=== PATIENT | female | born 1995 | race Two or more races ===

== ENCOUNTER 2016-08-28 09:55 | Inpatient (IN) | payer OTHER ==
[~2016-08-28] VITALS: Ht 160 cm; Wt 86.2 kg
[2016-08-28] MEDS ORDERED: ACETAMINOPHEN 325 MG TABLET. PO ONE (11:15)
[2016-08-28] MEDS ORDERED: FENTANYL PF 100 MCG/2 ML VIAL. IV ONE (11:15)
--- NOTE | 2016-08-28 11:16 | PHYS DOC ---
Past Medical History Past Medical History: No Pertinent History, Other Additional Past Medical Histor: PNA 6 WKS AGO Past Surgical History: , Tonsillectomy Additional Past Surgical Histo: wisdome teeth, D&C x 2 Alcohol Use: None Drug Use: None Adult General Chief Complaint Chief Complaint: SORE THROAT HPI HPI Patient is a 21 year old female presents the emergency room today with complaint of fevers, nausea and vomiting, bilateral ear pain, sore throat and body aches and been ongoing for approximately 5 days. Patient was initially seen at [facility] in [place] where is reported that she had negative mononucleosis, strep or influenza test done. She was then seen by her primary care doctor diagnosed with UTI. Patient states that she feels that she continues to get worse with generalized weakness and worsening of her overall condition. She was initially prescribed Keflex for UTI and then her primary care doctor prescribed her doxycycline for broader coverage to include respiratory pathogens. Review of Systems Review of Systems Constitutional: Denies fever or chills [] Eyes: Denies change in visual acuity, redness, or eye pain [] HENT: Denies nasal congestion or sore throat [] Respiratory: Denies cough or shortness of breath [] Cardiovascular: No additional information not addressed in HPI [] GI: Denies abdominal pain, nausea, vomiting, bloody stools or diarrhea [] : Denies dysuria or hematuria [] Musculoskeletal: Denies back pain or joint pain [] Integument: Denies rash or skin lesions [] Neurologic: Denies headache, focal weakness or sensory changes [] Endocrine: Denies polyuria or polydipsia [] Current Medications Current Medications Current Medications Medications (Trade) Dose Ordered Sig/Minerva Start Time Stop Time Status Last Admin Dose Admin Acetaminophen (Tylenol) 650 mg 1X ONCE 08/28/16 11:15 08/28/16 11:16 DC 08/28/16 11:35 650 MG Ceftriaxone Sodium (Rocephin 1gm Ivpb For Omni) 50 ml @ 100 mls/hr 1X ONCE 08/28/16 12:30 08/28/16 12:59 DC 08/28/16 12:40 100 MLS/HR Dexamethasone Sodium Phosphate (Decadron) 20 mg 1X ONCE 08/28/16 12:30 08/28/16 12:31 DC 08/28/16 12:39 20 MG Fentanyl Citrate (Fentanyl 2ml Vial) 50 mcg 1X ONCE 08/28/16 11:15 08/28/16 11:16 DC 08/28/16 11:32 50 MCG Morphine Sulfate 5 mg 1X ONCE 08/28/16 12:30 08/28/16 12:31 DC 08/28/16 12:38 5 MG Ondansetron HCl 4 mg 4 mg 1X ONCE 08/28/16 11:30 08/28/16 11:31 DC 08/28/16 11:31 4 MG Sodium Chloride (Iv Sodium Chloride 0.9% 1000ml Bag) 1,000 ml @ 1,000 mls/hr Q1H 08/28/16 11:10 08/28/16 13:09 DC 08/28/16 12:36 1,000 MLS/HR Allergies Allergies Allergies Coded Allergies Type Severity Reaction Last Updated Verified No Known Drug Allergies 11/21/15 No Physical Exam Physical Exam Constitutional: This is an alert but febrile female in moderate amount of distress. HENT: Normocephalic, atraumatic, bilateral external ears normal, oropharynx moist, no oral exudates, nose normal. There is no trismus or hot potato speech. She does posterior oropharynx is grossly erythematous and with some plicae type lesions to her tonsils. She has also vesicular type lesions to the surrounding posterior oropharynx. There is no peritonsillar swelling or uvular deviation. Eyes: PERRLA, EOMI, conjunctiva normal, no discharge. [] Neck: Normal range of motion, no tenderness, supple, no stridor. There is no meningismus. There is bilateral anterior and posterior cervical lymphadenopathy. Cardiovascular:Heart rate 126 with regular rhythm, no murmur. Lungs & Thorax: Bilateral breath sounds clear to auscultation [] Abdomen: Abdomen is soft and nondistended. There are normoactive bowel sounds in all 4 quadrants. There is no palpable defect to the abdominal wall or pulsatile mass. There is no rebound or guarding. Skin: Warm, dry, no erythema, no rash. [] Back: Patient's back is normal in appearance. There is no CVA tenderness. Extremities: No tenderness, no cyanosis, no clubbing, ROM intact, no edema. [] Neurologic: Alert and oriented X 3, normal motor function, normal sensory function, no focal deficits noted. Psychologic: Affect normal, judgement normal, mood normal. [] Current Patient Data Vital Signs Vital Signs Date Time Temp Pulse Resp B/P Pulse Ox O2 Delivery O2 Flow Rate FiO2 08/28/16 12:26 108 128/74 95 Room Air 08/28/16 10:27 101.3 20 101.3 Lab Values Laboratory Tests Test 08/28/16 11:25 08/28/16 11:35 White Blood Count 8.3x10^3/uL (4.0-11.0) Red Blood Count 4.68x10^6/uL (3.50-5.40) Hemoglobin 12.9g/dL (12.0-15.5) Hematocrit 38.3% (36.0-47.0) Mean Corpuscular Volume 82fL (79-100) Mean Corpuscular Hemoglobin 28pg (25-35) Mean Corpuscular Hemoglobin Concent 34g/dL (31-37) Red Cell Distribution Width 13.7% (11.5-14.5) Platelet Count 396x10^3/uL (140-400) Neutrophils (%) (Auto) 75% (31-73) H Lymphocytes (%) (Auto) 15% (24-48) L Monocytes (%) (Auto) 10% (0-9) H Eosinophils (%) (Auto) 0% (0-3) Basophils (%) (Auto) 1% (0-3) Neutrophils # (Auto) 6.2x10^3uL (1.8-7.7) Lymphocytes # (Auto) 1.2x10^3/uL (1.0-4.8) Monocytes # (Auto) 0.8x10^3/uL (0.0-1.1) Eosinophils # (Auto) 0.0x10^3/uL (0.0-0.7) Basophils # (Auto) 0.0x10^3/uL (0.0-0.2) Prothrombin Time 12.4SEC (11.7-14.0) Prothrombin Time INR 1.0 (0.8-1.1) Urine Collection Type Unknown Urine Color Yellow Urine Clarity Clear Urine pH 5.5 Urine Specific [place] 1.015 Urine Protein 30mg/dL (NEG-TRACE) Urine Glucose (UA) Negativemg/dL (NEG) Urine Ketones (Stick) Tracemg/dL (NEG) Urine Blood Small (NEG) Urine Nitrite Negative (NEG) Urine Bilirubin Negative (NEG) Urine Urobilinogen Dipstick 0.2mg/dL (0.2 mg/dL) Urine Leukocyte Esterase Trace (NEG) Urine RBC 6-10/HPF (0-2) Urine WBC 5-10/HPF (0-4) Urine Squamous Epithelial Cells Few/LPF Urine Bacteria Few/HPF (0-FEW) Urine Mucus Slight/LPF Urine Test Negative (NEG) Sodium Level 140mmol/L (136-145) Potassium Level 3.8mmol/L (3.5-5.1) Chloride Level 101mmol/L (98-107) Carbon Dioxide Level 30mmol/L (21-32) Anion Gap 9 (6-14) Blood Urea Nitrogen 12mg/dL (7-20) Creatinine 1.1mg/dL (0.6-1.0) H Estimated GFR (Cockcroft-Gault) 63.3 BUN/Creatinine Ratio 11 (6-20) Glucose Level 101mg/dL (70-99) H Lactic Acid Level 1.0mmol/L (0.4-2.0) Calcium Level 9.4mg/dL (8.5-10.1) Total Bilirubin 0.3mg/dL (0.2-1.0) Aspartate Amino Transferase (AST) 27U/L (15-37) Alanine Aminotransferase (ALT) 44U/L (14-59) Alkaline Phosphatase 78U/L (46-116) Total Protein 8.3g/dL (6.4-8.2) H Albumin 3.8g/dL (3.4-5.0) Albumin/Globulin Ratio 0.8 (1.0-1.7) L Influenza Type A Antigen Negative (NEGATIVE) Influenza Type B Antigen Negative (NEGATIVE) Group A Streptococcus Rapid Negative (NEGATIVE) Laboratory Tests 08/28/16 11:25 Laboratory Tests 08/28/16 11:25 EKG EKG [] Radiology/Procedures Radiology/Procedures PA and lateral chest x-ray was performed. There is no evidence of an infiltrate or consolidation. Course & Med Decision Making Course & Med Decision Making Patient's had an uneventful stay here in the emergency department. Based on her initial presentation and course of 2 different types of antibiotics on an outpatient basis, sepsis workup was initiated. Patient received 2 L of normal saline here in the emergency department. Her lactic acid is 1.0. No additional fluids were ordered for bolus here in the ED. Patient also received a 1 g dose of Rocephin via IV, 20 mg of Decadron IV and 5 mg of morphine IV. Patient states that she felt somewhat better at time of reevaluation. Case was staffed with Dr. Galeano, hospitalist. Based on patient's history of being seen in 3 different facilities and having been on 2 different outpatient antibiotics without improvement of her overall condition, I believe it was best to admit this patient to the hospital for further observation. Blood cultures are pending. Dr. Galeano agreed with my assessment and accepted the patient to his service. Dragon Disclaimer Dragon Disclaimer This electronic medical record was generated, in whole or in part, using a voice recognition dictation system. Departure Departure Impression: Primary Impression: Fever Additional Impressions: Dehydration Pyelonephritis Disposition: 09 ADMITTED INPATIENT Admitting Physician: Jimmie Galeano Condition: STABLE Referrals: TONIA DRAPER MD (PCP) Problem Qualifiers Primary Impression: Fever Fever type: unspecified Qualified Code: R50.9 - Fever, unspecified CELESTE ARCE Aug 28, 2016 11:16
[2016-08-28] MEDS ORDERED: ONDANSETRON PF 4 MG/2 ML VIAL. IV ONE (11:30)
[2016-08-28] MEDS: IV NORMAL SALINE 1000ML BAG 1,000 ML IV SCH ×2 (11:30→12:36)
[2016-08-28 11:35] LABS: BASO % 1 % (0-3); EOS % 0 % (0-3); HEMATOCRIT 38.3 % (36.0-47.0); HEMOGLOBIN 12.9 g/dL (12.0-15.5); LYMPH # 1.2 x10^3/uL (1.0-4.8); LYMPH % 15 % (24-48); MEAN CORPUSCULAR HEMOGLOBIN 28 pg (25-35); MEAN CORPUSCULAR HGB CONC 34 g/dL (31-37); MEAN CORPUSCULAR VOLUME 82 fL (79-100); MONO % 10 % (0-9); NEUT % 75 % (31-73); PLATELET COUNT 396 x10^3/uL (140-400); RED BLOOD COUNT 4.68 x10^6/uL (3.50-5.40); RED CELL DISTRIBUTION WIDTH 13.7 % (11.5-14.5); WHITE BLOOD COUNT 8.3 x10^3/uL (4.0-11.0)
[2016-08-28 11:37] LABS: NEG OBC UR NEG; POS OBC UR POS
[2016-08-28 11:45] LABS: BILIRUBIN,URINE NEGATIVE (NEG); GLUCOSE,URINE NEGATIVE (NEG); NITRITE,URINE NEGATIVE (NEG); PH,URINE 5.5; PROTEIN,URINE 30 mg/dL (NEG-TRACE); UROBILINOGEN,URINE 0.2 mg/dL (0.2 mg/dL)
[2016-08-28 11:47] LABS: CALCIUM 9.4 mg/dL (8.5-10.1); CREATININE 1.1 mg/dL (0.6-1.0); GFR 63.3; POTASSIUM 3.8 mmol/L (3.5-5.1)
[2016-08-28 11:50] LABS: ALBUMIN 3.8 g/dL (3.4-5.0); ALBUMIN/GLOBULIN RATIO 0.8 (1.0-1.7); TOTAL BILIRUBIN 0.3 mg/dL (0.2-1.0); TOTAL PROTEIN 8.3 g/dL (6.4-8.2)
[2016-08-28 11:58] LABS: BACTERIA,URINE FEW /HPF (0-FEW); SQUAMOUS EPITHELIAL CELL,UR FEW /LPF
[2016-08-28 12:04] LABS: NEGATIVE OBC STREP NEG; POSITIVE OBC STREP POS
[2016-08-28 12:06] LABS: PROTHROMBIN TIME PATIENT 12.4 SEC (11.7-14.0)
[2016-08-28 12:07] LABS: OBC FLU VALID
--- NOTE | 2016-08-28 12:07 | RAD ---
Chest, 2 views, 08/28/2016: History: Cough and fever The heart size and pulmonary vascularity are normal. No pulmonary infiltrates are seen. There is no evidence of pleural fluid. IMPRESSION: No acute cardiopulmonary abnormality is detected.
[2016-08-28] MEDS ORDERED: DEXAMETHASONE SOD PHOS 20 MG/5 ML VIAL. IV ONE (12:30)
[2016-08-28] MEDS ORDERED: CEFTRIAXONE 1GM IVPB FOR OMNI 50 ML IV ONE (12:30)
[2016-08-28] MEDS ORDERED: MORPHINE SULFATE 10 MG/ML VIAL. IV ONE (12:30)
[2016-08-28] MEDS ORDERED: MORPHINE SULFATE 4 MG/ML DISP.SYRIN. IV PRN (12:45)
[2016-08-28] MEDS ORDERED: IV NORMAL SALINE 1000ML BAG 1,000 ML IV SCH (12:45)
[2016-08-28] MEDS ORDERED: ONDANSETRON PF 4 MG/2 ML VIAL. IV PRN (12:45)
[2016-08-28 13:45] VITALS: BP 126/80
[2016-08-28] MEDS: BENZOCAINE/MENTHOL LOZENGE. PO PRN ×3 (14:15→18:16)
[2016-08-28] MEDS ORDERED: ACETAMINOPHEN 325 MG TABLET. PO PRN (14:15)
[2016-08-28] MEDS: FENTANYL PF 100 MCG/2 ML VIAL. IV PRN ×4 (14:15→20:42)
[2016-08-28] MEDS ORDERED: PHENOL ORAL SPRAY 177ML BOTTLE. PO PRN (14:15)
[2016-08-28 15:14] VITALS: BP 126/79
--- NOTE | 2016-08-28 16:01 | ACF ---
Admission Forms Criteria FEVER Clinical Indications for Inpatient Care (Place 'X' for any and all applicable criteria): Ongoing inpatient care may be indicated for fever with ANY ONE of the following[ D] (5)(27)(28)(29)(30)(31): [ ]I. Bacteremia [X]II. Evidence of significant systemic illness as indicated by ANY ONE of the following: [ ]a) Persistently high temperatures greater than 103.1 degrees F ( 39.5 degrees C) (oral) [ ]b) New-onset hypoxia [X]c) Hemodynamic instability [ ]d) Mental status changes [ ]e) Decreased urine output due to developing renal insufficiency [ ]f) New focal neurologic deficit (eg, stroke) [ ]g) Seizures [ ]h) Rigors [X]i) Dehydration or hypovolemia [ ]j) Inadequate oral intake [ ]III. Patient in the immediate postoperative period with ANY ONE of the following (E)(23)(24): [ ]a) Evidence of specific localizing infection requiring ongoing inpatient evaluation or treatment (eg,abscess, severe pneumonia, wound infection ) [ ]b) Known or suspected cause of fever requiring ongoing inpatient evaluation or treatment (eg, DVT) [ ]c) Evidence of malignant hyperthermia (eg, unexplained tachycardia and muscle rigidity after depolarizing muscular blocking agent or inhaled anesthetic agent) [ ]IV. Suspected cause requiring acute care (eg, endocarditis, meningitis) [ ]V. High suspicion of bacteremia as indicated by severe constitutional symptoms in patient at high risk as indicated by ANY ONE of the following: [ ]a) Immunocompromised state [D](22) [ ]b) Age <3 years or >65 years [ ]c) Severe comorbidities (eg, poorly controlled diabetes, severe COPD) [ ]. High suspicion for fungal infection as indicated by ANY ONE of the following (22)(25): [ ]a) Febrile neutropenia (WBC <500/mm3 (0.5 X 109/L)) for >4 days despite broad spectrum antibiotics [ ]b) Imaging findings suggestive of fungal infection [ ]c) Immunocompromised state [ ]d) Immunocompromised patient colonized with Aspergillus species [ ]VII. Evidence of infection of medical devices such as implanted catheters or exposed hardware [ ]VIII. Suspected neuroleptic malignant syndrome as evidenced by ALL of the following (15): [ ]a) Recent use of neuroleptic medication (eg, haloperidol, prochlorperazine, metoclopramide) [ ]b) New-onset muscle rigidity Extended stay beyond goal length of stay for primary condition may be needed until ALL of the following are present(16)(17)(18)(19)(20)(21): [ ]a) Temperature status acceptable as indicated by ANY ONE of the following: [ ]i) Temp <38.1C (100.5 F) (oral) [ ]ii) Temp as expected for disease process and care performable at next level of care [ ]b) Hemodynamic stability [ ]c) Cultures negative or infection identified and under adequate treatment [ ]d) Behavior or mental status abnormalities absent or manageable at lower level of care (Also use Mental Status Change Criteria Form) for further information. [ ]e) Medical comorbidities absent or manageable at a lower level of care The original [facility] content created by [facility] has been revised. The portions of the content which have been revised are identified through the use of italic text or in bold, and [facility] has neither reviewed nor approved the modified material. All other unmodified content is copyright [facility]. Please see references footnoted in the original [facility] edition 2016 Admission Criteria Met?: Yes AMY AQUINO Aug 28, 2016 16:01
[2016-08-28 19:00] VITALS: BP 121/78
--- NOTE | 2016-08-28 20:08 | HP ---
ADMIT DATE: 08/28/2016 CHIEF COMPLAINT: Sore throat. HISTORY OF PRESENT ILLNESS: The patient is a pleasant, healthy 21-year-old female who presents with a sore throat. She has some associated fevers and nausea, vomiting and ear pain as well. I have discussed the case with the ER physician. We are going to admit the patient, give her some IV antibiotics and steroids. PAST MEDICAL HISTORY: Pneumonia 6 weeks ago, C-sections, tonsillectomy, wisdom teeth extraction, D and C x 2. ALLERGIES: None. FAMILY HISTORY: Diabetes. SOCIAL HISTORY: She does not drink, smoke or take drugs. MEDICATIONS: Reviewed, please refer to MRAD. REVIEW OF SYSTEMS: GENERAL: No history of weight change, weakness or fevers. SKIN: No bruising, hair changes or rashes. EYES: No blurred, double or loss of vision. NOSE AND THROAT: No history of nosebleeds, hoarseness. The patient complains of sore throat (she was recently treated with Keflex and then doxycycline as an outpatient). HEART: No history of palpitations, chest pain or shortness of breath on exertion. LUNGS: Denies cough, hemoptysis, wheezing or shortness of breath. GASTROINTESTINAL: Denies changes in appetite, nausea, vomiting, diarrhea or constipation. GENITOURINARY: No history of frequency, urgency, hesitancy or nocturia. NEUROLOGIC: Denies history of numbness, tingling, tremor or weakness. PSYCHIATRIC: No history of panic, anxiety or depression. ENDOCRINE: No history of heat or cold intolerance, polyuria or polydipsia. EXTREMITIES: Denies muscle weakness, joint pain, pain on walking or stiffness. PHYSICAL EXAMINATION: VITAL SIGNS: Temperature is 101.3, pulse ranging from 90-110, respirations 18, blood pressure 126/79. GENERAL: She is alert, cooperative. Her mom was present and seems to be very good support for her. HEART: Distant S1, S2 at 92 beats per minute currently. LUNGS: Clear. ABDOMEN: Soft, positive bowel sounds. EXTREMITIES: No edema. SKIN: No rashes. PSYCHIATRIC: She is a little anxious. VASCULAR: Good capillary refill. ENDOCRINE: No thyromegaly. LYMPHATICS: She has got some cervical chain nodes in the right. HEMATOPOIETIC: No bruising. HEENT: The oropharynx does have some pustules. LABORATORY DATA: White count 8, hemoglobin 12.9, platelets 396. Electrolytes: Sodium 140, potassium 3.8, chloride 101, bicarbonate 30, BUN 12, creatinine 1.1, glucose 101. ASSESSMENT AND PLAN: Probable viral syndrome with pharyngitis with possible impending sepsis. The patient is being admitted. We will start IV antibiotics, IV fluids, p.r.n. antiemetics, p.r.n. narcotics for pain, frequent labs. We gave her 1 dose of dexamethasone IV. We are going to go ahead and start her on Medrol Dosepak as well, ceftriaxone 1 gram IV q. 24. Throat culture is pending. SARA COX DO DR: MAHI/zaria JOB#: [id number] / [id number]
[2016-08-28] MEDS ORDERED: HYDROMORPHONE 2 MG/ML VIAL. IV PRN (21:00)
[2016-08-28] MEDS ORDERED: LIDOCAINE 2% VISCOUS 15 ML SOLUTION. SWSW PRN (21:15)
[2016-08-28] MEDS ORDERED: methylPREDNISolone SOD SUCC PF 40 MG/ML VIAL. IV SCH (22:00)
[2016-08-28 22:54] VITALS: BP 130/84
[2016-08-28] MEDS: ZOLPIDEM 5 MG TABLET. PO PRN (23:24)
[2016-08-28] MEDS: HYDROMORPHONE 2 MG/ML VIAL. IV PRN (23:24)
[2016-08-29] MEDS: HYDROMORPHONE 2 MG/ML VIAL. IV PRN ×9 (02:09→22:39)
[2016-08-29 07:13] VITALS: BP 115/75
[2016-08-29] MEDS: methylPREDNISolone 4 MG TABLET. PO SCH ×2 (07:43→12:56)
[2016-08-29] MEDS: CEFTRIAXONE SODIUM 1 GM in IV NORMAL SALINE 50ML 50 ML IV SCH (07:43)
[2016-08-29] MEDS: BENZOCAINE/MENTHOL LOZENGE. PO PRN ×3 (09:22→13:34)
[2016-08-29 10:57] VITALS: BP 116/76
[2016-08-29] MEDS: IV NORMAL SALINE 1000ML BAG 1,000 ML IV SCH (11:34)
--- NOTE | 2016-08-29 12:45 | PDOC ---
PROGRESS NOTES Chief Complaint Chief Complaint error Comment Review of Relevant I have reviewed the following items jimmy (where applicable) has been applied. Labs Laboratory Tests Test 08/28/16 11:25 08/28/16 11:35 White Blood Count 8.3x10^3/uL (4.0-11.0) Red Blood Count 4.68x10^6/uL (3.50-5.40) Hemoglobin 12.9g/dL (12.0-15.5) Hematocrit 38.3% (36.0-47.0) Mean Corpuscular Volume 82fL (79-100) Mean Corpuscular Hemoglobin 28pg (25-35) Mean Corpuscular Hemoglobin Concent 34g/dL (31-37) Red Cell Distribution Width 13.7% (11.5-14.5) Platelet Count 396x10^3/uL (140-400) Neutrophils (%) (Auto) 75% (31-73) Lymphocytes (%) (Auto) 15% (24-48) Monocytes (%) (Auto) 10% (0-9) Eosinophils (%) (Auto) 0% (0-3) Basophils (%) (Auto) 1% (0-3) Neutrophils # (Auto) 6.2x10^3uL (1.8-7.7) Lymphocytes # (Auto) 1.2x10^3/uL (1.0-4.8) Monocytes # (Auto) 0.8x10^3/uL (0.0-1.1) Eosinophils # (Auto) 0.0x10^3/uL (0.0-0.7) Basophils # (Auto) 0.0x10^3/uL (0.0-0.2) Prothrombin Time 12.4SEC (11.7-14.0) Prothromb Time International Ratio 1.0 (0.8-1.1) Urine Collection Type Unknown Urine Color Yellow Urine Clarity Clear Urine pH 5.5 Urine Specific [place] 1.015 Urine Protein 30mg/dL (NEG-TRACE) Urine Glucose (UA) Negativemg/dL (NEG) Urine Ketones (Stick) Tracemg/dL (NEG) Urine Blood Small (NEG) Urine Nitrite Negative (NEG) Urine Bilirubin Negative (NEG) Urine Urobilinogen Dipstick 0.2mg/dL (0.2 mg/dL) Urine Leukocyte Esterase Trace (NEG) Urine RBC 6-10/HPF (0-2) Urine WBC 5-10/HPF (0-4) Urine Squamous Epithelial Cells Few/LPF Urine Bacteria Few/HPF (0-FEW) Urine Mucus Slight/LPF Urine Test Negative (NEG) Sodium Level 140mmol/L (136-145) Potassium Level 3.8mmol/L (3.5-5.1) Chloride Level 101mmol/L (98-107) Carbon Dioxide Level 30mmol/L (21-32) Anion Gap 9 (6-14) Blood Urea Nitrogen 12mg/dL (7-20) Creatinine 1.1mg/dL (0.6-1.0) Estimated GFR (Cockcroft-Gault) 63.3 BUN/Creatinine Ratio 11 (6-20) Glucose Level 101mg/dL (70-99) Lactic Acid Level 1.0mmol/L (0.4-2.0) Calcium Level 9.4mg/dL (8.5-10.1) Total Bilirubin 0.3mg/dL (0.2-1.0) Aspartate Amino Transf (AST/SGOT) 27U/L (15-37) Alanine Aminotransferase (ALT/SGPT) 44U/L (14-59) Alkaline Phosphatase 78U/L (46-116) Total Protein 8.3g/dL (6.4-8.2) Albumin 3.8g/dL (3.4-5.0) Albumin/Globulin Ratio 0.8 (1.0-1.7) Influenza Type A Antigen Negative (NEGATIVE) Influenza Type B Antigen Negative (NEGATIVE) Group A Streptococcus Rapid Negative (NEGATIVE) Microbiology 08/28/16 Blood Culture - Preliminary, Resulted NO GROWTH AFTER 1 DAY Medications Current Medications Sodium Chloride (Iv Sodium Chloride 0.9% 1000ml Bag) 1,000 ml @ 1,000 mls/hr Q1H IV Last administered on 08/28/16 12:36; Start 08/28/16 at 11:10; Stop at 13:09; Status DC Fentanyl Citrate (Fentanyl 2ml Vial) 50 mcg 1X ONCE IV Last administered on 11:32; Start 08/28/16 at 11:15; Stop 08/28/16 at 11:16; Status DC Acetaminophen (Tylenol) 650 mg 1X ONCE PO Last administered on 08/28/16 11:35 ; Start 08/28/16 at 11:15; Stop 08/28/16 at 11:16; Status DC Ondansetron HCl 4 mg 4 mg 1X ONCE IV Last administered on 08/28/16 11:31; Start 08/28/16 at 11:30; Stop 08/28/16 at 11:31; Status DC Ceftriaxone Sodium (Rocephin 1gm Ivpb For Omni) 50 ml @ 100 mls/hr 1X ONCE IV Last administered on 08/28/16 12:40; Start 08/28/16 at 12:30; Stop 08/28/16 at 12:59; Status DC Dexamethasone Sodium Phosphate (Decadron) 20 mg 1X ONCE IV Last administered on 08/28/16 12:39; Start 08/28/16 at 12:30; Stop 08/28/16 at 12:31; Status DC Morphine Sulfate 5 mg 1X ONCE IV Last administered on 08/28/16 12:38; Start 08/28/16 at 12:30; Stop 08/28/16 at 12:31; Status DC Ondansetron HCl (Zofran) 4 mg PRN Q8HRS PRN IV NAUSEA/VOMITING Last administered on 08/29/16 07:45; Start 08/28/16 at 12:45; Stop 08/29/16 at 12:44 Morphine Sulfate 4 mg 4 mg PRN Q4HRS PRN IV PAIN SEVERE; Start 08/28/16 at 12: 45; Stop 08/28/16 at 23:30; Status DC Sodium Chloride (Iv Sodium Chloride 0.9% 1000ml Bag) 1,000 ml @ 150 drops/ hr Q24H IV Last administered on 08/28/16 12:45; Start 08/28/16 at 12:45; Stop at 11:19; Status DC Acetaminophen (Tylenol) 650 mg PRN Q6HRS PRN PO FEVER Last administered on 08/28 16:11; Start 08/28/16 at 14:15 Fentanyl Citrate (Fentanyl 2ml Vial) 75 mcg PRN Q2HR PRN IV pain Last administered on 08/28/16 20:42; Start 08/28/16 at 14:15; Stop 08/29/16 at 03:47 ; Status DC Throat Lozenges (Cepacol Sore Throat Lozenge) 1 marcie PRN Q2HRS PRN PO SORE THROAT, 1st choice Last administered on 08/29/16 11:39; Start 08/28/16 at 14:15 Throat Lozenges 1 spray 1 spray PRN Q2HR PRN PO SORE THROAT, 2nd choice Last administered on 08/28/16 15:51; Start 08/28/16 at 14:15 Ceftriaxone Sodium/Sodium Chloride (Rocephin/Iv Sodium Chloride 0.9% 50ml) 50 ml @ 100 mls/hr Q24H IV Last administered on 08/29/16 07:43; Start 08/29/16 at 09:00 Methylprednisolone Sodium Succinate (Solu-Medrol 40mg Vial) 40 mg Q8HRS IV ; Start 08/28/16 at 22:00; Stop 08/28/16 at 22:00; Status DC Methylprednisolone (Medrol) 4 mg TIDPC PO Last administered on 08/29/16 07:43 ; Start 08/29/16 at 08:30; Stop 08/29/16 at 17:31 Methylprednisolone (Medrol) 8 mg QHS PO ; Start 08/29/16 at 21:00; Stop at 21:01 Methylprednisolone (Medrol) 4 mg QIDAFTMEAL PO ; Start 08/30/16 at 09:00; Stop 08/30/16 at 21:01 Methylprednisolone (Medrol) 4 mg TID PO ; Start 08/31/16 at 09:00; Stop at 21:01 Methylprednisolone (Medrol) 4 mg BID PO ; Start 09/01/16 at 09:00; Stop at 21:01 Methylprednisolone (Medrol) 4 mg DAILY PO ; Start 09/02/16 at 09:00; Stop at 09:01 Hydromorphone HCl (Dilaudid) 1 mg PRN Q4HRS PRN IV PAIN SEVERE Last administered on 08/28/16 21:48; Start 08/28/16 at 21:00; Stop 08/29/16 at 03:47 ; Status DC Lidocaine HCl (Viscous Lidocaine) 15 ml PRN Q6HRS PRN SWSW MOUTH PAIN Last administered on 08/28/16 21:47; Start 08/28/16 at 21:15 Hydromorphone HCl (Dilaudid) 2 mg PRN Q2HR PRN IV SEVERE PAIN Last administered on 08/29/16 11:20; Start 08/28/16 at 23:00 Zolpidem Tartrate 5 mg 5 mg PRN QHS PRN PO INSOMNIA Last administered on 23:24; Start 08/28/16 at 23:00 Sodium Chloride (Iv Sodium Chloride 0.9% 1000ml Bag) 1,000 ml @ 75 mls/hr [id number] IV Last administered on 08/29/16 11:34; Start 08/29/16 at 12:00 Active Scripts Active Reported No Known Medications Prior To Admisstion (Info) Each 1 Each Vitals/I & O Vital Sign - Last 24 Hours 08/28/16 08/28/16 08/28/16 08/28/16 12:43 12:56 13:45 14:15 Temp 100.0 99.6 100.0 99.6 Pulse 110 97 Resp 18 20 B/P 130/77 126/80 Pulse Ox 98 95 98 O2 Delivery Room Air Room Air 08/28/16 08/28/16 08/28/16 08/28/16 14:37 15:14 16:11 18:16 Temp 99.4 99.4 Pulse 98 Resp 18 18 20 B/P 126/79 Pulse Ox 95 95 95 O2 Delivery Room Air Room Air Room Air Room Air 08/28/16 08/28/16 08/28/16 08/28/16 18:44 19:00 19:45 20:42 Temp 98.2 98.2 Pulse 81 Resp 18 22 B/P 121/78 Pulse Ox 95 95 95 O2 Delivery Room Air Room Air Room Air 08/28/16 08/28/16 08/28/16 08/28/16 21:48 22:54 23:01 23:02 Temp 97.9 97.9 Pulse 72 Resp 20 18 18 18 B/P 130/84 Pulse Ox 98 O2 Delivery Room Air Room Air Room Air Room Air 08/28/16 08/29/16 08/29/16 08/29/16 23:24 02:09 06:40 07:13 Temp 96.0 96.0 Pulse 71 Resp 18 20 20 16 B/P 115/75 Pulse Ox 94 O2 Delivery Room Air Room Air Room Air Room Air 08/29/16 08/29/16 08/29/16 08/29/16 07:18 08:00 09:11 10:57 Temp 97.8 97.8 Pulse 75 Resp 18 16 B/P 116/76 Pulse Ox 92 O2 Delivery Room Air Room Air Room Air Room Air 08/29/16 11:20 O2 Delivery Room Air Intake and Output 08/28/16 08/28/16 08/29/16 15:00 23:00 07:00 Intake Total 2050 ml 460 ml 615 ml Output Total 800 ml 1000 ml Balance 2050 ml -340 ml -385 ml EUFEMIA OWENS MD Aug 29, 2016 12:45
[2016-08-29] MEDS ORDERED: ONDANSETRON PF 4 MG/2 ML VIAL. IV PRN (13:30)
[2016-08-29 14:42] VITALS: BP 123/80
[2016-08-29] MEDS ORDERED: LORAZEPAM 2 MG/ML VIAL IV ONE (15:15)
--- NOTE | 2016-08-29 15:17 | PDOC ---
PROGRESS NOTES Chief Complaint Chief Complaint Viral syndrome Sepsis ASSESSMENT AND PLAN: 1. Sepsis: resolved 2. Pharyngitis: neg for strep and influenza A/B. treat symptomatically. CT neck 3. N/V: severe. zofran and reglan alt. q4h PRN, ativan as adjunct. NPO with ice chips 4. blood streaked emesis: suspect Roma-Sanabria tear 5. Pain: dilaudid PRN Prophylaxis: PPI, lovenox . Vitals Vitals Vital Signs Date Time Temp Pulse Resp B/P Pulse Ox O2 Delivery O2 Flow Rate FiO2 08/29/16 14:42 97.8 77 17 123/80 92 Room Air 97.8 Physical Exam General: Alert, Cooperative, mild distress Heart: Regular rate Lungs: Clear Abdomen: Normal bowel sounds, Other (TTP epigastric) Extremities: No edema Skin: No rashes Review of Systems Review of Systems very nauseous, vomiting small amounts, occas pink. tearful, pain in throat, chest and epigastrium Comment Review of Relevant I have reviewed the following items jimmy (where applicable) has been applied. Labs Laboratory Tests Test 08/28/16 11:25 08/28/16 11:35 White Blood Count 8.3x10^3/uL (4.0-11.0) Red Blood Count 4.68x10^6/uL (3.50-5.40) Hemoglobin 12.9g/dL (12.0-15.5) Hematocrit 38.3% (36.0-47.0) Mean Corpuscular Volume 82fL (79-100) Mean Corpuscular Hemoglobin 28pg (25-35) Mean Corpuscular Hemoglobin Concent 34g/dL (31-37) Red Cell Distribution Width 13.7% (11.5-14.5) Platelet Count 396x10^3/uL (140-400) Neutrophils (%) (Auto) 75% (31-73) Lymphocytes (%) (Auto) 15% (24-48) Monocytes (%) (Auto) 10% (0-9) Eosinophils (%) (Auto) 0% (0-3) Basophils (%) (Auto) 1% (0-3) Neutrophils # (Auto) 6.2x10^3uL (1.8-7.7) Lymphocytes # (Auto) 1.2x10^3/uL (1.0-4.8) Monocytes # (Auto) 0.8x10^3/uL (0.0-1.1) Eosinophils # (Auto) 0.0x10^3/uL (0.0-0.7) Basophils # (Auto) 0.0x10^3/uL (0.0-0.2) Prothrombin Time 12.4SEC (11.7-14.0) Prothromb Time International Ratio 1.0 (0.8-1.1) Urine Collection Type Unknown Urine Color Yellow Urine Clarity Clear Urine pH 5.5 Urine Specific [place] 1.015 Urine Protein 30mg/dL (NEG-TRACE) Urine Glucose (UA) Negativemg/dL (NEG) Urine Ketones (Stick) Tracemg/dL (NEG) Urine Blood Small (NEG) Urine Nitrite Negative (NEG) Urine Bilirubin Negative (NEG) Urine Urobilinogen Dipstick 0.2mg/dL (0.2 mg/dL) Urine Leukocyte Esterase Trace (NEG) Urine RBC 6-10/HPF (0-2) Urine WBC 5-10/HPF (0-4) Urine Squamous Epithelial Cells Few/LPF Urine Bacteria Few/HPF (0-FEW) Urine Mucus Slight/LPF Urine Test Negative (NEG) Sodium Level 140mmol/L (136-145) Potassium Level 3.8mmol/L (3.5-5.1) Chloride Level 101mmol/L (98-107) Carbon Dioxide Level 30mmol/L (21-32) Anion Gap 9 (6-14) Blood Urea Nitrogen 12mg/dL (7-20) Creatinine 1.1mg/dL (0.6-1.0) Estimated GFR (Cockcroft-Gault) 63.3 BUN/Creatinine Ratio 11 (6-20) Glucose Level 101mg/dL (70-99) Lactic Acid Level 1.0mmol/L (0.4-2.0) Calcium Level 9.4mg/dL (8.5-10.1) Total Bilirubin 0.3mg/dL (0.2-1.0) Aspartate Amino Transf (AST/SGOT) 27U/L (15-37) Alanine Aminotransferase (ALT/SGPT) 44U/L (14-59) Alkaline Phosphatase 78U/L (46-116) Total Protein 8.3g/dL (6.4-8.2) Albumin 3.8g/dL (3.4-5.0) Albumin/Globulin Ratio 0.8 (1.0-1.7) Influenza Type A Antigen Negative (NEGATIVE) Influenza Type B Antigen Negative (NEGATIVE) Group A Streptococcus Rapid Negative (NEGATIVE) Microbiology 08/28/16 Blood Culture - Preliminary, Resulted NO GROWTH AFTER 1 DAY 08/28/16 Urine Culture - Preliminary, Resulted 08/28/16 Urine Culture Result 1 (BERENICE) - Preliminary, Resulted Medications Current Medications Sodium Chloride (Iv Sodium Chloride 0.9% 1000ml Bag) 1,000 ml @ 1,000 mls/hr Q1H IV Last administered on 08/28/16 12:36; Start 08/28/16 at 11:10; Stop at 13:09; Status DC Fentanyl Citrate (Fentanyl 2ml Vial) 50 mcg 1X ONCE IV Last administered on 11:32; Start 08/28/16 at 11:15; Stop 08/28/16 at 11:16; Status DC Acetaminophen (Tylenol) 650 mg 1X ONCE PO Last administered on 08/28/16 11:35 ; Start 08/28/16 at 11:15; Stop 08/28/16 at 11:16; Status DC Ondansetron HCl 4 mg 4 mg 1X ONCE IV Last administered on 08/28/16 11:31; Start 08/28/16 at 11:30; Stop 08/28/16 at 11:31; Status DC Ceftriaxone Sodium (Rocephin 1gm Ivpb For Omni) 50 ml @ 100 mls/hr 1X ONCE IV Last administered on 08/28/16 12:40; Start 08/28/16 at 12:30; Stop 08/28/16 at 12:59; Status DC Dexamethasone Sodium Phosphate (Decadron) 20 mg 1X ONCE IV Last administered on 08/28/16 12:39; Start 08/28/16 at 12:30; Stop 08/28/16 at 12:31; Status DC Morphine Sulfate 5 mg 1X ONCE IV Last administered on 08/28/16 12:38; Start 08/28/16 at 12:30; Stop 08/28/16 at 12:31; Status DC Ondansetron HCl (Zofran) 4 mg PRN Q8HRS PRN IV NAUSEA/VOMITING Last administered on 08/29/16 07:45; Start 08/28/16 at 12:45; Stop 08/29/16 at 12:44 ; Status DC Morphine Sulfate 4 mg 4 mg PRN Q4HRS PRN IV PAIN SEVERE; Start 08/28/16 at 12: 45; Stop 08/28/16 at 23:30; Status DC Sodium Chloride (Iv Sodium Chloride 0.9% 1000ml Bag) 1,000 ml @ 150 drops/ hr Q24H IV Last administered on 08/28/16 12:45; Start 08/28/16 at 12:45; Stop at 11:19; Status DC Acetaminophen (Tylenol) 650 mg PRN Q6HRS PRN PO FEVER Last administered on 08/28 16:11; Start 08/28/16 at 14:15 Fentanyl Citrate (Fentanyl 2ml Vial) 75 mcg PRN Q2HR PRN IV pain Last administered on 08/28/16 20:42; Start 08/28/16 at 14:15; Stop 08/29/16 at 03:47 ; Status DC Throat Lozenges (Cepacol Sore Throat Lozenge) 1 marcie PRN Q2HRS PRN PO SORE THROAT, 1st choice Last administered on 08/29/16 13:34; Start 08/28/16 at 14:15 Throat Lozenges 1 spray 1 spray PRN Q2HR PRN PO SORE THROAT, 2nd choice Last administered on 08/28/16 15:51; Start 08/28/16 at 14:15 Ceftriaxone Sodium/Sodium Chloride (Rocephin/Iv Sodium Chloride 0.9% 50ml) 50 ml @ 100 mls/hr Q24H IV Last administered on 08/29/16 07:43; Start 08/29/16 at 09:00 Methylprednisolone Sodium Succinate (Solu-Medrol 40mg Vial) 40 mg Q8HRS IV ; Start 08/28/16 at 22:00; Stop 08/28/16 at 22:00; Status DC Methylprednisolone (Medrol) 4 mg TIDPC PO Last administered on 08/29/16 12:56 ; Start 08/29/16 at 08:30; Stop 08/29/16 at 17:31 Methylprednisolone (Medrol) 8 mg QHS PO ; Start 08/29/16 at 21:00; Stop at 21:01 Methylprednisolone (Medrol) 4 mg QIDAFTMEAL PO ; Start 08/30/16 at 09:00; Stop 08/30/16 at 21:01 Methylprednisolone (Medrol) 4 mg TID PO ; Start 08/31/16 at 09:00; Stop at 21:01 Methylprednisolone (Medrol) 4 mg BID PO ; Start 09/01/16 at 09:00; Stop at 21:01 Methylprednisolone (Medrol) 4 mg DAILY PO ; Start 09/02/16 at 09:00; Stop at 09:01 Hydromorphone HCl (Dilaudid) 1 mg PRN Q4HRS PRN IV PAIN SEVERE Last administered on 08/28/16 21:48; Start 08/28/16 at 21:00; Stop 08/29/16 at 03:47 ; Status DC Lidocaine HCl (Viscous Lidocaine) 15 ml PRN Q6HRS PRN SWSW MOUTH PAIN Last administered on 08/28/16 21:47; Start 08/28/16 at 21:15 Hydromorphone HCl (Dilaudid) 2 mg PRN Q2HR PRN IV SEVERE PAIN Last administered on 08/29/16 13:34; Start 08/28/16 at 23:00 Zolpidem Tartrate 5 mg 5 mg PRN QHS PRN PO INSOMNIA Last administered on 23:24; Start 08/28/16 at 23:00 Sodium Chloride (Iv Sodium Chloride 0.9% 1000ml Bag) 1,000 ml @ 75 mls/hr [id number] IV Last administered on 08/29/16 11:34; Start 08/29/16 at 12:00 Ondansetron HCl (Zofran) 4 mg PRN Q4HRS PRN IV NAUSEA/VOMITING Last administered on 08/29/16 13:39; Start 08/29/16 at 13:30 Active Scripts Active Reported No Known Medications Prior To Admisstion (Info) Each 1 Each Vitals/I & O Vital Sign - Last 24 Hours 08/28/16 08/28/16 08/28/16 08/28/16 15:14 16:11 18:16 18:44 Temp 99.4 99.4 Pulse 98 Resp 18 18 20 B/P 126/79 Pulse Ox 95 95 95 95 O2 Delivery Room Air Room Air Room Air 08/28/16 08/28/16 08/28/16 08/28/16 19:00 19:45 20:42 21:48 Temp 98.2 98.2 Pulse 81 Resp 18 22 20 B/P 121/78 Pulse Ox 95 95 O2 Delivery Room Air Room Air Room Air Room Air 08/28/16 08/28/16 08/28/16 08/28/16 22:54 23:01 23:02 23:24 Temp 97.9 97.9 Pulse 72 Resp 18 18 18 18 B/P 130/84 Pulse Ox 98 O2 Delivery Room Air Room Air Room Air Room Air 08/29/16 08/29/16 08/29/16 08/29/16 02:09 06:40 07:13 07:18 Temp 96.0 96.0 Pulse 71 Resp 20 20 16 18 B/P 115/75 Pulse Ox 94 O2 Delivery Room Air Room Air Room Air 08/29/16 08/29/16 08/29/16 08/29/16 08:00 09:11 10:57 11:20 Temp 97.8 97.8 Pulse 75 Resp 16 B/P 116/76 Pulse Ox 92 O2 Delivery Room Air Room Air Room Air Room Air 08/29/16 08/29/16 08/29/16 13:34 14:33 14:42 Temp 97.8 97.8 Pulse 77 Resp 17 B/P 123/80 Pulse Ox 92 O2 Delivery Room Air Room Air Room Air Intake and Output 08/28/16 08/28/16 08/29/16 15:00 23:00 07:00 Intake Total 2050 ml 460 ml 615 ml Output Total 800 ml 1000 ml Balance 2050 ml -340 ml -385 ml EUFEMIA OWENS MD Aug 29, 2016 15:17
[2016-08-29] MEDS ORDERED: IOHEXOL 300 MG/ML 75 ML VIAL IV ONE (15:30)
[2016-08-29] MEDS ORDERED: ENOXAPARIN 40 MG/0.4 ML DISP.SYRIN. SQ SCH (16:00)
[2016-08-29] MEDS: METOCLOPRAMIDE HCL 10 MG/2 ML VIAL. IV PRN (16:03)
--- NOTE | 2016-08-29 16:25 | RAD ---
Indication neck pain. Difficulty swallowing. Axial images through the neck were obtained. 70 cc of Omnipaque 300 was administered. Images were reformatted in the coronal and sagittal planes. There are patchy infiltrates in the visualized right upper lobe suggesting pneumonia. The visualized brain appears unremarkable. The visualized paranasal sinuses appear normal. There are some slight degenerative change in the upper thoracic spine. A discrete mass, abscess or inflammatory process in the neck is not seen. In addition to mild adenopathy in the neck there is a enlarged lymph node in the right neck just above the cricoid cartilage measuring 2 cm in greatest dimension. This is probably reactive. An enlarged similarly sized node is seen in the left neck just medial to the parotid IMPRESSION: No discrete abscess seen in the neck. In addition to moderate adenopathy in the neck there are at least 2 enlarged lymph nodes each measuring approximately 2 cm. These are probably reactive. Patchy infiltrates in the right upper lobe suggest pneumonia PQRS Compliance Statement: One or more of the following individualized dose reduction techniques were utilized for this examination: 1. Automated exposure control 2. Adjustment of the mA and/or kV according to patient size 3. Use of iterative reconstruction technique
[2016-08-29] MEDS: PANTOPRAZOLE IV PUSH 40 MG VIAL. IVP SCH (16:32)
[2016-08-29 19:00] VITALS: BP 129/78
[2016-08-29] MEDS: ENOXAPARIN 40 MG/0.4 ML DISP.SYRIN. SQ SCH (20:20)
[2016-08-29] MEDS ORDERED: methylPREDNISolone 4 MG TABLET. PO SCH (21:00)
[2016-08-29] MEDS: ZOLPIDEM 5 MG TABLET. PO PRN (21:10)
[2016-08-29 23:19] VITALS: BP 135/82
[2016-08-30] MEDS: HYDROMORPHONE 2 MG/ML VIAL. IV PRN ×5 (01:17→17:24)
[2016-08-30] MEDS: IV NORMAL SALINE 1000ML BAG 1,000 ML IV SCH ×3 (01:18→21:16)
[2016-08-30 07:22] VITALS: BP 126/66
[2016-08-30] MEDS: BENZOCAINE/MENTHOL LOZENGE. PO PRN ×2 (07:23→21:19)
[2016-08-30] MEDS: PANTOPRAZOLE IV PUSH 40 MG VIAL. IVP SCH (07:23)
[2016-08-30] MEDS: CEFTRIAXONE SODIUM 1 GM in IV NORMAL SALINE 50ML 50 ML IV SCH (08:59)
[2016-08-30] MEDS ORDERED: methylPREDNISolone 4 MG TABLET. PO SCH (09:00)
[2016-08-30] MEDS: ONDANSETRON PF 4 MG/2 ML VIAL. IV PRN ×2 (09:08→18:29)
[2016-08-30 11:09] VITALS: BP 136/88
[2016-08-30] MEDS ORDERED: LORAZEPAM 0.5 MG TABLET. PO PRN (13:30)
[2016-08-30 13:43] VITALS: BP 136/88
--- NOTE | 2016-08-30 13:49 | PDOC ---
PROGRESS NOTES Chief Complaint Chief Complaint Viral syndrome Sepsis ASSESSMENT AND PLAN: 1. Sepsis: resolved 2. Pharyngitis: neg for strep and influenza A/B. treat symptomatically. CT neck neg for abscess, only LAD 3. N/V: much improved. zofran and reglan alt. q4h PRN, ativan as adjunct. advance diet to full liquids, avoid acidic/spicy foods 4. blood streaked emesis: suspect Roma-Sanabria tear. resolved 5. Pain: wean dilaudid PRN, switch to PO 6. Constipation: miralax daily for now 7. Prophylaxis: PPI, lovenox 8. Dispo: hopefully home in AM Vitals Vitals Vital Signs Date Time Temp Pulse Resp B/P Pulse Ox O2 Delivery O2 Flow Rate FiO2 08/30/16 11:58 93 Room Air 6.0 08/30/16 11:09 99.1 106 17 136/88 99.1 Physical Exam General: Alert, Cooperative, No acute distress Heart: Regular rate Lungs: Clear Abdomen: Normal bowel sounds, No tenderness Extremities: No edema Skin: No rashes Review of Systems Review of Systems sleeping, waking easily. c/o throat pain. per RN wakes up q2h to request dilaudid Comment Review of Relevant I have reviewed the following items jimmy (where applicable) has been applied. Labs Microbiology 08/28/16 Blood Culture - Preliminary, Resulted NO GROWTH AFTER 2 DAYS 08/28/16 Throat Culture - Final, Complete 08/28/16 - Final, Complete 08/28/16 Urine Culture - Final, Complete 08/28/16 Urine Culture Result 1 (BERENICE) - Final, Complete Medications Current Medications Sodium Chloride (Iv Sodium Chloride 0.9% 1000ml Bag) 1,000 ml @ 1,000 mls/hr Q1H IV Last administered on 08/28/16 12:36; Start 08/28/16 at 11:10; Stop at 13:09; Status DC Fentanyl Citrate (Fentanyl 2ml Vial) 50 mcg 1X ONCE IV Last administered on 11:32; Start 08/28/16 at 11:15; Stop 08/28/16 at 11:16; Status DC Acetaminophen (Tylenol) 650 mg 1X ONCE PO Last administered on 08/28/16 11:35 ; Start 08/28/16 at 11:15; Stop 08/28/16 at 11:16; Status DC Ondansetron HCl 4 mg 4 mg 1X ONCE IV Last administered on 08/28/16 11:31; Start 08/28/16 at 11:30; Stop 08/28/16 at 11:31; Status DC Ceftriaxone Sodium (Rocephin 1gm Ivpb For Omni) 50 ml @ 100 mls/hr 1X ONCE IV Last administered on 08/28/16 12:40; Start 08/28/16 at 12:30; Stop 08/28/16 at 12:59; Status DC Dexamethasone Sodium Phosphate (Decadron) 20 mg 1X ONCE IV Last administered on 08/28/16 12:39; Start 08/28/16 at 12:30; Stop 08/28/16 at 12:31; Status DC Morphine Sulfate 5 mg 1X ONCE IV Last administered on 08/28/16 12:38; Start 08/28/16 at 12:30; Stop 08/28/16 at 12:31; Status DC Ondansetron HCl (Zofran) 4 mg PRN Q8HRS PRN IV NAUSEA/VOMITING Last administered on 08/29/16 07:45; Start 08/28/16 at 12:45; Stop 08/29/16 at 12:44 ; Status DC Morphine Sulfate 4 mg 4 mg PRN Q4HRS PRN IV PAIN SEVERE; Start 08/28/16 at 12: 45; Stop 08/28/16 at 23:30; Status DC Sodium Chloride (Iv Sodium Chloride 0.9% 1000ml Bag) 1,000 ml @ 150 drops/ hr Q24H IV Last administered on 08/28/16 12:45; Start 08/28/16 at 12:45; Stop at 11:19; Status DC Acetaminophen (Tylenol) 650 mg PRN Q6HRS PRN PO FEVER Last administered on 08/28 16:11; Start 08/28/16 at 14:15 Fentanyl Citrate (Fentanyl 2ml Vial) 75 mcg PRN Q2HR PRN IV pain Last administered on 08/28/16 20:42; Start 08/28/16 at 14:15; Stop 08/29/16 at 03:47 ; Status DC Throat Lozenges (Cepacol Sore Throat Lozenge) 1 marcie PRN Q2HRS PRN PO SORE THROAT, 1st choice Last administered on 08/30/16 07:23; Start 08/28/16 at 14:15 Throat Lozenges 1 spray 1 spray PRN Q2HR PRN PO SORE THROAT, 2nd choice Last administered on 08/28/16 15:51; Start 08/28/16 at 14:15 Ceftriaxone Sodium/Sodium Chloride (Rocephin/Iv Sodium Chloride 0.9% 50ml) 50 ml @ 100 mls/hr Q24H IV Last administered on 08/30/16 08:59; Start 08/29/16 at 09:00 Methylprednisolone Sodium Succinate (Solu-Medrol 40mg Vial) 40 mg Q8HRS IV ; Start 08/28/16 at 22:00; Stop 08/28/16 at 22:00; Status DC Methylprednisolone (Medrol) 4 mg TIDPC PO Last administered on 08/29/16 12:56 ; Start 08/29/16 at 08:30; Stop 08/29/16 at 15:09; Status DC Methylprednisolone (Medrol) 8 mg QHS PO ; Start 08/29/16 at 21:00; Stop at 21:00; Status DC Methylprednisolone (Medrol) 4 mg QIDAFTMEAL PO ; Start 08/30/16 at 09:00; Stop 08/30/16 at 09:00; Status DC Methylprednisolone (Medrol) 4 mg TID PO ; Start 08/31/16 at 09:00; Stop at 09:00; Status DC Methylprednisolone (Medrol) 4 mg BID PO ; Start 09/01/16 at 09:00; Stop at 09:00; Status DC Methylprednisolone (Medrol) 4 mg DAILY PO ; Start 09/02/16 at 09:00; Stop at 09:00; Status DC Hydromorphone HCl (Dilaudid) 1 mg PRN Q4HRS PRN IV PAIN SEVERE Last administered on 08/28/16 21:48; Start 08/28/16 at 21:00; Stop 08/29/16 at 03:47 ; Status DC Lidocaine HCl (Viscous Lidocaine) 15 ml PRN Q6HRS PRN SWSW MOUTH PAIN Last administered on 08/28/16 21:47; Start 08/28/16 at 21:15 Hydromorphone HCl (Dilaudid) 2 mg PRN Q2HR PRN IV SEVERE PAIN Last administered on 08/29/16 13:34; Start 08/28/16 at 23:00; Stop 08/29/16 at 15:09 ; Status DC Zolpidem Tartrate 5 mg 5 mg PRN QHS PRN PO INSOMNIA Last administered on 21:10; Start 08/28/16 at 23:00 Sodium Chloride (Iv Sodium Chloride 0.9% 1000ml Bag) 1,000 ml @ 75 mls/hr [id number] IV Last administered on 08/30/16 01:18; Start 08/29/16 at 12:00 Ondansetron HCl (Zofran) 4 mg PRN Q4HRS PRN IV NAUSEA/VOMITING Last administered on 08/29/16 13:39; Start 08/29/16 at 13:30; Stop 08/29/16 at 15:12 ; Status DC Hydromorphone HCl (Dilaudid) 1 mg PRN Q2HR PRN IV SEVERE PAIN Last administered on 08/30/16 08:59; Start 08/29/16 at 15:15 Metoclopramide HCl (Reglan) 10 mg PRN Q8HRS PRN IV NAUSEA/VOMITING Last administered on 08/29/16 16:03; Start 08/29/16 at 15:15 Ondansetron HCl (Zofran) 8 mg PRN Q8HRS PRN IV NAUSEA/VOMITING Last administered on 08/30/16 09:08; Start 08/29/16 at 15:15 Lorazepam (Ativan) 1 mg 1X ONCE IV Last administered on 08/29/16 15:16; Start 08/29/16 at 15:15; Stop 08/29/16 at 15:16; Status DC Enoxaparin Sodium (Lovenox 40mg Syringe) 40 mg Q24H SQ ; Start 08/29/16 at 16:00 ; Stop 08/29/16 at 16:00; Status DC Pantoprazole Sodium (Protonix Vial) 40 mg DAILYAC IVP Last administered on 08/30 07:23; Start 08/29/16 at 15:30 Enoxaparin Sodium (Lovenox 40mg Syringe) 40 mg QHS SQ Last administered on 08/29t 20:20; Start 08/29/16 at 21:00 Iohexol (Omnipaque 300 Mg/ml) 70 ml 1X ONCE IV Last administered on 08/29/16 15:44; Start 08/29/16 at 15:30; Stop 08/29/16 at 15:31; Status DC Active Scripts Active Reported No Known Medications Prior To Admisstion (Info) Each 1 Each Vitals/I & O Vital Sign - Last 24 Hours 08/29/16 08/29/16 08/29/16 08/29/16 14:33 14:42 15:36 18:14 Temp 97.8 97.8 Pulse 77 Resp 17 B/P 123/80 Pulse Ox 92 O2 Delivery Room Air Room Air Room Air Nasal Cannula 08/29/16 08/29/16 08/29/16 08/29/16 19:00 20:00 20:20 22:39 Temp 98.5 98.5 Pulse 96 Resp B/P 129/78 Pulse Ox 93 O2 Delivery Room Air Room Air Room Air Room Air 08/29/16 08/30/16 08/30/16 08/30/16 23:19 01:17 01:34 06:32 Temp 99.1 99.1 Pulse 84 Resp 17 B/P 135/82 Pulse Ox 95 O2 Delivery Room Air Room Air Room Air 08/30/16 08/30/16 08/30/16 08/30/16 07:22 08:59 11:09 11:58 Temp 97.4 99.1 97.4 99.1 Pulse 84 106 Resp 17 B/P 126/66 136/88 Pulse Ox 90 90 93 93 O2 Delivery Nasal Cannula Room Air Room Air Room Air O2 Flow Rate 6.0 6.0 Intake and Output 08/29/16 08/29/16 08/30/16 15:00 23:00 07:00 Intake Total 240 ml 425 ml Output Total 300 ml Balance 240 ml -300 ml 425 ml EUFEMIA OWENS MD Aug 30, 2016 13:49
[2016-08-30] MEDS: POLYETHYLENE GLYCOL 3350 17 GM PACKET. PO SCH (14:19)
[2016-08-30] MEDS: OXYCODONE IR 5 MG TABLET. PO PRN ×3 (14:21→21:22)
[2016-08-30 15:00] VITALS: BP 136/88
[2016-08-30 19:00] VITALS: BP 136/86
[2016-08-30] MEDS: ENOXAPARIN 40 MG/0.4 ML DISP.SYRIN. SQ SCH (21:16)
[2016-08-30] MEDS: ZOLPIDEM 5 MG TABLET. PO PRN (21:21)
[2016-08-30 22:59] VITALS: BP 136/91
[2016-08-31 03:29] VITALS: BP 140/89
[2016-08-31 07:00] VITALS: BP 133/86
[2016-08-31] MEDS: POLYETHYLENE GLYCOL 3350 17 GM PACKET. PO SCH (07:37)
[2016-08-31] MEDS: PANTOPRAZOLE 40 MG TABLET. PO SCH (07:37)
[2016-08-31] MEDS: CEFTRIAXONE SODIUM 1 GM in IV NORMAL SALINE 50ML 50 ML IV SCH (07:37)
[2016-08-31] MEDS: OXYCODONE IR 5 MG TABLET. PO PRN ×4 (07:38→22:08)
[2016-08-31] MEDS: HYDROMORPHONE 2 MG/ML VIAL. IV PRN ×3 (07:38→12:41)
[2016-08-31] MEDS ORDERED: methylPREDNISolone 4 MG TABLET. PO SCH (09:00)
[2016-08-31 11:10] VITALS: BP 121/80
[2016-08-31] MEDS: ONDANSETRON PF 4 MG/2 ML VIAL. IV PRN (12:38)
--- NOTE | 2016-08-31 14:25 | PDOC ---
PROGRESS NOTES Chief Complaint Chief Complaint Viral syndrome Sepsis ASSESSMENT AND PLAN: 1. Sepsis 2/2 to 2 2. Pharyngitis: neg for strep and influenza A/B. treat symptomatically. CT neck neg for abscess, only LAD 3. N/V: much improved. zofran and reglan alt. q4h PRN, ativan as adjunct. advance diet to full liquids, avoid acidic/spicy foods 4. blood streaked emesis: suspect [place] tear. resolved 5. Pain: wean dilaudid PRN, switch to PO 6. Constipation: miralax daily for now 7. Prophylaxis: PPI, lovenox cont ceftriaxone , increase pain meds, increase IVF, labs tmr ID consult History of Present Illness History of Present Illness still fever, severe sore throat, cannot eat throat has worsening exudate Vitals Vitals Vital Signs Date Time Temp Pulse Resp B/P Pulse Ox O2 Delivery O2 Flow Rate FiO2 08/31/16 13:30 95 Room Air 08/31/16 12:41 6.0 08/31/16 11:10 98.3 95 18 121/80 98.3 Physical Exam Physical Exam throat has worsening exudate General: Alert, Cooperative, No acute distress Heart: Regular rate Lungs: Clear Abdomen: Normal bowel sounds, No tenderness Extremities: No edema Skin: No rashes Review of Systems Review of Systems no fever ,chills, sob or chest pain Assessment and Plan Assessmemt and Plan Problems Medical Problems: (1) Dehydration Status: Acute (2) Fever Status: Acute (3) Pyelonephritis Status: Acute Problems: Comment Review of Relevant I have reviewed the following items jimmy (where applicable) has been applied. Labs Microbiology 08/28/16 Blood Culture - Preliminary, Resulted NO GROWTH AFTER 3 DAYS 08/28/16 Throat Culture - Final, Complete 08/28/16 - Final, Complete 08/28/16 Urine Culture - Final, Complete 08/28/16 Urine Culture Result 1 (BERENICE) - Final, Complete Medications Current Medications Sodium Chloride (Iv Sodium Chloride 0.9% 1000ml Bag) 1,000 ml @ 1,000 mls/hr Q1H IV Last administered on 08/28/16t 12:36; Start 08/28/16 at 11:10; Stop at 13:09; Status DC Fentanyl Citrate (Fentanyl 2ml Vial) 50 mcg 1X ONCE IV Last administered on 11:32; Start 08/28/16 at 11:15; Stop 08/28/16 at 11:16; Status DC Acetaminophen (Tylenol) 650 mg 1X ONCE PO Last administered on 08/28/16 11:35 ; Start 08/28/16 at 11:15; Stop 08/28/16 at 11:16; Status DC Ondansetron HCl 4 mg 4 mg 1X ONCE IV Last administered on 08/28/16 11:31; Start 08/28/16 at 11:30; Stop 08/28/16 at 11:31; Status DC Ceftriaxone Sodium (Rocephin 1gm Ivpb For Omni) 50 ml @ 100 mls/hr 1X ONCE IV Last administered on 08/28/16 12:40; Start 08/28/16 at 12:30; Stop 08/28/16 at 12:59; Status DC Dexamethasone Sodium Phosphate (Decadron) 20 mg 1X ONCE IV Last administered on 08/28/16 12:39; Start 08/28/16 at 12:30; Stop 08/28/16 at 12:31; Status DC Morphine Sulfate 5 mg 1X ONCE IV Last administered on 08/28/16 12:38; Start 08/28/16 at 12:30; Stop 08/28/16 at 12:31; Status DC Ondansetron HCl (Zofran) 4 mg PRN Q8HRS PRN IV NAUSEA/VOMITING Last administered on 08/29/16 07:45; Start 08/28/16 at 12:45; Stop 08/29/16 at 12:44 ; Status DC Morphine Sulfate 4 mg 4 mg PRN Q4HRS PRN IV PAIN SEVERE; Start 08/28/16 at 12: 45; Stop 08/28/16 at 23:30; Status DC Sodium Chloride (Iv Sodium Chloride 0.9% 1000ml Bag) 1,000 ml @ 150 drops/ hr Q24H IV Last administered on 08/28/16 12:45; Start 08/28/16 at 12:45; Stop at 11:19; Status DC Acetaminophen (Tylenol) 650 mg PRN Q6HRS PRN PO FEVER Last administered on 08/28 16:11; Start 08/28/16 at 14:15 Fentanyl Citrate (Fentanyl 2ml Vial) 75 mcg PRN Q2HR PRN IV pain Last administered on 08/28/16 20:42; Start 08/28/16 at 14:15; Stop 08/29/16 at 03:47 ; Status DC Throat Lozenges (Cepacol Sore Throat Lozenge) 1 marcie PRN Q2HRS PRN PO SORE THROAT, 1st choice Last administered on 08/30/16 21:19; Start 08/28/16 at 14:15 Throat Lozenges 1 spray 1 spray PRN Q2HR PRN PO SORE THROAT, 2nd choice Last administered on 08/28/16 15:51; Start 08/28/16 at 14:15 Ceftriaxone Sodium/Sodium Chloride (Rocephin/Iv Sodium Chloride 0.9% 50ml) 50 ml @ 100 mls/hr Q24H IV Last administered on 08/31/16 07:37; Start 08/29/16 at 09:00 Methylprednisolone Sodium Succinate (Solu-Medrol 40mg Vial) 40 mg Q8HRS IV ; Start 08/28/16 at 22:00; Stop 08/28/16 at 22:00; Status DC Methylprednisolone (Medrol) 4 mg TIDPC PO Last administered on 08/29/16 12:56 ; Start 08/29/16 at 08:30; Stop 08/29/16 at 15:09; Status DC Methylprednisolone (Medrol) 8 mg QHS PO ; Start 08/29/16 at 21:00; Stop at 21:00; Status DC Methylprednisolone (Medrol) 4 mg QIDAFTMEAL PO ; Start 08/30/16 at 09:00; Stop 08/30/16 at 09:00; Status DC Methylprednisolone (Medrol) 4 mg TID PO ; Start 08/31/16 at 09:00; Stop at 09:00; Status DC Methylprednisolone (Medrol) 4 mg BID PO ; Start 09/01/16 at 09:00; Stop at 09:00; Status DC Methylprednisolone (Medrol) 4 mg DAILY PO ; Start 09/02/16 at 09:00; Stop at 09:00; Status DC Hydromorphone HCl (Dilaudid) 1 mg PRN Q4HRS PRN IV PAIN SEVERE Last administered on 08/28/16 21:48; Start 08/28/16 at 21:00; Stop 08/29/16 at 03:47 ; Status DC Lidocaine HCl (Viscous Lidocaine) 15 ml PRN Q6HRS PRN SWSW MOUTH PAIN Last administered on 08/28/16 21:47; Start 08/28/16 at 21:15 Hydromorphone HCl (Dilaudid) 2 mg PRN Q2HR PRN IV SEVERE PAIN Last administered on 08/29/16 13:34; Start 08/28/16 at 23:00; Stop 08/29/16 at 15:09 ; Status DC Zolpidem Tartrate 5 mg 5 mg PRN QHS PRN PO INSOMNIA Last administered on 21:21; Start 08/28/16 at 23:00 Sodium Chloride (Iv Sodium Chloride 0.9% 1000ml Bag) 1,000 ml @ 125 mls/hr Q8H IV Last administered on 08/30/16 21:16; Start 08/29/16 at 12:00 Ondansetron HCl (Zofran) 4 mg PRN Q4HRS PRN IV NAUSEA/VOMITING Last administered on 08/29/16 13:39; Start 08/29/16 at 13:30; Stop 08/29/16 at 15:12 ; Status DC Hydromorphone HCl (Dilaudid) 1 mg PRN Q2HR PRN IV SEVERE PAIN Last administered on 08/30/16 08:59; Start 08/29/16 at 15:15; Stop 08/30/16 at 13:18 ; Status DC Metoclopramide HCl (Reglan) 10 mg PRN Q8HRS PRN IV NAUSEA/VOMITING Last administered on 08/29/16 16:03; Start 08/29/16 at 15:15 Ondansetron HCl (Zofran) 8 mg PRN Q8HRS PRN IV NAUSEA/VOMITING Last administered on 08/31/16 12:38; Start 08/29/16 at 15:15 Lorazepam (Ativan) 1 mg 1X ONCE IV Last administered on 08/29/16 15:16; Start 08/29/16 at 15:15; Stop 08/29/16 at 15:16; Status DC Enoxaparin Sodium (Lovenox 40mg Syringe) 40 mg Q24H SQ ; Start 08/29/16 at 16:00 ; Stop 08/29/16 at 16:00; Status DC Pantoprazole Sodium (Protonix Vial) 40 mg DAILYAC IVP Last administered on 08/30 07:23; Start 08/29/16 at 15:30; Stop 08/30/16 at 14:56; Status DC Enoxaparin Sodium (Lovenox 40mg Syringe) 40 mg QHS SQ Last administered on 08/30 21:16; Start 08/29/16 at 21:00 Iohexol (Omnipaque 300 Mg/ml) 70 ml 1X ONCE IV Last administered on 08/29/16 15:44; Start 08/29/16 at 15:30; Stop 08/29/16 at 15:31; Status DC Hydromorphone HCl (Dilaudid) 0.3 mg PRN Q2HR PRN IV SEVERE PAIN Last administered on 08/31/16 12:41; Start 08/30/16 at 13:30 Oxycodone HCl (Roxicodone) 5 mg PRN Q4HRS PRN PO PAIN Last administered on 08/31 07:38; Start 08/30/16 at 13:30; Stop 08/31/16 at 11:22; Status DC Lorazepam (Ativan) 0.5 mg PRN Q8HRS PRN PO ANXIETY / AGITATION; Start 08/30/16 at 13:30 Polyethylene Glycol (miraLAX PACKET) 17 gm DAILY PO Last administered on 07:37; Start 08/30/16 at 14:00 Pantoprazole Sodium (Protonix) 40 mg DAILYAC PO Last administered on 08/31/16 07:37; Start 08/31/16 at 07:30 Oxycodone HCl (Roxicodone) 10 mg PRN Q4HRS PRN PO PAIN Last administered on 12:30; Start 08/31/16 at 11:30 Active Scripts Active Reported No Known Medications Prior To Admisstion (Info) Each 1 Each Vitals/I & O Vital Sign - Last 24 Hours 08/30/16 08/30/16 08/30/16 08/30/16 15:00 17:24 18:42 19:00 Temp 99.1 99.5 101.3 99.1 99.5 101.3 Pulse 106 102 Resp 17 20 B/P 136/88 136/86 Pulse Ox 93 93 93 O2 Delivery Room Air Room Air Room Air 08/30/16 08/30/16 08/30/16 08/30/16 20:16 21:22 22:25 22:59 Temp 100.8 100.8 Pulse 92 Resp 18 18 18 B/P 136/91 Pulse Ox 94 O2 Delivery Room Air Room Air Room Air 08/31/16 08/31/16 08/31/16 08/31/16 03:29 07:00 07:38 07:38 Temp 100.4 99.3 100.4 99.3 Pulse 80 103 Resp 18 18 B/P 140/89 133/86 Pulse Ox 97 93 97 97 O2 Delivery Room Air Room Air Room Air Room Air 08/31/16 08/31/16 08/31/16 08/31/16 08:10 10:24 10:36 11:06 Pulse Ox 97 97 O2 Delivery Room Air Room Air Room Air O2 Flow Rate 6.0 6.0 6.0 6.0 08/31/16 08/31/16 08/31/16 08/31/16 11:10 12:30 12:41 13:11 Temp 98.3 98.3 Pulse 95 Resp 18 B/P 121/80 Pulse Ox 95 95 95 95 O2 Delivery Room Air Room Air Room Air Room Air O2 Flow Rate 6.0 6.0 08/31/16 13:30 Pulse Ox 95 O2 Delivery Room Air Intake and Output 08/30/16 08/30/16 08/31/16 15:00 23:00 07:00 Intake Total 300 ml 60 ml Output Total 400 ml Balance -400 ml 300 ml 60 ml TONIA SANDERS MD Aug 31, 2016 14:25
[2016-08-31] MEDS ORDERED: HYDROMORPHONE 2 MG/ML VIAL. IV PRN (14:30)
[2016-08-31 14:36] VITALS: BP 141/89
[2016-08-31] MEDS: IV NORMAL SALINE 1000ML BAG 1,000 ML IV SCH ×2 (14:56→22:09)
[2016-08-31] MEDS: METOCLOPRAMIDE HCL 10 MG/2 ML VIAL. IV PRN (15:34)
[2016-08-31 16:34] LABS: BASO % 1 % (0-3); EOS % 1 % (0-3); HEMATOCRIT 37.3 % (36.0-47.0); HEMOGLOBIN 12.1 g/dL (12.0-15.5); LYMPH # 3.1 x10^3/uL (1.0-4.8); LYMPH % 46 % (24-48); MEAN CORPUSCULAR HEMOGLOBIN 27 pg (25-35); MEAN CORPUSCULAR HGB CONC 33 g/dL (31-37); MEAN CORPUSCULAR VOLUME 83 fL (79-100); MONO % 15 % (0-9); NEUT % 37 % (31-73); PLATELET COUNT 380 x10^3/uL (140-400); RED BLOOD COUNT 4.48 x10^6/uL (3.50-5.40); RED CELL DISTRIBUTION WIDTH 13.5 % (11.5-14.5); WHITE BLOOD COUNT 6.7 x10^3/uL (4.0-11.0)
[2016-08-31 16:53] LABS: NEGATIVE OBC MONO NEG; POSITIVE OBC MONO POS
[2016-08-31 19:53] VITALS: BP 115/68
[2016-08-31] MEDS: ENOXAPARIN 40 MG/0.4 ML DISP.SYRIN. SQ SCH (21:02)
[2016-08-31] MEDS: ZOLPIDEM 5 MG TABLET. PO PRN (22:08)
[2016-08-31 22:09] VITALS: BP 122/70
--- NOTE | 2016-08-31 22:39 | PDOC2 ---
LIZ PERES INTERVENTIONAL SALE CONSULTANT 08/31/16 1540: CONSULT Date of Consult Date of Consult DATE: 08/31/16 TIME: 15:02 Reason for Consult Reason for Consult: Pharyngitis Referring Physician Referring Physician: Dr. Velazquez Source Source: Chart review, Patient History of Present Illness Reason for Visit: This is a 21 year old female with no significant past medical history who developed a sore throat about a week ago. Over the following few days, her throat became more painful, aggravated by swallowing. She developed subjective fevers, chills, sweats and aches. In addition, she complains of bilateral ear pain without ringing, fullness or drainage; a frontal headache and neck pain without decrease ROM. She feels hungry but can't eat because of pain. She's been feeling nauseous. Denies rash or previous episodes of symptoms. Denies ill-contacts. Recently on Keflex for UTI and doxy for URI. She is sexually active including oral sex, though not for a while. HIV status unknown. Denies h/o STDs. Past Medical History Past Medical History Morbid obesity Past Surgical History Past Surgical History Tonsillectomy [place] teeth extraction Family History Family History Diabetes Current Problem List Problem List Problems Medical Problems: (1) Dehydration Status: Acute (2) Fever Status: Acute (3) Pyelonephritis Status: Acute Current Medications Current Medications Ceftriaxone Decadron x 1 dose, 08/28 Other meds available and have been reviewed on MAR Allergies Allergies: Coded Allergies: No Known Drug Allergies (Unverified , 11/21/15) ROS Review of System Denies SOA, CP or cough + dysuria Denies joint pains Denies rash Denies diarrhea Physical Exam Physical Exam GENERAL: Obese, young female sitting up in bed, NAD HENT: PERRL. Normal conjunctivae. Oral pharynx erythematous. tonsils absent. + exudates and multiple shallow ulcers. No palate petechiae or uvula deviation. No trismus or drooling. NECK: Supple, full ROM. + adenopathy LUNGS: CTAB HEART: Normal S1 S2 ABDOMEN: Obese, BS present, soft, NT EXT: No edema or cyanosis SKIN: Without rash PSYCHIATRIC MENTAL HEALTH NURSE: Alert and oriented x 3. Vitals VITALS Vital Signs Date Time Temp Pulse Resp B/P Pulse Ox O2 Delivery O2 Flow Rate FiO2 08/31/16 14:36 98.0 105 17 141/89 91 Room Air 98.0 08/31/16 12:41 6.0 Labs Labs On admission, WBC normal. Lactic acid 1.0. Cr 1.1. Influenza screen negative group Strep A negative Throat culture negative BC NGTD UC negative Images Images ndication neck pain. Difficulty swallowing. Axial images through the neck were obtained. 70 cc of Omnipaque 300 was administered. Images were reformatted in the coronal and sagittal planes. There are patchy infiltrates in the visualized right upper lobe suggesting pneumonia. The visualized brain appears unremarkable. The visualized paranasal sinuses appear normal. There are some slight degenerative change in the upper thoracic spine. A discrete mass, abscess or inflammatory process in the neck is not seen. In addition to mild adenopathy in the neck there is a enlarged lymph node in the right neck just above the cricoid cartilage measuring 2 cm in greatest dimension. This is probably reactive. An enlarged similarly sized node is seen in the left neck just medial to the parotid IMPRESSION: No discrete abscess seen in the neck. In addition to moderate adenopathy in the neck there are at least 2 enlarged lymph nodes each measuring approximately 2 cm. These are probably reactive. Patchy infiltrates in the right upper lobe suggest pneumonia Assessment/Plan Assessment/Plan Pharyngitis with ulcerations. Fever Morbid Obesity Continue Ceftriaxone. Screen HSV, enterococcus and mono Repeat CBC Supportive care Thank you VALENTE BARROSO MD 08/31/16 2239: CONSULT Allergies Allergies: Coded Allergies: No Known Drug Allergies (Unverified , 11/21/15) Assessment/Plan Assessment/Plan PLAN Patient seen and examined. Chart reviewed. Case discussed with CLAMP CARRIER OPERATOR. Agree with above plans with the following additions 1. Please add Levofloxacin- 500mg IV qday 2.Nasal swab for MRSA- if (+) cover proactively for MRSA superinfection 3. CRP, HIV 4. If not improving Consider ENT evaluation even if we have to send her to another facility LIZ PERES APRN Aug 31, 2016 15:40 VALENTE BARROSO MD Aug 31, 2016 22:39
[2016-09-01 02:29] VITALS: BP 128/90
[2016-09-01] MEDS ORDERED: ALBUTEROL SULFATE 2.5 MG/3 ML NEBU. NEB PRN (03:00)
[2016-09-01] MEDS: IV NORMAL SALINE 1000ML BAG 1,000 ML IV SCH ×3 (06:56→22:17)
[2016-09-01 08:00] VITALS: BP 140/80
[2016-09-01] MEDS: POLYETHYLENE GLYCOL 3350 17 GM PACKET. PO SCH (09:00)
[2016-09-01] MEDS ORDERED: methylPREDNISolone 4 MG TABLET. PO SCH (09:00)
[2016-09-01 09:23] LABS: CALCIUM 9.3 mg/dL (8.5-10.1); CREATININE 0.8 mg/dL (0.6-1.0); GFR 91.4
[2016-09-01 09:24] LABS: BASO % 1 % (0-3); EOS % 1 % (0-3); HEMATOCRIT 37.8 % (36.0-47.0); HEMOGLOBIN 12.6 g/dL (12.0-15.5); LYMPH % 38 % (24-48); MEAN CORPUSCULAR HEMOGLOBIN 27 pg (25-35); MEAN CORPUSCULAR HGB CONC 34 g/dL (31-37); MEAN CORPUSCULAR VOLUME 81 fL (79-100); MONO % 11 % (0-9); NEUT % 49 % (31-73); PLATELET COUNT 458 x10^3/uL (140-400); RED BLOOD COUNT 4.67 x10^6/uL (3.50-5.40); RED CELL DISTRIBUTION WIDTH 13.1 % (11.5-14.5); WHITE BLOOD COUNT 7.8 x10^3/uL (4.0-11.0)
[2016-09-01] MEDS: PANTOPRAZOLE 40 MG TABLET. PO SCH (10:48)
[2016-09-01] MEDS: OXYCODONE IR 5 MG TABLET. PO PRN ×3 (10:48→20:39)
[2016-09-01 11:15] VITALS: BP 125/85
[2016-09-01] MEDS: CEFTRIAXONE SODIUM 1 GM in IV NORMAL SALINE 50ML 50 ML IV SCH (12:45)
--- NOTE | 2016-09-01 13:28 | PDOC ---
PROGRESS NOTES Chief Complaint Chief Complaint Viral syndrome Sepsis ASSESSMENT AND PLAN: 1. Sepsis 2/2 to 2 2. Pharyngitis: neg for strep and influenza A/B. treat symptomatically. CT neck neg for abscess, only LAD 3. N/V: much improved. zofran and reglan alt. q4h PRN, ativan as adjunct. advance diet to full liquids, avoid acidic/spicy foods 4. blood streaked emesis: suspect Roma-Sanabria tear. resolved 5. Pain: wean dilaudid PRN, switch to PO 6. Constipation: miralax daily for now 7. Prophylaxis: PPI, lovenox cont ceftriaxone , increase pain meds, increase IVF, labs tmr ID consulted ,added levaquin, other labs pending History of Present Illness History of Present Illness fever gone today severe sore throat, cannot eat throat has worsening exudate Vitals Vitals Vital Signs Date Time Temp Pulse Resp B/P Pulse Ox O2 Delivery O2 Flow Rate FiO2 09/01/16 11:48 96 Room Air 09/01/16 11:15 98.9 96 20 125/85 98.9 08/31/16 23:08 6.0 Physical Exam Physical Exam throat has worsening exudate General: Alert, Cooperative, No acute distress Heart: Regular rate Lungs: Clear Abdomen: Normal bowel sounds, No tenderness Extremities: No edema Skin: No rashes Labs LABS Laboratory Tests Test 08/31/16 16:20 09/01/16 08:45 White Blood Count 6.7x10^3/uL (4.0-11.0) 7.8x10^3/uL (4.0-11.0) Red Blood Count 4.48x10^6/uL (3.50-5.40) 4.67x10^6/uL (3.50-5.40) Hemoglobin 12.1g/dL (12.0-15.5) 12.6g/dL (12.0-15.5) Hematocrit 37.3% (36.0-47.0) 37.8% (36.0-47.0) Mean Corpuscular Volume 83fL (79-100) 81fL (79-100) Mean Corpuscular Hemoglobin 27pg (25-35) 27pg (25-35) Mean Corpuscular Hemoglobin Concent 33g/dL (31-37) 34g/dL (31-37) Red Cell Distribution Width 13.5% (11.5-14.5) 13.1% (11.5-14.5) Platelet Count 380x10^3/uL (140-400) 458x10^3/uL (140-400) Neutrophils (%) (Auto) 37% (31-73) 49% (31-73) Lymphocytes (%) (Auto) 46% (24-48) 38% (24-48) Monocytes (%) (Auto) 15% (0-9) 11% (0-9) Eosinophils (%) (Auto) 1% (0-3) 1% (0-3) Basophils (%) (Auto) 1% (0-3) 1% (0-3) Neutrophils # (Auto) 2.5x10^3uL (1.8-7.7) 3.8x10^3uL (1.8-7.7) Lymphocytes # (Auto) 3.1x10^3/uL (1.0-4.8) 3.0x10^3/uL (1.0-4.8) Monocytes # (Auto) 1.0x10^3/uL (0.0-1.1) 0.9x10^3/uL (0.0-1.1) Eosinophils # (Auto) 0.1x10^3/uL (0.0-0.7) 0.1x10^3/uL (0.0-0.7) Basophils # (Auto) 0.0x10^3/uL (0.0-0.2) 0.0x10^3/uL (0.0-0.2) Heterophil Agglutinins Negative (NEGATIVE) Sodium Level 138mmol/L (136-145) Potassium Level 4.0mmol/L (3.5-5.1) Chloride Level 100mmol/L (98-107) Carbon Dioxide Level 27mmol/L (21-32) Anion Gap 11 (6-14) Blood Urea Nitrogen 9mg/dL (7-20) Creatinine 0.8mg/dL (0.6-1.0) Estimated GFR (Cockcroft-Gault) 91.4 Glucose Level 80mg/dL (70-99) Calcium Level 9.3mg/dL (8.5-10.1) C-Reactive Protein, Quantitative 44.4mg/L (0-3.3) Review of Systems Review of Systems no fever, chills, sob or chest pain Assessment and Plan Assessmemt and Plan Problems Medical Problems: (1) Dehydration Status: Acute (2) Fever Status: Acute (3) Pyelonephritis Status: Acute Problems: Comment Review of Relevant I have reviewed the following items jimmy (where applicable) has been applied. Labs Laboratory Tests Test 08/31/16 16:20 09/01/16 08:45 White Blood Count 6.7x10^3/uL (4.0-11.0) 7.8x10^3/uL (4.0-11.0) Red Blood Count 4.48x10^6/uL (3.50-5.40) 4.67x10^6/uL (3.50-5.40) Hemoglobin 12.1g/dL (12.0-15.5) 12.6g/dL (12.0-15.5) Hematocrit 37.3% (36.0-47.0) 37.8% (36.0-47.0) Mean Corpuscular Volume 83fL (79-100) 81fL (79-100) Mean Corpuscular Hemoglobin 27pg (25-35) 27pg (25-35) Mean Corpuscular Hemoglobin Concent 33g/dL (31-37) 34g/dL (31-37) Red Cell Distribution Width 13.5% (11.5-14.5) 13.1% (11.5-14.5) Platelet Count 380x10^3/uL (140-400) 458x10^3/uL (140-400) Neutrophils (%) (Auto) 37% (31-73) 49% (31-73) Lymphocytes (%) (Auto) 46% (24-48) 38% (24-48) Monocytes (%) (Auto) 15% (0-9) 11% (0-9) Eosinophils (%) (Auto) 1% (0-3) 1% (0-3) Basophils (%) (Auto) 1% (0-3) 1% (0-3) Neutrophils # (Auto) 2.5x10^3uL (1.8-7.7) 3.8x10^3uL (1.8-7.7) Lymphocytes # (Auto) 3.1x10^3/uL (1.0-4.8) 3.0x10^3/uL (1.0-4.8) Monocytes # (Auto) 1.0x10^3/uL (0.0-1.1) 0.9x10^3/uL (0.0-1.1) Eosinophils # (Auto) 0.1x10^3/uL (0.0-0.7) 0.1x10^3/uL (0.0-0.7) Basophils # (Auto) 0.0x10^3/uL (0.0-0.2) 0.0x10^3/uL (0.0-0.2) Heterophil Agglutinins Negative (NEGATIVE) Sodium Level 138mmol/L (136-145) Potassium Level 4.0mmol/L (3.5-5.1) Chloride Level 100mmol/L (98-107) Carbon Dioxide Level 27mmol/L (21-32) Anion Gap 11 (6-14) Blood Urea Nitrogen 9mg/dL (7-20) Creatinine 0.8mg/dL (0.6-1.0) Estimated GFR (Cockcroft-Gault) 91.4 Glucose Level 80mg/dL (70-99) Calcium Level 9.3mg/dL (8.5-10.1) C-Reactive Protein, Quantitative 44.4mg/L (0-3.3) Laboratory Tests Test 08/31/16 16:20 09/01/16 08:45 White Blood Count 6.7x10^3/uL (4.0-11.0) 7.8x10^3/uL (4.0-11.0) Red Blood Count 4.48x10^6/uL (3.50-5.40) 4.67x10^6/uL (3.50-5.40) Hemoglobin 12.1g/dL (12.0-15.5) 12.6g/dL (12.0-15.5) Hematocrit 37.3% (36.0-47.0) 37.8% (36.0-47.0) Mean Corpuscular Volume 83fL (79-100) 81fL (79-100) Mean Corpuscular Hemoglobin 27pg (25-35) 27pg (25-35) Mean Corpuscular Hemoglobin Concent 33g/dL (31-37) 34g/dL (31-37) Red Cell Distribution Width 13.5% (11.5-14.5) 13.1% (11.5-14.5) Platelet Count 380x10^3/uL (140-400) 458x10^3/uL (140-400) Neutrophils (%) (Auto) 37% (31-73) 49% (31-73) Lymphocytes (%) (Auto) 46% (24-48) 38% (24-48) Monocytes (%) (Auto) 15% (0-9) 11% (0-9) Eosinophils (%) (Auto) 1% (0-3) 1% (0-3) Basophils (%) (Auto) 1% (0-3) 1% (0-3) Neutrophils # (Auto) 2.5x10^3uL (1.8-7.7) 3.8x10^3uL (1.8-7.7) Lymphocytes # (Auto) 3.1x10^3/uL (1.0-4.8) 3.0x10^3/uL (1.0-4.8) Monocytes # (Auto) 1.0x10^3/uL (0.0-1.1) 0.9x10^3/uL (0.0-1.1) Eosinophils # (Auto) 0.1x10^3/uL (0.0-0.7) 0.1x10^3/uL (0.0-0.7) Basophils # (Auto) 0.0x10^3/uL (0.0-0.2) 0.0x10^3/uL (0.0-0.2) Heterophil Agglutinins Negative (NEGATIVE) Sodium Level 138mmol/L (136-145) Potassium Level 4.0mmol/L (3.5-5.1) Chloride Level 100mmol/L (98-107) Carbon Dioxide Level 27mmol/L (21-32) Anion Gap 11 (6-14) Blood Urea Nitrogen 9mg/dL (7-20) Creatinine 0.8mg/dL (0.6-1.0) Estimated GFR (Cockcroft-Gault) 91.4 Glucose Level 80mg/dL (70-99) Calcium Level 9.3mg/dL (8.5-10.1) C-Reactive Protein, Quantitative 44.4mg/L (0-3.3) Microbiology 08/28/16 Blood Culture - Preliminary, Resulted NO GROWTH AFTER 4 DAYS 08/28/16 Throat Culture - Final, Complete 08/28/16 - Final, Complete 08/28/16 Urine Culture - Final, Complete 08/28/16 Urine Culture Result 1 (BERENICE) - Final, Complete Medications Current Medications Sodium Chloride (Iv Sodium Chloride 0.9% 1000ml Bag) 1,000 ml @ 1,000 mls/hr Q1H IV Last administered on 08/28/16 12:36; Start 08/28/16 at 11:10; Stop at 13:09; Status DC Fentanyl Citrate (Fentanyl 2ml Vial) 50 mcg 1X ONCE IV Last administered on 11:32; Start 08/28/16 at 11:15; Stop 08/28/16 at 11:16; Status DC Acetaminophen (Tylenol) 650 mg 1X ONCE PO Last administered on 08/28/16 11:35 ; Start 08/28/16 at 11:15; Stop 08/28/16 at 11:16; Status DC Ondansetron HCl 4 mg 4 mg 1X ONCE IV Last administered on 08/28/16 11:31; Start 08/28/16 at 11:30; Stop 08/28/16 at 11:31; Status DC Ceftriaxone Sodium (Rocephin 1gm Ivpb For Omni) 50 ml @ 100 mls/hr 1X ONCE IV Last administered on 08/28/16 12:40; Start 08/28/16 at 12:30; Stop 08/28/16 at 12:59; Status DC Dexamethasone Sodium Phosphate (Decadron) 20 mg 1X ONCE IV Last administered on 08/28/16 12:39; Start 08/28/16 at 12:30; Stop 08/28/16 at 12:31; Status DC Morphine Sulfate 5 mg 1X ONCE IV Last administered on 08/28/16 12:38; Start 08/28/16 at 12:30; Stop 08/28/16 at 12:31; Status DC Ondansetron HCl (Zofran) 4 mg PRN Q8HRS PRN IV NAUSEA/VOMITING Last administered on 08/29/16 07:45; Start 08/28/16 at 12:45; Stop 08/29/16 at 12:44 ; Status DC Morphine Sulfate 4 mg 4 mg PRN Q4HRS PRN IV PAIN SEVERE; Start 08/28/16 at 12: 45; Stop 08/28/16 at 23:30; Status DC Sodium Chloride (Iv Sodium Chloride 0.9% 1000ml Bag) 1,000 ml @ 150 drops/ hr Q24H IV Last administered on 08/28/16 12:45; Start 08/28/16 at 12:45; Stop at 11:19; Status DC Acetaminophen (Tylenol) 650 mg PRN Q6HRS PRN PO FEVER Last administered on 08/28 16:11; Start 08/28/16 at 14:15 Fentanyl Citrate (Fentanyl 2ml Vial) 75 mcg PRN Q2HR PRN IV pain Last administered on 08/28/16 20:42; Start 08/28/16 at 14:15; Stop 08/29/16 at 03:47 ; Status DC Throat Lozenges (Cepacol Sore Throat Lozenge) 1 marcie PRN Q2HRS PRN PO SORE THROAT, 1st choice Last administered on 08/30/16 21:19; Start 08/28/16 at 14:15 Throat Lozenges 1 spray 1 spray PRN Q2HR PRN PO SORE THROAT, 2nd choice Last administered on 08/28/16 15:51; Start 08/28/16 at 14:15 Ceftriaxone Sodium/Sodium Chloride (Rocephin/Iv Sodium Chloride 0.9% 50ml) 50 ml @ 100 mls/hr Q24H IV Last administered on 09/01/16 12:45; Start 08/29/16 at 09:00 Methylprednisolone Sodium Succinate (Solu-Medrol 40mg Vial) 40 mg Q8HRS IV ; Start 08/28/16 at 22:00; Stop 08/28/16 at 22:00; Status DC Methylprednisolone (Medrol) 4 mg TIDPC PO Last administered on 08/29/16 12:56 ; Start 08/29/16 at 08:30; Stop 08/29/16 at 15:09; Status DC Methylprednisolone (Medrol) 8 mg QHS PO ; Start 08/29/16 at 21:00; Stop at 21:00; Status DC Methylprednisolone (Medrol) 4 mg QIDAFTMEAL PO ; Start 08/30/16 at 09:00; Stop 08/30/16 at 09:00; Status DC Methylprednisolone (Medrol) 4 mg TID PO ; Start 08/31/16 at 09:00; Stop at 09:00; Status DC Methylprednisolone (Medrol) 4 mg BID PO ; Start 09/01/16 at 09:00; Stop at 09:00; Status DC Methylprednisolone (Medrol) 4 mg DAILY PO ; Start 09/02/16 at 09:00; Stop at 09:00; Status DC Hydromorphone HCl (Dilaudid) 1 mg PRN Q4HRS PRN IV PAIN SEVERE Last administered on 08/28/16 21:48; Start 08/28/16 at 21:00; Stop 08/29/16 at 03:47 ; Status DC Lidocaine HCl (Viscous Lidocaine) 15 ml PRN Q6HRS PRN SWSW MOUTH PAIN Last administered on 08/28/16 21:47; Start 08/28/16 at 21:15 Hydromorphone HCl (Dilaudid) 2 mg PRN Q2HR PRN IV SEVERE PAIN Last administered on 08/29/16 13:34; Start 08/28/16 at 23:00; Stop 08/29/16 at 15:09 ; Status DC Zolpidem Tartrate 5 mg 5 mg PRN QHS PRN PO INSOMNIA Last administered on 22:08; Start 08/28/16 at 23:00 Sodium Chloride (Iv Sodium Chloride 0.9% 1000ml Bag) 1,000 ml @ 125 mls/hr Q8H IV Last administered on 08/31/16 22:09; Start 08/29/16 at 12:00 Ondansetron HCl (Zofran) 4 mg PRN Q4HRS PRN IV NAUSEA/VOMITING Last administered on 08/29/16 13:39; Start 08/29/16 at 13:30; Stop 08/29/16 at 15:12 ; Status DC Hydromorphone HCl (Dilaudid) 1 mg PRN Q2HR PRN IV SEVERE PAIN Last administered on 08/30/16 08:59; Start 08/29/16 at 15:15; Stop 08/30/16 at 13:18 ; Status DC Metoclopramide HCl (Reglan) 10 mg PRN Q8HRS PRN IV NAUSEA/VOMITING Last administered on 08/31/16 15:34; Start 08/29/16 at 15:15 Ondansetron HCl (Zofran) 8 mg PRN Q8HRS PRN IV NAUSEA/VOMITING Last administered on 08/31/16 12:38; Start 08/29/16 at 15:15 Lorazepam (Ativan) 1 mg 1X ONCE IV Last administered on 08/29/16 15:16; Start 08/29/16 at 15:15; Stop 08/29/16 at 15:16; Status DC Enoxaparin Sodium (Lovenox 40mg Syringe) 40 mg Q24H SQ ; Start 08/29/16 at 16:00 ; Stop 08/29/16 at 16:00; Status DC Pantoprazole Sodium (Protonix Vial) 40 mg DAILYAC IVP Last administered on 08/30 07:23; Start 08/29/16 at 15:30; Stop 08/30/16 at 14:56; Status DC Enoxaparin Sodium (Lovenox 40mg Syringe) 40 mg QHS SQ Last administered on 08/31 21:02; Start 08/29/16 at 21:00 Iohexol (Omnipaque 300 Mg/ml) 70 ml 1X ONCE IV Last administered on 08/29/16 15:44; Start 08/29/16 at 15:30; Stop 08/29/16 at 15:31; Status DC Hydromorphone HCl (Dilaudid) 0.3 mg PRN Q2HR PRN IV SEVERE PAIN Last administered on 08/31/16 12:41; Start 08/30/16 at 13:30; Stop 08/31/16 at 14:24 ; Status DC Oxycodone HCl (Roxicodone) 5 mg PRN Q4HRS PRN PO PAIN Last administered on 08/31 07:38; Start 08/30/16 at 13:30; Stop 08/31/16 at 11:22; Status DC Lorazepam (Ativan) 0.5 mg PRN Q8HRS PRN PO ANXIETY / AGITATION; Start 08/30/16 at 13:30 Polyethylene Glycol (miraLAX PACKET) 17 gm DAILY PO Last administered on 07:37; Start 08/30/16 at 14:00 Pantoprazole Sodium (Protonix) 40 mg DAILYAC PO Last administered on 09/01/16 10:48; Start 08/31/16 at 07:30 Oxycodone HCl (Roxicodone) 10 mg PRN Q4HRS PRN PO PAIN Last administered on 10:48; Start 08/31/16 at 11:30 Hydromorphone HCl 1 mg 1 mg PRN Q2HR PRN IV SEVERE PAIN Last administered on 15:35; Start 08/31/16 at 14:30 Levofloxacin/ Dextrose (LEVAQUIN 500mg PREMIX) 100 ml @ 100 mls/hr Q24H IV Last administered on 09/01/16 00:27; Start 08/31/16 at 23:00 Albuterol Sulfate (Ventolin Neb Soln) 2.5 mg PRN Q6HRS PRN NEB SHORTNESS OF BREATH Last administered on 09/01/16 03:25; Start 09/01/16 at 03:00 Active Scripts Active Reported No Known Medications Prior To Admisstion (Info) Each 1 Each Vitals/I & O Vital Sign - Last 24 Hours 08/31/16 08/31/16 08/31/16 08/31/16 14:36 15:35 16:05 17:34 Temp 98.0 98.0 Pulse 105 Resp 17 B/P 141/89 Pulse Ox 91 91 91 O2 Delivery Room Air Room Air Room Air Room Air O2 Flow Rate 6.0 08/31/16 08/31/16 08/31/16 08/31/16 19:53 20:00 22:08 22:09 Temp 98.2 98.0 98.2 98.0 Pulse 66 85 Resp 16 16 B/P 115/68 122/70 Pulse Ox 97 97 96 O2 Delivery Room Air Room Air Room Air Room Air O2 Flow Rate 6.0 08/31/16 09/01/16 09/01/16 09/01/16 23:08 02:29 03:25 08:00 Temp 99.1 99.1 Pulse 78 60 Resp 16 20 B/P 128/90 140/80 Pulse Ox 95 97 96 O2 Delivery Room Air Room Air Room Air O2 Flow Rate 6.0 09/01/16 09/01/16 09/01/16 09/01/16 08:25 10:07 10:48 11:15 Temp 98.9 98.9 Pulse 96 Resp 20 B/P 125/85 Pulse Ox 96 96 97 O2 Delivery Room Air Room Air Room Air Room Air 09/01/16 11:48 Pulse Ox 96 O2 Delivery Room Air Intake and Output 08/31/16 08/31/16 09/01/16 15:00 23:00 07:00 Intake Total 350 ml 1480 ml 560 ml Balance 350 ml 1480 ml 560 ml TONIA SANDERS MD Sep 01, 2016 13:28
[2016-09-01] MEDS ORDERED: HYDROMORPHONE 2 MG/ML VIAL. IV PRN (14:30)
[2016-09-01 15:00] VITALS: BP 130/82
--- NOTE | 2016-09-01 17:05 | PDOC ---
Infectious Disease Note Subjective Subjective Feeling better Less painful swallow, able to eat ROS ROS GEN: Denies fevers, chills, sweats CV: Denies chest pain RESP: Denies shortness of air, cough GI: Denies n/v/d Vital Sign Vital Signs Vital Signs Date Time Temp Pulse Resp B/P Pulse Ox O2 Delivery O2 Flow Rate FiO2 09/01/16 16:39 96 Room Air 09/01/16 11:15 98.9 96 20 125/85 98.9 08/31/16 23:08 6.0 Physical Exam PHYSICAL EXAM GENERAL: Obese, young female sitting up in bed, NAD HENT: PERRL. Normal conjunctivae. Oral pharynx erythematous. tonsils absent. No exudates, multiple shallow ulcers. No palate petechiae or uvula deviation. No trismus or drooling. NECK: Supple, full ROM. + adenopathy LUNGS: CTAB HEART: Normal S1 S2 ABDOMEN: Obese, BS present, soft, NT EXT: No edema or cyanosis SKIN: Without rash STUDENT SUCCESS COACH: Alert and oriented x 3. Labs Lab Laboratory Tests Test 09/01/16 08:45 White Blood Count 7.8x10^3/uL (4.0-11.0) Red Blood Count 4.67x10^6/uL (3.50-5.40) Hemoglobin 12.6g/dL (12.0-15.5) Hematocrit 37.8% (36.0-47.0) Mean Corpuscular Volume 81fL (79-100) Mean Corpuscular Hemoglobin 27pg (25-35) Mean Corpuscular Hemoglobin Concent 34g/dL (31-37) Red Cell Distribution Width 13.1% (11.5-14.5) Platelet Count 458x10^3/uL (140-400) Neutrophils (%) (Auto) 49% (31-73) Lymphocytes (%) (Auto) 38% (24-48) Monocytes (%) (Auto) 11% (0-9) Eosinophils (%) (Auto) 1% (0-3) Basophils (%) (Auto) 1% (0-3) Neutrophils # (Auto) 3.8x10^3uL (1.8-7.7) Lymphocytes # (Auto) 3.0x10^3/uL (1.0-4.8) Monocytes # (Auto) 0.9x10^3/uL (0.0-1.1) Eosinophils # (Auto) 0.1x10^3/uL (0.0-0.7) Basophils # (Auto) 0.0x10^3/uL (0.0-0.2) Sodium Level 138mmol/L (136-145) Potassium Level 4.0mmol/L (3.5-5.1) Chloride Level 100mmol/L (98-107) Carbon Dioxide Level 27mmol/L (21-32) Anion Gap 11 (6-14) Blood Urea Nitrogen 9mg/dL (7-20) Creatinine 0.8mg/dL (0.6-1.0) Estimated GFR (Cockcroft-Gault) 91.4 Glucose Level 80mg/dL (70-99) Calcium Level 9.3mg/dL (8.5-10.1) C-Reactive Protein, Quantitative 44.4mg/L (0-3.3) Objective Assessment Pharyngitis with ulcerations. Fever Morbid Obesity Plan Plan of Care Clinically improving, Continue Ceftriaxone and Levaquin. wean to po soon HSV, enterococcus, HIV and MRSA screen pending mono negative CRP 44.4 Supportive care Patient seen and examined. Anxious to go home tomorrow. Chart reviewed. Case discussed with [employer] OPERATOR. Agree with above plan. LIZ PERES APRN Sep 01, 2016 17:05 VALENTE BARROSO MD Sep 01, 2016 17:09
[2016-09-01 19:00] VITALS: BP 143/89
[2016-09-01] MEDS: ENOXAPARIN 40 MG/0.4 ML DISP.SYRIN. SQ SCH (20:40)
[2016-09-01 23:00] VITALS: BP 136/86
[2016-09-02] MEDS: ONDANSETRON PF 4 MG/2 ML VIAL. IV PRN (02:46)
[2016-09-02] MEDS: OXYCODONE IR 5 MG TABLET. PO PRN ×2 (02:50→08:18)
[2016-09-02 03:00] VITALS: BP_SYST 119; BP_SYST 97; BP_DIAS 61; BP_DIAS 79
[2016-09-02 05:22] LABS: BASO % 1 % (0-3); EOS % 2 % (0-3); HEMATOCRIT 35.4 % (36.0-47.0); HEMOGLOBIN 11.9 g/dL (12.0-15.5); LYMPH # 3.6 x10^3/uL (1.0-4.8); LYMPH % 42 % (24-48); MEAN CORPUSCULAR HEMOGLOBIN 27 pg (25-35); MEAN CORPUSCULAR HGB CONC 34 g/dL (31-37); MEAN CORPUSCULAR VOLUME 81 fL (79-100); MONO % 12 % (0-9); NEUT % 44 % (31-73); PLATELET COUNT 412 x10^3/uL (140-400); RED BLOOD COUNT 4.36 x10^6/uL (3.50-5.40); RED CELL DISTRIBUTION WIDTH 13.5 % (11.5-14.5); WHITE BLOOD COUNT 8.7 x10^3/uL (4.0-11.0)
[2016-09-02] MEDS: IV NORMAL SALINE 1000ML BAG 1,000 ML IV SCH (06:08)
[2016-09-02 07:00] VITALS: BP 130/70
[2016-09-02] MEDS: PANTOPRAZOLE 40 MG TABLET. PO SCH (08:18)
[2016-09-02] MEDS: POLYETHYLENE GLYCOL 3350 17 GM PACKET. PO SCH (08:21)
[2016-09-02] MEDS: CEFTRIAXONE SODIUM 1 GM in IV NORMAL SALINE 50ML 50 ML IV SCH (08:21)
[2016-09-02 08:56] LABS: NEGATIVE OBC STREP NEG; POSITIVE OBC STREP POS
[2016-09-02] MEDS ORDERED: methylPREDNISolone 4 MG TABLET. PO SCH (09:00)
--- NOTE | 2016-09-02 09:52 | PDOC ---
PROGRESS NOTES Chief Complaint Chief Complaint Viral syndrome Sepsis ASSESSMENT AND PLAN: 1. Sepsis 2/2 to 2 2. Pharyngitis: neg for strep and influenza A/B. treat symptomatically. CT neck neg for abscess, only LAD 3. N/V: much improved. 4. blood streaked emesis: suspect Roma-Sanabria tear. resolved 5. Pain: wean Dilaudid PRN, switch to PO 6. Constipation: miralax daily for now 7. Prophylaxis: PPI, lovenox Plan anticipated DC today with oral Levaquin out pt follow up iwth pcp in 4 weeks. History of Present Illness History of Present Illness fever gone today severe sore throat, cannot eat throat has worsening exudate Vitals Vitals Vital Signs Date Time Temp Pulse Resp B/P Pulse Ox O2 Delivery O2 Flow Rate FiO2 09/02/16 09:47 Room Air 09/02/16 07:00 98.0 76 24 130/70 97 98.0 Physical Exam General: Alert, Oriented X3, Cooperative, No acute distress Heart: Regular rate Lungs: Clear Abdomen: Normal bowel sounds, No tenderness Extremities: No edema Skin: No rashes Labs LABS Laboratory Tests Test 09/01/16 16:25 09/02/16 03:50 Group A Streptococcus Rapid Negative (NEGATIVE) White Blood Count 8.7x10^3/uL (4.0-11.0) Red Blood Count 4.36x10^6/uL (3.50-5.40) Hemoglobin 11.9g/dL (12.0-15.5) Hematocrit 35.4% (36.0-47.0) Mean Corpuscular Volume 81fL (79-100) Mean Corpuscular Hemoglobin 27pg (25-35) Mean Corpuscular Hemoglobin Concent 34g/dL (31-37) Red Cell Distribution Width 13.5% (11.5-14.5) Platelet Count 412x10^3/uL (140-400) Neutrophils (%) (Auto) 44% (31-73) Lymphocytes (%) (Auto) 42% (24-48) Monocytes (%) (Auto) 12% (0-9) Eosinophils (%) (Auto) 2% (0-3) Basophils (%) (Auto) 1% (0-3) Neutrophils # (Auto) 3.8x10^3uL (1.8-7.7) Lymphocytes # (Auto) 3.6x10^3/uL (1.0-4.8) Monocytes # (Auto) 1.0x10^3/uL (0.0-1.1) Eosinophils # (Auto) 0.1x10^3/uL (0.0-0.7) Basophils # (Auto) 0.0x10^3/uL (0.0-0.2) Assessment and Plan Assessmemt and Plan Problems Medical Problems: (1) Dehydration Status: Acute (2) Fever Status: Acute (3) Pyelonephritis Status: Acute Problems: Comment Review of Relevant I have reviewed the following items jimmy (where applicable) has been applied. Labs Laboratory Tests Test 08/31/16 16:20 09/01/16 08:45 09/01/16 16:25 09/02/16 03:50 White Blood Count 6.7x10^3/uL (4.0-11.0) 7.8x10^3/uL (4.0-11.0) 8.7x10^3/uL (4.0-11.0) Red Blood Count 4.48x10^6/uL (3.50-5.40) 4.67x10^6/uL (3.50-5.40) 4.36x10^6/uL (3.50-5.40) Hemoglobin 12.1g/dL (12.0-15.5) 12.6g/dL (12.0-15.5) 11.9g/dL (12.0-15.5) Hematocrit 37.3% (36.0-47.0) 37.8% (36.0-47.0) 35.4% (36.0-47.0) Mean Corpuscular Volume 83fL (79-100) 81fL (79-100) 81fL (79-100) Mean Corpuscular Hemoglobin 27pg (25-35) 27pg (25-35) 27pg (25-35) Mean Corpuscular Hemoglobin Concent 33g/dL (31-37) 34g/dL (31-37) 34g/dL (31-37) Red Cell Distribution Width 13.5% (11.5-14.5) 13.1% (11.5-14.5) 13.5% (11.5-14.5) Platelet Count 380x10^3/uL (140-400) 458x10^3/uL (140-400) 412x10^3/uL (140-400) Neutrophils (%) (Auto) 37% (31-73) 49% (31-73) 44% (31-73) Lymphocytes (%) (Auto) 46% (24-48) 38% (24-48) 42% (24-48) Monocytes (%) (Auto) 15% (0-9) 11% (0-9) 12% (0-9) Eosinophils (%) (Auto) 1% (0-3) 1% (0-3) 2% (0-3) Basophils (%) (Auto) 1% (0-3) 1% (0-3) 1% (0-3) Neutrophils # (Auto) 2.5x10^3uL (1.8-7.7) 3.8x10^3uL (1.8-7.7) 3.8x10^3uL (1.8-7.7) Lymphocytes # (Auto) 3.1x10^3/uL (1.0-4.8) 3.0x10^3/uL (1.0-4.8) 3.6x10^3/uL (1.0-4.8) Monocytes # (Auto) 1.0x10^3/uL (0.0-1.1) 0.9x10^3/uL (0.0-1.1) 1.0x10^3/uL (0.0-1.1) Eosinophils # (Auto) 0.1x10^3/uL (0.0-0.7) 0.1x10^3/uL (0.0-0.7) 0.1x10^3/uL (0.0-0.7) Basophils # (Auto) 0.0x10^3/uL (0.0-0.2) 0.0x10^3/uL (0.0-0.2) 0.0x10^3/uL (0.0-0.2) Heterophil Agglutinins Negative (NEGATIVE) Sodium Level 138mmol/L (136-145) Potassium Level 4.0mmol/L (3.5-5.1) Chloride Level 100mmol/L (98-107) Carbon Dioxide Level 27mmol/L (21-32) Anion Gap 11 (6-14) Blood Urea Nitrogen 9mg/dL (7-20) Creatinine 0.8mg/dL (0.6-1.0) Estimated GFR (Cockcroft-Gault) 91.4 Glucose Level 80mg/dL (70-99) Calcium Level 9.3mg/dL (8.5-10.1) C-Reactive Protein, Quantitative 44.4mg/L (0-3.3) Group A Streptococcus Rapid Negative (NEGATIVE) Laboratory Tests Test 09/01/16 16:25 09/02/16 03:50 Group A Streptococcus Rapid Negative (NEGATIVE) White Blood Count 8.7x10^3/uL (4.0-11.0) Red Blood Count 4.36x10^6/uL (3.50-5.40) Hemoglobin 11.9g/dL (12.0-15.5) Hematocrit 35.4% (36.0-47.0) Mean Corpuscular Volume 81fL (79-100) Mean Corpuscular Hemoglobin 27pg (25-35) Mean Corpuscular Hemoglobin Concent 34g/dL (31-37) Red Cell Distribution Width 13.5% (11.5-14.5) Platelet Count 412x10^3/uL (140-400) Neutrophils (%) (Auto) 44% (31-73) Lymphocytes (%) (Auto) 42% (24-48) Monocytes (%) (Auto) 12% (0-9) Eosinophils (%) (Auto) 2% (0-3) Basophils (%) (Auto) 1% (0-3) Neutrophils # (Auto) 3.8x10^3uL (1.8-7.7) Lymphocytes # (Auto) 3.6x10^3/uL (1.0-4.8) Monocytes # (Auto) 1.0x10^3/uL (0.0-1.1) Eosinophils # (Auto) 0.1x10^3/uL (0.0-0.7) Basophils # (Auto) 0.0x10^3/uL (0.0-0.2) Microbiology 08/28/16 Blood Culture - Preliminary, Resulted NO GROWTH AFTER 4 DAYS 08/28/16 Throat Culture - Final, Complete 08/28/16 - Final, Complete 08/28/16 Urine Culture - Final, Complete 08/28/16 Urine Culture Result 1 (BERENICE) - Final, Complete Medications Current Medications Sodium Chloride (Iv Sodium Chloride 0.9% 1000ml Bag) 1,000 ml @ 1,000 mls/hr Q1H IV Last administered on 08/28/16 12:36; Start 08/28/16 at 11:10; Stop at 13:09; Status DC Fentanyl Citrate (Fentanyl 2ml Vial) 50 mcg 1X ONCE IV Last administered on 11:32; Start 08/28/16 at 11:15; Stop 08/28/16 at 11:16; Status DC Acetaminophen (Tylenol) 650 mg 1X ONCE PO Last administered on 08/28/16 11:35 ; Start 08/28/16 at 11:15; Stop 08/28/16 at 11:16; Status DC Ondansetron HCl 4 mg 4 mg 1X ONCE IV Last administered on 08/28/16 11:31; Start 08/28/16 at 11:30; Stop 08/28/16 at 11:31; Status DC Ceftriaxone Sodium (Rocephin 1gm Ivpb For Omni) 50 ml @ 100 mls/hr 1X ONCE IV Last administered on 08/28/16 12:40; Start 08/28/16 at 12:30; Stop 08/28/16 at 12:59; Status DC Dexamethasone Sodium Phosphate (Decadron) 20 mg 1X ONCE IV Last administered on 08/28/16 12:39; Start 08/28/16 at 12:30; Stop 08/28/16 at 12:31; Status DC Morphine Sulfate 5 mg 1X ONCE IV Last administered on 08/28/16 12:38; Start 08/28/16 at 12:30; Stop 08/28/16 at 12:31; Status DC Ondansetron HCl (Zofran) 4 mg PRN Q8HRS PRN IV NAUSEA/VOMITING Last administered on 08/29/16 07:45; Start 08/28/16 at 12:45; Stop 08/29/16 at 12:44 ; Status DC Morphine Sulfate 4 mg 4 mg PRN Q4HRS PRN IV PAIN SEVERE; Start 08/28/16 at 12: 45; Stop 08/28/16 at 23:30; Status DC Sodium Chloride (Iv Sodium Chloride 0.9% 1000ml Bag) 1,000 ml @ 150 drops/ hr Q24H IV Last administered on 08/28/16 12:45; Start 08/28/16 at 12:45; Stop at 11:19; Status DC Acetaminophen (Tylenol) 650 mg PRN Q6HRS PRN PO FEVER Last administered on 08/28 16:11; Start 08/28/16 at 14:15 Fentanyl Citrate (Fentanyl 2ml Vial) 75 mcg PRN Q2HR PRN IV pain Last administered on 08/28/16 20:42; Start 08/28/16 at 14:15; Stop 08/29/16 at 03:47 ; Status DC Throat Lozenges (Cepacol Sore Throat Lozenge) 1 marcie PRN Q2HRS PRN PO SORE THROAT, 1st choice Last administered on 08/30/16 21:19; Start 08/28/16 at 14:15 Throat Lozenges 1 spray 1 spray PRN Q2HR PRN PO SORE THROAT, 2nd choice Last administered on 08/28/16 15:51; Start 08/28/16 at 14:15 Ceftriaxone Sodium/Sodium Chloride (Rocephin/Iv Sodium Chloride 0.9% 50ml) 50 ml @ 100 mls/hr Q24H IV Last administered on 09/02/16 08:21; Start 08/29/16 at 09:00 Methylprednisolone Sodium Succinate (Solu-Medrol 40mg Vial) 40 mg Q8HRS IV ; Start 08/28/16 at 22:00; Stop 08/28/16 at 22:00; Status DC Methylprednisolone (Medrol) 4 mg TIDPC PO Last administered on 08/29/16 12:56 ; Start 08/29/16 at 08:30; Stop 08/29/16 at 15:09; Status DC Methylprednisolone (Medrol) 8 mg QHS PO ; Start 08/29/16 at 21:00; Stop at 21:00; Status DC Methylprednisolone (Medrol) 4 mg QIDAFTMEAL PO ; Start 08/30/16 at 09:00; Stop 08/30/16 at 09:00; Status DC Methylprednisolone (Medrol) 4 mg TID PO ; Start 08/31/16 at 09:00; Stop at 09:00; Status DC Methylprednisolone (Medrol) 4 mg BID PO ; Start 09/01/16 at 09:00; Stop at 09:00; Status DC Methylprednisolone (Medrol) 4 mg DAILY PO ; Start 09/02/16 at 09:00; Stop at 09:00; Status DC Hydromorphone HCl (Dilaudid) 1 mg PRN Q4HRS PRN IV PAIN SEVERE Last administered on 08/28/16 21:48; Start 08/28/16 at 21:00; Stop 08/29/16 at 03:47 ; Status DC Lidocaine HCl (Viscous Lidocaine) 15 ml PRN Q6HRS PRN SWSW MOUTH PAIN Last administered on 08/28/16 21:47; Start 08/28/16 at 21:15 Hydromorphone HCl (Dilaudid) 2 mg PRN Q2HR PRN IV SEVERE PAIN Last administered on 08/29/16 13:34; Start 08/28/16 at 23:00; Stop 08/29/16 at 15:09 ; Status DC Zolpidem Tartrate 5 mg 5 mg PRN QHS PRN PO INSOMNIA Last administered on 22:08; Start 08/28/16 at 23:00 Sodium Chloride (Iv Sodium Chloride 0.9% 1000ml Bag) 1,000 ml @ 125 mls/hr Q8H IV Last administered on 09/02/16 06:08; Start 08/29/16 at 12:00 Ondansetron HCl (Zofran) 4 mg PRN Q4HRS PRN IV NAUSEA/VOMITING Last administered on 08/29/16 13:39; Start 08/29/16 at 13:30; Stop 08/29/16 at 15:12 ; Status DC Hydromorphone HCl (Dilaudid) 1 mg PRN Q2HR PRN IV SEVERE PAIN Last administered on 08/30/16 08:59; Start 08/29/16 at 15:15; Stop 08/30/16 at 13:18 ; Status DC Metoclopramide HCl (Reglan) 10 mg PRN Q8HRS PRN IV NAUSEA/VOMITING Last administered on 08/31/16 15:34; Start 08/29/16 at 15:15 Ondansetron HCl (Zofran) 8 mg PRN Q8HRS PRN IV NAUSEA/VOMITING Last administered on 09/02/16 02:46; Start 08/29/16 at 15:15 Lorazepam (Ativan) 1 mg 1X ONCE IV Last administered on 08/29/16 15:16; Start 08/29/16 at 15:15; Stop 08/29/16 at 15:16; Status DC Enoxaparin Sodium (Lovenox 40mg Syringe) 40 mg Q24H SQ ; Start 08/29/16 at 16:00 ; Stop 08/29/16 at 16:00; Status DC Pantoprazole Sodium (Protonix Vial) 40 mg DAILYAC IVP Last administered on 08/30 07:23; Start 08/29/16 at 15:30; Stop 08/30/16 at 14:56; Status DC Enoxaparin Sodium (Lovenox 40mg Syringe) 40 mg QHS SQ Last administered on 09/01 20:40; Start 08/29/16 at 21:00 Iohexol (Omnipaque 300 Mg/ml) 70 ml 1X ONCE IV Last administered on 08/29/16 15:44; Start 08/29/16 at 15:30; Stop 08/29/16 at 15:31; Status DC Hydromorphone HCl (Dilaudid) 0.3 mg PRN Q2HR PRN IV SEVERE PAIN Last administered on 08/31/16 12:41; Start 08/30/16 at 13:30; Stop 08/31/16 at 14:24 ; Status DC Oxycodone HCl (Roxicodone) 5 mg PRN Q4HRS PRN PO PAIN Last administered on 08/31 07:38; Start 08/30/16 at 13:30; Stop 08/31/16 at 11:22; Status DC Lorazepam (Ativan) 0.5 mg PRN Q8HRS PRN PO ANXIETY / AGITATION; Start 08/30/16 at 13:30 Polyethylene Glycol (miraLAX PACKET) 17 gm DAILY PO Last administered on 07:37; Start 08/30/16 at 14:00 Pantoprazole Sodium (Protonix) 40 mg DAILYAC PO Last administered on 09/02/16 08:18; Start 08/31/16 at 07:30 Oxycodone HCl (Roxicodone) 10 mg PRN Q4HRS PRN PO PAIN Last administered on 08:18; Start 08/31/16 at 11:30 Hydromorphone HCl 1 mg 1 mg PRN Q2HR PRN IV SEVERE PAIN Last administered on 15:35; Start 08/31/16 at 14:30; Stop 09/01/16 at 13:28; Status DC Levofloxacin/ Dextrose (LEVAQUIN 500mg PREMIX) 100 ml @ 100 mls/hr Q24H IV Last administered on 09/01/16 22:37; Start 08/31/16 at 23:00 Albuterol Sulfate (Ventolin Neb Soln) 2.5 mg PRN Q6HRS PRN NEB SHORTNESS OF BREATH Last administered on 09/01/16 03:25; Start 09/01/16 at 03:00 Hydromorphone HCl (Dilaudid) 1 mg PRN Q4HRS PRN IV SEVERE PAIN; Start 09/01/16 at 14:30 Active Scripts Active Reported No Known Medications Prior To Admisstion (Info) Each 1 Each Vitals/I & O Vital Sign - Last 24 Hours 09/01/16 09/01/16 09/01/16 09/01/16 10:07 10:48 11:15 11:48 Temp 98.9 98.9 Pulse 96 Resp 20 B/P 125/85 Pulse Ox 96 96 97 96 O2 Delivery Room Air Room Air Room Air 09/01/16 09/01/16 09/01/16 09/01/16 15:00 16:39 19:00 20:15 Temp 98.8 99.1 98.8 99.1 Pulse 88 62 Resp 20 18 B/P 130/82 143/89 Pulse Ox 96 96 96 O2 Delivery Room Air Room Air Room Air 09/01/16 09/01/16 09/02/16 09/02/16 20:39 23:00 02:50 03:00 Temp 99.2 98.5 99.2 98.5 Pulse 59 59 Resp 18 18 18 18 B/P 136/86 119/79 Pulse Ox 98 96 O2 Delivery Room Air Room Air 09/02/16 09/02/16 09/02/16 09/02/16 03:50 07:00 08:00 08:18 Temp 98.0 98.0 Pulse 76 Resp 20 24 B/P 130/70 Pulse Ox 97 O2 Delivery Room Air Room Air Room Air 09/02/16 09:47 O2 Delivery Room Air Intake and Output 09/01/16 09/01/16 09/02/16 15:00 23:00 07:00 Intake Total 2750 ml 1050 ml Output Total 350 ml Balance 2400 ml 1050 ml REECE TABARES MD Sep 02, 2016 09:52
--- NOTE | 2016-09-02 10:15 | PDOC ---
Infectious Disease Note Subjective Subjective Feeling better Less painful swallow, Eatign well Ready to go home ROS ROS GEN: Denies fevers, chills, sweats HEENT: Denies blurred vision, sore throat CV: Denies chest pain RESP: Denies shortness of air, cough GI: Denies n/v/d NEURO: Denies confusion, dizziness MSK: Denies weakness, joint pain/swelling Vital Sign Vital Signs Vital Signs Date Time Temp Pulse Resp B/P Pulse Ox O2 Delivery O2 Flow Rate FiO2 09/02/16 09:47 Room Air 09/02/16 07:00 98.0 76 24 130/70 97 98.0 Physical Exam PHYSICAL EXAM GENERAL: NAD, Alert HEENT: PERRL, OC/OP- mild ulcerations posterior pharynx NECK: Supple, no JVD, no LN LUNGS: Clear HEART: S1S2, no gallop, no murmur ABD: Soft, NT, no organomegaly, no rebound EXT: No edema, no cyanosis CADD OPERATOR: Alert, oriented x 3, no focal neurologic deficit SKIN: No rash IV: ok Labs Lab Laboratory Tests Test 09/01/16 16:25 09/02/16 03:50 Group A Streptococcus Rapid Negative (NEGATIVE) White Blood Count 8.7x10^3/uL (4.0-11.0) Red Blood Count 4.36x10^6/uL (3.50-5.40) Hemoglobin 11.9g/dL (12.0-15.5) Hematocrit 35.4% (36.0-47.0) Mean Corpuscular Volume 81fL (79-100) Mean Corpuscular Hemoglobin 27pg (25-35) Mean Corpuscular Hemoglobin Concent 34g/dL (31-37) Red Cell Distribution Width 13.5% (11.5-14.5) Platelet Count 412x10^3/uL (140-400) Neutrophils (%) (Auto) 44% (31-73) Lymphocytes (%) (Auto) 42% (24-48) Monocytes (%) (Auto) 12% (0-9) Eosinophils (%) (Auto) 2% (0-3) Basophils (%) (Auto) 1% (0-3) Neutrophils # (Auto) 3.8x10^3uL (1.8-7.7) Lymphocytes # (Auto) 3.6x10^3/uL (1.0-4.8) Monocytes # (Auto) 1.0x10^3/uL (0.0-1.1) Eosinophils # (Auto) 0.1x10^3/uL (0.0-0.7) Basophils # (Auto) 0.0x10^3/uL (0.0-0.2) Objective Assessment Pharyngitis with ulcerations improved with Levoflox. ? coincidental Fever Morbid Obesity Plan Plan of Care Clinically improving, Home with po Levaquin for 4 days to start 09/03. Ordered po dose this am Script in chart HERNANDO NEWSOME MD Sep 02, 2016 10:15
[2016-09-02 11:00] VITALS: BP 127/68
[2016-09-02] MEDS ORDERED: LEVOFLOXACIN 500 MG TABLET PO SCH (11:00)
[2016-09-02] MEDS ORDERED: LEVO500T38 PO (12:34)
[2016-09-03 19:18] LABS: ENTEROVIRUS RNA Negative (Negative); HERPES SIMPLEX TYPE 1 Negative (Negative); HERPES SIMPLEX TYPE 2 Positive (Negative)
--- NOTE | 2016-09-13 06:55 | DS ---
DATE OF DISCHARGE: 09/02/2016 DISCHARGE DIAGNOSES: 1. Sepsis, resolved. 2. Pharyngitis. Negative strep and influenza. 3. 4. Constipation, resolved. BRIEF HOSPITAL COURSE: This is a 21-year-old female admitted to the hospital on 08/28/2016 with sore throat. She was started on broad spectrum antibiotics for suspected sepsis and severe Pharyngitis. Patient's symptoms clinically improved with IV antibiotics and later she was sent home with oral abx. Workup is negative for group B strep, rapid and influenza A and B antigens, negative. Today, she is deemed clinically stable enough to go home and followup with primary care doctor for further evaluation and workup. DISCHARGE PHYSICAL EXAMINATION: GENERAL: Alert, oriented x 3. HEART: S1, S2 present. LUNGS: Clear to auscultation. ABDOMEN: Soft, nontender, no organomegaly. EXTREMITIES: No edema. DISCHARGE DISPOSITION: Home. DISCHARGE CONDITION: Stable. PROGNOSIS: Guarded FOLLOWUP: With PCP. Total time spent for discharge is 31 minutes for patient education, counseling and coordination of care. REECE TABARES MD DR: MAKENNA/zaria JOB#: [id number] / [id number] MALISSA
== END 2016-09-02 13:15 | disposition home or self-care (01) | DRG 872 ==
LOC: ER 09:55 → 5 SOUTH 12:37
PROVIDERS: ADMIT Internal Medicine; ATTEND Internal Medicine
DX: A41.9 Sepsis, unspecified organism (principal); N12 Tubulo-interstitial nephritis, not specified as acute or chronic; E86.0 Dehydration; K59.00 Constipation, unspecified; J02.9 Acute pharyngitis, unspecified; E66.01 Morbid (severe) obesity due to excess calories; Z68.33 Body mass index [BMI] 33.0-33.9, adult; Z83.3 Family history of diabetes mellitus; Z87.01 Personal history of pneumonia (recurrent)
CPT/HCPCS: 36415; 70491; 71020; 80048; 80053; 81001; 81025; 83605; 85027; 85610; 86140; 86308; 86703; 87040; 87070; 87086; 87498; 87529; 87641; 87804; 87880; 94250; 94640; 94760; 96365; 96375; C9113; J0690; J0696; J1100; J1170; J1650; J1956; J2060; J2270; J2405; J2765; J3010; J7030; J7509; Q9967; 99285-25

== ENCOUNTER 2019-07-15 10:54 | Day surgery (SDC) | payer OTHER ==
[~2019-07-15] VITALS: Ht 160 cm; Wt 89.0 kg
[~2019-07-15 10:54] MED LIST: ACETAMINOPHEN 500 MG TABLET PO ONE; ALBU2.5V8 INH; BUPIVACAINE-EPI 0.25%-1:200000 MPF 30 ML VIAL. INJ ONE; CETI10TA16 PO; DEXAMETHASONE SOD PHOS 4 MG/ML VIAL ONE; HYDROmorphone 2 MG/ML VIAL IV PRN; IV RINGERS,LACTATED 1000ML 1,000 ML IV SCH; LEVO500T59 PO; LIDOCAINE 1% PF 2 ML VIAL. ID PRN; NORG1TAB70 PO; ONDANSETRON PF 4 MG/2 ML VIAL. IV PRN; ONDANSETRON PF 4 MG/2 ML VIAL. ONE; PROCHLORPERAZINE 10 MG/2 ML VIAL. IV PRN; PROPOFOL 20 ML IV ONE; ROCURONIUM 50 MG/5 ML VIAL. ONE; fentaNYL PF VIAL 100 MCG/2 ML VIAL IV PRN; fentaNYL PF VIAL 100 MCG/2 ML VIAL ONE
[2019-07-15] MEDS ORDERED: IOHEXOL 300 MG/ML 50 ML VIAL. ONE (11:04)
[2019-07-15] MEDS ORDERED: SURGICEL HEMOSTAT 4X8 EACH. ONE (11:04)
[2019-07-15] MEDS ORDERED: MIDAZOLAM HCL/PF 2 MG/2 ML VIAL. ONE (11:25)
[2019-07-15] MEDS ORDERED: SCOPOLAMINE 1.5MG PATCH. TD ONE ×2 (11:30)
[2019-07-15] MEDS ORDERED: fentaNYL PF VIAL 100 MCG/2 ML VIAL ONE ×3 (11:59→12:30)
[2019-07-15] MEDS ORDERED: LIDOCAINE 1% PF 5 ML VIAL. ONE (12:00)
[2019-07-15] MEDS ORDERED: SUCCINYLCHOLINE 200 MG/10 ML VIAL. ONE (12:00)
[2019-07-15] MEDS ORDERED: METOCLOPRAMIDE HCL 10 MG/2 ML VIAL. ONE (12:00)
[2019-07-15] MEDS ORDERED: FAMOTIDINE 20 MG/2 ML VIAL ONE (12:00)
[2019-07-15] MEDS ORDERED: LIDOCAINE 2% PF 5 ML VIAL. ONE (12:08)
--- NOTE | 2019-07-15 12:26 | PDOC4 ---
Operative Note Operative Note Date: 07/15/2019 Preoperative diagnosis: Biliary dyskinesia Postoperative diagnosis: Same Procedure: Laparoscopic cholecystectomy Surgeon: Hung Specimen: Gallbladder Dictation: Patient is 24-year-old female with right upper quadrant abdominal pain occasional postprandial nausea abnormal HIDA scan. Procedure of lap scopic cholecystectomy was explained to the patient detail risk benefits were also discussed including bleeding infection injury to intra-abdominal contents possibly necessitating further open operations alternatives to this procedure also discussed with patient who seemed to understand and gave both verbal and written consent to have the procedure performed. Patient was taken to the op erating room placed in supine position general anesthesia was initiated once patient was sleep and intubated her abdomen was prepped and draped usual sterile fashion using ChloraPrep. Area just below the umbilicus was injected with quarter percent Marcaine with epinephrine incision was made 11 blade scalpel and a Veress needle was placed within the abdomen creating pneumoperitoneum once this complete 11 mm port was placed and a 5 mill meter camera was placed within the abdomen abdomen was inspected and showed several adhesions to the liver and anterior abdominal wall a 5 mm port was placed in the right lateral abdomen and scissors are used to take down the filmy adhesions. A 5 mill meter port was placed in the epigastrium and one in the right mid abdomen the dome of the gallbladder is grasped retracted cephalad the infundibulum the gallbladder is grasped retracted laterally exposing the triangle. The adherent tissues to the triangle were taken down with blunt dissection exposing the cystic duct and cystic artery both were doubly clipped and transected the gallbladder was taken off the liver with a clot cautery placed in Endo Catch bag and removed from the umbilicus right upper quadrant was irrigated and suctioned dry hemostasis deemed to be appropriate and the pneumoperitoneum was reduced all ports were removed fascial defect at the umbilicus closed [id number] Vicryl suture and the skin was approximated all port sites for septic and a Monocryl Mastisol Steri- Strips and island dressings were applied. Patient was awakened and excavated in the operating room taken to recovery in stable condition all sponge instrument needle counts listed as correct estimated blood loss 5 mL GENA SON MD Jul 15, 2019 12:25
--- NOTE | 2019-07-15 12:28 | DISCH ---
DISCHARGE INSTRUCTIONS Condition on Discharge Condition on Discharge: Stable Activity After Discharge Activity Instructions for Disc: Avoid exertion Other activity instructions: no lifting more than 20 pounds for 2 weeks Diet after Discharge Diet after Discharge: Low Fat Wound Incision Care Other wound/incision instructi: May shower in 24 hours Contacting the after DC Call your doctor for: If your condition worsens Follow-Up Follow up with: Dr. Son in 2 weeks GENA SON MD Jul 15, 2019 12:27
[2019-07-15] MEDS ORDERED: PROCHLORPERAZINE 10 MG/2 ML VIAL. ONE (12:31)
[2019-07-15] MEDS ORDERED: KETOROLAC 30 MG/ML VIAL. ONE (12:36)
[2019-07-15] MEDS ORDERED: SEVOFLURANE 31 TO 60 MINUTES. IH ONE (12:37)
[2019-07-15] MEDS: fentaNYL PF VIAL 100 MCG/2 ML VIAL IV PRN ×2 (13:01→13:17)
[2019-07-15] MEDS ORDERED: MORPHINE SULFATE 2 MG/ML VIAL. ONE (13:03)
[2019-07-15] MEDS: MORPHINE SULFATE 2 MG/ML VIAL. IV PRN ×2 (13:17→13:35)
[2019-07-15] MEDS ORDERED: OXYC1TAB15 PO (13:20)
[2019-07-15] MEDS ORDERED: oxyCODONE/APAP 5/325 1 TAB TABLET ONE (13:24)
[2019-07-15] MEDS ORDERED: oxyCODONE/APAP 5/325 1 TAB TABLET PO ONE (13:30)
[2019-07-15 14:00] VITALS: BP 116/55
--- NOTE | 2019-07-19 14:07 | PATHOLOGY ---
[facility] Accession Number: [id number] . 01 Material submitted: . gallbladder - GALLBLADDER AND CONTENTS . 01 Clinical history: . Biliary dyskinesia . 02 Diagnosis: Gallbladder, cholecystectomy: - Chronic cholecystitis. (JPM:al; 07/19/2019) S 07/19/2019 0947 Local . 02 Comment: There are no calculi identified within the gallbladder lumen or specimen container. There is no evidence of malignancy. (JPM:al; 07/19/2019) . 02 Electronically signed: . Jamaal Salinas MD, Pathologist NPI- [id number] . 01 Gross description: . Received in formalin labeled "Luis, Margret, gallbladder and contents," is an intact, turgid gallbladder measuring 9.8 x 3.0 x 2.8 cm in greatest dimensions. The serosal surface is smooth and blue-gonzalez to light green in appearance, displaying scant attached yellow adipose tissue. Opening the specimen reveals a velvety, dark green mucosa measuring 0.1 cm in thickness, with an average gallbladder wall thickness of 0.1 cm. No polyps or nodules are identified grossly. Calculi are not present within the specimen or specimen container. Adjunct Teacher sections of the infundibulum, body and fundus are submitted in cassette A1. (DAC; 07/16/2019) XDC/XDC 07/16/2019 0857 Local . 02 Pathologist provided ICD-10: K81.1 . 02 CPT . 516082 Specimen Comment: A courtesy copy of this report has been sent to [phone], [phone] Specimen Comment: [id number] Specimen Comment: Report sent to / DR MOTA Performed at: [address] [place] [address] [address], [place], [place] [id number] MD Erlin Ng MD Phone: [phone] Performed at: [address] [id number] MD Jamaal Salinas MD Phone: [phone]
== END 2019-07-15 14:20 | disposition home or self-care (01) ==
LOC: SURG 10:54
PROVIDERS: ATTEND Surgery
DX: K82.8 Other specified diseases of gallbladder (principal); K81.1 Chronic cholecystitis; K21.9 Gastro-esophageal reflux disease without esophagitis; K76.0 Fatty (change of) liver, not elsewhere classified; E66.9 Obesity, unspecified; Z68.34 Body mass index [BMI] 34.0-34.9, adult; J45.909 Unspecified asthma, uncomplicated; Z87.01 Personal history of pneumonia (recurrent); Z87.891 Personal history of nicotine dependence; Z98.890 Other specified postprocedural states
CPT/HCPCS: 47562; 81025; A7015; J0330; J0696; J0780; J1100; J1885; J2001; J2250; J2270; J2405; J2704; J2765; J3010; J3490; J7030; Q9967

== ENCOUNTER 2019-08-17 21:23 | Inpatient (IN) | payer OTHER ==
[~2019-08-17] VITALS: Ht 160 cm; Wt 89.0 kg
[2019-08-17 21:15] VITALS: BP 98/68
[~2019-08-17 21:23] MED LIST changes: -ACETAMINOPHEN 500 MG TABLET PO ONE; -BUPIVACAINE-EPI 0.25%-1:200000 MPF 30 ML VIAL. INJ ONE; -DEXAMETHASONE SOD PHOS 4 MG/ML VIAL ONE; -HYDROmorphone 2 MG/ML VIAL IV PRN; -IV RINGERS,LACTATED 1000ML 1,000 ML IV SCH; -LIDOCAINE 1% PF 2 ML VIAL. ID PRN; -ONDANSETRON PF 4 MG/2 ML VIAL. IV PRN; -ONDANSETRON PF 4 MG/2 ML VIAL. ONE; +OXYC1TAB15 PO; -PROCHLORPERAZINE 10 MG/2 ML VIAL. IV PRN; -PROPOFOL 20 ML IV ONE; -ROCURONIUM 50 MG/5 ML VIAL. ONE; -fentaNYL PF VIAL 100 MCG/2 ML VIAL IV PRN; -fentaNYL PF VIAL 100 MCG/2 ML VIAL ONE
[2019-08-17 21:30] VITALS: BP 98/70
[2019-08-17 21:45] VITALS: BP 103/67
[2019-08-17] MEDS ORDERED: fentaNYL PF VIAL 100 MCG/2 ML VIAL IV PRN ×2 (21:45)
[2019-08-17] MEDS ORDERED: PROPOFOL 100 ML IV PRN (21:45)
[2019-08-17 22:00] VITALS: BP 83/64
[2019-08-17] MEDS ORDERED: 0.9 % SODIUM CHLORIDE 10 ML DISP.SYRIN. IV PRN (22:00)
[2019-08-17] MEDS ORDERED: LORazepam 1 MG TABLET PO PRN (22:00)
[2019-08-17] MEDS ORDERED: BISACODYL 10 MG SUPP.RECT. PR PRN (22:00)
--- NOTE | 2019-08-17 22:00 | NUR ---
Pt admitted to room 104 at 2100, arrived via EMS. Pt transferred to bed and RT placed pt on vent. Pt currently had propofol running at 15mls/hr. BP stable at this time. OG placed and KUB verified. Patient wakes spontaneously. This RN spoke with pt's two brothers regarding plan of care. Admission completed to best of ability using brother's knowledge. Orders received from Dr. Kirby for vent bundle, consults, labs, fluids, and abx. Patient BP then began to drop into 70s and 80s and patient waking up more frequently, fighting the vent. This RN started versed and fentanyl- BP improved with this change.
[2019-08-17] MEDS: IV NORMAL SALINE 1000ML BAG 1,000 ML IV SCH (22:02)
--- NOTE | 2019-08-17 22:27 | RAD ---
Chest one view, abdomen one view. HISTORY: Intubated, NG placement AP view was taken of the chest. There is an endotracheal tube at the bottom of the clavicles at T2-3. There are diffuse infiltrates in the lungs or pulmonary edema. Heart is normal in size. There is no pleural effusion. ABDOMEN: Single view of the abdomen shows an NG tube in good position in the stomach. Patient's had a cholecystectomy. Bowel pattern is normal. IMPRESSION: 1. NG tube in the stomach in good position. 2. Endotracheal tube at the level the bottom of the clavicles. 3. Diffuse infiltrates or edema in the lungs. Electronically signed by: Adrián Owens MD (08/17/2019 10:24 PM) [facility]
[2019-08-17] MEDS: MIDAZOLAM HCL 50 MG in IV NORMAL SALINE 50ML 50 ML IV PRN (22:57)
[2019-08-17 22:59] LABS: BASE EXCESS COOX 4 mmol/L (-3-3); HCO3 COOX 28 mmol/L (21-28); METHEMOGLOBIN 0.1 % (0.0-1.9); OXYHEMOGLOBIN 97.8 %; PCO2 COOX 42 mmHg (35-46); PO2 COOX 139 mmHg (85-108); SAT O2 COOX 99 % (92-99)
[2019-08-17 23:00] VITALS: BP 79/51
[2019-08-17] MEDS: HEPARIN for SUB-Q USE 5,000 UNIT/ML VIAL. SQ SCH (23:00)
--- NOTE | 2019-08-17 23:00 | NUR ---
Elevated troponin relayed to Dr. Flores- no new orders at this time.
[2019-08-18] VITALS (24 sets, daily range): BP systolic 85–115; BP diastolic 40–69
[2019-08-18] MEDS: PIPERACILLIN/TAZOBACTAM 3.375 GM in IV NORMAL SALINE 50ML 50 ML IV SCH ×2 (01:12→06:04)
[2019-08-18] MEDS: IV NORMAL SALINE 1000ML BAG 1,000 ML IV SCH ×3 (01:13→21:41)
[2019-08-18 02:33] LABS: BILIRUBIN,URINE NEGATIVE (NEG); CLARITY,URINE CLEAR; COLOR,URINE YELLOW; NITRITE,URINE NEGATIVE (NEG); PROTEIN,URINE NEGATIVE (NEG-TRACE); UROBILINOGEN,URINE 0.2 mg/dL (0.2 mg/dL)
[2019-08-18 02:47] LABS: SQUAMOUS EPITHELIAL CELL,UR FEW /LPF
[2019-08-18 02:48] LABS: AMORPHOUS SEDIMENT,UR PRESENT /HPF; BACTERIA,URINE FEW /HPF (0-FEW); RBC,URINE 0 /HPF (0-2)
[2019-08-18] MEDS: ACETAMINOPHEN 650 MG/20.3 ML SOLUTION. PEG PRN (04:38)
[2019-08-18 05:56] LABS: BASO % 0 % (0-3); EOS % 0 % (0-3); HEMATOCRIT 35.9 % (36.0-47.0); LYMPH # 2.1 x10^3/uL (1.0-4.8); LYMPH % 24 % (24-48); MEAN CORPUSCULAR HEMOGLOBIN 28 pg (25-35); MEAN CORPUSCULAR HGB CONC 33 g/dL (31-37); MEAN CORPUSCULAR VOLUME 84 fL (79-100); MONO # 0.5 x10^3/uL (0.0-1.1); MONO % 6 % (0-9); NEUT # 6.3 x10^3/uL (1.8-7.7); NEUT % 70 % (31-73); PLATELET COUNT 277 x10^3/uL (140-400); RED BLOOD COUNT 4.26 x10^6/uL (3.50-5.40)
[2019-08-18 06:03] LABS: PROTHROMBIN TIME PATIENT 13.5 SEC (11.7-14.0)
[2019-08-18] MEDS: MIDAZOLAM HCL 50 MG in IV NORMAL SALINE 50ML 50 ML IV PRN ×3 (06:05→17:46)
[2019-08-18] MEDS: HEPARIN for SUB-Q USE 5,000 UNIT/ML VIAL. SQ SCH ×3 (06:05→21:47)
[2019-08-18 06:15] LABS: ALBUMIN 2.7 g/dL (3.4-5.0); ALBUMIN/GLOBULIN RATIO 0.9 (1.0-1.7); CALCIUM 7.2 mg/dL (8.5-10.1); CREATININE 1.4 mg/dL (0.6-1.0); GFR 46.6; POTASSIUM 3.6 mmol/L (3.5-5.1); TOTAL BILIRUBIN 0.7 mg/dL (0.2-1.0); TOTAL PROTEIN 5.7 g/dL (6.4-8.2)
--- NOTE | 2019-08-18 07:21 | PDOC ---
Infectious Disease Note Vital Sign Vital Signs Vital Signs Date Time Temp Pulse Resp B/P (MAP) Pulse Ox O2 Delivery O2 Flow Rate FiO2 08/18/19 06:00 135 18 105/69 (81) 96 BiPAP/CPAP 08/18/19 05:00 100.2 100.2 Labs Lab Laboratory Tests Test 08/17/19 21:47 08/17/19 22:05 08/17/19 22:30 08/18/19 01:19 Glucose (Fingerstick) 72 mg/dL (70-99) 101 mg/dL (70-99) O2 Saturation 99 % (92-99) Arterial Blood pH 7.45 (7.35-7.45) Arterial Blood pCO2 at Patient Temp 42 mmHg (35-46) Arterial Blood pO2 at Patient Temp 139 mmHg (85-108) Arterial Blood HCO3 28 mmol/L (21-28) Arterial Blood Base Excess 4 mmol/L (-3-3) Oxyhemoglobin 97.8 % Methemoglobin 0.1 % (0.0-1.9) Carbon Monoxide, Quantitative 0.7 % (0.0-1.9) FiO2 100 Troponin I Quantitative 0.670 ng/mL (0.000-0.055) Thyroid Stimulating Hormone (TSH) 0.804 uIU/mL (0.358-3.74) Test 08/18/19 02:10 08/18/19 05:30 08/18/19 06:16 Urine Collection Type Unknown Urine Color Yellow Urine Clarity Clear Urine pH 5.0 Urine Specific [place] 1.015 Urine Protein Negative mg/dL (NEG-TRACE) Urine Glucose (UA) Negative mg/dL (NEG) Urine Ketones (Stick) Negative mg/dL (NEG) Urine Blood Negative (NEG) Urine Nitrite Negative (NEG) Urine Bilirubin Negative (NEG) Urine Urobilinogen Dipstick 0.2 mg/dL (0.2 mg/dL) Urine Leukocyte Esterase Trace (NEG) Urine RBC 0 /HPF (0-2) Urine WBC 1-4 /HPF (0-4) Urine Squamous Epithelial Cells Few /LPF Urine Amorphous Sediment Present /HPF Urine Bacteria Few /HPF (0-FEW) Urine Mucus Mod /LPF White Blood Count 9.0 x10^3/uL (4.0-11.0) Red Blood Count 4.26 x10^6/uL (3.50-5.40) Hemoglobin 12.0 g/dL (12.0-15.5) Hematocrit 35.9 % (36.0-47.0) Mean Corpuscular Volume 84 fL (79-100) Mean Corpuscular Hemoglobin 28 pg (25-35) Mean Corpuscular Hemoglobin Concent 33 g/dL (31-37) Red Cell Distribution Width 14.0 % (11.5-14.5) Platelet Count 277 x10^3/uL (140-400) Neutrophils (%) (Auto) 70 % (31-73) Lymphocytes (%) (Auto) 24 % (24-48) Monocytes (%) (Auto) 6 % (0-9) Eosinophils (%) (Auto) 0 % (0-3) Basophils (%) (Auto) 0 % (0-3) Neutrophils # (Auto) 6.3 x10^3/uL (1.8-7.7) Lymphocytes # (Auto) 2.1 x10^3/uL (1.0-4.8) Monocytes # (Auto) 0.5 x10^3/uL (0.0-1.1) Eosinophils # (Auto) 0.0 x10^3/uL (0.0-0.7) Basophils # (Auto) 0.0 x10^3/uL (0.0-0.2) Prothrombin Time 13.5 SEC (11.7-14.0) Prothromb Time International Ratio 1.1 (0.8-1.1) Activated Partial Thromboplast Time 33 SEC (24-38) Sodium Level 147 mmol/L (136-145) Potassium Level 3.6 mmol/L (3.5-5.1) Chloride Level 109 mmol/L (98-107) Carbon Dioxide Level 31 mmol/L (21-32) Anion Gap 7 (6-14) Blood Urea Nitrogen 17 mg/dL (7-20) Creatinine 1.4 mg/dL (0.6-1.0) Estimated GFR (Cockcroft-Gault) 46.6 BUN/Creatinine Ratio 12 (6-20) Glucose Level 113 mg/dL (70-99) Lactic Acid Level 2.2 mmol/L (0.4-2.0) Calcium Level 7.2 mg/dL (8.5-10.1) Total Bilirubin 0.7 mg/dL (0.2-1.0) Aspartate Amino Transf (AST/SGOT) 70 U/L (15-37) Alanine Aminotransferase (ALT/SGPT) 73 U/L (14-59) Alkaline Phosphatase 69 U/L (46-116) Total Protein 5.7 g/dL (6.4-8.2) Albumin 2.7 g/dL (3.4-5.0) Albumin/Globulin Ratio 0.9 (1.0-1.7) Procalcitonin 82.41 ng/mL (0.00-0.10) Glucose (Fingerstick) 105 mg/dL (70-99) Objective Assessment pt seen, consult dictated Plan Plan of Care / MICHAELA CHENG MD Aug 18, 2019 07:21
[2019-08-18 08:08] LABS: INFLUENZA A PATIENT NEGATIVE (NEGATIVE); INFLUENZA B PATIENT NEGATIVE (NEGATIVE)
--- NOTE | 2019-08-18 08:08 | EKG ---
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
[2019-08-18] MEDS: FAMOTIDINE 20 MG/2 ML VIAL IVP SCH ×2 (08:12→21:41)
[2019-08-18] MEDS: OSELTAMIVIR 75 MG CAPSULE PO SCH ×2 (08:13→21:00)
[2019-08-18] MEDS: AZITHROMYCIN 500 MG in IV NORMAL SALINE 250ML 250 ML IV SCH (08:13)
[2019-08-18] MEDS: cefTRIAXone IV Push 2 GM VIAL. IVP SCH (08:13)
--- NOTE | 2019-08-18 08:14 | RAD ---
PORTABLE CHEST 1V 08/18/2019 9:00 AM INDICATION: Intubated COMPARISON: 08/17/2019 TECHNIQUE: Portable frontal view of the chest is provided. FINDINGS: The cardiomediastinal silhouette is similar in appearance. Bilateral perihilar alveolar airspace disease with subpleural sparing. There is improved aeration compared with prior examination. Suspect trace left pleural effusion. No pneumothorax. Endotracheal tube and nasogastric tube are in similar position. IMPRESSION: Bilateral perihilar alveolar airspace disease appears partly improved since the prior examination from 08/17/2019. Electronically signed by: Sunitha Calhoun MD (08/18/2019 8:11 AM) [id number]
[2019-08-18 08:20] LABS: BASE EXCESS ABG 3 mmol/L (-3-3); HCO3 ABG 28 mmol/L (21-28); PCO2 ABG 46 mmHg (35-46); PO2 ABG 86 mmHg (85-108); SAT O2 ABG 96 % (92-99)
--- NOTE | 2019-08-18 08:41 | CONS ---
DATE OF CONSULTATION: 08/18/2019 REQUESTING PHYSICIAN: Jimmie Galeano DO REASON FOR CONSULTATION: Respiratory failure and sepsis. HISTORY OF PRESENT ILLNESS: This is a 24-year-old female with no apparent past medical history other than patient has had pneumonia in the past and gallbladder surgery in the past who was transferred from [facility]. The patient presented there through the ambulance, unresponsive. The patient apparently may have taken a bunch of pain pills according to the family there. The patient was found to be unresponsive there, although pulse was present, significantly decreased respiration. The patient required intubation there and was transferred here for further management. Initial lactic acid was 7.1. The patient had bilateral pulmonary infiltrate, fever, and leukocytosis. The patient initially did not respond to Narcan. The patient is orally intubated, though awake and appears to respond to some extent. The blood pressure did not require any support. PAST MEDICAL HISTORY: As I mentioned, recent gallbladder surgery. The patient has had pneumonia in the past, apparently D and C in the past and she has had trichomonas infection in the past, in the past, gastroesophageal reflux disease, asthma, and tonsillectomy. SOCIAL HISTORY: Unable to obtain, although does smoke from the history. There is no idea about any vaping that she is doing or not. CURRENT MEDICATIONS: The patient is on Zosyn. REVIEW OF SYSTEMS: Unable to obtain other than through the RN. No nausea, vomiting, diarrhea noted. The patient did have 102 fever. PHYSICAL EXAMINATION: GENERAL: Arousable female, orally intubated on a ventilator, not in distress. VITAL SIGNS: T-max is 102.1, pulse 135, respirations 18, blood pressure 105/69. HEENT: Both pupils are round and reacting. No conjunctival lesion, no lesion in the mouth. NECK: Supple, no JVP, no lymphadenopathy. LUNGS: Clear bilaterally. HEART: S1, S2 regular. No gallop or murmur. ABDOMEN: Soft, nontender, no organomegaly. EXTREMITIES: No edema, cyanosis. SKIN: Unremarkable. NEUROLOGIC: The patient is awake, apparently had been moving all the extremities before intubation and sedation. LABORATORY DATA: White count is 11,000 at [place], now here is 9000. BUN and creatinine is 17 and 1.4. Lactic acid from 7.1 is down to 2.2. Procalcitonin 82. Urinalysis unremarkable. Cultures have been taken. Chest x-ray showed bilateral pulmonary infiltrate. [facility] record reviewed. IMPRESSION: 1. Bilateral pulmonary infiltrate, primary influenza pneumonia is a possibility. Aspiration pneumonia also is a possibility. 2. Suspected drug overdose. 3. Respiratory failure. 4. Lactic acidosis. 5. Leukocytosis. 6. Fever. RECOMMENDATIONS: We will change Zosyn to Rocephin, azithromycin, add Tamiflu. Get influenza screen. Supportive care, carranza cultures and we will continue to follow. Thank you very much, Dr. Galeano, for giving me the opportunity to participate in this patient's care. MICHAELA CHENG MD DR: RIKY/zaria JOB#: [id number] / [id number]
[2019-08-18 08:44] LABS: FIO2 ABG 60
[2019-08-18] MEDS ORDERED: ELECTROLYTE (ICU) PROTOCOL. MC SCH (09:00)
[2019-08-18 09:38] LABS: MAGNESIUM 1.4 mg/dL (1.8-2.4); PHOSPHORUS 3.6 mg/dL (2.6-4.7)
--- NOTE | 2019-08-18 09:46 | PDOC1 ---
History and Physical Date of Admission Date of Admission DATE: 08/18/19 TIME: 09:46 Identification/Chief Complaint Chief Complaint TRANSFER FROM [facility] AFTER OD OF PAIN MEDS, May have snorted illegal obtained percoset tablets powdered yesterday, then passed out, was with boyfriend who left, then sister found her at his apartment, HAS a long hx bipolar disorder, " schizophrenia" per sister hx. no known hx iv drug abuse, but has been seen by mental health services , since she was a teen never finished high school, works with her older sister who is in her room today, Anna. sent fror records from [facility] this AM, pending ran a fever, may have aspirated Presented to ER IN RESP FAILURE, INTUBATED BY ER History of Present Illness History of Present Illness ABOVE , PULM, NEPHROLOGY, Neurology, PAT CONSULTS, ECHO, DONE, UDS, Cardiology consulted Past Medical History Psych: Addictions, Bipolar, Depression Renal/: No pertinent hx Endocrine: No pertinent hx Dermatology: No pertinent hx Past Surgical History Past Surgical History: Cholecystectomy Family History Family History: Depression, Hypertension Social History Smoke: <1 pack per day ALCOHOL: occassional Drugs: None Current Medications Current Medications Current Medications Fentanyl Citrate 30 ml @ 0 mls/hr CONT PRN IV SEE PROTOCOL Last administered on 08/18/19at 04:09; Start 08/17/19 at 21:45 Propofol 100 ml @ 0 mls/hr CONT PRN IV SEE PROTOCOL; Start 08/17/19 at 21:45 Fentanyl Citrate (Fentanyl 2ml Vial) 25 mcg PRN Q1HR PRN IV SEE COMMENTS; Start 08/17/19 at 21:45 Fentanyl Citrate (Fentanyl 2ml Vial) 50 mcg PRN Q1HR PRN IV SEE COMMENTS; Start 08/17/19 at 21:45 Midazolam HCl 50 mg/Sodium Chloride 50 ml @ 0 mls/hr CONT PRN IV SEE PROTOCOL Last administered on 08/18/19at 06:05; Start 08/17/19 at 21:45 Sodium Chloride 1,000 ml @ 150 mls/hr Q6H40M IV Last administered on 08/18/19at 01:13; Start 08/17/19 at 22:00 Piperacillin Sod/ Tazobactam Sod 3.375 gm/Sodium Chloride 50 ml @ 100 mls/hr Q6HRS IV Last administered on 08/18/19at 06:04; Start 08/18/19 at 00:00; Stop 08/18/19 at 07:32; Status DC Lorazepam (Ativan) 1 mg PRN Q6HRS PRN PO ANXIETY / AGITATION; Start 08/17/19 at 22:00 Ondansetron HCl (Zofran) 4 mg PRN Q6HRS PRN IV NAUSEA/VOMITING 1ST CHOICE; Start 08/17/19 at 22:00 Prochlorperazine Edisylate (Compazine) 5 mg PRN Q6HRS PRN IV NAUSEA/VOMITING 2ND CHOICE; Start 08/17/19 at 22:00 Famotidine (Pepcid Vial) 20 mg BID IVP Last administered on 08/18/19at 08:12; Start 08/18/19 at 09:00 Info (Icu Electrolyte Protocol) 1 ea DAILY MC Last administered on 08/18/19at 08:51; Start 08/18/19 at 09:00 Heparin Sodium (Porcine) (Heparin Sodium) 5,000 unit Q8HRS SQ Last administered on 08/18/19at 06:05; Start 08/17/19 at 22:00 Sodium Chloride (Normal Saline Flush) 3 ml QSHIFT PRN IV AFTER MEDS AND BLOOD DRAWS; Start 08/17/19 at 22:00 Bisacodyl (Dulcolax Supp) 10 mg PRN DAILY PRN IA CONSTIPATION; Start 08/17/19 at 22:00 Acetaminophen (Tylenol) 650 mg PRN Q6HRS PRN PEG MILD PAIN / TEMP Last administered on 08/18/19at 04:38; Start 08/18/19 at 04:30 Ceftriaxone Sodium (Rocephin) 2 gm Q24H IVP Last administered on 08/18/19at 08:13; Start 08/18/19 at 09:00 Azithromycin 500 mg/Sodium Chloride 250 ml @ 250 mls/hr Q24H IV Last administered on 08/18/19at 08:13; Start 08/18/19 at 08:00 Oseltamivir Phosphate (Tamiflu) 75 mg BID PO Last administered on 08/18/19at 08:13; Start 08/18/19 at 09:00; Stop 08/23/19 at 08:59 Active Scripts Active Reported Percocet 5-325 Mg Tablet (Oxycodone/Acetaminophen) 1 Each Tablet 1-2 Tab PO PRN Q4HRS PRN Ortho Tri-Cyclen (Norgestimate-Ethinyl Estradiol) 1 Each Tablet 1 Each PO DAILY Cetirizine Hcl 10 Mg Tablet 10 Mg PO DAILY Proair Hfa Inhaler (Albuterol Sulfate) 8.5 Gm Hfa.aer.ad 1 Puff INH PRN Q6HRS PRN Allergies Allergies: Coded Allergies: No Known Drug Allergies (Unverified , 07/15/19) ROS Review of System sedated on vent PSYCHOLOGICAL ROS: YES: Mood Swings Respiratory: YES: Shortness of breath Neurological: Yes Gait Disturbance Physical Exam Physical Exam looking around, on vent, getting echo at bedside General: Cooperative, mild distress HEENT: Mucous membr. moist/pink Lungs: Normal air movement Heart: RRR, no thrills, other (tachy) Breasts: Not examined Abdomen: Normal bowel sounds, Soft Rectal Exam: not examined PELVIC: Examination not indicated Extremities: No cyanosis Skin: No rashes Vitals Vitals Vital Signs Date Time Temp Pulse Resp B/P (MAP) Pulse Ox O2 Delivery O2 Flow Rate FiO2 08/18/19 09:00 99.0 126 18 95/59 (71) 98 Ventilator 99.0 Labs Labs Laboratory Tests Test 08/17/19 21:47 08/17/19 22:05 08/17/19 22:30 08/18/19 01:19 Glucose (Fingerstick) 72 mg/dL (70-99) 101 mg/dL (70-99) O2 Saturation 99 % (92-99) Arterial Blood pH 7.45 (7.35-7.45) Arterial Blood pCO2 at Patient Temp 42 mmHg (35-46) Arterial Blood pO2 at Patient Temp 139 mmHg (85-108) Arterial Blood HCO3 28 mmol/L (21-28) Arterial Blood Base Excess 4 mmol/L (-3-3) Oxyhemoglobin 97.8 % Methemoglobin 0.1 % (0.0-1.9) Carbon Monoxide, Quantitative 0.7 % (0.0-1.9) FiO2 100 Troponin I Quantitative 0.670 ng/mL (0.000-0.055) Thyroid Stimulating Hormone (TSH) 0.804 uIU/mL (0.358-3.74) Test 08/18/19 02:10 08/18/19 05:30 08/18/19 06:16 08/18/19 07:30 Urine Collection Type Unknown Urine Color Yellow Urine Clarity Clear Urine pH 5.0 Urine Specific [place] 1.015 Urine Protein Negative mg/dL (NEG-TRACE) Urine Glucose (UA) Negative mg/dL (NEG) Urine Ketones (Stick) Negative mg/dL (NEG) Urine Blood Negative (NEG) Urine Nitrite Negative (NEG) Urine Bilirubin Negative (NEG) Urine Urobilinogen Dipstick 0.2 mg/dL (0.2 mg/dL) Urine Leukocyte Esterase Trace (NEG) Urine RBC 0 /HPF (0-2) Urine WBC 1-4 /HPF (0-4) Urine Squamous Epithelial Cells Few /LPF Urine Amorphous Sediment Present /HPF Urine Bacteria Few /HPF (0-FEW) Urine Mucus Mod /LPF White Blood Count 9.0 x10^3/uL (4.0-11.0) Red Blood Count 4.26 x10^6/uL (3.50-5.40) Hemoglobin 12.0 g/dL (12.0-15.5) Hematocrit 35.9 % (36.0-47.0) Mean Corpuscular Volume 84 fL (79-100) Mean Corpuscular Hemoglobin 28 pg (25-35) Mean Corpuscular Hemoglobin Concent 33 g/dL (31-37) Red Cell Distribution Width 14.0 % (11.5-14.5) Platelet Count 277 x10^3/uL (140-400) Neutrophils (%) (Auto) 70 % (31-73) Lymphocytes (%) (Auto) 24 % (24-48) Monocytes (%) (Auto) 6 % (0-9) Eosinophils (%) (Auto) 0 % (0-3) Basophils (%) (Auto) 0 % (0-3) Neutrophils # (Auto) 6.3 x10^3/uL (1.8-7.7) Lymphocytes # (Auto) 2.1 x10^3/uL (1.0-4.8) Monocytes # (Auto) 0.5 x10^3/uL (0.0-1.1) Eosinophils # (Auto) 0.0 x10^3/uL (0.0-0.7) Basophils # (Auto) 0.0 x10^3/uL (0.0-0.2) Prothrombin Time 13.5 SEC (11.7-14.0) Prothromb Time International Ratio 1.1 (0.8-1.1) Activated Partial Thromboplast Time 33 SEC (24-38) Sodium Level 147 mmol/L (136-145) Potassium Level 3.6 mmol/L (3.5-5.1) Chloride Level 109 mmol/L (98-107) Carbon Dioxide Level 31 mmol/L (21-32) Anion Gap 7 (6-14) Blood Urea Nitrogen 17 mg/dL (7-20) Creatinine 1.4 mg/dL (0.6-1.0) Estimated GFR (Cockcroft-Gault) 46.6 BUN/Creatinine Ratio 12 (6-20) Glucose Level 113 mg/dL (70-99) Lactic Acid Level 2.2 mmol/L (0.4-2.0) Calcium Level 7.2 mg/dL (8.5-10.1) Phosphorus Level 3.6 mg/dL (2.6-4.7) Magnesium Level 1.4 mg/dL (1.8-2.4) Total Bilirubin 0.7 mg/dL (0.2-1.0) Aspartate Amino Transf (AST/SGOT) 70 U/L (15-37) Alanine Aminotransferase (ALT/SGPT) 73 U/L (14-59) Alkaline Phosphatase 69 U/L (46-116) Total Protein 5.7 g/dL (6.4-8.2) Albumin 2.7 g/dL (3.4-5.0) Albumin/Globulin Ratio 0.9 (1.0-1.7) Procalcitonin 82.41 ng/mL (0.00-0.10) Glucose (Fingerstick) 105 mg/dL (70-99) Influenza Type A Antigen Negative (NEGATIVE) Influenza Type B Antigen Negative (NEGATIVE) Test 08/18/19 08:15 O2 Saturation 96 % (92-99) Arterial Blood pH 7.41 (7.35-7.45) Arterial Blood pCO2 at Patient Temp 46 mmHg (35-46) Arterial Blood pO2 at Patient Temp 86 mmHg (85-108) Arterial Blood HCO3 28 mmol/L (21-28) Arterial Blood Base Excess 3 mmol/L (-3-3) FiO2 60 Laboratory Tests Test 08/17/19 21:47 08/17/19 22:05 08/17/19 22:30 08/18/19 01:19 Glucose (Fingerstick) 72 mg/dL (70-99) 101 mg/dL (70-99) O2 Saturation 99 % (92-99) Arterial Blood pH 7.45 (7.35-7.45) Arterial Blood pCO2 at Patient Temp 42 mmHg (35-46) Arterial Blood pO2 at Patient Temp 139 mmHg (85-108) Arterial Blood HCO3 28 mmol/L (21-28) Arterial Blood Base Excess 4 mmol/L (-3-3) Oxyhemoglobin 97.8 % Methemoglobin 0.1 % (0.0-1.9) Carbon Monoxide, Quantitative 0.7 % (0.0-1.9) FiO2 100 Troponin I Quantitative 0.670 ng/mL (0.000-0.055) Thyroid Stimulating Hormone (TSH) 0.804 uIU/mL (0.358-3.74) Test 08/18/19 02:10 08/18/19 05:30 08/18/19 06:16 08/18/19 07:30 Urine Collection Type Unknown Urine Color Yellow Urine Clarity Clear Urine pH 5.0 Urine Specific [place] 1.015 Urine Protein Negative mg/dL (NEG-TRACE) Urine Glucose (UA) Negative mg/dL (NEG) Urine Ketones (Stick) Negative mg/dL (NEG) Urine Blood Negative (NEG) Urine Nitrite Negative (NEG) Urine Bilirubin Negative (NEG) Urine Urobilinogen Dipstick 0.2 mg/dL (0.2 mg/dL) Urine Leukocyte Esterase Trace (NEG) Urine RBC 0 /HPF (0-2) Urine WBC 1-4 /HPF (0-4) Urine Squamous Epithelial Cells Few /LPF Urine Amorphous Sediment Present /HPF Urine Bacteria Few /HPF (0-FEW) Urine Mucus Mod /LPF White Blood Count 9.0 x10^3/uL (4.0-11.0) Red Blood Count 4.26 x10^6/uL (3.50-5.40) Hemoglobin 12.0 g/dL (12.0-15.5) Hematocrit 35.9 % (36.0-47.0) Mean Corpuscular Volume 84 fL (79-100) Mean Corpuscular Hemoglobin 28 pg (25-35) Mean Corpuscular Hemoglobin Concent 33 g/dL (31-37) Red Cell Distribution Width 14.0 % (11.5-14.5) Platelet Count 277 x10^3/uL (140-400) Neutrophils (%) (Auto) 70 % (31-73) Lymphocytes (%) (Auto) 24 % (24-48) Monocytes (%) (Auto) 6 % (0-9) Eosinophils (%) (Auto) 0 % (0-3) Basophils (%) (Auto) 0 % (0-3) Neutrophils # (Auto) 6.3 x10^3/uL (1.8-7.7) Lymphocytes # (Auto) 2.1 x10^3/uL (1.0-4.8) Monocytes # (Auto) 0.5 x10^3/uL (0.0-1.1) Eosinophils # (Auto) 0.0 x10^3/uL (0.0-0.7) Basophils # (Auto) 0.0 x10^3/uL (0.0-0.2) Prothrombin Time 13.5 SEC (11.7-14.0) Prothromb Time International Ratio 1.1 (0.8-1.1) Activated Partial Thromboplast Time 33 SEC (24-38) Sodium Level 147 mmol/L (136-145) Potassium Level 3.6 mmol/L (3.5-5.1) Chloride Level 109 mmol/L (98-107) Carbon Dioxide Level 31 mmol/L (21-32) Anion Gap 7 (6-14) Blood Urea Nitrogen 17 mg/dL (7-20) Creatinine 1.4 mg/dL (0.6-1.0) Estimated GFR (Cockcroft-Gault) 46.6 BUN/Creatinine Ratio 12 (6-20) Glucose Level 113 mg/dL (70-99) Lactic Acid Level 2.2 mmol/L (0.4-2.0) Calcium Level 7.2 mg/dL (8.5-10.1) Phosphorus Level 3.6 mg/dL (2.6-4.7) Magnesium Level 1.4 mg/dL (1.8-2.4) Total Bilirubin 0.7 mg/dL (0.2-1.0) Aspartate Amino Transf (AST/SGOT) 70 U/L (15-37) Alanine Aminotransferase (ALT/SGPT) 73 U/L (14-59) Alkaline Phosphatase 69 U/L (46-116) Total Protein 5.7 g/dL (6.4-8.2) Albumin 2.7 g/dL (3.4-5.0) Albumin/Globulin Ratio 0.9 (1.0-1.7) Procalcitonin 82.41 ng/mL (0.00-0.10) Glucose (Fingerstick) 105 mg/dL (70-99) Influenza Type A Antigen Negative (NEGATIVE) Influenza Type B Antigen Negative (NEGATIVE) Test 08/18/19 08:15 O2 Saturation 96 % (92-99) Arterial Blood pH 7.41 (7.35-7.45) Arterial Blood pCO2 at Patient Temp 46 mmHg (35-46) Arterial Blood pO2 at Patient Temp 86 mmHg (85-108) Arterial Blood HCO3 28 mmol/L (21-28) Arterial Blood Base Excess 3 mmol/L (-3-3) FiO2 60 Images Images PORTABLE CHEST 1V 08/18/2019 9:00 AM INDICATION: Intubated COMPARISON: 08/17/2019 TECHNIQUE: Portable frontal view of the chest is provided. FINDINGS: The cardiomediastinal silhouette is similar in appearance. Bilateral perihilar alveolar airspace disease with subpleural sparing. There is improved aeration compared with prior examination. Suspect trace left pleural effusion. No pneumothorax. Endotracheal tube and nasogastric tube are in similar position. IMPRESSION: Bilateral perihilar alveolar airspace disease appears partly improved since the prior examination from 08/17/2019. Electronically signed by: Batool Calhoun MD (08/18/2019 8:11 AM) [id number] DICTATED and SIGNED BY: BATOOL CALHOUN MD DATE: 08/18/19 0811 VTE Prophylaxis Ordered VTE Prophylaxis Devices: Yes VTE Pharmacological Prophylaxi: Yes Assessment/Plan Assessment/Plan impression 1, OVERDOSE suspected ? Accidental? vs intentional, no prev hx OD known 2. hx major depression, hx bipolar disorder since a teen 3. hx substance abuse, has "obtained street drugs in the past "according to sister in room 4, ASPIRATION PNEUMONIA 5. FEVER 6. SEPSIS 7. Morbid obesity 8. CECILIA 9. altered mental status 10. Tachycardia likely sec to sepsis, fever plan admit icu bed CONSULT ID consult pulmonary dvt prophylaxis UDS REPEAT ASA LEVEL ACETAMINOPHEN LEVEL VENT SUPPORT GI PROPHYLAXIS PAT CONSULT neurology consult sepsis protocol procalcitonin troponin i d/w family in room 36 min cc time GENA ARTHUR MD Aug 18, 2019 09:46
[2019-08-18] MEDS ORDERED: MAGNESIUM SULFATE 2GM 50 ML IV ONE (10:15)
--- NOTE | 2019-08-18 11:11 | CONS ---
DATE OF CONSULTATION: PULMONARY CONSULTATION ATTENDING PHYSICIAN: Dr. Galeano. REASON FOR CONSULTATION: Respiratory failure. HISTORY OF PRESENT ILLNESS: The patient is a 24-year-old obese patient with a BMI of 33. She has a history of tobacco use. She also has a history of vaping. The patient has history of pneumonia and a history of gallbladder surgery for which she was prescribed narcotic oxycodone. The patient was found to be unresponsive. Her was at the bedside and gave much of the history, he says that she has history of depression, but the medication pill that was empty was the oxycodone. One of her family members also mentioned that she crushed Percocet tablets and snorted it. She was hypoxic on arrival and was unresponsive. As a result, she required intubation. Her lactic acid initially was 7.1. She had bilateral ground glass infiltrates with no pleural effusion. She did not respond to Narcan. Her arterial blood gases had shown a pH of 7.41, pCO2 of 46 and a pO2 of 86 on 60% FiO2. I have been asked to see her for further evaluation. PAST MEDICAL HISTORY: Significant for recent gallbladder surgery, history of pneumonia in the past, history of D and C, reflux, asthma and tonsillectomy. PAST SURGICAL HISTORY: As above. SOCIAL HISTORY: Unable to obtain from the patient. She does smoke cigarettes. She also vapes and also smoked cigars. MEDICATIONS: Reviewed as listed in the MRAD. REVIEW OF SYSTEMS: Unable to obtain from the patient. PHYSICAL EXAMINATION: VITAL SIGNS: Reviewed. T-max of 100.1, pulse ox is 98%, blood pressure 102/60. HEENT: Sclerae nonicteric. NECK: Supple. LUNGS: With diminished breath sounds with few rhonchi. CARDIOVASCULAR: Regular rate and rhythm. ABDOMEN: Soft, obese. EXTREMITIES: With trace pitting edema. LABORATORY DATA: Reviewed. Influenza screen is negative. BUN 17, creatinine 1.4. Procalcitonin 82. White cell count 9.0, hemoglobin 12.0 and platelets are 277. IMPRESSION: 1. Acute hypoxic respiratory failure secondary to multifactorial etiologies and likely secondary to combination of metabolic and toxic encephalopathy from unknown drug overdose and also suspected acute lung injury with diffuse ground glass infiltrates. 2. Abnormal chest x-ray with diffuse ground glass infiltrates without any pleural effusion. The findings highly favoring acute lung injury. She has history of vaping and that could be one etiology. She also recently crushed Percocet tablet and then snorted it and that could be another source of her acute lung injury. 3. Underlying tobacco use. 4. Fever, present on admission. Influenza screen negative. Procalcitonin markedly elevated. She is currently being covered for pneumonia as well. 5. Underlying obesity. 6. Toxicology screen negative. RECOMMENDATIONS: 1. Continue with present assist-control mode with gradual weaning of FiO2 2. Follow chest x-ray. 3. Broad-spectrum antibiotic per ID. 4. Obtain echocardiogram clinically, unlikely CHF. 5. DVT prophylaxis. 6. Start enteral nutrition. 7. Bronchodilators. 8. Tamiflu has also been initiated. 9. Continue mild sedation, 10. We will likely start weaning in the next 24 hours. 11. Discussed with family and discussed with RN and RT. Critical care time 37 minutes. SARAH KEANE MD DR: CARLOS/zaria JOB#: [id number] / [id number]
[2019-08-18] MEDS ORDERED: BISACODYL 10 MG SUPP.RECT. PR PRN (11:30)
[2019-08-18] MEDS ORDERED: 0.9 % SODIUM CHLORIDE 10 ML DISP.SYRIN. IV PRN (11:30)
[2019-08-18] MEDS ORDERED: ONDANSETRON PF 4 MG/2 ML VIAL. IV PRN (11:30)
[2019-08-18 11:58] LABS: ACETAMIN 8.8 mcg/ml (10-30); SALIC < 2.8 mg/dL (2.8-20.0)
[2019-08-18] MEDS ORDERED: HEPARIN for SUB-Q USE 5,000 UNIT/ML VIAL. SQ SCH (12:00)
[2019-08-18] MEDS ORDERED: FAMOTIDINE 20 MG/2 ML VIAL IVP SCH (12:00)
--- NOTE | 2019-08-18 12:03 | NUR ---
SS following for discharge planning. Pt is from home and is currently on the vent. SS received referral regarding drug overdose. Per pt's RN, pt transferred from [facility] and pt's toxicology was negative. SS will contact PAT team for assessment and recommendations once pt is medically stable.
[2019-08-18 12:06] LABS: BARBITURATES NEG (NEG); BENZODIAZEPINES POS (NEG); CANNABINOIDS NEG (NEG); COCAINE NEG (NEG); METHADONE NEG (NEG); OPIATES NEG (NEG); PHENCYCLIDINE NEG (NEG)
[2019-08-18 12:07] LABS: AMPHETAMINE/METHAMPHETAMINE NEG (NEG)
[2019-08-18] MEDS ORDERED: IV NORMAL SALINE 1000ML BAG 1,000 ML IV SCH (12:11)
[2019-08-18] MEDS ORDERED: NOREPINEPHRINE VIAL 8 MG in IV DEXTROSE 5% 250 ML IV PRN (12:15)
[2019-08-18] MEDS ORDERED: IV NORMAL SALINE 500ML BAG 500 ML IV PRN (12:15)
[2019-08-18 12:28] LABS: ALBUMIN 2.7 g/dL (3.4-5.0); ALBUMIN/GLOBULIN RATIO 0.9 (1.0-1.7); CALCIUM 7.3 mg/dL (8.5-10.1); CREATININE 1.3 mg/dL (0.6-1.0); GFR 50.8; POTASSIUM 3.6 mmol/L (3.5-5.1); TOTAL BILIRUBIN 0.7 mg/dL (0.2-1.0); TOTAL PROTEIN 5.6 g/dL (6.4-8.2)
--- NOTE | 2019-08-18 12:33 | CARD ---
MR#: [id number] Date of Study: 08/18/2019 Ordering Physician: SARAH KAENE, Referring Physician: SARAH KEANE, Tech: Danuta Byrne APPROVED REPORT EXAM: Two-dimensional and M-mode echocardiogram with Doppler and color Doppler. Other Information Quality : AverageHR: 114bpm INDICATION Congestive Heart Failure 2D DIMENSIONS RVDd2.7 (2.9-3.5cm)Left Atrium(2D)3.0 (1.6-4.0cm) IVSd1.0 (0.7-1.1cm)Aortic Root(2D)2.6 (2.0-3.7cm) LVDd3.6 (3.9-5.9cm)LVOT Diameter1.8 (1.8-2.4cm) PWd0.9 (0.7-1.1cm)LVDs2.6 (2.5-4.0cm) FS (%) 27.6 %SV29.6 ml LVEF(%)54.6 (>50%) Aortic Valve AoV Peak Philip.109.1cm/sAoV VTI18.9cm AO Peak GR.4.8mmHgLVOT VTI 10.43cm AO Mean GR.4mmHg Mitral Valve MV E Ialnivpr89.1cm/sMV DECEL ISOE023oq MV A Qrbyusad93.8cm/sE/A Ratio1.0 TDI Medial E' P. V10.03cm/sE/Medial E'5.5 Tricuspid Valve TR P. Yjtkbycz517ys/sRAP [id number] TR Peak Gr.[id number] Pulmonary Vein S1 Octfrpdf04.7cm/sS2 Vrsllucy28.92cm/s D2 Qzohwuge39.9cm/sPVa [id number] LEFT VENTRICLE The left ventricle is normal size. There is borderline to mild concentric left ventricular hypertroph y. The left ventricular systolic function is normal. The Ejection Fraction is 55-60%. There is normal LV segmental wall motion. RIGHT VENTRICLE The right ventricle is normal size. There is normal right ventricular wall thickness. The right ventr icular systolic function is normal. ATRIA The left atrium size is normal. The right atrium size is normal. The interatrial septum is intact wit h no evidence for an atrial septal defect or patent foramen ovale as noted on 2-D or Doppler imaging. AORTIC VALVE The aortic valve is normal in structure and function. Doppler and Color Flow revealed no significant aortic regurgitation. There is no significant aortic valvular stenosis. MITRAL VALVE The mitral valve is normal in structure and function. There is no evidence of mitral valve prolapse. There is no mitral valve stenosis. Doppler and Color Flow revealed no mitral valve regurgitation note d. TRICUSPID VALVE The tricuspid valve is normal in structure and function. Doppler and Color Flow revealed trace tricus pid regurgitation with an estimated PAP of 25 mmHg. There is no tricuspid valve stenosis. PULMONIC VALVE The pulmonary valve is normal in structure and function. Doppler and Color Flow revealed trace pulmon ic valvular regurgitation. GREAT VESSELS The aortic root is normal in size. The IVC is normal in size and collapses >50% with inspiration. PERICARDIAL EFFUSION There is small left pleural effusion. There is no evidence of significant pericardial effusion. Critical Notification Critical Value: No <Conclusion> The left ventricular systolic function is normal. The Ejection Fraction is 55-60%. There is normal LV segmental wall motion. Trace tricuspid regurgitation with an estimated PAP of 25 mmHg. There is no evidence of significant pericardial effusion. Signed by : Roberto Barba, Electronically Approved : 08/18/2019 12:33:35
--- NOTE | 2019-08-18 13:28 | PDOC2 ---
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 Apparently pt was noted to have possibly passed out and was on the floor with alleged boyfriend and he did not call for help right away until her brother came to the house and noted her foaming in her mouth and EMS was called. She was unresponsive but no cardiac arrest. She was given narcan. She is currently intubated with vent. She was noted doing ok yesterday and was not complaining of anything per her aunt. There was no noted convulsions. No complains of any previous chest pain or SOA. There was potential use of percocet and possibly snorting it per her aunt but her UDS was negative at [facility]. She had Lap gwen on 07/15/2019 and she has been having bouts of loose stools and occa sional nausea since then. According to her aunt there was some speculation of pneumonia few weeks after her surgery and actually saw a doctor but unclear what came out it and based on her no antibiotics was given in reference to the latter. She also was treated for either BV or trichomonas and with other antibiotics which she ended up with yeast infection and was treated as well. Her last antibiotic treatment was about a week ago. According to her aunt whom she lives with that she was given lortab before but unclear exactly what has been filled recently as one of the family member also pointed out that she may have gotten started on diet pill, phentermine. Currently she is on sinus tach with stable BP with no pressors and no prior hx of cardiac disease. To add in the last 2 days she has been complaining of not feeling well, having some abd pain, and nausea with some vomiting but yesterday she was doing ok. PAST MEDICAL HISTORY Heme/Onc: Other (NAFLD) PAST SURGICAL HISTORY Past Surgical History: Cholecystectomy, , Tonsillectomy FAMILY HISTORY Family History: Heart Disease SOCIAL HISTORY Smoke: <1 pack per day (smokes cigars and vapes) ALCOHOL: none Drugs: None Lives: with Family CURRENT MEDICATIONS CURRENT MEDICATIONS Current Medications Medications (Trade) Dose Ordered Sig/Minerva Route PRN Reason Start Time Stop Time Status Last Admin Dose Admin Fentanyl Citrate 30 ml @ 0 mls/hr CONT PRN IV SEE PROTOCOL 08/17/19 21:45 08/18/19 04:09 Midazolam HCl 50 mg/Sodium Chloride 50 ml @ 0 mls/hr CONT PRN IV SEE PROTOCOL 08/17/19 21:45 08/18/19 06:05 Sodium Chloride 1,000 ml @ 150 mls/hr Q6H40M IV 08/17/19 22:00 08/18/19 10:32 DC 08/18/19 01:13 Piperacillin Sod/ Tazobactam Sod 3.375 gm/Sodium Chloride 50 ml @ 100 mls/hr Q6HRS IV 08/18/19 00:00 08/18/19 07:32 DC 08/18/19 06:04 Famotidine (Pepcid Vial) 20 mg BID IVP 08/18/19 09:00 08/18/19 08:12 Info (Icu Electrolyte Protocol) 1 ea DAILY 08/18/19 09:00 08/18/19 11:57 DC 08/18/19 08:51 Heparin Sodium (Porcine) (Heparin Sodium) 5,000 unit Q8HRS SQ 08/17/19 22:00 08/18/19 06:05 Acetaminophen (Tylenol) 650 mg PRN Q6HRS PRN PEG MILD PAIN / TEMP 08/18/19 04:30 08/18/19 04:38 Ceftriaxone Sodium (Rocephin) 2 gm Q24H IVP 08/18/19 09:00 08/18/19 08:13 Azithromycin 500 mg/Sodium Chloride 250 ml @ 250 mls/hr Q24H IV 08/18/19 08:00 08/18/19 08:13 Oseltamivir Phosphate (Tamiflu) 75 mg BID PO 08/18/19 09:00 08/23/19 08:59 08/18/19 08:13 Magnesium Sulfate 50 ml @ 25 mls/hr 1X ONCE IV 08/18/19 10:15 08/18/19 12:14 DC 08/18/19 10:16 Sodium Chloride 1,000 ml @ 100 mls/hr Q10H IV 08/18/19 11:17 08/18/19 12:35 ALLERGIES ALLERGIES: Coded Allergies: No Known Drug Allergies (Unverified , 07/15/19) ROS Review of System unreliable, sedated and intubated PHYSICAL EXAM General: Other (sedated) HEENT: Atraumatic, Mucous membr. moist/pink Lungs: Other (diminsihed bases; intubated with vent) Heart: Regular rate (sinus tach), Normal S1, Normal S2, No murmurs Abdomen: Soft Extremities: No cyanosis, No edema Skin: No breakdown, No significant lesion Neuro: Other (sedated) Psych/Mental Status: Other (sedated) MUSCULOSKELETAL: Other (no traumatic injuries) VITALS/I&O VITALS/I&O: Vital Signs Date Time Temp Pulse Resp B/P (MAP) Pulse Ox O2 Delivery O2 Flow Rate FiO2 08/18/19 13:00 119 18 93/50 (64) 95 Ventilator 08/18/19 12:00 98.9 98.9 I & O 08/17/19 08/17/19 08/18/19 15:00 23:00 07:00 Intake Total 759 ml Output Total 130 ml 550 ml Balance -130 ml 209 ml LABS Lab: Laboratory Tests Test 08/17/19 21:47 08/17/19 22:05 08/17/19 22:30 08/18/19 01:19 Glucose (Fingerstick) 72 mg/dL (70-99) 101 mg/dL (70-99) H O2 Saturation 99 % (92-99) Arterial Blood pH 7.45 (7.35-7.45) Arterial Blood pCO2 at Patient Temp 42 mmHg (35-46) Arterial Blood pO2 at Patient Temp 139 mmHg (85-108) H Arterial Blood HCO3 28 mmol/L (21-28) Arterial Blood Base Excess 4 mmol/L (-3-3) H Oxyhemoglobin 97.8 % Methemoglobin 0.1 % (0.0-1.9) Carbon Monoxide, Quantitative 0.7 % (0.0-1.9) FiO2 100 Troponin I Quantitative 0.670 ng/mL (0.000-0.055) Thyroid Stimulating Hormone (TSH) 0.804 uIU/mL (0.358-3.74) Test 08/18/19 02:10 08/18/19 05:30 08/18/19 06:16 1/8/20 07:30 Urine Collection Type Unknown Urine Color Yellow Urine Clarity Clear Urine pH 5.0 Urine Specific Willis 1.015 Urine Protein Negative mg/dL (NEG-TRACE) Urine Glucose (UA) Negative mg/dL (NEG) Urine Ketones (Stick) Negative mg/dL (NEG) Urine Blood Negative (NEG) Urine Nitrite Negative (NEG) Urine Bilirubin Negative (NEG) Urine Urobilinogen Dipstick 0.2 mg/dL (0.2 mg/dL) Urine Leukocyte Esterase Trace (NEG) Urine RBC 0 /HPF (0-2) Urine WBC 1-4 /HPF (0-4) Urine Squamous Epithelial Cells Few /LPF Urine Amorphous Sediment Present /HPF Urine Bacteria Few /HPF (0-FEW) Urine Mucus Mod /LPF White Blood Count 9.0 x10^3/uL (4.0-11.0) Red Blood Count 4.26 x10^6/uL (3.50-5.40) Hemoglobin 12.0 g/dL (12.0-15.5) Hematocrit 35.9 % (36.0-47.0) L Mean Corpuscular Volume 84 fL (79-100) Mean Corpuscular Hemoglobin 28 pg (25-35) Mean Corpuscular Hemoglobin Concent 33 g/dL (31-37) Red Cell Distribution Width 14.0 % (11.5-14.5) Platelet Count 277 x10^3/uL (140-400) Neutrophils (%) (Auto) 70 % (31-73) Lymphocytes (%) (Auto) 24 % (24-48) Monocytes (%) (Auto) 6 % (0-9) Eosinophils (%) (Auto) 0 % (0-3) Basophils (%) (Auto) 0 % (0-3) Neutrophils # (Auto) 6.3 x10^3/uL (1.8-7.7) Lymphocytes # (Auto) 2.1 x10^3/uL (1.0-4.8) Monocytes # (Auto) 0.5 x10^3/uL (0.0-1.1) Eosinophils # (Auto) 0.0 x10^3/uL (0.0-0.7) Basophils # (Auto) 0.0 x10^3/uL (0.0-0.2) Prothrombin Time 13.5 SEC (11.7-14.0) Prothrombin Time INR 1.1 (0.8-1.1) Activated Partial Thromboplast Time 33 SEC (24-38) Sodium Level 147 mmol/L (136-145) H Potassium Level 3.6 mmol/L (3.5-5.1) Chloride Level 109 mmol/L (98-107) H Carbon Dioxide Level 31 mmol/L (21-32) Anion Gap 7 (6-14) Blood Urea Nitrogen 17 mg/dL (7-20) Creatinine 1.4 mg/dL (0.6-1.0) H Estimated GFR (Cockcroft-Gault) 46.6 BUN/Creatinine Ratio 12 (6-20) Glucose Level 113 mg/dL (70-99) H Lactic Acid Level 2.2 mmol/L (0.4-2.0) H Calcium Level 7.2 mg/dL (8.5-10.1) L Phosphorus Level 3.6 mg/dL (2.6-4.7) Magnesium Level 1.4 mg/dL (1.8-2.4) L Total Bilirubin 0.7 mg/dL (0.2-1.0) Aspartate Amino Transferase (AST) 70 U/L (15-37) H Alanine Aminotransferase (ALT) 73 U/L (14-59) H Alkaline Phosphatase 69 U/L (46-116) Total Protein 5.7 g/dL (6.4-8.2) L Albumin 2.7 g/dL (3.4-5.0) L Albumin/Globulin Ratio 0.9 (1.0-1.7) L Procalcitonin 82.41 ng/mL (0.00-0.10) H Free Thyroxine 0.87 ng/dL (0.76-1.46) Salicylates Level < 2.8 mg/dL (2.8-20.0) L Salicylate Last Dose Date 08/17/19 Salicylate Last Dose Time 1600 Acetaminophen Level 8.8 mcg/ml (10-30) L Acetaminophen Last Dose Date 08/17/19 Acetaminophen Last Dose Time 1600 Glucose (Fingerstick) 105 mg/dL (70-99) H Influenza Type A Antigen Negative (NEGATIVE) Influenza Type B Antigen Negative (NEGATIVE) Test 08/18/19 08:15 08/18/19 11:45 08/18/19 12:00 08/18/19 12:06 O2 Saturation 96 % (92-99) Arterial Blood pH 7.41 (7.35-7.45) Arterial Blood pCO2 at Patient Temp 46 mmHg (35-46) Arterial Blood pO2 at Patient Temp 86 mmHg (85-108) Arterial Blood HCO3 28 mmol/L (21-28) Arterial Blood Base Excess 3 mmol/L (-3-3) FiO2 60 Urine Opiates Screen Neg (NEG) Urine Methadone Screen Neg (NEG) Urine Barbiturates Neg (NEG) Urine Phencyclidine Screen Neg (NEG) Urine Amphetamine/Methamphetamine Neg (NEG) Urine Benzodiazepines Screen Pos (NEG) Urine Cocaine Screen Neg (NEG) Urine Cannabinoids Screen Neg (NEG) Urine Ethyl Alcohol Neg (NEG) Sodium Level 147 mmol/L (136-145) H Potassium Level 3.6 mmol/L (3.5-5.1) Chloride Level 109 mmol/L (98-107) H Carbon Dioxide Level 30 mmol/L (21-32) Anion Gap 8 (6-14) Blood Urea Nitrogen 17 mg/dL (7-20) Creatinine 1.3 mg/dL (0.6-1.0) H Estimated GFR (Cockcroft-Gault) 50.8 BUN/Creatinine Ratio 13 (6-20) Glucose Level 110 mg/dL (70-99) H Lactic Acid Level 1.5 mmol/L (0.4-2.0) Calcium Level 7.3 mg/dL (8.5-10.1) L Total Bilirubin 0.7 mg/dL (0.2-1.0) Aspartate Amino Transferase (AST) 71 U/L (15-37) H Alanine Aminotransferase (ALT) 72 U/L (14-59) H Alkaline Phosphatase 67 U/L (46-116) Total Protein 5.6 g/dL (6.4-8.2) L Albumin 2.7 g/dL (3.4-5.0) L Albumin/Globulin Ratio 0.9 (1.0-1.7) L Procalcitonin 74.69 ng/mL (0.00-0.10) H Glucose (Fingerstick) 90 mg/dL (70-99) Laboratory Tests 08/18/19 05:30 Laboratory Tests 08/18/19 05:30 08/18/19 12:00 ASSESSMENT/PLAN ASSESSMENT/PLAN 1. Acute respiratory failure: intubated and vented. Possible snorting of percocet and vaping. Tox screen at [facility] neg. 2. Possible syncope: no significant arrhythmias. PE, Seizures among the differentials. 3. Fever with possible aspiration and sepsis 4. Cigar use and Vaping 5. Reactive sinus tachycardia: TTE unremarkable with normal EF and WM. EKG sinus tach no acute changes. 6. Obesity: possible phentermine use 7. CECILIA 8. Sepsis? 9. Abdominal pain: S/P lap gwen 07/15/2019. defer to PCP 10. Unclear with recent usage of antibiotics. 11. Elevated troponin: 0.6, demand mediated, type 2 as with culprits enumerated above. Recommendations 1. Replace Mg. Check DDIMER 2. Pulmonary following 3. Not needing pressor currently. Continue antbiotics and IVF 4. Supportive care. 5. Discussed with RN. Will try to obtain recently filled Rx from her pharmacy. TAN ASTUDILLO MD 08/20/19 0517: CARDIAC CONSULT ASSESSMENT/PLAN ASSESSMENT/PLAN Late entry for 08/18/2019 Pt. see and examined. 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 No acute cardiac issues. Supportive care. Thanks SHORTY RODRIGES APRN Aug 18, 2019 13:28 TAN ASTUDILLO MD Aug 20, 2019 05:17
[2019-08-18 14:15] LABS: D-DIMER 7.95 ug/mlFEU (0.00-0.50)
--- NOTE | 2019-08-18 14:46 | PDOC2 ---
NEUROLOGY CONSULT Date of Admission Date of Admission DATE: 08/18/19 TIME: 14:41 Reason for Consult Reason for Consult: altered mental status Referring Physician Referring Physician: Dr. Kirby Source Source: Caregiver, Chart review, Patient History of Present Illness History of Present Illness The patient is a 24-year-old right-handed female whose family found her on the floor unresponsive with agonal respirations. She was taken to [facility] and intubated. This was yesterday morning. She has not had imaging of the brain. There is a question of overdose, but urine drug screen at [facility] was negative. Lactic acid level was elevated. There is no prior history of stroke, seizure, or head injury. Patient had a laparoscopic cholecystectomy a month ago and did have some pain pills from that. There is also listed diagnosis of schizophrenia. Past Medical History Pulmonary: Asthma, Pneumonia GI: GERD Hepatobiliary: Other (fatty liver) Infectious disease: Other (trichomonas) Renal/: UTI Past Surgical History Past Surgical History: Cholecystectomy, , Tonsillectomy, Other (wisdom teeth) Family History Family History: No pertinent hx Social History Social History Single, no alcohol, tobacco, street drugs Current Medications Current Medications Current Medications Fentanyl Citrate 30 ml @ 0 mls/hr CONT PRN IV SEE PROTOCOL Last administered on 08/18/19at 04:09; Start 08/17/19 at 21:45 Propofol 100 ml @ 0 mls/hr CONT PRN IV SEE PROTOCOL; Start 08/17/19 at 21:45 Fentanyl Citrate (Fentanyl 2ml Vial) 25 mcg PRN Q1HR PRN IV SEE COMMENTS; Start 08/17/19 at 21:45 Fentanyl Citrate (Fentanyl 2ml Vial) 50 mcg PRN Q1HR PRN IV SEE COMMENTS; Start 08/17/19 at 21:45 Midazolam HCl 50 mg/Sodium Chloride 50 ml @ 0 mls/hr CONT PRN IV SEE PROTOCOL Last administered on 08/18/19at 13:35; Start 08/17/19 at 21:45 Sodium Chloride 1,000 ml @ 150 mls/hr Q6H40M IV Last administered on 08/18/19at 01:13; Start 08/17/19 at 22:00; Stop 08/18/19 at 10:32; Status DC Piperacillin Sod/ Tazobactam Sod 3.375 gm/Sodium Chloride 50 ml @ 100 mls/hr Q6HRS IV Last administered on 08/18/19at 06:04; Start 08/18/19 at 00:00; Stop 08/18/19 at 07:32; Status DC Lorazepam (Ativan) 1 mg PRN Q6HRS PRN PO ANXIETY / AGITATION; Start 08/17/19 at 22:00 Ondansetron HCl (Zofran) 4 mg PRN Q6HRS PRN IV NAUSEA/VOMITING 1ST CHOICE; Start 08/17/19 at 22:00 Prochlorperazine Edisylate (Compazine) 5 mg PRN Q6HRS PRN IV NAUSEA/VOMITING 2ND CHOICE; Start 08/17/19 at 22:00 Famotidine (Pepcid Vial) 20 mg BID IVP Last administered on 08/18/19at 08:12; Start 08/18/19 at 09:00 Info (Icu Electrolyte Protocol) 1 ea DAILY MC Last administered on 08/18/19at 08:51; Start 08/18/19 at 09:00; Stop 08/18/19 at 11:57; Status DC Heparin Sodium (Porcine) (Heparin Sodium) 5,000 unit Q8HRS SQ Last administered on 08/18/19at 13:40; Start 08/17/19 at 22:00 Sodium Chloride (Normal Saline Flush) 3 ml QSHIFT PRN IV AFTER MEDS AND BLOOD DRAWS; Start 08/17/19 at 22:00; Stop 08/18/19 at 11:56; Status DC Bisacodyl (Dulcolax Supp) 10 mg PRN DAILY PRN GA CONSTIPATION; Start 08/17/19 at 22:00 Acetaminophen (Tylenol) 650 mg PRN Q6HRS PRN PEG MILD PAIN / TEMP Last administered on 08/18/19at 04:38; Start 08/18/19 at 04:30 Ceftriaxone Sodium (Rocephin) 2 gm Q24H IVP Last administered on 08/18/19at 08:13; Start 08/18/19 at 09:00 Azithromycin 500 mg/Sodium Chloride 250 ml @ 250 mls/hr Q24H IV Last administered on 08/18/19at 08:13; Start 08/18/19 at 08:00 Oseltamivir Phosphate (Tamiflu) 75 mg BID PO Last administered on 08/18/19at 08:13; Start 08/18/19 at 09:00; Stop 08/23/19 at 08:59 Magnesium Sulfate 50 ml @ 25 mls/hr 1X ONCE IV Last administered on 08/18/19at 10:16; Start 08/18/19 at 10:15; Stop 08/18/19 at 12:14; Status DC Ondansetron HCl (Zofran) 4 mg PRN Q6HRS PRN IV NAUSEA/VOMITING; Start 08/18/19 at 11:30; Stop 08/18/19 at 11:55; Status DC Famotidine (Pepcid Vial) 20 mg BID IVP ; Start 08/18/19 at 12:00; Stop 08/18/19 at 11:55; Status DC Info (Icu Electrolyte Protocol) 1 ea DAILY MC ; Start 08/19/19 at 09:00 Heparin Sodium (Porcine) (Heparin Sodium) 5,000 unit Q12HR SQ ; Start 08/18/19 at 12:00; Stop 08/18/19 at 11:55; Status DC Sodium Chloride (Normal Saline Flush) 3 ml QSHIFT PRN IV AFTER MEDS AND BLOOD DRAWS; Start 08/18/19 at 11:30 Sodium Chloride 1,000 ml @ 100 mls/hr Q10H IV Last administered on 08/18/19at 12:35; Start 08/18/19 at 11:17 Bisacodyl (Dulcolax Supp) 10 mg PRN DAILY PRN GA CONSTIPATION; Start 08/18/19 at 11:30; Stop 08/18/19 at 11:55; Status DC Sodium Chloride 1,000 ml @ 1,560 mls/hr Q39M IV ; Start 08/18/19 at 12:11; Stop 08/18/19 at 13:01; Status DC Sodium Chloride 500 ml @ 1,000 mls/hr PRN Q30MIN PRN IV SEE COMMENTS; Start 08/18/19 at 12:15 Norepinephrine Bitartrate 8 mg/ Dextrose 258 ml @ 0 mls/hr CONT PRN IV SEE I/O RECORD; Start 08/18/19 at 12:15 Dobutamine HCl/ Dextrose 250 ml @ 0 mls/hr CONT PRN IV SEE I/O RECORD; Start 08/18/19 at 12:15 Active Scripts Active Reported Percocet 5-325 Mg Tablet (Oxycodone/Acetaminophen) 1 Each Tablet 1-2 Tab PO PRN Q4HRS PRN Ortho Tri-Cyclen (Norgestimate-Ethinyl Estradiol) 1 Each Tablet 1 Each PO DAILY Cetirizine Hcl 10 Mg Tablet 10 Mg PO DAILY Proair Hfa Inhaler (Albuterol Sulfate) 8.5 Gm Hfa.aer.ad 1 Puff INH PRN Q6HRS PRN Allergies Allergies: Coded Allergies: No Known Drug Allergies (Unverified , 07/15/19) ROS Review of System Negative for fever, chills, weight loss, shortness of breath, chest pain, indigestion, hematochezia, melena, and dysuria. Full 14-point review of systems is negative. Physical Exam Physical Examination General: Well-developed, well-nourished, black female, in no acute distress HEENT: Normocephalic andatraumatic. Tympanic membranes clear.Temporal arteriespulsatile and nontender.Fundoscopic exam unremarkable Neck: Supple without bruit, no meningismus Musculoskeletal: Stability:see neurologic. Gait exam:see neurologic. Tone:see neurologic.Strength:see neurologic. Neurological: Mental Status:orientation, memory, attention span/concentration, language, fund of knowledge: Intubated, follows commands, moves extremities spontaneously. Cranial Nerves:Pupils equal and reactive to light, extraocular movements areintact, visual choe are full to confrontation. Facial sensation is normal. There is no facial asymmetry. Vestibulo-ocular reflex is intact. Palate elevates and tongue protrudes in midline. All other cranial related problems are negative except as mentioned before.Reflexes:2+ and symmetric with flexor plantar responses. Motor:moves all extremities. Coordination and gait:Not cooperative. Sensory:responds to pinprick in all extremities Vitals VITALS Vital Signs Date Time Temp Pulse Resp B/P (MAP) Pulse Ox O2 Delivery O2 Flow Rate FiO2 08/18/19 14:00 116 18 95/40 (58) 99 Ventilator 08/18/19 12:00 98.9 98.9 Labs Labs Laboratory Tests Test 08/17/19 21:47 08/17/19 22:05 08/17/19 22:30 08/18/19 01:19 Glucose (Fingerstick) 72 mg/dL (70-99) 101 mg/dL (70-99) O2 Saturation 99 % (92-99) Arterial Blood pH 7.45 (7.35-7.45) Arterial Blood pCO2 at Patient Temp 42 mmHg (35-46) Arterial Blood pO2 at Patient Temp 139 mmHg (85-108) Arterial Blood HCO3 28 mmol/L (21-28) Arterial Blood Base Excess 4 mmol/L (-3-3) Oxyhemoglobin 97.8 % Methemoglobin 0.1 % (0.0-1.9) Carbon Monoxide, Quantitative 0.7 % (0.0-1.9) FiO2 100 Troponin I Quantitative 0.670 ng/mL (0.000-0.055) Thyroid Stimulating Hormone (TSH) 0.804 uIU/mL (0.358-3.74) Test 08/18/19 02:10 08/18/19 05:30 08/18/19 06:16 08/18/19 07:30 Urine Collection Type Unknown Urine Color Yellow Urine Clarity Clear Urine pH 5.0 Urine Specific Kendrick 1.015 Urine Protein Negative mg/dL (NEG-TRACE) Urine Glucose (UA) Negative mg/dL (NEG) Urine Ketones (Stick) Negative mg/dL (NEG) Urine Blood Negative (NEG) Urine Nitrite Negative (NEG) Urine Bilirubin Negative (NEG) Urine Urobilinogen Dipstick 0.2 mg/dL (0.2 mg/dL) Urine Leukocyte Esterase Trace (NEG) Urine RBC 0 /HPF (0-2) Urine WBC 1-4 /HPF (0-4) Urine Squamous Epithelial Cells Few /LPF Urine Amorphous Sediment Present /HPF Urine Bacteria Few /HPF (0-FEW) Urine Mucus Mod /LPF White Blood Count 9.0 x10^3/uL (4.0-11.0) Red Blood Count 4.26 x10^6/uL (3.50-5.40) Hemoglobin 12.0 g/dL (12.0-15.5) Hematocrit 35.9 % (36.0-47.0) Mean Corpuscular Volume 84 fL (79-100) Mean Corpuscular Hemoglobin 28 pg (25-35) Mean Corpuscular Hemoglobin Concent 33 g/dL (31-37) Red Cell Distribution Width 14.0 % (11.5-14.5) Platelet Count 277 x10^3/uL (140-400) Neutrophils (%) (Auto) 70 % (31-73) Lymphocytes (%) (Auto) 24 % (24-48) Monocytes (%) (Auto) 6 % (0-9) Eosinophils (%) (Auto) 0 % (0-3) Basophils (%) (Auto) 0 % (0-3) Neutrophils # (Auto) 6.3 x10^3/uL (1.8-7.7) Lymphocytes # (Auto) 2.1 x10^3/uL (1.0-4.8) Monocytes # (Auto) 0.5 x10^3/uL (0.0-1.1) Eosinophils # (Auto) 0.0 x10^3/uL (0.0-0.7) Basophils # (Auto) 0.0 x10^3/uL (0.0-0.2) Prothrombin Time 13.5 SEC (11.7-14.0) Prothromb Time International Ratio 1.1 (0.8-1.1) Activated Partial Thromboplast Time 33 SEC (24-38) Sodium Level 147 mmol/L (136-145) Potassium Level 3.6 mmol/L (3.5-5.1) Chloride Level 109 mmol/L (98-107) Carbon Dioxide Level 31 mmol/L (21-32) Anion Gap 7 (6-14) Blood Urea Nitrogen 17 mg/dL (7-20) Creatinine 1.4 mg/dL (0.6-1.0) Estimated GFR (Cockcroft-Gault) 46.6 BUN/Creatinine Ratio 12 (6-20) Glucose Level 113 mg/dL (70-99) Lactic Acid Level 2.2 mmol/L (0.4-2.0) Calcium Level 7.2 mg/dL (8.5-10.1) Phosphorus Level 3.6 mg/dL (2.6-4.7) Magnesium Level 1.4 mg/dL (1.8-2.4) Total Bilirubin 0.7 mg/dL (0.2-1.0) Aspartate Amino Transf (AST/SGOT) 70 U/L (15-37) Alanine Aminotransferase (ALT/SGPT) 73 U/L (14-59) Alkaline Phosphatase 69 U/L (46-116) Total Protein 5.7 g/dL (6.4-8.2) Albumin 2.7 g/dL (3.4-5.0) Albumin/Globulin Ratio 0.9 (1.0-1.7) Procalcitonin 82.41 ng/mL (0.00-0.10) Free Thyroxine 0.87 ng/dL (0.76-1.46) Salicylates Level < 2.8 mg/dL (2.8-20.0) Salicylate Last Dose Date 08/17/19 Salicylate Last Dose Time 1600 Acetaminophen Level 8.8 mcg/ml (10-30) Acetaminophen Last Dose Date 08/17/19 Acetaminophen Last Dose Time 1600 Glucose (Fingerstick) 105 mg/dL (70-99) Influenza Type A Antigen Negative (NEGATIVE) Influenza Type B Antigen Negative (NEGATIVE) Test 08/18/19 08:15 08/18/19 11:45 08/18/19 12:00 08/18/19 12:06 O2 Saturation 96 % (92-99) Arterial Blood pH 7.41 (7.35-7.45) Arterial Blood pCO2 at Patient Temp 46 mmHg (35-46) Arterial Blood pO2 at Patient Temp 86 mmHg (85-108) Arterial Blood HCO3 28 mmol/L (21-28) Arterial Blood Base Excess 3 mmol/L (-3-3) FiO2 60 Urine Opiates Screen Neg (NEG) Urine Methadone Screen Neg (NEG) Urine Barbiturates Neg (NEG) Urine Phencyclidine Screen Neg (NEG) Urine Amphetamine/Methamphetamine Neg (NEG) Urine Benzodiazepines Screen Pos (NEG) Urine Cocaine Screen Neg (NEG) Urine Cannabinoids Screen Neg (NEG) Urine Ethyl Alcohol Neg (NEG) Sodium Level 147 mmol/L (136-145) Potassium Level 3.6 mmol/L (3.5-5.1) Chloride Level 109 mmol/L (98-107) Carbon Dioxide Level 30 mmol/L (21-32) Anion Gap 8 (6-14) Blood Urea Nitrogen 17 mg/dL (7-20) Creatinine 1.3 mg/dL (0.6-1.0) Estimated GFR (Cockcroft-Gault) 50.8 BUN/Creatinine Ratio 13 (6-20) Glucose Level 110 mg/dL (70-99) Lactic Acid Level 1.5 mmol/L (0.4-2.0) Calcium Level 7.3 mg/dL (8.5-10.1) Total Bilirubin 0.7 mg/dL (0.2-1.0) Aspartate Amino Transf (AST/SGOT) 71 U/L (15-37) Alanine Aminotransferase (ALT/SGPT) 72 U/L (14-59) Alkaline Phosphatase 67 U/L (46-116) Total Protein 5.6 g/dL (6.4-8.2) Albumin 2.7 g/dL (3.4-5.0) Albumin/Globulin Ratio 0.9 (1.0-1.7) Procalcitonin 74.69 ng/mL (0.00-0.10) Glucose (Fingerstick) 90 mg/dL (70-99) Test 08/18/19 13:35 Fibrinogen 514 mg/dL (200-440) D-Dimer (Dayana) 7.95 ug/mlFEU (0.00-0.50) Laboratory Tests Test 08/17/19 21:47 08/17/19 22:05 08/17/19 22:30 08/18/19 01:19 Glucose (Fingerstick) 72 mg/dL (70-99) 101 mg/dL (70-99) O2 Saturation 99 % (92-99) Arterial Blood pH 7.45 (7.35-7.45) Arterial Blood pCO2 at Patient Temp 42 mmHg (35-46) Arterial Blood pO2 at Patient Temp 139 mmHg (85-108) Arterial Blood HCO3 28 mmol/L (21-28) Arterial Blood Base Excess 4 mmol/L (-3-3) Oxyhemoglobin 97.8 % Methemoglobin 0.1 % (0.0-1.9) Carbon Monoxide, Quantitative 0.7 % (0.0-1.9) FiO2 100 Troponin I Quantitative 0.670 ng/mL (0.000-0.055) Thyroid Stimulating Hormone (TSH) 0.804 uIU/mL (0.358-3.74) Test 08/18/19 02:10 08/18/19 05:30 08/18/19 06:16 08/18/19 07:30 Urine Collection Type Unknown Urine Color Yellow Urine Clarity Clear Urine pH 5.0 Urine Specific Kendrick 1.015 Urine Protein Negative mg/dL (NEG-TRACE) Urine Glucose (UA) Negative mg/dL (NEG) Urine Ketones (Stick) Negative mg/dL (NEG) Urine Blood Negative (NEG) Urine Nitrite Negative (NEG) Urine Bilirubin Negative (NEG) Urine Urobilinogen Dipstick 0.2 mg/dL (0.2 mg/dL) Urine Leukocyte Esterase Trace (NEG) Urine RBC 0 /HPF (0-2) Urine WBC 1-4 /HPF (0-4) Urine Squamous Epithelial Cells Few /LPF Urine Amorphous Sediment Present /HPF Urine Bacteria Few /HPF (0-FEW) Urine Mucus Mod /LPF White Blood Count 9.0 x10^3/uL (4.0-11.0) Red Blood Count 4.26 x10^6/uL (3.50-5.40) Hemoglobin 12.0 g/dL (12.0-15.5) Hematocrit 35.9 % (36.0-47.0) Mean Corpuscular Volume 84 fL (79-100) Mean Corpuscular Hemoglobin 28 pg (25-35) Mean Corpuscular Hemoglobin Concent 33 g/dL (31-37) Red Cell Distribution Width 14.0 % (11.5-14.5) Platelet Count 277 x10^3/uL (140-400) Neutrophils (%) (Auto) 70 % (31-73) Lymphocytes (%) (Auto) 24 % (24-48) Monocytes (%) (Auto) 6 % (0-9) Eosinophils (%) (Auto) 0 % (0-3) Basophils (%) (Auto) 0 % (0-3) Neutrophils # (Auto) 6.3 x10^3/uL (1.8-7.7) Lymphocytes # (Auto) 2.1 x10^3/uL (1.0-4.8) Monocytes # (Auto) 0.5 x10^3/uL (0.0-1.1) Eosinophils # (Auto) 0.0 x10^3/uL (0.0-0.7) Basophils # (Auto) 0.0 x10^3/uL (0.0-0.2) Prothrombin Time 13.5 SEC (11.7-14.0) Prothromb Time International Ratio 1.1 (0.8-1.1) Activated Partial Thromboplast Time 33 SEC (24-38) Sodium Level 147 mmol/L (136-145) Potassium Level 3.6 mmol/L (3.5-5.1) Chloride Level 109 mmol/L (98-107) Carbon Dioxide Level 31 mmol/L (21-32) Anion Gap 7 (6-14) Blood Urea Nitrogen 17 mg/dL (7-20) Creatinine 1.4 mg/dL (0.6-1.0) Estimated GFR (Cockcroft-Gault) 46.6 BUN/Creatinine Ratio 12 (6-20) Glucose Level 113 mg/dL (70-99) Lactic Acid Level 2.2 mmol/L (0.4-2.0) Calcium Level 7.2 mg/dL (8.5-10.1) Phosphorus Level 3.6 mg/dL (2.6-4.7) Magnesium Level 1.4 mg/dL (1.8-2.4) Total Bilirubin 0.7 mg/dL (0.2-1.0) Aspartate Amino Transf (AST/SGOT) 70 U/L (15-37) Alanine Aminotransferase (ALT/SGPT) 73 U/L (14-59) Alkaline Phosphatase 69 U/L (46-116) Total Protein 5.7 g/dL (6.4-8.2) Albumin 2.7 g/dL (3.4-5.0) Albumin/Globulin Ratio 0.9 (1.0-1.7) Procalcitonin 82.41 ng/mL (0.00-0.10) Free Thyroxine 0.87 ng/dL (0.76-1.46) Salicylates Level < 2.8 mg/dL (2.8-20.0) Salicylate Last Dose Date 08/17/19 Salicylate Last Dose Time 1600 Acetaminophen Level 8.8 mcg/ml (10-30) Acetaminophen Last Dose Date 08/17/19 Acetaminophen Last Dose Time 1600 Glucose (Fingerstick) 105 mg/dL (70-99) Influenza Type A Antigen Negative (NEGATIVE) Influenza Type B Antigen Negative (NEGATIVE) Test 08/18/19 08:15 08/18/19 11:45 08/18/19 12:00 08/18/19 12:06 O2 Saturation 96 % (92-99) Arterial Blood pH 7.41 (7.35-7.45) Arterial Blood pCO2 at Patient Temp 46 mmHg (35-46) Arterial Blood pO2 at Patient Temp 86 mmHg (85-108) Arterial Blood HCO3 28 mmol/L (21-28) Arterial Blood Base Excess 3 mmol/L (-3-3) FiO2 60 Urine Opiates Screen Neg (NEG) Urine Methadone Screen Neg (NEG) Urine Barbiturates Neg (NEG) Urine Phencyclidine Screen Neg (NEG) Urine Amphetamine/Methamphetamine Neg (NEG) Urine Benzodiazepines Screen Pos (NEG) Urine Cocaine Screen Neg (NEG) Urine Cannabinoids Screen Neg (NEG) Urine Ethyl Alcohol Neg (NEG) Sodium Level 147 mmol/L (136-145) Potassium Level 3.6 mmol/L (3.5-5.1) Chloride Level 109 mmol/L (98-107) Carbon Dioxide Level 30 mmol/L (21-32) Anion Gap 8 (6-14) Blood Urea Nitrogen 17 mg/dL (7-20) Creatinine 1.3 mg/dL (0.6-1.0) Estimated GFR (Cockcroft-Gault) 50.8 BUN/Creatinine Ratio 13 (6-20) Glucose Level 110 mg/dL (70-99) Lactic Acid Level 1.5 mmol/L (0.4-2.0) Calcium Level 7.3 mg/dL (8.5-10.1) Total Bilirubin 0.7 mg/dL (0.2-1.0) Aspartate Amino Transf (AST/SGOT) 71 U/L (15-37) Alanine Aminotransferase (ALT/SGPT) 72 U/L (14-59) Alkaline Phosphatase 67 U/L (46-116) Total Protein 5.6 g/dL (6.4-8.2) Albumin 2.7 g/dL (3.4-5.0) Albumin/Globulin Ratio 0.9 (1.0-1.7) Procalcitonin 74.69 ng/mL (0.00-0.10) Glucose (Fingerstick) 90 mg/dL (70-99) Test 08/18/19 13:35 Fibrinogen 514 mg/dL (200-440) D-Dimer (Dayana) 7.95 ug/mlFEU (0.00-0.50) Assessment/Plan Assessment/Plan Impression: Altered mental status, may have taken an overdose, family strongly disagrees, urine drug screen negative. She could've had a seizure. There may be intracranial abnormality as she has not had any imaging of the brain during this more than 24 hours of hospitalization Recommendations: CT head EEG Discussed with patient's family. Thank you for letting me help with the patient's care. CHANTELL WAGNER MD Aug 18, 2019 14:46
[2019-08-18] MEDS ORDERED: IOHEXOL 350 MG/ML 100 ML VIAL. IV ONE (15:30)
[2019-08-18] MEDS ORDERED: CONTRAST GIVEN. MC PRN (15:45)
--- NOTE | 2019-08-18 16:09 | RAD ---
CT HEAD INDICATION: Altered mental status COMPARISON: None Available. Exposure: One or more of the following individualized dose reduction techniques were utilized for this examination: 1. Automated exposure control 2. Adjustment of the mA and/or kV according to patient size 3. Use of iterative reconstruction technique TECHNIQUE: 5 mm contiguous axial images were obtained from the skull base to the vertex in both bone and soft tissue algorithm. FINDINGS: No abnormal attenuation within the brain parenchyma. No evidence of acute intracranial hemorrhage. No extra-axial fluid collections. No mass effect or midline shift. Ventricular size is appropriate. Basal cisterns are patent. No fractures identified.Almeida-white differentiation is preserved.Globes and orbits are within normal limits. Moderate mucosal thickening identified in the bilateral ethmoidal sinuses, bilateral maxillary sinuses and the sphenoid sinuses likely sinus disease. IMPRESSION: 1. No acute intracranial findings. 2. Sinus disease. Electronically signed by: Eusebio Kelly MD (08/18/2019 4:06 PM) [id number]
--- NOTE | 2019-08-18 16:15 | RAD ---
Chest CTA History: Elevated d-dimer, intubation Technique: After bolus of intravenous contrast, CT imaging was performed of the chest. Multiplanar reconstruction images to include MIP reconstruction images are submitted. Exposure: One or more of the following individualized dose reduction techniques were utilized for this examination: 1. Automated exposure control 2. Adjustment of the mA and/or kV according to patient size 3. Use of iterative reconstruction technique. Comparison: November 28, 2015 Findings: There is motion degradation and contrast bolus in the pulmonary arteries is very limited, almost completely nondiagnostic for evaluation for pulmonary embolic disease, no obvious embolism identified in main pulmonary arteries. There are fairly prominent infiltrates of the lower lobes bilaterally and to lesser degree of the upper lobes posteriorly. There are probable very small dependent pleural effusions bilaterally. There are also prominent areas of groundglass density concentrated in the perihilar regions bilaterally and also involvement of the upper lobes. There is endotracheal tube tip about 2 cm from kylah. There is enteric catheter coursing into the stomach with the tip in the proximal duodenum. There is no pericardial fluid or pneumothorax. Impression: 1. Due to motion and limited contrast bolus, exam is almost completely nondiagnostic for evaluation for pulmonary embolic disease, no obvious embolism identified in the main pulmonary arteries. 2. There are fairly prominent infiltrates more dependently of the lower lobes and also of the upper lobes, also prominent areas of groundglass density of the upper lobes and perihilar regions favored to be due to edema rather than etiology such as alveolar hemorrhage given distribution. Electronically signed by: Rashawn Davis MD (08/18/2019 4:12 PM) [id number]
[2019-08-18] MEDS ORDERED: PHEN37.53 PO (18:37)
[2019-08-18] MEDS ORDERED: METR70GE2 VG (18:37)
[2019-08-18] MEDS ORDERED: FLUT1BLS9 IH (18:47)
[2019-08-18] MEDS ORDERED: DEXTROSE 50% 25 GM / 50ML DISP.SYRIN. IV PRN (19:00)
[2019-08-18] MEDS ORDERED: IV DEXTROSE 5% 250 ML BAG. IV PRN (19:00)
[2019-08-19] VITALS (24 sets, daily range): BP systolic 102–160; BP diastolic 51–96
[2019-08-19] MEDS: MIDAZOLAM HCL 50 MG in IV NORMAL SALINE 50ML 50 ML IV PRN (01:14)
[2019-08-19 04:53] LABS: BASO % 0 % (0-3); EOS # 0.1 x10^3/uL (0.0-0.7); EOS % 1 % (0-3); HEMOGLOBIN 10.8 g/dL (12.0-15.5); LYMPH # 2.8 x10^3/uL (1.0-4.8); LYMPH % 23 % (24-48); MEAN CORPUSCULAR HEMOGLOBIN 28 pg (25-35); MEAN CORPUSCULAR HGB CONC 33 g/dL (31-37); MEAN CORPUSCULAR VOLUME 85 fL (79-100); MONO # 0.7 x10^3/uL (0.0-1.1); MONO % 6 % (0-9); NEUT # 8.4 x10^3/uL (1.8-7.7); NEUT % 70 % (31-73); PLATELET COUNT 239 x10^3/uL (140-400); RED BLOOD COUNT 3.88 x10^6/uL (3.50-5.40); RED CELL DISTRIBUTION WIDTH 13.9 % (11.5-14.5)
[2019-08-19 05:08] LABS: ALBUMIN 2.8 g/dL (3.4-5.0); ALBUMIN/GLOBULIN RATIO 0.8 (1.0-1.7); CALCIUM 8.6 mg/dL (8.5-10.1); CREATININE 1.1 mg/dL (0.6-1.0); GFR 61.6; MAGNESIUM 1.9 mg/dL (1.8-2.4); POTASSIUM 3.6 mmol/L (3.5-5.1); TOTAL BILIRUBIN 0.5 mg/dL (0.2-1.0); TOTAL PROTEIN 6.5 g/dL (6.4-8.2)
[2019-08-19] MEDS: HEPARIN for SUB-Q USE 5,000 UNIT/ML VIAL. SQ SCH ×3 (06:05→21:30)
--- NOTE | 2019-08-19 07:14 | PDOC ---
Infectious Disease Note Subjective Subjective Pt is awake, still intubated, wants tube out ROS ROS no n/v/d/fever Vital Sign Vital Signs Vital Signs Date Time Temp Pulse Resp B/P (MAP) Pulse Ox O2 Delivery O2 Flow Rate FiO2 08/19/19 06:01 100 Ventilator 08/19/19 06:00 106 18 116/56 (76) 08/19/19 04:00 99.6 99.6 Physical Exam PHYSICAL EXAM GENERAL: Arousable female, orally intubated on a ventilator, not in distress. VITAL SIGNS: stable HEENT: Both pupils are round and reacting. No conjunctival lesion, no lesion in the mouth. NECK: Supple, no JVP, no lymphadenopathy. LUNGS: Clear bilaterally. HEART: S1, S2 regular. No gallop or murmur. ABDOMEN: Soft, nontender, no organomegaly. EXTREMITIES: No edema, cyanosis. SKIN: Unremarkable. NEUROLOGIC: The patient is awake, moves all ext Labs Lab Laboratory Tests Test 08/18/19 07:30 08/18/19 08:15 08/18/19 11:45 08/18/19 12:00 Influenza Type A Antigen Negative (NEGATIVE) Influenza Type B Antigen Negative (NEGATIVE) O2 Saturation 96 % (92-99) Arterial Blood pH 7.41 (7.35-7.45) Arterial Blood pCO2 at Patient Temp 46 mmHg (35-46) Arterial Blood pO2 at Patient Temp 86 mmHg (85-108) Arterial Blood HCO3 28 mmol/L (21-28) Arterial Blood Base Excess 3 mmol/L (-3-3) FiO2 60 Urine Opiates Screen Neg (NEG) Urine Methadone Screen Neg (NEG) Urine Barbiturates Neg (NEG) Urine Phencyclidine Screen Neg (NEG) Urine Amphetamine/Methamphetamine Neg (NEG) Urine Benzodiazepines Screen Pos (NEG) Urine Cocaine Screen Neg (NEG) Urine Cannabinoids Screen Neg (NEG) Urine Ethyl Alcohol Neg (NEG) Sodium Level 147 mmol/L (136-145) Potassium Level 3.6 mmol/L (3.5-5.1) Chloride Level 109 mmol/L (98-107) Carbon Dioxide Level 30 mmol/L (21-32) Anion Gap 8 (6-14) Blood Urea Nitrogen 17 mg/dL (7-20) Creatinine 1.3 mg/dL (0.6-1.0) Estimated GFR (Cockcroft-Gault) 50.8 BUN/Creatinine Ratio 13 (6-20) Glucose Level 110 mg/dL (70-99) Lactic Acid Level 1.5 mmol/L (0.4-2.0) Calcium Level 7.3 mg/dL (8.5-10.1) Total Bilirubin 0.7 mg/dL (0.2-1.0) Aspartate Amino Transf (AST/SGOT) 71 U/L (15-37) Alanine Aminotransferase (ALT/SGPT) 72 U/L (14-59) Alkaline Phosphatase 67 U/L (46-116) Total Protein 5.6 g/dL (6.4-8.2) Albumin 2.7 g/dL (3.4-5.0) Albumin/Globulin Ratio 0.9 (1.0-1.7) Procalcitonin 74.69 ng/mL (0.00-0.10) Test 08/18/19 12:06 08/18/19 13:35 08/19/19 01:12 08/19/19 04:30 Glucose (Fingerstick) 90 mg/dL (70-99) 77 mg/dL (70-99) Fibrinogen 514 mg/dL (200-440) D-Dimer (Dayana) 7.95 ug/mlFEU (0.00-0.50) White Blood Count 12.0 x10^3/uL (4.0-11.0) Red Blood Count 3.88 x10^6/uL (3.50-5.40) Hemoglobin 10.8 g/dL (12.0-15.5) Hematocrit 33.0 % (36.0-47.0) Mean Corpuscular Volume 85 fL (79-100) Mean Corpuscular Hemoglobin 28 pg (25-35) Mean Corpuscular Hemoglobin Concent 33 g/dL (31-37) Red Cell Distribution Width 13.9 % (11.5-14.5) Platelet Count 239 x10^3/uL (140-400) Neutrophils (%) (Auto) 70 % (31-73) Lymphocytes (%) (Auto) 23 % (24-48) Monocytes (%) (Auto) 6 % (0-9) Eosinophils (%) (Auto) 1 % (0-3) Basophils (%) (Auto) 0 % (0-3) Neutrophils # (Auto) 8.4 x10^3/uL (1.8-7.7) Lymphocytes # (Auto) 2.8 x10^3/uL (1.0-4.8) Monocytes # (Auto) 0.7 x10^3/uL (0.0-1.1) Eosinophils # (Auto) 0.1 x10^3/uL (0.0-0.7) Basophils # (Auto) 0.0 x10^3/uL (0.0-0.2) Sodium Level 147 mmol/L (136-145) Potassium Level 3.6 mmol/L (3.5-5.1) Chloride Level 110 mmol/L (98-107) Carbon Dioxide Level 28 mmol/L (21-32) Anion Gap 9 (6-14) Blood Urea Nitrogen 13 mg/dL (7-20) Creatinine 1.1 mg/dL (0.6-1.0) Estimated GFR (Cockcroft-Gault) 61.6 BUN/Creatinine Ratio 12 (6-20) Glucose Level 87 mg/dL (70-99) Calcium Level 8.6 mg/dL (8.5-10.1) Magnesium Level 1.9 mg/dL (1.8-2.4) Total Bilirubin 0.5 mg/dL (0.2-1.0) Aspartate Amino Transf (AST/SGOT) 50 U/L (15-37) Alanine Aminotransferase (ALT/SGPT) 56 U/L (14-59) Alkaline Phosphatase 77 U/L (46-116) Total Protein 6.5 g/dL (6.4-8.2) Albumin 2.8 g/dL (3.4-5.0) Albumin/Globulin Ratio 0.8 (1.0-1.7) Micro Microbiology 08/17/19 Blood Culture - Preliminary, Resulted NO GROWTH AFTER 1 DAY Objective Assessment IMPRESSION: 1. Bilateral pulmonary infiltrate, primary influenza pneumonia is a possibility. Aspiration pneumonia also is a possibility. Pt also apparently doing vaping 2. Suspected drug overdose. 3. Respiratory failure. 4. Lactic acidosis. 5. Leukocytosis. 6. Fever. Plan Plan of Care cont antibiotics cont antiviral, Influenza screen is unreliable test supportive care check cultures MICHAELA CHENG MD Aug 19, 2019 07:14
[2019-08-19 07:39] LABS: BASE EXCESS ABG 0 mmol/L (-3-3); HCO3 ABG 26 mmol/L (21-28); PCO2 ABG 44 mmHg (35-46); PO2 ABG 86 mmHg (85-108); SAT O2 ABG 96 % (92-99)
[2019-08-19 07:42] LABS: FIO2 ABG 40%
[2019-08-19] MEDS: AZITHROMYCIN 500 MG in IV NORMAL SALINE 250ML 250 ML IV SCH (07:59)
[2019-08-19] MEDS: OSELTAMIVIR 75 MG CAPSULE PO SCH ×2 (08:00→21:00)
[2019-08-19] MEDS ORDERED: INSULIN LISPRO 300 UNITS/3 ML VIAL. SQ SCH ×2 (08:00→12:00)
[2019-08-19] MEDS: ACETAMINOPHEN 650 MG/20.3 ML SOLUTION. PEG PRN (08:00)
[2019-08-19] MEDS: FAMOTIDINE 20 MG/2 ML VIAL IVP SCH ×2 (08:02→21:27)
[2019-08-19] MEDS: cefTRIAXone IV Push 2 GM VIAL. IVP SCH (08:02)
--- NOTE | 2019-08-19 08:22 | PDOC2 ---
DONTA CASTAÑEDA [employer] 08/19/19 0822: CONSULT Date of Consult Date of Consult DATE: 08/19/19 TIME: 08:13 Reason for Consult Reason for Consult: s/p gwen Referring Physician Referring Physician: Dr Kirby Identification/Chief Complaint Chief Complaint unresponsive Source Source: Caregiver, Chart review History of Present Illness Reason for Visit: As per records and nurse, found unresponsive by family. Seen in ER [facility], transfer to [facility] for further care. There was some question of patient possibly taking several pain pills, narcan was given in ER, ? seizure Did have a lap gwen for Biliary dyskinesia on 07/15/19. ER notes show she was seen in ER on 07/19 for pain, CTA no acute findings at that time. Per nursing family mentioned has not eating well, pain and nausea since procedure--right upper quadrant abdominal pain occasional postprandial nausea were her preop symptoms. Past Medical History Pulmonary: Asthma, Pneumonia GI: GERD Heme/Onc: Other (NAFLD) Hepatobiliary: Other (fatty liver) Psych: Addictions, Bipolar, Depression Infectious disease: Other (trichomonas) Renal/: UTI Endocrine: No pertinent hx Dermatology: No pertinent hx Past Surgical History Past Surgical History: Cholecystectomy, , Tonsillectomy Family History Family History: Heart Disease Social History <1 pack per day (smokes cigars and vapes) ALCOHOL: none Drugs: None Lives: with Family Current Medications Current Medications Current Medications Fentanyl Citrate 30 ml @ 0 mls/hr CONT PRN IV SEE PROTOCOL Last administered on 08/18/19at 22:06; Start 08/17/19 at 21:45 Propofol 100 ml @ 0 mls/hr CONT PRN IV SEE PROTOCOL; Start 08/17/19 at 21:45 Fentanyl Citrate (Fentanyl 2ml Vial) 25 mcg PRN Q1HR PRN IV SEE COMMENTS; Start 08/17/19 at 21:45 Fentanyl Citrate (Fentanyl 2ml Vial) 50 mcg PRN Q1HR PRN IV SEE COMMENTS; Start 08/17/19 at 21:45 Midazolam HCl 50 mg/Sodium Chloride 50 ml @ 0 mls/hr CONT PRN IV SEE PROTOCOL Last administered on 08/19/19at 01:14; Start 08/17/19 at 21:45 Sodium Chloride 1,000 ml @ 150 mls/hr Q6H40M IV Last administered on 08/18/19at 01:13; Start 08/17/19 at 22:00; Stop 08/18/19 at 10:32; Status DC Piperacillin Sod/ Tazobactam Sod 3.375 gm/Sodium Chloride 50 ml @ 100 mls/hr Q6HRS IV Last administered on 08/18/19at 06:04; Start 08/18/19 at 00:00; Stop 08/18/19 at 07:32; Status DC Lorazepam (Ativan) 1 mg PRN Q6HRS PRN PO ANXIETY / AGITATION; Start 08/17/19 at 22:00 Ondansetron HCl (Zofran) 4 mg PRN Q6HRS PRN IV NAUSEA/VOMITING 1ST CHOICE; Start 08/17/19 at 22:00 Prochlorperazine Edisylate (Compazine) 5 mg PRN Q6HRS PRN IV NAUSEA/VOMITING 2ND CHOICE; Start 08/17/19 at 22:00 Famotidine (Pepcid Vial) 20 mg BID IVP Last administered on 08/19/19at 08:02; Start 08/18/19 at 09:00 Info (Icu Electrolyte Protocol) 1 ea DAILY MC Last administered on 08/18/19at 08:51; Start 08/18/19 at 09:00; Stop 08/18/19 at 11:57; Status DC Heparin Sodium (Porcine) (Heparin Sodium) 5,000 unit Q8HRS SQ Last administered on 08/19/19at 06:05; Start 08/17/19 at 22:00 Sodium Chloride (Normal Saline Flush) 3 ml QSHIFT PRN IV AFTER MEDS AND BLOOD DRAWS; Start 08/17/19 at 22:00; Stop 08/18/19 at 11:56; Status DC Bisacodyl (Dulcolax Supp) 10 mg PRN DAILY PRN MS CONSTIPATION; Start 08/17/19 at 22:00 Acetaminophen (Tylenol) 650 mg PRN Q6HRS PRN PEG MILD PAIN / TEMP Last administered on 08/19/19at 08:00; Start 08/18/19 at 04:30 Ceftriaxone Sodium (Rocephin) 2 gm Q24H IVP Last administered on 08/19/19at 08:02; Start 08/18/19 at 09:00 Azithromycin 500 mg/Sodium Chloride 250 ml @ 250 mls/hr Q24H IV Last administered on 08/19/19at 07:59; Start 08/18/19 at 08:00 Oseltamivir Phosphate (Tamiflu) 75 mg BID PO Last administered on 08/19/19at 08:00; Start 08/18/19 at 09:00; Stop 08/23/19 at 08:59 Magnesium Sulfate 50 ml @ 25 mls/hr 1X ONCE IV Last administered on 08/18/19at 10:16; Start 08/18/19 at 10:15; Stop 08/18/19 at 12:14; Status DC Ondansetron HCl (Zofran) 4 mg PRN Q6HRS PRN IV NAUSEA/VOMITING; Start 08/18/19 at 11:30; Stop 08/18/19 at 11:55; Status DC Famotidine (Pepcid Vial) 20 mg BID IVP ; Start 08/18/19 at 12:00; Stop 08/18/19 at 11:55; Status DC Info (Icu Electrolyte Protocol) 1 ea DAILY MC ; Start 08/19/19 at 09:00 Heparin Sodium (Porcine) (Heparin Sodium) 5,000 unit Q12HR SQ ; Start 08/18/19 at 12:00; Stop 08/18/19 at 11:55; Status DC Sodium Chloride (Normal Saline Flush) 3 ml QSHIFT PRN IV AFTER MEDS AND BLOOD DRAWS; Start 08/18/19 at 11:30 Sodium Chloride 1,000 ml @ 100 mls/hr Q10H IV Last administered on 08/18/19at 21:41; Start 08/18/19 at 11:17 Bisacodyl (Dulcolax Supp) 10 mg PRN DAILY PRN MS CONSTIPATION; Start 08/18/19 at 11:30; Stop 08/18/19 at 11:55; Status DC Sodium Chloride 1,000 ml @ 1,560 mls/hr Q39M IV ; Start 08/18/19 at 12:11; Stop 08/18/19 at 13:01; Status DC Sodium Chloride 500 ml @ 1,000 mls/hr PRN Q30MIN PRN IV SEE COMMENTS; Start 08/18/19 at 12:15 Norepinephrine Bitartrate 8 mg/ Dextrose 258 ml @ 0 mls/hr CONT PRN IV SEE I/O RECORD; Start 08/18/19 at 12:15 Dobutamine HCl/ Dextrose 250 ml @ 0 mls/hr CONT PRN IV SEE I/O RECORD; Start 08/18/19 at 12:15 Iohexol (Omnipaque 350 Mg/ml) 90 ml 1X ONCE IV Last administered on 08/18/19at 15:54; Start 08/18/19 at 15:30; Stop 08/18/19 at 15:34; Status DC Info (CONTRAST GIVEN -- Rx MONITORING) 1 each PRN DAILY PRN MC SEE COMMENTS; Start 08/18/19 at 15:45; Stop 08/20/19 at 15:44 Insulin Human Lispro (HumaLOG) 0-5 UNITS TIDWMEALS SQ ; Start 08/19/19 at 08:00 Dextrose (Dextrose 50%-Water Syringe) 12.5 gm PRN Q15MIN PRN IV SEE COMMENTS; Start 08/18/19 at 19:00 Dextrose (Iv Dextrose 5%) 250 ml PRN Q15MIN PRN IV SEE COMMENTS; Start 08/18/19 at 19:00 Active Scripts Active Reported Wixela 250-50 Inhub (Fluticasone Propion/Salmeterol) 1 Each Blst.w.dev 1 Each IH BID Metronidazole 70 Gm Gel.w.appl 1 Appful VG QHS Phentermine Hcl 37.5 Mg Capsule 1 Cap PO DAILYWBKFT Ortho Tri-Cyclen (Norgestimate-Ethinyl Estradiol) 1 Each Tablet 1 Each PO DAILY Allergies Allergies: Coded Allergies: No Known Drug Allergies (Unverified , 07/15/19) ROS Review of System unable to obtain due to MS Physical Exam General: No acute distress HEENT: Atraumatic, Other (intubated ) Lungs: Clear to auscultation, Normal air movement Heart: Other (tachy) Abdomen: Soft, No tenderness Extremities: No clubbing, No cyanosis Skin: No rashes, No breakdown Neuro: Normal gait, Normal speech Psych/Mental Status: Mental status NL, Mood NL MUSCULOSKELETAL: No deformity, No swelling Vitals VITALS Vital Signs Date Time Temp Pulse Resp B/P (MAP) Pulse Ox O2 Delivery O2 Flow Rate FiO2 08/19/19 08:02 100 Ventilator 08/19/19 07:00 108 18 119/60 (79) 08/19/19 04:00 99.6 99.6 Labs Labs Laboratory Tests Test 08/17/19 21:47 08/17/19 22:05 08/17/19 22:30 08/18/19 01:19 Glucose (Fingerstick) 72 mg/dL (70-99) 101 mg/dL (70-99) O2 Saturation 99 % (92-99) Arterial Blood pH 7.45 (7.35-7.45) Arterial Blood pCO2 at Patient Temp 42 mmHg (35-46) Arterial Blood pO2 at Patient Temp 139 mmHg (85-108) Arterial Blood HCO3 28 mmol/L (21-28) Arterial Blood Base Excess 4 mmol/L (-3-3) Oxyhemoglobin 97.8 % Methemoglobin 0.1 % (0.0-1.9) Carbon Monoxide, Quantitative 0.7 % (0.0-1.9) FiO2 100 Troponin I Quantitative 0.670 ng/mL (0.000-0.055) Thyroid Stimulating Hormone (TSH) 0.804 uIU/mL (0.358-3.74) Test 08/18/19 02:10 08/18/19 05:30 08/18/19 06:16 08/18/19 07:30 Urine Collection Type Unknown Urine Color Yellow Urine Clarity Clear Urine pH 5.0 Urine Specific [place] 1.015 Urine Protein Negative mg/dL (NEG-TRACE) Urine Glucose (UA) Negative mg/dL (NEG) Urine Ketones (Stick) Negative mg/dL (NEG) Urine Blood Negative (NEG) Urine Nitrite Negative (NEG) Urine Bilirubin Negative (NEG) Urine Urobilinogen Dipstick 0.2 mg/dL (0.2 mg/dL) Urine Leukocyte Esterase Trace (NEG) Urine RBC 0 /HPF (0-2) Urine WBC 1-4 /HPF (0-4) Urine Squamous Epithelial Cells Few /LPF Urine Amorphous Sediment Present /HPF Urine Bacteria Few /HPF (0-FEW) Urine Mucus Mod /LPF White Blood Count 9.0 x10^3/uL (4.0-11.0) Red Blood Count 4.26 x10^6/uL (3.50-5.40) Hemoglobin 12.0 g/dL (12.0-15.5) Hematocrit 35.9 % (36.0-47.0) Mean Corpuscular Volume 84 fL (79-100) Mean Corpuscular Hemoglobin 28 pg (25-35) Mean Corpuscular Hemoglobin Concent 33 g/dL (31-37) Red Cell Distribution Width 14.0 % (11.5-14.5) Platelet Count 277 x10^3/uL (140-400) Neutrophils (%) (Auto) 70 % (31-73) Lymphocytes (%) (Auto) 24 % (24-48) Monocytes (%) (Auto) 6 % (0-9) Eosinophils (%) (Auto) 0 % (0-3) Basophils (%) (Auto) 0 % (0-3) Neutrophils # (Auto) 6.3 x10^3/uL (1.8-7.7) Lymphocytes # (Auto) 2.1 x10^3/uL (1.0-4.8) Monocytes # (Auto) 0.5 x10^3/uL (0.0-1.1) Eosinophils # (Auto) 0.0 x10^3/uL (0.0-0.7) Basophils # (Auto) 0.0 x10^3/uL (0.0-0.2) Prothrombin Time 13.5 SEC (11.7-14.0) Prothromb Time International Ratio 1.1 (0.8-1.1) Activated Partial Thromboplast Time 33 SEC (24-38) Sodium Level 147 mmol/L (136-145) Potassium Level 3.6 mmol/L (3.5-5.1) Chloride Level 109 mmol/L (98-107) Carbon Dioxide Level 31 mmol/L (21-32) Anion Gap 7 (6-14) Blood Urea Nitrogen 17 mg/dL (7-20) Creatinine 1.4 mg/dL (0.6-1.0) Estimated GFR (Cockcroft-Gault) 46.6 BUN/Creatinine Ratio 12 (6-20) Glucose Level 113 mg/dL (70-99) Lactic Acid Level 2.2 mmol/L (0.4-2.0) Calcium Level 7.2 mg/dL (8.5-10.1) Phosphorus Level 3.6 mg/dL (2.6-4.7) Magnesium Level 1.4 mg/dL (1.8-2.4) Total Bilirubin 0.7 mg/dL (0.2-1.0) Aspartate Amino Transf (AST/SGOT) 70 U/L (15-37) Alanine Aminotransferase (ALT/SGPT) 73 U/L (14-59) Alkaline Phosphatase 69 U/L (46-116) Total Protein 5.7 g/dL (6.4-8.2) Albumin 2.7 g/dL (3.4-5.0) Albumin/Globulin Ratio 0.9 (1.0-1.7) Procalcitonin 82.41 ng/mL (0.00-0.10) Free Thyroxine 0.87 ng/dL (0.76-1.46) Salicylates Level < 2.8 mg/dL (2.8-20.0) Salicylate Last Dose Date 08/17/19 Salicylate Last Dose Time 1600 Acetaminophen Level 8.8 mcg/ml (10-30) Acetaminophen Last Dose Date 08/17/19 Acetaminophen Last Dose Time 1600 Glucose (Fingerstick) 105 mg/dL (70-99) Influenza Type A Antigen Negative (NEGATIVE) Influenza Type B Antigen Negative (NEGATIVE) Test 08/18/19 08:15 08/18/19 11:45 08/18/19 12:00 08/18/19 12:06 O2 Saturation 96 % (92-99) Arterial Blood pH 7.41 (7.35-7.45) Arterial Blood pCO2 at Patient Temp 46 mmHg (35-46) Arterial Blood pO2 at Patient Temp 86 mmHg (85-108) Arterial Blood HCO3 28 mmol/L (21-28) Arterial Blood Base Excess 3 mmol/L (-3-3) FiO2 60 Urine Opiates Screen Neg (NEG) Urine Methadone Screen Neg (NEG) Urine Barbiturates Neg (NEG) Urine Phencyclidine Screen Neg (NEG) Urine Amphetamine/Methamphetamine Neg (NEG) Urine Benzodiazepines Screen Pos (NEG) Urine Cocaine Screen Neg (NEG) Urine Cannabinoids Screen Neg (NEG) Urine Ethyl Alcohol Neg (NEG) Sodium Level 147 mmol/L (136-145) Potassium Level 3.6 mmol/L (3.5-5.1) Chloride Level 109 mmol/L (98-107) Carbon Dioxide Level 30 mmol/L (21-32) Anion Gap 8 (6-14) Blood Urea Nitrogen 17 mg/dL (7-20) Creatinine 1.3 mg/dL (0.6-1.0) Estimated GFR (Cockcroft-Gault) 50.8 BUN/Creatinine Ratio 13 (6-20) Glucose Level 110 mg/dL (70-99) Lactic Acid Level 1.5 mmol/L (0.4-2.0) Calcium Level 7.3 mg/dL (8.5-10.1) Total Bilirubin 0.7 mg/dL (0.2-1.0) Aspartate Amino Transf (AST/SGOT) 71 U/L (15-37) Alanine Aminotransferase (ALT/SGPT) 72 U/L (14-59) Alkaline Phosphatase 67 U/L (46-116) Total Protein 5.6 g/dL (6.4-8.2) Albumin 2.7 g/dL (3.4-5.0) Albumin/Globulin Ratio 0.9 (1.0-1.7) Procalcitonin 74.69 ng/mL (0.00-0.10) Glucose (Fingerstick) 90 mg/dL (70-99) Test 08/18/19 13:35 08/19/19 01:12 08/19/19 04:30 08/19/19 07:30 Fibrinogen 514 mg/dL (200-440) D-Dimer (Dayana) 7.95 ug/mlFEU (0.00-0.50) Glucose (Fingerstick) 77 mg/dL (70-99) White Blood Count 12.0 x10^3/uL (4.0-11.0) Red Blood Count 3.88 x10^6/uL (3.50-5.40) Hemoglobin 10.8 g/dL (12.0-15.5) Hematocrit 33.0 % (36.0-47.0) Mean Corpuscular Volume 85 fL (79-100) Mean Corpuscular Hemoglobin 28 pg (25-35) Mean Corpuscular Hemoglobin Concent 33 g/dL (31-37) Red Cell Distribution Width 13.9 % (11.5-14.5) Platelet Count 239 x10^3/uL (140-400) Neutrophils (%) (Auto) 70 % (31-73) Lymphocytes (%) (Auto) 23 % (24-48) Monocytes (%) (Auto) 6 % (0-9) Eosinophils (%) (Auto) 1 % (0-3) Basophils (%) (Auto) 0 % (0-3) Neutrophils # (Auto) 8.4 x10^3/uL (1.8-7.7) Lymphocytes # (Auto) 2.8 x10^3/uL (1.0-4.8) Monocytes # (Auto) 0.7 x10^3/uL (0.0-1.1) Eosinophils # (Auto) 0.1 x10^3/uL (0.0-0.7) Basophils # (Auto) 0.0 x10^3/uL (0.0-0.2) Sodium Level 147 mmol/L (136-145) Potassium Level 3.6 mmol/L (3.5-5.1) Chloride Level 110 mmol/L (98-107) Carbon Dioxide Level 28 mmol/L (21-32) Anion Gap 9 (6-14) Blood Urea Nitrogen 13 mg/dL (7-20) Creatinine 1.1 mg/dL (0.6-1.0) Estimated GFR (Cockcroft-Gault) 61.6 BUN/Creatinine Ratio 12 (6-20) Glucose Level 87 mg/dL (70-99) Calcium Level 8.6 mg/dL (8.5-10.1) Magnesium Level 1.9 mg/dL (1.8-2.4) Total Bilirubin 0.5 mg/dL (0.2-1.0) Aspartate Amino Transf (AST/SGOT) 50 U/L (15-37) Alanine Aminotransferase (ALT/SGPT) 56 U/L (14-59) Alkaline Phosphatase 77 U/L (46-116) Total Protein 6.5 g/dL (6.4-8.2) Albumin 2.8 g/dL (3.4-5.0) Albumin/Globulin Ratio 0.8 (1.0-1.7) O2 Saturation 96 % (92-99) Arterial Blood pH 7.39 (7.35-7.45) Arterial Blood pCO2 at Patient Temp 44 mmHg (35-46) Arterial Blood pO2 at Patient Temp 86 mmHg (85-108) Arterial Blood HCO3 26 mmol/L (21-28) Arterial Blood Base Excess 0 mmol/L (-3-3) FiO2 40% Laboratory Tests Test 08/18/19 08:15 08/18/19 11:45 08/18/19 12:00 08/18/19 12:06 O2 Saturation 96 % (92-99) Arterial Blood pH 7.41 (7.35-7.45) Arterial Blood pCO2 at Patient Temp 46 mmHg (35-46) Arterial Blood pO2 at Patient Temp 86 mmHg (85-108) Arterial Blood HCO3 28 mmol/L (21-28) Arterial Blood Base Excess 3 mmol/L (-3-3) FiO2 60 Urine Opiates Screen Neg (NEG) Urine Methadone Screen Neg (NEG) Urine Barbiturates Neg (NEG) Urine Phencyclidine Screen Neg (NEG) Urine Amphetamine/Methamphetamine Neg (NEG) Urine Benzodiazepines Screen Pos (NEG) Urine Cocaine Screen Neg (NEG) Urine Cannabinoids Screen Neg (NEG) Urine Ethyl Alcohol Neg (NEG) Sodium Level 147 mmol/L (136-145) Potassium Level 3.6 mmol/L (3.5-5.1) Chloride Level 109 mmol/L (98-107) Carbon Dioxide Level 30 mmol/L (21-32) Anion Gap 8 (6-14) Blood Urea Nitrogen 17 mg/dL (7-20) Creatinine 1.3 mg/dL (0.6-1.0) Estimated GFR (Cockcroft-Gault) 50.8 BUN/Creatinine Ratio 13 (6-20) Glucose Level 110 mg/dL (70-99) Lactic Acid Level 1.5 mmol/L (0.4-2.0) Calcium Level 7.3 mg/dL (8.5-10.1) Total Bilirubin 0.7 mg/dL (0.2-1.0) Aspartate Amino Transf (AST/SGOT) 71 U/L (15-37) Alanine Aminotransferase (ALT/SGPT) 72 U/L (14-59) Alkaline Phosphatase 67 U/L (46-116) Total Protein 5.6 g/dL (6.4-8.2) Albumin 2.7 g/dL (3.4-5.0) Albumin/Globulin Ratio 0.9 (1.0-1.7) Procalcitonin 74.69 ng/mL (0.00-0.10) Glucose (Fingerstick) 90 mg/dL (70-99) Test 08/18/19 13:35 08/19/19 01:12 08/19/19 04:30 08/19/19 07:30 Fibrinogen 514 mg/dL (200-440) D-Dimer (Dayana) 7.95 ug/mlFEU (0.00-0.50) Glucose (Fingerstick) 77 mg/dL (70-99) White Blood Count 12.0 x10^3/uL (4.0-11.0) Red Blood Count 3.88 x10^6/uL (3.50-5.40) Hemoglobin 10.8 g/dL (12.0-15.5) Hematocrit 33.0 % (36.0-47.0) Mean Corpuscular Volume 85 fL (79-100) Mean Corpuscular Hemoglobin 28 pg (25-35) Mean Corpuscular Hemoglobin Concent 33 g/dL (31-37) Red Cell Distribution Width 13.9 % (11.5-14.5) Platelet Count 239 x10^3/uL (140-400) Neutrophils (%) (Auto) 70 % (31-73) Lymphocytes (%) (Auto) 23 % (24-48) Monocytes (%) (Auto) 6 % (0-9) Eosinophils (%) (Auto) 1 % (0-3) Basophils (%) (Auto) 0 % (0-3) Neutrophils # (Auto) 8.4 x10^3/uL (1.8-7.7) Lymphocytes # (Auto) 2.8 x10^3/uL (1.0-4.8) Monocytes # (Auto) 0.7 x10^3/uL (0.0-1.1) Eosinophils # (Auto) 0.1 x10^3/uL (0.0-0.7) Basophils # (Auto) 0.0 x10^3/uL (0.0-0.2) Sodium Level 147 mmol/L (136-145) Potassium Level 3.6 mmol/L (3.5-5.1) Chloride Level 110 mmol/L (98-107) Carbon Dioxide Level 28 mmol/L (21-32) Anion Gap 9 (6-14) Blood Urea Nitrogen 13 mg/dL (7-20) Creatinine 1.1 mg/dL (0.6-1.0) Estimated GFR (Cockcroft-Gault) 61.6 BUN/Creatinine Ratio 12 (6-20) Glucose Level 87 mg/dL (70-99) Calcium Level 8.6 mg/dL (8.5-10.1) Magnesium Level 1.9 mg/dL (1.8-2.4) Total Bilirubin 0.5 mg/dL (0.2-1.0) Aspartate Amino Transf (AST/SGOT) 50 U/L (15-37) Alanine Aminotransferase (ALT/SGPT) 56 U/L (14-59) Alkaline Phosphatase 77 U/L (46-116) Total Protein 6.5 g/dL (6.4-8.2) Albumin 2.8 g/dL (3.4-5.0) Albumin/Globulin Ratio 0.8 (1.0-1.7) O2 Saturation 96 % (92-99) Arterial Blood pH 7.39 (7.35-7.45) Arterial Blood pCO2 at Patient Temp 44 mmHg (35-46) Arterial Blood pO2 at Patient Temp 86 mmHg (85-108) Arterial Blood HCO3 26 mmol/L (21-28) Arterial Blood Base Excess 0 mmol/L (-3-3) FiO2 40% Assessment/Plan Assessment/Plan AMS, ? overdose-drug screen negative Neurology following noted mild elevation of ast/alt on admission, trending down no acute surgical findings GENA SON MD 08/19/19 0849: CONSULT Assessment/Plan Assessment/Plan Patient seen and examined by me resting comfortably bed still intubated RT in the room looking at a trial to extubate. She was able to answer questions denied any abdominal pain complaining of chest pain. Bilirubin normal no abdominal pain no evidence of surgical complication. No surgical recommendations. Agree with Irwin assessment and plan DONTA CASTAÑEDA APRN Aug 19, 2019 08:22 GENA SON MD Aug 19, 2019 08:49
--- NOTE | 2019-08-19 08:44 | RAD ---
CHEST AP ONLY Clinical Indication: Pneumonia Comparison: 08/18/2019 chest x-ray and CTA of the chest. Findings: Portable upright frontal view of the chest was obtained. Right internal jugular catheter terminates overlying the superior vena cava. Enteric tube is present. Endotracheal tube noted. Subtle right perihilar opacity is noted. Minimal left perihilar opacity. Subtle of left lateral hilar infiltrate. No significant pleural effusion. Heart size and pulmonary vasculature are normal. Bony structures are unremarkable. IMPRESSION: Marked improvement in pulmonary aeration with notable decrease in atelectasis. Residual atelectasis or infiltrate noted. Electronically signed by: David Dumont MD (08/19/2019 8:41 AM) [facility]
--- NOTE | 2019-08-19 08:47 | PDOC ---
PROGRESS NOTES History of Present Illness History of Present Illness VTE Prophylaxis Ordered VTE Prophylaxis Devices: Yes VTE Pharmacological Prophylaxi: Yes Assessment/Plan Assessment/Plan impression 1, OVERDOSE suspected ? Accidental? vs intentional, no prev hx OD known 2. hx major depression, hx bipolar disorder since a teen 3. hx substance abuse, has "obtained street drugs in the past "according to sister in room 4, ASPIRATION PNEUMONIA 5. FEVER 6. SEPSIS 7. Morbid obesity 8. CECILIA 9. altered mental status 10. Tachycardia likely sec to sepsis, fever ECHO OK plan CONT icu bed CONSULT ID consult pulmonary dvt prophylaxis UDS REPEAT ASA LEVEL ACETAMINOPHEN LEVEL VENT SUPPORT GI PROPHYLAXIS PAT CONSULT neurology consult sepsis protocol procalcitonin troponin i d/w family in room 32 min cc time Vitals Vitals Vital Signs Date Time Temp Pulse Resp B/P (MAP) Pulse Ox O2 Delivery O2 Flow Rate FiO2 08/19/19 08:02 100 Ventilator 08/19/19 07:00 108 18 119/60 (79) 08/19/19 04:00 99.6 99.6 Physical Exam Physical Exam GENERAL: Arousable female, orally intubated on a ventilator, not in distress. VITAL SIGNS: stable HEENT: Both pupils are round and reacting. No conjunctival lesion, no lesion in the mouth. NECK: Supple, no JVP, no lymphadenopathy. LUNGS: Clear bilaterally. HEART: S1, S2 regular. No gallop or murmur. ABDOMEN: Soft, nontender, no organomegaly. EXTREMITIES: No edema, cyanosis. SKIN: Unremarkable. NEUROLOGIC: The patient is awake, moves all ext General: No acute distress Heart: Regular rate, Other (tachy) Lungs: Clear Abdomen: Soft, No tenderness Extremities: No clubbing, No cyanosis Skin: No rashes, No breakdown Labs LABS APPROVED REPORT EXAM: Two-dimensional and M-mode echocardiogram with Doppler and color Doppler. Other Information Quality : Average HR: 114bpm INDICATION Congestive Heart Failure 2D DIMENSIONS RVDd 2.7 (2.9-3.5cm) Left Atrium(2D) 3.0 (1.6-4.0cm) IVSd 1.0 (0.7-1.1cm) Aortic Root(2D) 2.6 (2.0-3.7cm) LVDd 3.6 (3.9-5.9cm) LVOT Diameter 1.8 (1.8-2.4cm) PWd 0.9 (0.7-1.1cm) LVDs 2.6 (2.5-4.0cm) FS (%) 27.6 % SV 29.6 ml LVEF(%) 54.6 (>50%) Aortic Valve AoV Peak Philip. 109.1cm/s AoV VTI 18.9cm AO Peak GR. 4.8mmHg LVOT VTI 10.43cm AO Mean GR. 4mmHg Mitral Valve MV E Velocity 55.1cm/s MV DECEL TIME 101ms MV A Velocity 57.8cm/s E/A Ratio 1.0 TDI Medial E' P. V 10.03cm/s E/Medial E' 5.5 Tricuspid Valve TR P. Velocity 233cm/s RAP ESTIMATE 3mmHg TR Peak Gr. 22mmHg RVSP 25mmHg Pulmonary Vein S1 Velocity 54.7cm/s S2 Velocity 61.92cm/s D2 Velocity 61.9cm/s PVa duration 97msec LEFT VENTRICLE The left ventricle is normal size. There is borderline to mild concentric left ventricular hypertrophy. The left ventricular systolic function is normal. The Ejection Fraction is 55-60%. There is normal LV segmental wall motion. RIGHT VENTRICLE The right ventricle is normal size. There is normal right ventricular wall thickness. The right ventricular systolic function is normal. ATRIA The left atrium size is normal. The right atrium size is normal. The interatrial septum is intact with no evidence for an atrial septal defect or patent foramen ovale as noted on 2-D or Doppler imaging. AORTIC VALVE The aortic valve is normal in structure and function. Doppler and Color Flow revealed no significant aortic regurgitation. There is no significant aortic valvular stenosis. MITRAL VALVE The mitral valve is normal in structure and function. There is no evidence of mitral valve prolapse. There is no mitral valve stenosis. Doppler and Color Flow revealed no mitral valve regurgitation noted. TRICUSPID VALVE The tricuspid valve is normal in structure and function. Doppler and Color Flow revealed trace tricuspid regurgitation with an estimated PAP of 25 mmHg. There is no tricuspid valve stenosis. PULMONIC VALVE The pulmonary valve is normal in structure and function. Doppler and Color Flow revealed trace pulmonic valvular regurgitation. GREAT VESSELS The aortic root is normal in size. The IVC is normal in size and collapses >50% with inspiration. PERICARDIAL EFFUSION There is small left pleural effusion. There is no evidence of significant pericardial effusion. Critical Notification Critical Value: No <Conclusion> The left ventricular systolic function is normal. The Ejection Fraction is 55-60%. There is normal LV segmental wall motion. Trace tricuspid regurgitation with an estimated PAP of 25 mmHg. There is no evidence of significant pericardial effusion. Signed by : Delroy Barba, Electronically Approved : 08/18/2019 12:33:35 DICTATED and SIGNED BY: DELROY BARBA MD DATE: 08/18/19 1218 Chest CTA History: Elevated d-dimer, intubation Technique: After bolus of intravenous contrast, CT imaging was performed of the chest. Multiplanar reconstruction images to include MIP reconstruction images are submitted. Exposure: One or more of the following individualized dose reduction techniques were utilized for this examination: 1. Automated exposure control 2. Adjustment of the mA and/or kV according to patient size 3. Use of iterative reconstruction technique. Comparison: November 28, 2015 Findings: There is motion degradation and contrast bolus in the pulmonary arteries is very limited, almost completely nondiagnostic for evaluation for pulmonary embolic disease, no obvious embolism identified in main pulmonary arteries. There are fairly prominent infiltrates of the lower lobes bilaterally and to lesser degree of the upper lobes posteriorly. There are probable very small dependent pleural effusions bilaterally. There are also prominent areas of groundglass density concentrated in the perihilar regions bilaterally and also involvement of the upper lobes. There is endotracheal tube tip about 2 cm from kylah. There is enteric catheter coursing into the stomach with the tip in the proximal duodenum. There is no pericardial fluid or pneumothorax. Impression: 1. Due to motion and limited contrast bolus, exam is almost completely nondiagnostic for evaluation for pulmonary embolic disease, no obvious embolism identified in the main pulmonary arteries. 2. There are fairly prominent infiltrates more dependently of the lower lobes and also of the upper lobes, also prominent areas of groundglass density of the upper lobes and perihilar regions favored to be due to edema rather than etiology such as alveolar hemorrhage given distribution. Electronically signed by: Rashawn Davis MD (08/18/2019 4:12 PM) [id number] Laboratory Tests Test 08/18/19 11:45 08/18/19 12:00 08/18/19 12:06 08/18/19 13:35 Urine Opiates Screen Neg (NEG) Urine Methadone Screen Neg (NEG) Urine Barbiturates Neg (NEG) Urine Phencyclidine Screen Neg (NEG) Urine Amphetamine/Methamphetamine Neg (NEG) Urine Benzodiazepines Screen Pos (NEG) Urine Cocaine Screen Neg (NEG) Urine Cannabinoids Screen Neg (NEG) Urine Ethyl Alcohol Neg (NEG) Sodium Level 147 mmol/L (136-145) Potassium Level 3.6 mmol/L (3.5-5.1) Chloride Level 109 mmol/L (98-107) Carbon Dioxide Level 30 mmol/L (21-32) Anion Gap 8 (6-14) Blood Urea Nitrogen 17 mg/dL (7-20) Creatinine 1.3 mg/dL (0.6-1.0) Estimated GFR (Cockcroft-Gault) 50.8 BUN/Creatinine Ratio 13 (6-20) Glucose Level 110 mg/dL (70-99) Lactic Acid Level 1.5 mmol/L (0.4-2.0) Calcium Level 7.3 mg/dL (8.5-10.1) Total Bilirubin 0.7 mg/dL (0.2-1.0) Aspartate Amino Transf (AST/SGOT) 71 U/L (15-37) Alanine Aminotransferase (ALT/SGPT) 72 U/L (14-59) Alkaline Phosphatase 67 U/L (46-116) Total Protein 5.6 g/dL (6.4-8.2) Albumin 2.7 g/dL (3.4-5.0) Albumin/Globulin Ratio 0.9 (1.0-1.7) Procalcitonin 74.69 ng/mL (0.00-0.10) Glucose (Fingerstick) 90 mg/dL (70-99) Fibrinogen 514 mg/dL (200-440) D-Dimer (Dayana) 7.95 ug/mlFEU (0.00-0.50) Test 08/19/19 01:12 08/19/19 04:30 08/19/19 07:30 Glucose (Fingerstick) 77 mg/dL (70-99) White Blood Count 12.0 x10^3/uL (4.0-11.0) Red Blood Count 3.88 x10^6/uL (3.50-5.40) Hemoglobin 10.8 g/dL (12.0-15.5) Hematocrit 33.0 % (36.0-47.0) Mean Corpuscular Volume 85 fL (79-100) Mean Corpuscular Hemoglobin 28 pg (25-35) Mean Corpuscular Hemoglobin Concent 33 g/dL (31-37) Red Cell Distribution Width 13.9 % (11.5-14.5) Platelet Count 239 x10^3/uL (140-400) Neutrophils (%) (Auto) 70 % (31-73) Lymphocytes (%) (Auto) 23 % (24-48) Monocytes (%) (Auto) 6 % (0-9) Eosinophils (%) (Auto) 1 % (0-3) Basophils (%) (Auto) 0 % (0-3) Neutrophils # (Auto) 8.4 x10^3/uL (1.8-7.7) Lymphocytes # (Auto) 2.8 x10^3/uL (1.0-4.8) Monocytes # (Auto) 0.7 x10^3/uL (0.0-1.1) Eosinophils # (Auto) 0.1 x10^3/uL (0.0-0.7) Basophils # (Auto) 0.0 x10^3/uL (0.0-0.2) Sodium Level 147 mmol/L (136-145) Potassium Level 3.6 mmol/L (3.5-5.1) Chloride Level 110 mmol/L (98-107) Carbon Dioxide Level 28 mmol/L (21-32) Anion Gap 9 (6-14) Blood Urea Nitrogen 13 mg/dL (7-20) Creatinine 1.1 mg/dL (0.6-1.0) Estimated GFR (Cockcroft-Gault) 61.6 BUN/Creatinine Ratio 12 (6-20) Glucose Level 87 mg/dL (70-99) Calcium Level 8.6 mg/dL (8.5-10.1) Magnesium Level 1.9 mg/dL (1.8-2.4) Total Bilirubin 0.5 mg/dL (0.2-1.0) Aspartate Amino Transf (AST/SGOT) 50 U/L (15-37) Alanine Aminotransferase (ALT/SGPT) 56 U/L (14-59) Alkaline Phosphatase 77 U/L (46-116) Total Protein 6.5 g/dL (6.4-8.2) Albumin 2.8 g/dL (3.4-5.0) Albumin/Globulin Ratio 0.8 (1.0-1.7) O2 Saturation 96 % (92-99) Arterial Blood pH 7.39 (7.35-7.45) Arterial Blood pCO2 at Patient Temp 44 mmHg (35-46) Arterial Blood pO2 at Patient Temp 86 mmHg (85-108) Arterial Blood HCO3 26 mmol/L (21-28) Arterial Blood Base Excess 0 mmol/L (-3-3) FiO2 40% Comment Review of Relevant I have reviewed the following items jimmy (where applicable) has been applied. Labs Laboratory Tests Test 08/17/19 21:47 08/17/19 22:05 08/17/19 22:30 08/18/19 01:19 Glucose (Fingerstick) 72 mg/dL (70-99) 101 mg/dL (70-99) O2 Saturation 99 % (92-99) Arterial Blood pH 7.45 (7.35-7.45) Arterial Blood pCO2 at Patient Temp 42 mmHg (35-46) Arterial Blood pO2 at Patient Temp 139 mmHg (85-108) Arterial Blood HCO3 28 mmol/L (21-28) Arterial Blood Base Excess 4 mmol/L (-3-3) Oxyhemoglobin 97.8 % Methemoglobin 0.1 % (0.0-1.9) Carbon Monoxide, Quantitative 0.7 % (0.0-1.9) FiO2 100 Troponin I Quantitative 0.670 ng/mL (0.000-0.055) Thyroid Stimulating Hormone (TSH) 0.804 uIU/mL (0.358-3.74) Test 08/18/19 02:10 08/18/19 05:30 08/18/19 06:16 08/18/19 07:30 Urine Collection Type Unknown Urine Color Yellow Urine Clarity Clear Urine pH 5.0 Urine Specific Hinkley 1.015 Urine Protein Negative mg/dL (NEG-TRACE) Urine Glucose (UA) Negative mg/dL (NEG) Urine Ketones (Stick) Negative mg/dL (NEG) Urine Blood Negative (NEG) Urine Nitrite Negative (NEG) Urine Bilirubin Negative (NEG) Urine Urobilinogen Dipstick 0.2 mg/dL (0.2 mg/dL) Urine Leukocyte Esterase Trace (NEG) Urine RBC 0 /HPF (0-2) Urine WBC 1-4 /HPF (0-4) Urine Squamous Epithelial Cells Few /LPF Urine Amorphous Sediment Present /HPF Urine Bacteria Few /HPF (0-FEW) Urine Mucus Mod /LPF White Blood Count 9.0 x10^3/uL (4.0-11.0) Red Blood Count 4.26 x10^6/uL (3.50-5.40) Hemoglobin 12.0 g/dL (12.0-15.5) Hematocrit 35.9 % (36.0-47.0) Mean Corpuscular Volume 84 fL (79-100) Mean Corpuscular Hemoglobin 28 pg (25-35) Mean Corpuscular Hemoglobin Concent 33 g/dL (31-37) Red Cell Distribution Width 14.0 % (11.5-14.5) Platelet Count 277 x10^3/uL (140-400) Neutrophils (%) (Auto) 70 % (31-73) Lymphocytes (%) (Auto) 24 % (24-48) Monocytes (%) (Auto) 6 % (0-9) Eosinophils (%) (Auto) 0 % (0-3) Basophils (%) (Auto) 0 % (0-3) Neutrophils # (Auto) 6.3 x10^3/uL (1.8-7.7) Lymphocytes # (Auto) 2.1 x10^3/uL (1.0-4.8) Monocytes # (Auto) 0.5 x10^3/uL (0.0-1.1) Eosinophils # (Auto) 0.0 x10^3/uL (0.0-0.7) Basophils # (Auto) 0.0 x10^3/uL (0.0-0.2) Prothrombin Time 13.5 SEC (11.7-14.0) Prothromb Time International Ratio 1.1 (0.8-1.1) Activated Partial Thromboplast Time 33 SEC (24-38) Sodium Level 147 mmol/L (136-145) Potassium Level 3.6 mmol/L (3.5-5.1) Chloride Level 109 mmol/L (98-107) Carbon Dioxide Level 31 mmol/L (21-32) Anion Gap 7 (6-14) Blood Urea Nitrogen 17 mg/dL (7-20) Creatinine 1.4 mg/dL (0.6-1.0) Estimated GFR (Cockcroft-Gault) 46.6 BUN/Creatinine Ratio 12 (6-20) Glucose Level 113 mg/dL (70-99) Lactic Acid Level 2.2 mmol/L (0.4-2.0) Calcium Level 7.2 mg/dL (8.5-10.1) Phosphorus Level 3.6 mg/dL (2.6-4.7) Magnesium Level 1.4 mg/dL (1.8-2.4) Total Bilirubin 0.7 mg/dL (0.2-1.0) Aspartate Amino Transf (AST/SGOT) 70 U/L (15-37) Alanine Aminotransferase (ALT/SGPT) 73 U/L (14-59) Alkaline Phosphatase 69 U/L (46-116) Total Protein 5.7 g/dL (6.4-8.2) Albumin 2.7 g/dL (3.4-5.0) Albumin/Globulin Ratio 0.9 (1.0-1.7) Procalcitonin 82.41 ng/mL (0.00-0.10) Free Thyroxine 0.87 ng/dL (0.76-1.46) Salicylates Level < 2.8 mg/dL (2.8-20.0) Salicylate Last Dose Date 08/17/19 Salicylate Last Dose Time 1600 Acetaminophen Level 8.8 mcg/ml (10-30) Acetaminophen Last Dose Date 08/17/19 Acetaminophen Last Dose Time 1600 Glucose (Fingerstick) 105 mg/dL (70-99) Influenza Type A Antigen Negative (NEGATIVE) Influenza Type B Antigen Negative (NEGATIVE) Test 08/18/19 08:15 08/18/19 11:45 08/18/19 12:00 08/18/19 12:06 O2 Saturation 96 % (92-99) Arterial Blood pH 7.41 (7.35-7.45) Arterial Blood pCO2 at Patient Temp 46 mmHg (35-46) Arterial Blood pO2 at Patient Temp 86 mmHg (85-108) Arterial Blood HCO3 28 mmol/L (21-28) Arterial Blood Base Excess 3 mmol/L (-3-3) FiO2 60 Urine Opiates Screen Neg (NEG) Urine Methadone Screen Neg (NEG) Urine Barbiturates Neg (NEG) Urine Phencyclidine Screen Neg (NEG) Urine Amphetamine/Methamphetamine Neg (NEG) Urine Benzodiazepines Screen Pos (NEG) Urine Cocaine Screen Neg (NEG) Urine Cannabinoids Screen Neg (NEG) Urine Ethyl Alcohol Neg (NEG) Sodium Level 147 mmol/L (136-145) Potassium Level 3.6 mmol/L (3.5-5.1) Chloride Level 109 mmol/L (98-107) Carbon Dioxide Level 30 mmol/L (21-32) Anion Gap 8 (6-14) Blood Urea Nitrogen 17 mg/dL (7-20) Creatinine 1.3 mg/dL (0.6-1.0) Estimated GFR (Cockcroft-Gault) 50.8 BUN/Creatinine Ratio 13 (6-20) Glucose Level 110 mg/dL (70-99) Lactic Acid Level 1.5 mmol/L (0.4-2.0) Calcium Level 7.3 mg/dL (8.5-10.1) Total Bilirubin 0.7 mg/dL (0.2-1.0) Aspartate Amino Transf (AST/SGOT) 71 U/L (15-37) Alanine Aminotransferase (ALT/SGPT) 72 U/L (14-59) Alkaline Phosphatase 67 U/L (46-116) Total Protein 5.6 g/dL (6.4-8.2) Albumin 2.7 g/dL (3.4-5.0) Albumin/Globulin Ratio 0.9 (1.0-1.7) Procalcitonin 74.69 ng/mL (0.00-0.10) Glucose (Fingerstick) 90 mg/dL (70-99) Test 08/18/19 13:35 08/19/19 01:12 08/19/19 04:30 08/19/19 07:30 Fibrinogen 514 mg/dL (200-440) D-Dimer (Dayana) 7.95 ug/mlFEU (0.00-0.50) Glucose (Fingerstick) 77 mg/dL (70-99) White Blood Count 12.0 x10^3/uL (4.0-11.0) Red Blood Count 3.88 x10^6/uL (3.50-5.40) Hemoglobin 10.8 g/dL (12.0-15.5) Hematocrit 33.0 % (36.0-47.0) Mean Corpuscular Volume 85 fL (79-100) Mean Corpuscular Hemoglobin 28 pg (25-35) Mean Corpuscular Hemoglobin Concent 33 g/dL (31-37) Red Cell Distribution Width 13.9 % (11.5-14.5) Platelet Count 239 x10^3/uL (140-400) Neutrophils (%) (Auto) 70 % (31-73) Lymphocytes (%) (Auto) 23 % (24-48) Monocytes (%) (Auto) 6 % (0-9) Eosinophils (%) (Auto) 1 % (0-3) Basophils (%) (Auto) 0 % (0-3) Neutrophils # (Auto) 8.4 x10^3/uL (1.8-7.7) Lymphocytes # (Auto) 2.8 x10^3/uL (1.0-4.8) Monocytes # (Auto) 0.7 x10^3/uL (0.0-1.1) Eosinophils # (Auto) 0.1 x10^3/uL (0.0-0.7) Basophils # (Auto) 0.0 x10^3/uL (0.0-0.2) Sodium Level 147 mmol/L (136-145) Potassium Level 3.6 mmol/L (3.5-5.1) Chloride Level 110 mmol/L (98-107) Carbon Dioxide Level 28 mmol/L (21-32) Anion Gap 9 (6-14) Blood Urea Nitrogen 13 mg/dL (7-20) Creatinine 1.1 mg/dL (0.6-1.0) Estimated GFR (Cockcroft-Gault) 61.6 BUN/Creatinine Ratio 12 (6-20) Glucose Level 87 mg/dL (70-99) Calcium Level 8.6 mg/dL (8.5-10.1) Magnesium Level 1.9 mg/dL (1.8-2.4) Total Bilirubin 0.5 mg/dL (0.2-1.0) Aspartate Amino Transf (AST/SGOT) 50 U/L (15-37) Alanine Aminotransferase (ALT/SGPT) 56 U/L (14-59) Alkaline Phosphatase 77 U/L (46-116) Total Protein 6.5 g/dL (6.4-8.2) Albumin 2.8 g/dL (3.4-5.0) Albumin/Globulin Ratio 0.8 (1.0-1.7) O2 Saturation 96 % (92-99) Arterial Blood pH 7.39 (7.35-7.45) Arterial Blood pCO2 at Patient Temp 44 mmHg (35-46) Arterial Blood pO2 at Patient Temp 86 mmHg (85-108) Arterial Blood HCO3 26 mmol/L (21-28) Arterial Blood Base Excess 0 mmol/L (-3-3) FiO2 40% Laboratory Tests Test 08/18/19 11:45 08/18/19 12:00 08/18/19 12:06 08/18/19 13:35 Urine Opiates Screen Neg (NEG) Urine Methadone Screen Neg (NEG) Urine Barbiturates Neg (NEG) Urine Phencyclidine Screen Neg (NEG) Urine Amphetamine/Methamphetamine Neg (NEG) Urine Benzodiazepines Screen Pos (NEG) Urine Cocaine Screen Neg (NEG) Urine Cannabinoids Screen Neg (NEG) Urine Ethyl Alcohol Neg (NEG) Sodium Level 147 mmol/L (136-145) Potassium Level 3.6 mmol/L (3.5-5.1) Chloride Level 109 mmol/L (98-107) Carbon Dioxide Level 30 mmol/L (21-32) Anion Gap 8 (6-14) Blood Urea Nitrogen 17 mg/dL (7-20) Creatinine 1.3 mg/dL (0.6-1.0) Estimated GFR (Cockcroft-Gault) 50.8 BUN/Creatinine Ratio 13 (6-20) Glucose Level 110 mg/dL (70-99) Lactic Acid Level 1.5 mmol/L (0.4-2.0) Calcium Level 7.3 mg/dL (8.5-10.1) Total Bilirubin 0.7 mg/dL (0.2-1.0) Aspartate Amino Transf (AST/SGOT) 71 U/L (15-37) Alanine Aminotransferase (ALT/SGPT) 72 U/L (14-59) Alkaline Phosphatase 67 U/L (46-116) Total Protein 5.6 g/dL (6.4-8.2) Albumin 2.7 g/dL (3.4-5.0) Albumin/Globulin Ratio 0.9 (1.0-1.7) Procalcitonin 74.69 ng/mL (0.00-0.10) Glucose (Fingerstick) 90 mg/dL (70-99) Fibrinogen 514 mg/dL (200-440) D-Dimer (Dayana) 7.95 ug/mlFEU (0.00-0.50) Test 08/19/19 01:12 08/19/19 04:30 08/19/19 07:30 Glucose (Fingerstick) 77 mg/dL (70-99) White Blood Count 12.0 x10^3/uL (4.0-11.0) Red Blood Count 3.88 x10^6/uL (3.50-5.40) Hemoglobin 10.8 g/dL (12.0-15.5) Hematocrit 33.0 % (36.0-47.0) Mean Corpuscular Volume 85 fL (79-100) Mean Corpuscular Hemoglobin 28 pg (25-35) Mean Corpuscular Hemoglobin Concent 33 g/dL (31-37) Red Cell Distribution Width 13.9 % (11.5-14.5) Platelet Count 239 x10^3/uL (140-400) Neutrophils (%) (Auto) 70 % (31-73) Lymphocytes (%) (Auto) 23 % (24-48) Monocytes (%) (Auto) 6 % (0-9) Eosinophils (%) (Auto) 1 % (0-3) Basophils (%) (Auto) 0 % (0-3) Neutrophils # (Auto) 8.4 x10^3/uL (1.8-7.7) Lymphocytes # (Auto) 2.8 x10^3/uL (1.0-4.8) Monocytes # (Auto) 0.7 x10^3/uL (0.0-1.1) Eosinophils # (Auto) 0.1 x10^3/uL (0.0-0.7) Basophils # (Auto) 0.0 x10^3/uL (0.0-0.2) Sodium Level 147 mmol/L (136-145) Potassium Level 3.6 mmol/L (3.5-5.1) Chloride Level 110 mmol/L (98-107) Carbon Dioxide Level 28 mmol/L (21-32) Anion Gap 9 (6-14) Blood Urea Nitrogen 13 mg/dL (7-20) Creatinine 1.1 mg/dL (0.6-1.0) Estimated GFR (Cockcroft-Gault) 61.6 BUN/Creatinine Ratio 12 (6-20) Glucose Level 87 mg/dL (70-99) Calcium Level 8.6 mg/dL (8.5-10.1) Magnesium Level 1.9 mg/dL (1.8-2.4) Total Bilirubin 0.5 mg/dL (0.2-1.0) Aspartate Amino Transf (AST/SGOT) 50 U/L (15-37) Alanine Aminotransferase (ALT/SGPT) 56 U/L (14-59) Alkaline Phosphatase 77 U/L (46-116) Total Protein 6.5 g/dL (6.4-8.2) Albumin 2.8 g/dL (3.4-5.0) Albumin/Globulin Ratio 0.8 (1.0-1.7) O2 Saturation 96 % (92-99) Arterial Blood pH 7.39 (7.35-7.45) Arterial Blood pCO2 at Patient Temp 44 mmHg (35-46) Arterial Blood pO2 at Patient Temp 86 mmHg (85-108) Arterial Blood HCO3 26 mmol/L (21-28) Arterial Blood Base Excess 0 mmol/L (-3-3) FiO2 40% Microbiology 08/17/19 Blood Culture - Preliminary, Resulted NO GROWTH AFTER 1 DAY Medications Current Medications Fentanyl Citrate 30 ml @ 0 mls/hr CONT PRN IV SEE PROTOCOL Last administered on 08/18/19at 22:06; Start 08/17/19 at 21:45 Propofol 100 ml @ 0 mls/hr CONT PRN IV SEE PROTOCOL; Start 08/17/19 at 21:45 Fentanyl Citrate (Fentanyl 2ml Vial) 25 mcg PRN Q1HR PRN IV SEE COMMENTS; Start 08/17/19 at 21:45 Fentanyl Citrate (Fentanyl 2ml Vial) 50 mcg PRN Q1HR PRN IV SEE COMMENTS; Start 08/17/19 at 21:45 Midazolam HCl 50 mg/Sodium Chloride 50 ml @ 0 mls/hr CONT PRN IV SEE PROTOCOL Last administered on 08/19/19at 01:14; Start 08/17/19 at 21:45 Sodium Chloride 1,000 ml @ 150 mls/hr Q6H40M IV Last administered on 08/18/19at 01:13; Start 08/17/19 at 22:00; Stop 08/18/19 at 10:32; Status DC Piperacillin Sod/ Tazobactam Sod 3.375 gm/Sodium Chloride 50 ml @ 100 mls/hr Q6HRS IV Last administered on 08/18/19at 06:04; Start 08/18/19 at 00:00; Stop 08/18/19 at 07:32; Status DC Lorazepam (Ativan) 1 mg PRN Q6HRS PRN PO ANXIETY / AGITATION; Start 08/17/19 at 22:00 Ondansetron HCl (Zofran) 4 mg PRN Q6HRS PRN IV NAUSEA/VOMITING 1ST CHOICE; Start 08/17/19 at 22:00 Prochlorperazine Edisylate (Compazine) 5 mg PRN Q6HRS PRN IV NAUSEA/VOMITING 2ND CHOICE; Start 08/17/19 at 22:00 Famotidine (Pepcid Vial) 20 mg BID IVP Last administered on 08/19/19at 08:02; Start 08/18/19 at 09:00 Info (Icu Electrolyte Protocol) 1 ea DAILY MC Last administered on 08/18/19at 08 :51; Start 08/18/19 at 09:00; Stop 08/18/19 at 11:57; Status DC Heparin Sodium (Porcine) (Heparin Sodium) 5,000 unit Q8HRS SQ Last administered on 08/19/19at 06:05; Start 08/17/19 at 22:00 Sodium Chloride (Normal Saline Flush) 3 ml QSHIFT PRN IV AFTER MEDS AND BLOOD DRAWS; Start 08/17/19 at 22:00; Stop 08/18/19 at 11:56; Status DC Bisacodyl (Dulcolax Supp) 10 mg PRN DAILY PRN NM CONSTIPATION; Start 08/17/19 at 22:00 Acetaminophen (Tylenol) 650 mg PRN Q6HRS PRN PEG MILD PAIN / TEMP Last administered on 08/19/19at 08:00; Start 08/18/19 at 04:30 Ceftriaxone Sodium (Rocephin) 2 gm Q24H IVP Last administered on 08/19/19at 08:02; Start 08/18/19 at 09:00 Azithromycin 500 mg/Sodium Chloride 250 ml @ 250 mls/hr Q24H IV Last administered on 08/19/19at 07:59; Start 08/18/19 at 08:00 Oseltamivir Phosphate (Tamiflu) 75 mg BID PO Last administered on 08/19/19at 08:00; Start 08/18/19 at 09:00; Stop 08/23/19 at 08:59 Magnesium Sulfate 50 ml @ 25 mls/hr 1X ONCE IV Last administered on 08/18/19at 10:16; Start 08/18/19 at 10:15; Stop 08/18/19 at 12:14; Status DC Ondansetron HCl (Zofran) 4 mg PRN Q6HRS PRN IV NAUSEA/VOMITING; Start 08/18/19 at 11:30; Stop 08/18/19 at 11:55; Status DC Famotidine (Pepcid Vial) 20 mg BID IVP ; Start 08/18/19 at 12:00; Stop 08/18/19 at 11:55; Status DC Info (Icu Electrolyte Protocol) 1 ea DAILY MC ; Start 08/19/19 at 09:00 Heparin Sodium (Porcine) (Heparin Sodium) 5,000 unit Q12HR SQ ; Start 08/18/19 at 12:00; Stop 08/18/19 at 11:55; Status DC Sodium Chloride (Normal Saline Flush) 3 ml QSHIFT PRN IV AFTER MEDS AND BLOOD DRAWS; Start 08/18/19 at 11:30 Sodium Chloride 1,000 ml @ 100 mls/hr Q10H IV Last administered on 08/18/19at 21:41; Start 08/18/19 at 11:17 Bisacodyl (Dulcolax Supp) 10 mg PRN DAILY PRN NM CONSTIPATION; Start 08/18/19 at 11:30; Stop 08/18/19 at 11:55; Status DC Sodium Chloride 1,000 ml @ 1,560 mls/hr Q39M IV ; Start 08/18/19 at 12:11; Stop 08/18/19 at 13:01; Status DC Sodium Chloride 500 ml @ 1,000 mls/hr PRN Q30MIN PRN IV SEE COMMENTS; Start 08/18/19 at 12:15 Norepinephrine Bitartrate 8 mg/ Dextrose 258 ml @ 0 mls/hr CONT PRN IV SEE I/O RECORD; Start 08/18/19 at 12:15 Dobutamine HCl/ Dextrose 250 ml @ 0 mls/hr CONT PRN IV SEE I/O RECORD; Start 08/18/19 at 12:15 Iohexol (Omnipaque 350 Mg/ml) 90 ml 1X ONCE IV Last administered on 08/18/19at 15:54; Start 08/18/19 at 15:30; Stop 08/18/19 at 15:34; Status DC Info (CONTRAST GIVEN -- Rx MONITORING) 1 each PRN DAILY PRN MC SEE COMMENTS; Start 08/18/19 at 15:45; Stop 08/20/19 at 15:44 Insulin Human Lispro (HumaLOG) 0-5 UNITS TIDWMEALS SQ ; Start 08/19/19 at 08:00; Stop 08/19/19 at 08:15; Status DC Dextrose (Dextrose 50%-Water Syringe) 12.5 gm PRN Q15MIN PRN IV SEE COMMENTS; Start 08/18/19 at 19:00 Dextrose (Iv Dextrose 5%) 250 ml PRN Q15MIN PRN IV SEE COMMENTS; Start 08/18/19 at 19:00 Insulin Human Lispro (HumaLOG) 0-5 UNITS Q6HRS SQ ; Start 08/19/19 at 12:00 Active Scripts Active Reported Wixela 250-50 Inhub (Fluticasone Propion/Salmeterol) 1 Each Blst.w.dev 1 Each IH BID Metronidazole 70 Gm Gel.w.appl 1 Appful VG QHS Phentermine Hcl 37.5 Mg Capsule 1 Cap PO [id number] Ortho Tri-Cyclen (Norgestimate-Ethinyl Estradiol) 1 Each Tablet 1 Each PO DAILY Vitals/I & O Vital Sign - Last 24 Hours 08/18/19 08/18/19 08/18/19 08/18/19 09:00 09:52 10:00 11:00 Temp 99.0 99.0 Pulse 126 121 116 Resp 18 18 18 B/P (MAP) 95/59 (71) 102/60 (74) 104/59 (74) Pulse Ox 98 95 98 97 O2 Delivery Ventilator Ventilator Ventilator Ventilator 08/18/19 08/18/19 08/18/19 08/18/19 11:29 12:00 12:00 12:48 Temp 98.9 98.9 Pulse 114 Resp 18 B/P (MAP) 105/56 (72) Pulse Ox 97 96 93 O2 Delivery Ventilator Ventilator Mechanical Ventilator Ventilator 08/18/19 08/18/19 08/18/19 08/18/19 13:00 14:00 15:00 15:08 Pulse 119 116 116 Resp 18 18 18 B/P (MAP) 93/50 (64) 95/40 (58) 102/53 (69) Pulse Ox 95 99 98 99 O2 Delivery Ventilator Ventilator Ventilator 08/18/19 08/18/19 08/18/19 08/18/19 15:19 16:00 16:00 16:54 Temp 99.4 99.4 Pulse 108 Resp 18 18 B/P (MAP) 98/51 (67) Pulse Ox 98 95 O2 Delivery Ventilator Ventilator Mechanical Ventilator Ventilator 08/18/19 08/18/19 08/18/19 08/18/19 17:00 18:00 18:03 19:00 Pulse 111 111 108 Resp 18 18 18 B/P (MAP) 111/58 (75) 104/50 (68) 107/49 (68) Pulse Ox 96 95 95 98 O2 Delivery Ventilator Ventilator Ventilator Ventilator 08/18/19 08/18/19 08/18/19 08/18/19 20:00 20:00 20:21 21:00 Temp 100.3 100.3 Pulse 108 110 Resp 18 18 B/P (MAP) 115/56 (75) 109/61 (77) Pulse Ox 96 95 98 O2 Delivery Ventilator Mechanical Ventilator Ventilator Ventilator 08/18/19 08/18/19 08/18/19 08/18/19 22:00 22:06 22:36 23:00 Pulse 107 106 Resp 18 18 18 B/P (MAP) 111/51 (71) 112/52 (72) Pulse Ox 100 100 O2 Delivery Ventilator Ventilator Ventilator Ventilator 08/18/19 08/19/19 08/19/19 08/19/19 23:59 00:01 00:06 01:00 Temp 99.5 99.5 Pulse 107 110 Resp 18 18 B/P (MAP) 109/55 (73) 107/55 (72) Pulse Ox 100 100 100 O2 Delivery Mechanical Ventilator Ventilator Ventilator Ventilator 08/19/19 08/19/19 08/19/19 08/19/19 02:00 02:24 03:00 04:00 Pulse 113 110 Resp 18 18 B/P (MAP) 112/55 (74) 116/55 (75) Pulse Ox 100 100 100 O2 Delivery Ventilator Ventilator Ventilator Mechanical Ventilator 08/19/19 08/19/19 08/19/19 08/19/19 04:00 04:30 05:00 06:00 Temp 99.6 99.6 Pulse 105 105 106 Resp 18 18 18 B/P (MAP) 113/57 (75) 113/55 (74) 116/56 (76) Pulse Ox 100 100 100 100 O2 Delivery Ventilator Ventilator Ventilator Ventilator 08/19/19 08/19/19 08/19/19 08/19/19 06:01 07:00 07:27 08:02 Pulse 108 Resp 18 B/P (MAP) 119/60 (79) Pulse Ox 100 100 100 100 O2 Delivery Ventilator Ventilator Ventilator Ventilator Intake and Output 08/18/19 08/18/19 08/19/19 15:00 23:00 07:00 Intake Total 300 ml 1277.26 ml 3175.18 ml Output Total 585 ml 935 ml 510 ml Balance -285 ml 342.26 ml 2665.18 ml GENA ARTHUR MD Aug 19, 2019 08:47
[2019-08-19] MEDS: IPRATRPIUM/ALBUTEROL 0.5/2.5MG 3 ML NEBU. NEB SCH ×4 (09:00→20:02)
[2019-08-19] MEDS: ELECTROLYTE (ICU) PROTOCOL. MC SCH (09:00)
--- NOTE | 2019-08-19 09:00 | EEG ---
DATE OF SERVICE: 08/19/2019 ELECTROENCEPHALOGRAM REPORT EEG NUMBER: . OBJECTIVE: The patient is a 24-year-old female with unresponsive episode. DESCRIPTION: This is a digital study. Electrodes are placed according to international 10-20 system. Bipolar and referential montages are available. Activation procedures typically include hyperventilation and intermittent photic stimulation. INTERPRETATION: The waking background consists of 9-10 Hz, 20-50 microvolt activity, symmetrically distributed over parietooccipital regions and reactive to eye opening. Hyperventilation is not performed as the patient is on the ventilator. Intermittent photic stimulation is noncontributory. Stage 1 sleep is achieved with normal electroencephalogram patterns. IMPRESSION: This electroencephalogram with the patient awake and asleep is within normal limits. There is no focal, paroxysmal, or epileptiform activity. Thank you for letting us help with the patient's care. CHANTELL WAGNER MD DR: JOLANTA/zaria JOB#: [id number] / [id number]
[2019-08-19] MEDS: IV NORMAL SALINE 1000ML BAG 1,000 ML IV SCH ×3 (09:47→22:22)
--- NOTE | 2019-08-19 10:46 | PDOC ---
PULMONARY PROGRESS NOTES Subjective awake, follows commands Vitals Vital Signs Date Time Temp Pulse Resp B/P (MAP) Pulse Ox O2 Delivery O2 Flow Rate FiO2 08/19/19 10:00 102 18 102/51 (68) 100 Ventilator 08/19/19 08:00 99.8 99.8 General: Alert, No acute distress Lungs: Clear Cardiovascular: S1 Abdomen: Soft Neuro Exam: Alert Extremities: No Edema Skin: Warm Labs Laboratory Tests Test 08/17/19 21:47 08/17/19 22:05 08/17/19 22:30 08/18/19 01:19 Glucose (Fingerstick) 72 mg/dL (70-99) 101 mg/dL (70-99) O2 Saturation 99 % (92-99) Arterial Blood pH 7.45 (7.35-7.45) Arterial Blood pCO2 at Patient Temp 42 mmHg (35-46) Arterial Blood pO2 at Patient Temp 139 mmHg (85-108) Arterial Blood HCO3 28 mmol/L (21-28) Arterial Blood Base Excess 4 mmol/L (-3-3) Oxyhemoglobin 97.8 % Methemoglobin 0.1 % (0.0-1.9) Carbon Monoxide, Quantitative 0.7 % (0.0-1.9) FiO2 100 Troponin I Quantitative 0.670 ng/mL (0.000-0.055) Thyroid Stimulating Hormone (TSH) 0.804 uIU/mL (0.358-3.74) Test 08/18/19 02:10 08/18/19 05:30 08/18/19 06:16 08/18/19 07:30 Urine Collection Type Unknown Urine Color Yellow Urine Clarity Clear Urine pH 5.0 Urine Specific [place] 1.015 Urine Protein Negative mg/dL (NEG-TRACE) Urine Glucose (UA) Negative mg/dL (NEG) Urine Ketones (Stick) Negative mg/dL (NEG) Urine Blood Negative (NEG) Urine Nitrite Negative (NEG) Urine Bilirubin Negative (NEG) Urine Urobilinogen Dipstick 0.2 mg/dL (0.2 mg/dL) Urine Leukocyte Esterase Trace (NEG) Urine RBC 0 /HPF (0-2) Urine WBC 1-4 /HPF (0-4) Urine Squamous Epithelial Cells Few /LPF Urine Amorphous Sediment Present /HPF Urine Bacteria Few /HPF (0-FEW) Urine Mucus Mod /LPF White Blood Count 9.0 x10^3/uL (4.0-11.0) Red Blood Count 4.26 x10^6/uL (3.50-5.40) Hemoglobin 12.0 g/dL (12.0-15.5) Hematocrit 35.9 % (36.0-47.0) Mean Corpuscular Volume 84 fL (79-100) Mean Corpuscular Hemoglobin 28 pg (25-35) Mean Corpuscular Hemoglobin Concent 33 g/dL (31-37) Red Cell Distribution Width 14.0 % (11.5-14.5) Platelet Count 277 x10^3/uL (140-400) Neutrophils (%) (Auto) 70 % (31-73) Lymphocytes (%) (Auto) 24 % (24-48) Monocytes (%) (Auto) 6 % (0-9) Eosinophils (%) (Auto) 0 % (0-3) Basophils (%) (Auto) 0 % (0-3) Neutrophils # (Auto) 6.3 x10^3/uL (1.8-7.7) Lymphocytes # (Auto) 2.1 x10^3/uL (1.0-4.8) Monocytes # (Auto) 0.5 x10^3/uL (0.0-1.1) Eosinophils # (Auto) 0.0 x10^3/uL (0.0-0.7) Basophils # (Auto) 0.0 x10^3/uL (0.0-0.2) Prothrombin Time 13.5 SEC (11.7-14.0) Prothromb Time International Ratio 1.1 (0.8-1.1) Activated Partial Thromboplast Time 33 SEC (24-38) Sodium Level 147 mmol/L (136-145) Potassium Level 3.6 mmol/L (3.5-5.1) Chloride Level 109 mmol/L (98-107) Carbon Dioxide Level 31 mmol/L (21-32) Anion Gap 7 (6-14) Blood Urea Nitrogen 17 mg/dL (7-20) Creatinine 1.4 mg/dL (0.6-1.0) Estimated GFR (Cockcroft-Gault) 46.6 BUN/Creatinine Ratio 12 (6-20) Glucose Level 113 mg/dL (70-99) Lactic Acid Level 2.2 mmol/L (0.4-2.0) Calcium Level 7.2 mg/dL (8.5-10.1) Phosphorus Level 3.6 mg/dL (2.6-4.7) Magnesium Level 1.4 mg/dL (1.8-2.4) Total Bilirubin 0.7 mg/dL (0.2-1.0) Aspartate Amino Transf (AST/SGOT) 70 U/L (15-37) Alanine Aminotransferase (ALT/SGPT) 73 U/L (14-59) Alkaline Phosphatase 69 U/L (46-116) Total Protein 5.7 g/dL (6.4-8.2) Albumin 2.7 g/dL (3.4-5.0) Albumin/Globulin Ratio 0.9 (1.0-1.7) Procalcitonin 82.41 ng/mL (0.00-0.10) Free Thyroxine 0.87 ng/dL (0.76-1.46) Salicylates Level < 2.8 mg/dL (2.8-20.0) Salicylate Last Dose Date 08/17/19 Salicylate Last Dose Time 1600 Acetaminophen Level 8.8 mcg/ml (10-30) Acetaminophen Last Dose Date 08/17/19 Acetaminophen Last Dose Time 1600 Glucose (Fingerstick) 105 mg/dL (70-99) Influenza Type A Antigen Negative (NEGATIVE) Influenza Type B Antigen Negative (NEGATIVE) Test 08/18/19 08:15 08/18/19 11:45 08/18/19 12:00 08/18/19 12:06 O2 Saturation 96 % (92-99) Arterial Blood pH 7.41 (7.35-7.45) Arterial Blood pCO2 at Patient Temp 46 mmHg (35-46) Arterial Blood pO2 at Patient Temp 86 mmHg (85-108) Arterial Blood HCO3 28 mmol/L (21-28) Arterial Blood Base Excess 3 mmol/L (-3-3) FiO2 60 Urine Opiates Screen Neg (NEG) Urine Methadone Screen Neg (NEG) Urine Barbiturates Neg (NEG) Urine Phencyclidine Screen Neg (NEG) Urine Amphetamine/Methamphetamine Neg (NEG) Urine Benzodiazepines Screen Pos (NEG) Urine Cocaine Screen Neg (NEG) Urine Cannabinoids Screen Neg (NEG) Urine Ethyl Alcohol Neg (NEG) Sodium Level 147 mmol/L (136-145) Potassium Level 3.6 mmol/L (3.5-5.1) Chloride Level 109 mmol/L (98-107) Carbon Dioxide Level 30 mmol/L (21-32) Anion Gap 8 (6-14) Blood Urea Nitrogen 17 mg/dL (7-20) Creatinine 1.3 mg/dL (0.6-1.0) Estimated GFR (Cockcroft-Gault) 50.8 BUN/Creatinine Ratio 13 (6-20) Glucose Level 110 mg/dL (70-99) Lactic Acid Level 1.5 mmol/L (0.4-2.0) Calcium Level 7.3 mg/dL (8.5-10.1) Total Bilirubin 0.7 mg/dL (0.2-1.0) Aspartate Amino Transf (AST/SGOT) 71 U/L (15-37) Alanine Aminotransferase (ALT/SGPT) 72 U/L (14-59) Alkaline Phosphatase 67 U/L (46-116) Total Protein 5.6 g/dL (6.4-8.2) Albumin 2.7 g/dL (3.4-5.0) Albumin/Globulin Ratio 0.9 (1.0-1.7) Procalcitonin 74.69 ng/mL (0.00-0.10) Glucose (Fingerstick) 90 mg/dL (70-99) Test 08/18/19 13:35 08/19/19 01:12 08/19/19 04:30 08/19/19 07:30 Fibrinogen 514 mg/dL (200-440) D-Dimer (Dayana) 7.95 ug/mlFEU (0.00-0.50) Glucose (Fingerstick) 77 mg/dL (70-99) White Blood Count 12.0 x10^3/uL (4.0-11.0) Red Blood Count 3.88 x10^6/uL (3.50-5.40) Hemoglobin 10.8 g/dL (12.0-15.5) Hematocrit 33.0 % (36.0-47.0) Mean Corpuscular Volume 85 fL (79-100) Mean Corpuscular Hemoglobin 28 pg (25-35) Mean Corpuscular Hemoglobin Concent 33 g/dL (31-37) Red Cell Distribution Width 13.9 % (11.5-14.5) Platelet Count 239 x10^3/uL (140-400) Neutrophils (%) (Auto) 70 % (31-73) Lymphocytes (%) (Auto) 23 % (24-48) Monocytes (%) (Auto) 6 % (0-9) Eosinophils (%) (Auto) 1 % (0-3) Basophils (%) (Auto) 0 % (0-3) Neutrophils # (Auto) 8.4 x10^3/uL (1.8-7.7) Lymphocytes # (Auto) 2.8 x10^3/uL (1.0-4.8) Monocytes # (Auto) 0.7 x10^3/uL (0.0-1.1) Eosinophils # (Auto) 0.1 x10^3/uL (0.0-0.7) Basophils # (Auto) 0.0 x10^3/uL (0.0-0.2) Sodium Level 147 mmol/L (136-145) Potassium Level 3.6 mmol/L (3.5-5.1) Chloride Level 110 mmol/L (98-107) Carbon Dioxide Level 28 mmol/L (21-32) Anion Gap 9 (6-14) Blood Urea Nitrogen 13 mg/dL (7-20) Creatinine 1.1 mg/dL (0.6-1.0) Estimated GFR (Cockcroft-Gault) 61.6 BUN/Creatinine Ratio 12 (6-20) Glucose Level 87 mg/dL (70-99) Calcium Level 8.6 mg/dL (8.5-10.1) Magnesium Level 1.9 mg/dL (1.8-2.4) Total Bilirubin 0.5 mg/dL (0.2-1.0) Aspartate Amino Transf (AST/SGOT) 50 U/L (15-37) Alanine Aminotransferase (ALT/SGPT) 56 U/L (14-59) Alkaline Phosphatase 77 U/L (46-116) Total Protein 6.5 g/dL (6.4-8.2) Albumin 2.8 g/dL (3.4-5.0) Albumin/Globulin Ratio 0.8 (1.0-1.7) O2 Saturation 96 % (92-99) Arterial Blood pH 7.39 (7.35-7.45) Arterial Blood pCO2 at Patient Temp 44 mmHg (35-46) Arterial Blood pO2 at Patient Temp 86 mmHg (85-108) Arterial Blood HCO3 26 mmol/L (21-28) Arterial Blood Base Excess 0 mmol/L (-3-3) FiO2 40% Laboratory Tests Test 08/18/19 11:45 08/18/19 12:00 08/18/19 12:06 08/18/19 13:35 Urine Opiates Screen Neg (NEG) Urine Methadone Screen Neg (NEG) Urine Barbiturates Neg (NEG) Urine Phencyclidine Screen Neg (NEG) Urine Amphetamine/Methamphetamine Neg (NEG) Urine Benzodiazepines Screen Pos (NEG) Urine Cocaine Screen Neg (NEG) Urine Cannabinoids Screen Neg (NEG) Urine Ethyl Alcohol Neg (NEG) Sodium Level 147 mmol/L (136-145) Potassium Level 3.6 mmol/L (3.5-5.1) Chloride Level 109 mmol/L (98-107) Carbon Dioxide Level 30 mmol/L (21-32) Anion Gap 8 (6-14) Blood Urea Nitrogen 17 mg/dL (7-20) Creatinine 1.3 mg/dL (0.6-1.0) Estimated GFR (Cockcroft-Gault) 50.8 BUN/Creatinine Ratio 13 (6-20) Glucose Level 110 mg/dL (70-99) Lactic Acid Level 1.5 mmol/L (0.4-2.0) Calcium Level 7.3 mg/dL (8.5-10.1) Total Bilirubin 0.7 mg/dL (0.2-1.0) Aspartate Amino Transf (AST/SGOT) 71 U/L (15-37) Alanine Aminotransferase (ALT/SGPT) 72 U/L (14-59) Alkaline Phosphatase 67 U/L (46-116) Total Protein 5.6 g/dL (6.4-8.2) Albumin 2.7 g/dL (3.4-5.0) Albumin/Globulin Ratio 0.9 (1.0-1.7) Procalcitonin 74.69 ng/mL (0.00-0.10) Glucose (Fingerstick) 90 mg/dL (70-99) Fibrinogen 514 mg/dL (200-440) D-Dimer (Dayana) 7.95 ug/mlFEU (0.00-0.50) Test 08/19/19 01:12 1/9/20 04:30 08/19/19 07:30 Glucose (Fingerstick) 77 mg/dL (70-99) White Blood Count 12.0 x10^3/uL (4.0-11.0) Red Blood Count 3.88 x10^6/uL (3.50-5.40) Hemoglobin 10.8 g/dL (12.0-15.5) Hematocrit 33.0 % (36.0-47.0) Mean Corpuscular Volume 85 fL (79-100) Mean Corpuscular Hemoglobin 28 pg (25-35) Mean Corpuscular Hemoglobin Concent 33 g/dL (31-37) Red Cell Distribution Width 13.9 % (11.5-14.5) Platelet Count 239 x10^3/uL (140-400) Neutrophils (%) (Auto) 70 % (31-73) Lymphocytes (%) (Auto) 23 % (24-48) Monocytes (%) (Auto) 6 % (0-9) Eosinophils (%) (Auto) 1 % (0-3) Basophils (%) (Auto) 0 % (0-3) Neutrophils # (Auto) 8.4 x10^3/uL (1.8-7.7) Lymphocytes # (Auto) 2.8 x10^3/uL (1.0-4.8) Monocytes # (Auto) 0.7 x10^3/uL (0.0-1.1) Eosinophils # (Auto) 0.1 x10^3/uL (0.0-0.7) Basophils # (Auto) 0.0 x10^3/uL (0.0-0.2) Sodium Level 147 mmol/L (136-145) Potassium Level 3.6 mmol/L (3.5-5.1) Chloride Level 110 mmol/L (98-107) Carbon Dioxide Level 28 mmol/L (21-32) Anion Gap 9 (6-14) Blood Urea Nitrogen 13 mg/dL (7-20) Creatinine 1.1 mg/dL (0.6-1.0) Estimated GFR (Cockcroft-Gault) 61.6 BUN/Creatinine Ratio 12 (6-20) Glucose Level 87 mg/dL (70-99) Calcium Level 8.6 mg/dL (8.5-10.1) Magnesium Level 1.9 mg/dL (1.8-2.4) Total Bilirubin 0.5 mg/dL (0.2-1.0) Aspartate Amino Transf (AST/SGOT) 50 U/L (15-37) Alanine Aminotransferase (ALT/SGPT) 56 U/L (14-59) Alkaline Phosphatase 77 U/L (46-116) Total Protein 6.5 g/dL (6.4-8.2) Albumin 2.8 g/dL (3.4-5.0) Albumin/Globulin Ratio 0.8 (1.0-1.7) O2 Saturation 96 % (92-99) Arterial Blood pH 7.39 (7.35-7.45) Arterial Blood pCO2 at Patient Temp 44 mmHg (35-46) Arterial Blood pO2 at Patient Temp 86 mmHg (85-108) Arterial Blood HCO3 26 mmol/L (21-28) Arterial Blood Base Excess 0 mmol/L (-3-3) FiO2 40% Medications Active Scripts Medications Dose Route/Sig Max Daily Dose Days Date Category Wixela 250-50 Inhub (Fluticasone Propion/Salmeterol) 1 Each Blst.w.dev 1 Each IH BID 08/18/19 Reported Metronidazole 70 Gm Gel.w.appl 1 Appful VG QHS 08/18/19 Reported Phentermine Hcl 37.5 Mg Capsule 1 Cap PO [id number] 08/18/19 Reported Ortho Tri-Cyclen (Norgestimate-Ethinyl Estradiol) 1 Each Tablet 1 Each PO DAILY 07/14/19 Reported Comments cxr resolved infilt Impression . 1. Acute hypoxic respiratory failure secondary to multifactorial etiologies and likely secondary to combination of metabolic and toxic encephalopathy from unknown drug overdose and also suspected acute lung injury with diffuse ground glass infiltrates. 2. Abnormal chest x-ray with diffuse ground glass infiltrates without any pleural effusion. The findings highly favoring acute lung injury. She has history of vaping and that could be one etiology. She also recently crushed Percocet tablet and then snorted it and that could be another source of her acute lung injury. 3. Underlying tobacco use. 4. Fever, present on admission. Influenza screen negative. Procalcitonin markedly elevated. She is currently being covered for pneumonia as well. 5. Underlying obesity. 6. Toxicology screen negative. Plan . 1. AC mode, dc sedation, CPAP trial 2. Follow chest x-ray. better 3. Broad-spectrum antibiotic per ID. 4. echocardiogram reviewed.clinically, unlikely CHF. 5. DVT prophylaxis. 6. enteral nutrition. 7. Bronchodilators. 8. Tamiflu 9. Continue mild sedation, 10. Discussed with family and discussed with RN and RT. Critical care time 30 minutes. SARAH KEANE MD Aug 19, 2019 10:46
[2019-08-19 11:21] LABS: BASE EXCESS ABG 1 mmol/L (-3-3); HCO3 ABG 26 mmol/L (21-28); PCO2 ABG 43 mmHg (35-46); PO2 ABG 103 mmHg (85-108); SAT O2 ABG 97 % (92-99)
[2019-08-19 11:24] LABS: FIO2 ABG 40%
--- NOTE | 2019-08-19 11:58 | PDOC ---
PROGRESS NOTES Assessment Altered mental status, may have taken an overdose, family strongly disagrees, urine drug screen negative. She could've had a seizure. There may be intracranial abnormality as she has not had any imaging of the brain during this more than [address] of the head and EEG are normal. She is bright and alert now. Possible pneumonia or lung injury due to drug ingestion Plan Okay for extubation from neurological point of view No further studies possible or required Hold off on starting empiric anticonvulsants. Objective Vital Signs Date Time Temp Pulse Resp B/P (MAP) Pulse Ox O2 Delivery O2 Flow Rate FiO2 08/19/19 11:00 107 18 108/56 (73) 100 Ventilator 08/19/19 08:00 99.8 99.8 Intake and Output 08/19/19 07:00 Intake Total 4752.44 ml Output Total 2030 ml Balance 2722.44 ml Intake IV Total 3661.44 ml Tube Feeding 791 ml Other 300 ml Output Urine Total 2030 ml PHYSICAL EXAM Alert. Intubated, follows commands, tries to speak PERRL. EOMI. CN: no focal findings. Muscle tone: normal. Muscle strength: 4/5 DTR: 2+ Plantar reflex: flexor Gait: not examined in bed. Sensory exam: no abnormal findings. No cerebellar signs elicited. Review of Relevant I have reviewed the following items jimmy (where applicable) has been applied. Labs Laboratory Tests Test 08/17/19 21:47 08/17/19 22:05 08/17/19 22:30 08/18/19 01:19 Glucose (Fingerstick) 72 mg/dL (70-99) 101 mg/dL (70-99) O2 Saturation 99 % (92-99) Arterial Blood pH 7.45 (7.35-7.45) Arterial Blood pCO2 at Patient Temp 42 mmHg (35-46) Arterial Blood pO2 at Patient Temp 139 mmHg (85-108) Arterial Blood HCO3 28 mmol/L (21-28) Arterial Blood Base Excess 4 mmol/L (-3-3) Oxyhemoglobin 97.8 % Methemoglobin 0.1 % (0.0-1.9) Carbon Monoxide, Quantitative 0.7 % (0.0-1.9) FiO2 100 Troponin I Quantitative 0.670 ng/mL (0.000-0.055) Thyroid Stimulating Hormone (TSH) 0.804 uIU/mL (0.358-3.74) Test 08/18/19 02:10 08/18/19 05:30 08/18/19 06:16 08/18/19 07:30 Urine Collection Type Unknown Urine Color Yellow Urine Clarity Clear Urine pH 5.0 Urine Specific [place] 1.015 Urine Protein Negative mg/dL (NEG-TRACE) Urine Glucose (UA) Negative mg/dL (NEG) Urine Ketones (Stick) Negative mg/dL (NEG) Urine Blood Negative (NEG) Urine Nitrite Negative (NEG) Urine Bilirubin Negative (NEG) Urine Urobilinogen Dipstick 0.2 mg/dL (0.2 mg/dL) Urine Leukocyte Esterase Trace (NEG) Urine RBC 0 /HPF (0-2) Urine WBC 1-4 /HPF (0-4) Urine Squamous Epithelial Cells Few /LPF Urine Amorphous Sediment Present /HPF Urine Bacteria Few /HPF (0-FEW) Urine Mucus Mod /LPF White Blood Count 9.0 x10^3/uL (4.0-11.0) Red Blood Count 4.26 x10^6/uL (3.50-5.40) Hemoglobin 12.0 g/dL (12.0-15.5) Hematocrit 35.9 % (36.0-47.0) Mean Corpuscular Volume 84 fL (79-100) Mean Corpuscular Hemoglobin 28 pg (25-35) Mean Corpuscular Hemoglobin Concent 33 g/dL (31-37) Red Cell Distribution Width 14.0 % (11.5-14.5) Platelet Count 277 x10^3/uL (140-400) Neutrophils (%) (Auto) 70 % (31-73) Lymphocytes (%) (Auto) 24 % (24-48) Monocytes (%) (Auto) 6 % (0-9) Eosinophils (%) (Auto) 0 % (0-3) Basophils (%) (Auto) 0 % (0-3) Neutrophils # (Auto) 6.3 x10^3/uL (1.8-7.7) Lymphocytes # (Auto) 2.1 x10^3/uL (1.0-4.8) Monocytes # (Auto) 0.5 x10^3/uL (0.0-1.1) Eosinophils # (Auto) 0.0 x10^3/uL (0.0-0.7) Basophils # (Auto) 0.0 x10^3/uL (0.0-0.2) Prothrombin Time 13.5 SEC (11.7-14.0) Prothromb Time International Ratio 1.1 (0.8-1.1) Activated Partial Thromboplast Time 33 SEC (24-38) Sodium Level 147 mmol/L (136-145) Potassium Level 3.6 mmol/L (3.5-5.1) Chloride Level 109 mmol/L (98-107) Carbon Dioxide Level 31 mmol/L (21-32) Anion Gap 7 (6-14) Blood Urea Nitrogen 17 mg/dL (7-20) Creatinine 1.4 mg/dL (0.6-1.0) Estimated GFR (Cockcroft-Gault) 46.6 BUN/Creatinine Ratio 12 (6-20) Glucose Level 113 mg/dL (70-99) Lactic Acid Level 2.2 mmol/L (0.4-2.0) Calcium Level 7.2 mg/dL (8.5-10.1) Phosphorus Level 3.6 mg/dL (2.6-4.7) Magnesium Level 1.4 mg/dL (1.8-2.4) Total Bilirubin 0.7 mg/dL (0.2-1.0) Aspartate Amino Transf (AST/SGOT) 70 U/L (15-37) Alanine Aminotransferase (ALT/SGPT) 73 U/L (14-59) Alkaline Phosphatase 69 U/L (46-116) Total Protein 5.7 g/dL (6.4-8.2) Albumin 2.7 g/dL (3.4-5.0) Albumin/Globulin Ratio 0.9 (1.0-1.7) Procalcitonin 82.41 ng/mL (0.00-0.10) Free Thyroxine 0.87 ng/dL (0.76-1.46) Salicylates Level < 2.8 mg/dL (2.8-20.0) Salicylate Last Dose Date 08/17/19 Salicylate Last Dose Time 1600 Acetaminophen Level 8.8 mcg/ml (10-30) Acetaminophen Last Dose Date 08/17/19 Acetaminophen Last Dose Time 1600 Glucose (Fingerstick) 105 mg/dL (70-99) Influenza Type A Antigen Negative (NEGATIVE) Influenza Type B Antigen Negative (NEGATIVE) Test 08/18/19 08:15 08/18/19 11:45 08/18/19 12:00 08/18/19 12:06 O2 Saturation 96 % (92-99) Arterial Blood pH 7.41 (7.35-7.45) Arterial Blood pCO2 at Patient Temp 46 mmHg (35-46) Arterial Blood pO2 at Patient Temp 86 mmHg (85-108) Arterial Blood HCO3 28 mmol/L (21-28) Arterial Blood Base Excess 3 mmol/L (-3-3) FiO2 60 Urine Opiates Screen Neg (NEG) Urine Methadone Screen Neg (NEG) Urine Barbiturates Neg (NEG) Urine Phencyclidine Screen Neg (NEG) Urine Amphetamine/Methamphetamine Neg (NEG) Urine Benzodiazepines Screen Pos (NEG) Urine Cocaine Screen Neg (NEG) Urine Cannabinoids Screen Neg (NEG) Urine Ethyl Alcohol Neg (NEG) Sodium Level 147 mmol/L (136-145) Potassium Level 3.6 mmol/L (3.5-5.1) Chloride Level 109 mmol/L (98-107) Carbon Dioxide Level 30 mmol/L (21-32) Anion Gap 8 (6-14) Blood Urea Nitrogen 17 mg/dL (7-20) Creatinine 1.3 mg/dL (0.6-1.0) Estimated GFR (Cockcroft-Gault) 50.8 BUN/Creatinine Ratio 13 (6-20) Glucose Level 110 mg/dL (70-99) Lactic Acid Level 1.5 mmol/L (0.4-2.0) Calcium Level 7.3 mg/dL (8.5-10.1) Total Bilirubin 0.7 mg/dL (0.2-1.0) Aspartate Amino Transf (AST/SGOT) 71 U/L (15-37) Alanine Aminotransferase (ALT/SGPT) 72 U/L (14-59) Alkaline Phosphatase 67 U/L (46-116) Total Protein 5.6 g/dL (6.4-8.2) Albumin 2.7 g/dL (3.4-5.0) Albumin/Globulin Ratio 0.9 (1.0-1.7) Procalcitonin 74.69 ng/mL (0.00-0.10) Glucose (Fingerstick) 90 mg/dL (70-99) Test 08/18/19 13:35 08/19/19 01:12 08/19/19 04:30 08/19/19 07:30 Fibrinogen 514 mg/dL (200-440) D-Dimer (Dayana) 7.95 ug/mlFEU (0.00-0.50) Glucose (Fingerstick) 77 mg/dL (70-99) White Blood Count 12.0 x10^3/uL (4.0-11.0) Red Blood Count 3.88 x10^6/uL (3.50-5.40) Hemoglobin 10.8 g/dL (12.0-15.5) Hematocrit 33.0 % (36.0-47.0) Mean Corpuscular Volume 85 fL (79-100) Mean Corpuscular Hemoglobin 28 pg (25-35) Mean Corpuscular Hemoglobin Concent 33 g/dL (31-37) Red Cell Distribution Width 13.9 % (11.5-14.5) Platelet Count 239 x10^3/uL (140-400) Neutrophils (%) (Auto) 70 % (31-73) Lymphocytes (%) (Auto) 23 % (24-48) Monocytes (%) (Auto) 6 % (0-9) Eosinophils (%) (Auto) 1 % (0-3) Basophils (%) (Auto) 0 % (0-3) Neutrophils # (Auto) 8.4 x10^3/uL (1.8-7.7) Lymphocytes # (Auto) 2.8 x10^3/uL (1.0-4.8) Monocytes # (Auto) 0.7 x10^3/uL (0.0-1.1) Eosinophils # (Auto) 0.1 x10^3/uL (0.0-0.7) Basophils # (Auto) 0.0 x10^3/uL (0.0-0.2) Sodium Level 147 mmol/L (136-145) Potassium Level 3.6 mmol/L (3.5-5.1) Chloride Level 110 mmol/L (98-107) Carbon Dioxide Level 28 mmol/L (21-32) Anion Gap 9 (6-14) Blood Urea Nitrogen 13 mg/dL (7-20) Creatinine 1.1 mg/dL (0.6-1.0) Estimated GFR (Cockcroft-Gault) 61.6 BUN/Creatinine Ratio 12 (6-20) Glucose Level 87 mg/dL (70-99) Calcium Level 8.6 mg/dL (8.5-10.1) Magnesium Level 1.9 mg/dL (1.8-2.4) Total Bilirubin 0.5 mg/dL (0.2-1.0) Aspartate Amino Transf (AST/SGOT) 50 U/L (15-37) Alanine Aminotransferase (ALT/SGPT) 56 U/L (14-59) Alkaline Phosphatase 77 U/L (46-116) Total Protein 6.5 g/dL (6.4-8.2) Albumin 2.8 g/dL (3.4-5.0) Albumin/Globulin Ratio 0.8 (1.0-1.7) O2 Saturation 96 % (92-99) Arterial Blood pH 7.39 (7.35-7.45) Arterial Blood pCO2 at Patient Temp 44 mmHg (35-46) Arterial Blood pO2 at Patient Temp 86 mmHg (85-108) Arterial Blood HCO3 26 mmol/L (21-28) Arterial Blood Base Excess 0 mmol/L (-3-3) FiO2 40% Test 08/19/19 11:10 O2 Saturation 97 % (92-99) Arterial Blood pH 7.40 (7.35-7.45) Arterial Blood pCO2 at Patient Temp 43 mmHg (35-46) Arterial Blood pO2 at Patient Temp 103 mmHg (85-108) Arterial Blood HCO3 26 mmol/L (21-28) Arterial Blood Base Excess 1 mmol/L (-3-3) FiO2 40% Laboratory Tests Test 08/18/19 12:00 08/18/19 12:06 08/18/19 13:35 08/19/19 01:12 Sodium Level 147 mmol/L (136-145) Potassium Level 3.6 mmol/L (3.5-5.1) Chloride Level 109 mmol/L (98-107) Carbon Dioxide Level 30 mmol/L (21-32) Anion Gap 8 (6-14) Blood Urea Nitrogen 17 mg/dL (7-20) Creatinine 1.3 mg/dL (0.6-1.0) Estimated GFR (Cockcroft-Gault) 50.8 BUN/Creatinine Ratio 13 (6-20) Glucose Level 110 mg/dL (70-99) Lactic Acid Level 1.5 mmol/L (0.4-2.0) Calcium Level 7.3 mg/dL (8.5-10.1) Total Bilirubin 0.7 mg/dL (0.2-1.0) Aspartate Amino Transf (AST/SGOT) 71 U/L (15-37) Alanine Aminotransferase (ALT/SGPT) 72 U/L (14-59) Alkaline Phosphatase 67 U/L (46-116) Total Protein 5.6 g/dL (6.4-8.2) Albumin 2.7 g/dL (3.4-5.0) Albumin/Globulin Ratio 0.9 (1.0-1.7) Procalcitonin 74.69 ng/mL (0.00-0.10) Glucose (Fingerstick) 90 mg/dL (70-99) 77 mg/dL (70-99) Fibrinogen 514 mg/dL (200-440) D-Dimer (Dayana) 7.95 ug/mlFEU (0.00-0.50) Test 08/19/19 04:30 08/19/19 07:30 08/19/19 11:10 White Blood Count 12.0 x10^3/uL (4.0-11.0) Red Blood Count 3.88 x10^6/uL (3.50-5.40) Hemoglobin 10.8 g/dL (12.0-15.5) Hematocrit 33.0 % (36.0-47.0) Mean Corpuscular Volume 85 fL (79-100) Mean Corpuscular Hemoglobin 28 pg (25-35) Mean Corpuscular Hemoglobin Concent 33 g/dL (31-37) Red Cell Distribution Width 13.9 % (11.5-14.5) Platelet Count 239 x10^3/uL (140-400) Neutrophils (%) (Auto) 70 % (31-73) Lymphocytes (%) (Auto) 23 % (24-48) Monocytes (%) (Auto) 6 % (0-9) Eosinophils (%) (Auto) 1 % (0-3) Basophils (%) (Auto) 0 % (0-3) Neutrophils # (Auto) 8.4 x10^3/uL (1.8-7.7) Lymphocytes # (Auto) 2.8 x10^3/uL (1.0-4.8) Monocytes # (Auto) 0.7 x10^3/uL (0.0-1.1) Eosinophils # (Auto) 0.1 x10^3/uL (0.0-0.7) Basophils # (Auto) 0.0 x10^3/uL (0.0-0.2) Sodium Level 147 mmol/L (136-145) Potassium Level 3.6 mmol/L (3.5-5.1) Chloride Level 110 mmol/L (98-107) Carbon Dioxide Level 28 mmol/L (21-32) Anion Gap 9 (6-14) Blood Urea Nitrogen 13 mg/dL (7-20) Creatinine 1.1 mg/dL (0.6-1.0) Estimated GFR (Cockcroft-Gault) 61.6 BUN/Creatinine Ratio 12 (6-20) Glucose Level 87 mg/dL (70-99) Calcium Level 8.6 mg/dL (8.5-10.1) Magnesium Level 1.9 mg/dL (1.8-2.4) Total Bilirubin 0.5 mg/dL (0.2-1.0) Aspartate Amino Transf (AST/SGOT) 50 U/L (15-37) Alanine Aminotransferase (ALT/SGPT) 56 U/L (14-59) Alkaline Phosphatase 77 U/L (46-116) Total Protein 6.5 g/dL (6.4-8.2) Albumin 2.8 g/dL (3.4-5.0) Albumin/Globulin Ratio 0.8 (1.0-1.7) O2 Saturation 96 % (92-99) 97 % (92-99) Arterial Blood pH 7.39 (7.35-7.45) 7.40 (7.35-7.45) Arterial Blood pCO2 at Patient Temp 44 mmHg (35-46) 43 mmHg (35-46) Arterial Blood pO2 at Patient Temp 86 mmHg (85-108) 103 mmHg (85-108) Arterial Blood HCO3 26 mmol/L (21-28) 26 mmol/L (21-28) Arterial Blood Base Excess 0 mmol/L (-3-3) 1 mmol/L (-3-3) FiO2 40% 40% Microbiology 08/17/19 Blood Culture - Preliminary, Resulted NO GROWTH AFTER 1 DAY Medications Current Medications Fentanyl Citrate 30 ml @ 0 mls/hr CONT PRN IV SEE PROTOCOL Last administered on 08/19/19at 09:37; Start 08/17/19 at 21:45 Propofol 100 ml @ 0 mls/hr CONT PRN IV SEE PROTOCOL; Start 08/17/19 at 21:45 Fentanyl Citrate (Fentanyl 2ml Vial) 25 mcg PRN Q1HR PRN IV SEE COMMENTS; Start 08/17/19 at 21:45 Fentanyl Citrate (Fentanyl 2ml Vial) 50 mcg PRN Q1HR PRN IV SEE COMMENTS; Start 08/17/19 at 21:45 Midazolam HCl 50 mg/Sodium Chloride 50 ml @ 0 mls/hr CONT PRN IV SEE PROTOCOL Last administered on 08/19/19at 01:14; Start 08/17/19 at 21:45 Sodium Chloride 1,000 ml @ 150 mls/hr Q6H40M IV Last administered on 08/18/19at 01:13; Start 08/17/19 at 22:00; Stop 08/18/19 at 10:32; Status DC Piperacillin Sod/ Tazobactam Sod 3.375 gm/Sodium Chloride 50 ml @ 100 mls/hr Q6HRS IV Last administered on 08/18/19at 06:04; Start 08/18/19 at 00:00; Stop 08/18/19 at 07:32; Status DC Lorazepam (Ativan) 1 mg PRN Q6HRS PRN PO ANXIETY / AGITATION; Start 08/17/19 at 22:00 Ondansetron HCl (Zofran) 4 mg PRN Q6HRS PRN IV NAUSEA/VOMITING 1ST CHOICE; Start 08/17/19 at 22:00 Prochlorperazine Edisylate (Compazine) 5 mg PRN Q6HRS PRN IV NAUSEA/VOMITING 2ND CHOICE; Start 08/17/19 at 22:00 Famotidine (Pepcid Vial) 20 mg BID IVP Last administered on 08/19/19at 08:02; Start 08/18/19 at 09:00 Info (Icu Electrolyte Protocol) 1 ea DAILY MC Last administered on 08/18/19at 08:51; Start 08/18/19 at 09:00; Stop 08/18/19 at 11:57; Status DC Heparin Sodium (Porcine) (Heparin Sodium) 5,000 unit Q8HRS SQ Last administered on 08/19/19at 06:05; Start 08/17/19 at 22:00 Sodium Chloride (Normal Saline Flush) 3 ml QSHIFT PRN IV AFTER MEDS AND BLOOD DRAWS; Start 08/17/19 at 22:00; Stop 08/18/19 at 11:56; Status DC Bisacodyl (Dulcolax Supp) 10 mg PRN DAILY PRN [place] CONSTIPATION; Start 08/17/19 at 22:00 Acetaminophen (Tylenol) 650 mg PRN Q6HRS PRN PEG MILD PAIN / TEMP Last administered on 08/19/19at 08:00; Start 08/18/19 at 04:30 Ceftriaxone Sodium (Rocephin) 2 gm Q24H IVP Last administered on 08/19/19at 08:02; Start 08/18/19 at 09:00 Azithromycin 500 mg/Sodium Chloride 250 ml @ 250 mls/hr Q24H IV Last administered on 08/19/19at 07:59; Start 08/18/19 at 08:00 Oseltamivir Phosphate (Tamiflu) 75 mg BID PO Last administered on 08/19/19at 08:00; Start 08/18/19 at 09:00; Stop 08/23/19 at 08:59 Magnesium Sulfate 50 ml @ 25 mls/hr 1X ONCE IV Last administered on 08/18/19at 10:16; Start 08/18/19 at 10:15; Stop 08/18/19 at 12:14; Status DC Ondansetron HCl (Zofran) 4 mg PRN Q6HRS PRN IV NAUSEA/VOMITING; Start 08/18/19 at 11:30; Stop 08/18/19 at 11:55; Status DC Famotidine (Pepcid Vial) 20 mg BID IVP ; Start 08/18/19 at 12:00; Stop 08/18/19 at 11:55; Status DC Info (Icu Electrolyte Protocol) 1 ea DAILY MC Last administered on 08/19/19at 09:00; Start 08/19/19 at 09:00 Heparin Sodium (Porcine) (Heparin Sodium) 5,000 unit Q12HR SQ ; Start 08/18/19 at 12:00; Stop 08/18/19 at 11:55; Status DC Sodium Chloride (Normal Saline Flush) 3 ml QSHIFT PRN IV AFTER MEDS AND BLOOD DRAWS; Start 08/18/19 at 11:30 Sodium Chloride 1,000 ml @ 100 mls/hr Q10H IV Last administered on 08/19/19at 09:47; Start 08/18/19 at 11:17 Bisacodyl (Dulcolax Supp) 10 mg PRN DAILY PRN [place] CONSTIPATION; Start 08/18/19 at 11:30; Stop 08/18/19 at 11:55; Status DC Sodium Chloride 1,000 ml @ 1,560 mls/hr Q39M IV ; Start 08/18/19 at 12:11; Stop 08/18/19 at 13:01; Status DC Sodium Chloride 500 ml @ 1,000 mls/hr PRN Q30MIN PRN IV SEE COMMENTS; Start 08/18/19 at 12:15 Norepinephrine Bitartrate 8 mg/ Dextrose 258 ml @ 0 mls/hr CONT PRN IV SEE I/O RECORD; Start 08/18/19 at 12:15 Dobutamine HCl/ Dextrose 250 ml @ 0 mls/hr CONT PRN IV SEE I/O RECORD; Start 08/18/19 at 12:15 Iohexol (Omnipaque 350 Mg/ml) 90 ml 1X ONCE IV Last administered on 08/18/19at 15:54; Start 08/18/19 at 15:30; Stop 08/18/19 at 15:34; Status DC Info (CONTRAST GIVEN -- Rx MONITORING) 1 each PRN DAILY PRN MC SEE COMMENTS; Start 08/18/19 at 15:45; Stop 08/20/19 at 15:44 Insulin Human Lispro (HumaLOG) 0-5 UNITS TIDWMEALS SQ ; Start 08/19/19 at 08:00; Stop 08/19/19 at 08:15; Status DC Dextrose (Dextrose 50%-Water Syringe) 12.5 gm PRN Q15MIN PRN IV SEE COMMENTS; Start 08/18/19 at 19:00 Dextrose (Iv Dextrose 5%) 250 ml PRN Q15MIN PRN IV SEE COMMENTS; Start 08/18/19 at 19:00 Insulin Human Lispro (HumaLOG) 0-5 UNITS Q6HRS SQ ; Start 08/19/19 at 12:00 Albuterol/ Ipratropium (Duoneb) 3 ml RTQID NEB Last administered on 08/19/19at 11:41; Start 08/19/19 at 09:00 Active Scripts Active Reported Wixela 250-50 Inhub (Fluticasone Propion/Salmeterol) 1 Each Blst.w.dev 1 Each IH BID Metronidazole 70 Gm Gel.w.appl 1 Appful VG QHS Phentermine Hcl 37.5 Mg Capsule 1 Cap PO DAILYWBKFT Ortho Tri-Cyclen (Norgestimate-Ethinyl Estradiol) 1 Each Tablet 1 Each PO DAILY Vitals/I & O Vital Sign - Last 24 Hours 08/18/19 08/18/19 08/18/19 08/18/19 12:00 12:00 12:48 13:00 Temp 98.9 98.9 Pulse 114 119 Resp 18 18 B/P (MAP) 105/56 (72) 93/50 (64) Pulse Ox 96 93 95 O2 Delivery Ventilator Mechanical Ventilator Ventilator Ventilator 08/18/19 08/18/19 08/18/19 08/18/19 14:00 15:00 15:08 15:19 Pulse 116 116 Resp 18 18 B/P (MAP) 95/40 (58) 102/53 (69) Pulse Ox 99 98 99 98 O2 Delivery Ventilator Ventilator Ventilator 08/18/19 08/18/19 08/18/19 08/18/19 16:00 16:00 16:54 17:00 Temp 99.4 99.4 Pulse 108 111 Resp 18 18 18 B/P (MAP) 98/51 (67) 111/58 (75) Pulse Ox 95 96 O2 Delivery Ventilator Mechanical Ventilator Ventilator Ventilator 08/18/19 08/18/19 08/18/19 08/18/19 18:00 18:03 19:00 20:00 Temp 100.3 100.3 Pulse 111 108 108 Resp 18 18 18 B/P (MAP) 104/50 (68) 107/49 (68) 115/56 (75) Pulse Ox 95 95 98 96 O2 Delivery Ventilator Ventilator Ventilator Ventilator 08/18/19 08/18/19 08/18/19 08/18/19 20:00 20:21 21:00 22:00 Pulse 110 107 Resp 18 18 B/P (MAP) 109/61 (77) 111/51 (71) Pulse Ox 95 98 100 O2 Delivery Mechanical Ventilator Ventilator Ventilator Ventilator 08/18/19 08/18/19 08/18/19 08/18/19 22:06 22:36 23:00 23:59 Pulse 106 Resp 18 18 B/P (MAP) 112/52 (72) Pulse Ox 100 O2 Delivery Ventilator Ventilator Ventilator Mechanical Ventilator 08/19/19 08/19/19 08/19/19 08/19/19 00:01 00:06 01:00 02:00 Temp 99.5 99.5 Pulse 107 110 113 Resp 18 18 18 B/P (MAP) 109/55 (73) 107/55 (72) 112/55 (74) Pulse Ox 100 100 100 100 O2 Delivery Ventilator Ventilator Ventilator Ventilator 08/19/19 08/19/19 08/19/19 08/19/19 02:24 03:00 04:00 04:00 Temp 99.6 99.6 Pulse 110 105 Resp 18 18 B/P (MAP) 116/55 (75) 113/57 (75) Pulse Ox 100 100 100 O2 Delivery Ventilator Ventilator Mechanical Ventilator Ventilator 08/19/19 08/19/19 08/19/19 08/19/19 04:30 05:00 06:00 06:01 Pulse 105 106 Resp 18 18 B/P (MAP) 113/55 (74) 116/56 (76) Pulse Ox 100 100 100 100 O2 Delivery Ventilator Ventilator Ventilator Ventilator 08/19/19 08/19/19 08/19/19 08/19/19 07:00 07:27 08:00 08:00 Temp 99.8 99.8 Pulse 108 109 Resp 18 18 B/P (MAP) 119/60 (79) 118/60 (79) Pulse Ox 100 100 100 O2 Delivery Ventilator Ventilator Mechanical Ventilator Ventilator 08/19/19 08/19/19 08/19/19 08/19/19 08:02 08:30 09:00 09:23 Pulse 116 Resp 18 B/P (MAP) 110/60 (77) Pulse Ox 100 100 100 100 O2 Delivery Ventilator Ventilator Ventilator Ventilator 08/19/19 08/19/19 08/19/19 09:37 10:00 11:00 Pulse 102 107 Resp 18 18 18 B/P (MAP) 102/51 (68) 108/56 (73) Pulse Ox 100 100 100 O2 Delivery Ventilator Ventilator Ventilator Intake and Output 08/18/19 08/18/19 08/19/19 15:00 23:00 07:00 Intake Total 300 ml 1277.26 ml 3175.18 ml Output Total 585 ml 935 ml 510 ml Balance -285 ml 342.26 ml 2665.[address] HEAD INDICATION: Altered mental status COMPARISON: None Available. Exposure: One or more of the following individualized dose reduction techniques were utilized for this examination: 1. Automated exposure control 2. Adjustment of the mA and/or kV according to patient size 3. Use of iterative reconstruction technique TECHNIQUE: 5 mm contiguous axial images were obtained from the skull base to the vertex in both bone and soft tissue algorithm. FINDINGS: No abnormal attenuation within the brain parenchyma. No evidence of acute intracranial hemorrhage. No extra-axial fluid collections. No mass effect or midline shift. Ventricular size is appropriate. Basal cisterns are patent. No fractures identified.Almeida-white differentiation is preserved.Globes and orbits are within normal limits. Moderate mucosal thickening identified in the bilateral ethmoidal sinuses, bilateral maxillary sinuses and the sphenoid sinuses likely sinus disease. IMPRESSION: 1. No acute intracranial findings. 2. Sinus disease. CHANTELL WAGNER MD Aug 19, 2019 11:58
--- NOTE | 2019-08-19 12:54 | NUR ---
SBT trial completed at 1105. ABG results messaged to Dr Costa. Orders to extubate by Dr Costa. Patient extubated at 1135. Currently on 5 lnc O2 sats are 95%.
[2019-08-19 13:02] LABS: BASE EXCESS ABG 1 mmol/L (-3-3); FIO2 ABG 40; HCO3 ABG 26 mmol/L (21-28); PCO2 ABG 44 mmHg (35-46); PO2 ABG 88 mmHg (85-108); SAT O2 ABG 96 % (92-99)
[2019-08-19] MEDS: ONDANSETRON PF 4 MG/2 ML VIAL. IV PRN (17:40)
[2019-08-19] MEDS ORDERED: ALBUTEROL SULFATE 2.5 MG/3 ML NEBU. NEB PRN (18:30)
--- NOTE | 2019-08-19 18:42 | NUR ---
1715 Patient was complaining of being short of breath and having trouble breathing. RR in the 30's on 5 lnc. Patient was asking a lot of questions, seemed agitated. Dr Costa made aware of patient status. Orders to give ativan 0.5 mg x1, and PRN Bipap.
[2019-08-20] VITALS (25 sets, daily range): BP systolic 117–163; BP diastolic 69–97
[2019-08-20] MEDS: HEPARIN for SUB-Q USE 5,000 UNIT/ML VIAL. SQ SCH ×3 (06:20→21:25)
[2019-08-20] MEDS: IPRATRPIUM/ALBUTEROL 0.5/2.5MG 3 ML NEBU. NEB SCH ×4 (07:26→19:54)
--- NOTE | 2019-08-20 07:33 | PDOC ---
Infectious Disease Note Subjective Subjective Pt is awake, extubated, on bipap now says sob ROS ROS no n/v/d/ Vital Sign Vital Signs Vital Signs Date Time Temp Pulse Resp B/P (MAP) Pulse Ox O2 Delivery O2 Flow Rate FiO2 08/20/19 07:00 78 15 126/71 (89) 100 BiPAP/CPAP 08/20/19 04:00 98.2 98.2 08/19/19 20:03 8.0 Physical Exam PHYSICAL EXAM GENERAL: Arousable female, on bipap, VITAL SIGNS: stable HEENT: Both pupils are round and reacting. No conjunctival lesion, no lesion in the mouth. NECK: Supple, no JVP, no lymphadenopathy. LUNGS: Clear bilaterally. HEART: S1, S2 regular. No gallop or murmur. ABDOMEN: Soft, nontender, no organomegaly. EXTREMITIES: No edema, cyanosis. SKIN: Unremarkable. NEUROLOGIC: The patient is awake, moves all ext Labs Lab Laboratory Tests Test 08/19/19 07:30 08/19/19 09:00 08/19/19 11:10 08/19/19 18:47 O2 Saturation 96 % (92-99) 96 % (92-99) 97 % (92-99) Arterial Blood pH 7.39 (7.35-7.45) 7.39 (7.35-7.45) 7.40 (7.35-7.45) Arterial Blood pCO2 at Patient Temp 44 mmHg (35-46) 44 mmHg (35-46) 43 mmHg (35-46) Arterial Blood pO2 at Patient Temp 86 mmHg (85-108) 88 mmHg (85-108) 103 mmHg (85-108) Arterial Blood HCO3 26 mmol/L (21-28) 26 mmol/L (21-28) 26 mmol/L (21-28) Arterial Blood Base Excess 0 mmol/L (-3-3) 1 mmol/L (-3-3) 1 mmol/L (-3-3) FiO2 40% 40 40% Glucose (Fingerstick) 86 mg/dL (70-99) Test 08/19/19 21:42 Glucose (Fingerstick) 84 mg/dL (70-99) Micro Microbiology 08/17/19 Blood Culture - Preliminary, Resulted NO GROWTH AFTER 1 DAY Objective Assessment IMPRESSION: 1. Bilateral pulmonary infiltrate, primary influenza pneumonia is a possibility. Aspiration pneumonia also is a possibility. Pt also apparently doing vaping 2. Suspected drug overdose. 3. Respiratory failure. 4. Lactic acidosis. 5. Leukocytosis. 6. Fever. Plan Plan of Care cont antibiotics cont antiviral, Influenza screen is unreliable test supportive care check cultures MICHAELA CHENG MD Aug 20, 2019 07:33
[2019-08-20 07:43] LABS: BASE EXCESS ABG -2 mmol/L (-3-3); HCO3 ABG 23 mmol/L (21-28); PCO2 ABG 42 mmHg (35-46); PO2 ABG 100 mmHg (85-108); SAT O2 ABG 97 % (92-99)
--- NOTE | 2019-08-20 07:44 | RAD ---
CHEST AP ONLY Clinical Indication: Shortness of breath Comparison: 08/19/2019. Findings: Portable semierect upright frontal view of the chest was obtained. Heart size is within normal limits. Consolidated appearance of the lung choe similar to the prior exam. No new infiltrates. No pneumothorax. No significant pleural effusion. IMPRESSION: No change in bilateral consolidations. Electronically signed by: David Dumont MD (08/20/2019 7:42 AM) [facility]
[2019-08-20] MEDS: AZITHROMYCIN 500 MG in IV NORMAL SALINE 250ML 250 ML IV SCH (07:46)
[2019-08-20] MEDS: ELECTROLYTE (ICU) PROTOCOL. MC SCH (09:00)
[2019-08-20] MEDS: OSELTAMIVIR 75 MG CAPSULE PO SCH ×2 (09:00→21:24)
--- NOTE | 2019-08-20 09:16 | PDOC ---
PROGRESS NOTES History of Present Illness History of Present Illness VTE Prophylaxis Ordered VTE Prophylaxis Devices: Yes VTE Pharmacological Prophylaxi: Yes Assessment/Plan Assessment/Plan impression 1, OVERDOSE suspected ? Accidental? vs intentional, no prev hx OD known 2. hx major depression, hx bipolar disorder since a teen 3. hx substance abuse, has "obtained street drugs in the past "according to sister in room 4, ASPIRATION PNEUMONIA GRAM STAIN RESULT 1 Final Comment Few gram positive cocci 5. FEVER 6. SEPSIS 7. Morbid obesity 8. CECILIA 9. altered mental status 10. Tachycardia likely sec to sepsis, fever ECHO OK 11. hx vaping 12. hypoxic resp failure 13. HYPOMAGNESEMIA plan CONT icu bed CONSULT ID consult pulmonary dvt prophylaxis UDS REPEAT ASA LEVEL ACETAMINOPHEN LEVEL VENT SUPPORT GI PROPHYLAXIS PAT CONSULT neurology consult sepsis protocol procalcitonin troponin i REPLETE MG IV d/w family in room 35 min cc time Vitals Vitals Vital Signs Date Time Temp Pulse Resp B/P (MAP) Pulse Ox O2 Delivery O2 Flow Rate FiO2 08/20/19 09:09 99 BiPAP/CPAP 08/20/19 08:00 99.2 84 34 144/75 (98) 99.2 08/19/19 20:03 8.0 Physical Exam Physical Exam GENERAL: Arousable female, on bipap, VITAL SIGNS: stable HEENT: Both pupils are round and reacting. No conjunctival lesion, no lesion in the mouth. NECK: Supple, no JVP, no lymphadenopathy. LUNGS: Clear bilaterally. HEART: S1, S2 regular. No gallop or murmur. ABDOMEN: Soft, nontender, no organomegaly. EXTREMITIES: No edema, cyanosis. SKIN: Unremarkable. NEUROLOGIC: The patient is awake, moves all ext General: No acute distress Heart: Regular rate, Other (tachy) Lungs: Clear Abdomen: Soft, No tenderness Extremities: No clubbing, No cyanosis Skin: No rashes, No breakdown Labs LABS SARAH KEANE MD, JAROD J PA NAIR, VENU S MD ORDERED: SPUTUM CULTURE COMMENTS: Has specimen been collected/obtained? Y Procedure Result ------ ------ GRAM STAIN WHITE BLOOD CELLS Final Few GRAM STAIN EPITHELIAL CELLS Final None seen GRAM STAIN RESULT 1 Final Comment Few gram positive cocci GRAM STAIN RESULT 2 Preliminary Test not performed GRAM STAIN RESULT 3 Preliminary Test not performed GRAM STAIN RESULT 4 Preliminary Test not performed GRAM STAIN EVALUATION Final Comment This specimen is of good quality and is acceptable for routine bacterial culture. Performed at: [facility] [address], [place], [place] [id number] [employer] Raiser Helper: BRIAN Morales MD, Phone: [phone] SPUTUM CULTURE-LC PENDING CHEST AP ONLY Clinical Indication: Shortness of breath Comparison: 08/19/2019. Findings: Portable semierect upright frontal view of the chest was obtained. Heart size is within normal limits. Consolidated appearance of the lung choe similar to the prior exam. No new infiltrates. No pneumothorax. No significant pleural effusion. IMPRESSION: No change in bilateral consolidations. Electronically signed by: David Hart MD (08/20/2019 7:42 AM) [facility] DICTATED and SIGNED BY: DAVID HART MD DATE: 08/20/19 0742 Laboratory Tests Test 08/19/19 11:10 08/19/19 18:47 08/19/19 21:42 08/20/19 07:41 O2 Saturation 97 % (92-99) Arterial Blood pH 7.40 (7.35-7.45) Arterial Blood pCO2 at Patient Temp 43 mmHg (35-46) Arterial Blood pO2 at Patient Temp 103 mmHg (85-108) Arterial Blood HCO3 26 mmol/L (21-28) Arterial Blood Base Excess 1 mmol/L (-3-3) FiO2 40% Glucose (Fingerstick) 86 mg/dL (70-99) 84 mg/dL (70-99) 74 mg/dL (70-99) Comment Review of Relevant I have reviewed the following items jimmy (where applicable) has been applied. Labs Laboratory Tests Test 08/18/19 11:45 08/18/19 12:00 08/18/19 12:06 08/18/19 13:35 Urine Opiates Screen Neg (NEG) Urine Methadone Screen Neg (NEG) Urine Barbiturates Neg (NEG) Urine Phencyclidine Screen Neg (NEG) Urine Amphetamine/Methamphetamine Neg (NEG) Urine Benzodiazepines Screen Pos (NEG) Urine Cocaine Screen Neg (NEG) Urine Cannabinoids Screen Neg (NEG) Urine Ethyl Alcohol Neg (NEG) Sodium Level 147 mmol/L (136-145) Potassium Level 3.6 mmol/L (3.5-5.1) Chloride Level 109 mmol/L (98-107) Carbon Dioxide Level 30 mmol/L (21-32) Anion Gap 8 (6-14) Blood Urea Nitrogen 17 mg/dL (7-20) Creatinine 1.3 mg/dL (0.6-1.0) Estimated GFR (Cockcroft-Gault) 50.8 BUN/Creatinine Ratio 13 (6-20) Glucose Level 110 mg/dL (70-99) Lactic Acid Level 1.5 mmol/L (0.4-2.0) Calcium Level 7.3 mg/dL (8.5-10.1) Total Bilirubin 0.7 mg/dL (0.2-1.0) Aspartate Amino Transf (AST/SGOT) 71 U/L (15-37) Alanine Aminotransferase (ALT/SGPT) 72 U/L (14-59) Alkaline Phosphatase 67 U/L (46-116) Total Protein 5.6 g/dL (6.4-8.2) Albumin 2.7 g/dL (3.4-5.0) Albumin/Globulin Ratio 0.9 (1.0-1.7) Procalcitonin 74.69 ng/mL (0.00-0.10) Glucose (Fingerstick) 90 mg/dL (70-99) Fibrinogen 514 mg/dL (200-440) D-Dimer (Dayana) 7.95 ug/mlFEU (0.00-0.50) Test 08/19/19 01:12 08/19/19 04:30 08/19/19 07:30 08/19/19 09:00 Glucose (Fingerstick) 77 mg/dL (70-99) White Blood Count 12.0 x10^3/uL (4.0-11.0) Red Blood Count 3.88 x10^6/uL (3.50-5.40) Hemoglobin 10.8 g/dL (12.0-15.5) Hematocrit 33.0 % (36.0-47.0) Mean Corpuscular Volume 85 fL (79-100) Mean Corpuscular Hemoglobin 28 pg (25-35) Mean Corpuscular Hemoglobin Concent 33 g/dL (31-37) Red Cell Distribution Width 13.9 % (11.5-14.5) Platelet Count 239 x10^3/uL (140-400) Neutrophils (%) (Auto) 70 % (31-73) Lymphocytes (%) (Auto) 23 % (24-48) Monocytes (%) (Auto) 6 % (0-9) Eosinophils (%) (Auto) 1 % (0-3) Basophils (%) (Auto) 0 % (0-3) Neutrophils # (Auto) 8.4 x10^3/uL (1.8-7.7) Lymphocytes # (Auto) 2.8 x10^3/uL (1.0-4.8) Monocytes # (Auto) 0.7 x10^3/uL (0.0-1.1) Eosinophils # (Auto) 0.1 x10^3/uL (0.0-0.7) Basophils # (Auto) 0.0 x10^3/uL (0.0-0.2) Sodium Level 147 mmol/L (136-145) Potassium Level 3.6 mmol/L (3.5-5.1) Chloride Level 110 mmol/L (98-107) Carbon Dioxide Level 28 mmol/L (21-32) Anion Gap 9 (6-14) Blood Urea Nitrogen 13 mg/dL (7-20) Creatinine 1.1 mg/dL (0.6-1.0) Estimated GFR (Cockcroft-Gault) 61.6 BUN/Creatinine Ratio 12 (6-20) Glucose Level 87 mg/dL (70-99) Calcium Level 8.6 mg/dL (8.5-10.1) Magnesium Level 1.9 mg/dL (1.8-2.4) Total Bilirubin 0.5 mg/dL (0.2-1.0) Aspartate Amino Transf (AST/SGOT) 50 U/L (15-37) Alanine Aminotransferase (ALT/SGPT) 56 U/L (14-59) Alkaline Phosphatase 77 U/L (46-116) Total Protein 6.5 g/dL (6.4-8.2) Albumin 2.8 g/dL (3.4-5.0) Albumin/Globulin Ratio 0.8 (1.0-1.7) O2 Saturation 96 % (92-99) 96 % (92-99) Arterial Blood pH 7.39 (7.35-7.45) 7.39 (7.35-7.45) Arterial Blood pCO2 at Patient Temp 44 mmHg (35-46) 44 mmHg (35-46) Arterial Blood pO2 at Patient Temp 86 mmHg (85-108) 88 mmHg (85-108) Arterial Blood HCO3 26 mmol/L (21-28) 26 mmol/L (21-28) Arterial Blood Base Excess 0 mmol/L (-3-3) 1 mmol/L (-3-3) FiO2 40% 40 Test 08/19/19 11:10 08/19/19 18:47 08/19/19 21:42 08/20/19 07:41 O2 Saturation 97 % (92-99) Arterial Blood pH 7.40 (7.35-7.45) Arterial Blood pCO2 at Patient Temp 43 mmHg (35-46) Arterial Blood pO2 at Patient Temp 103 mmHg (85-108) Arterial Blood HCO3 26 mmol/L (21-28) Arterial Blood Base Excess 1 mmol/L (-3-3) FiO2 40% Glucose (Fingerstick) 86 mg/dL (70-99) 84 mg/dL (70-99) 74 mg/dL (70-99) Laboratory Tests Test 08/19/19 11:10 08/19/19 18:47 08/19/19 21:42 08/20/19 07:41 O2 Saturation 97 % (92-99) Arterial Blood pH 7.40 (7.35-7.45) Arterial Blood pCO2 at Patient Temp 43 mmHg (35-46) Arterial Blood pO2 at Patient Temp 103 mmHg (85-108) Arterial Blood HCO3 26 mmol/L (21-28) Arterial Blood Base Excess 1 mmol/L (-3-3) FiO2 40% Glucose (Fingerstick) 86 mg/dL (70-99) 84 mg/dL (70-99) 74 mg/dL (70-99) Microbiology 08/18/19 - Final, Resulted 08/18/19 - Final, Resulted 08/18/19 - Final, Resulted 08/18/19 - Preliminary, Resulted 08/18/19 - Preliminary, Resulted 08/18/19 - Preliminary, Resulted 08/18/19 Gram Stain Evaluation - Final, Resulted 08/18/19 Sputum Culture, Resulted Pending 08/18/19 Urine Culture - Final, Complete 08/18/19 Urine Culture Result 1 (BERENICE) - Final, Complete 08/17/19 Blood Culture - Preliminary, Resulted NO GROWTH AFTER 2 DAYS Medications Current Medications Fentanyl Citrate 30 ml @ 0 mls/hr CONT PRN IV SEE PROTOCOL Last administered on 08/19/19at 09:37; Start 08/17/19 at 21:45; Stop 08/19/19 at 12:34; Status DC Propofol 100 ml @ 0 mls/hr CONT PRN IV SEE PROTOCOL; Start 08/17/19 at 21:45; Stop 08/19/19 at 12:34; Status DC Fentanyl Citrate (Fentanyl 2ml Vial) 25 mcg PRN Q1HR PRN IV SEE COMMENTS; Start 08/17/19 at 21:45 Fentanyl Citrate (Fentanyl 2ml Vial) 50 mcg PRN Q1HR PRN IV SEE COMMENTS; Start 08/17/19 at 21:45 Midazolam HCl 50 mg/Sodium Chloride 50 ml @ 0 mls/hr CONT PRN IV SEE PROTOCOL Last administered on 08/19/19at 01:14; Start 08/17/19 at 21:45; Stop 08/19/19 at 12:34; Status DC Sodium Chloride 1,000 ml @ 150 mls/hr Q6H40M IV Last administered on 08/18/19at 01:13; Start 08/17/19 at 22:00; Stop 08/18/19 at 10:32; Status DC Piperacillin Sod/ Tazobactam Sod 3.375 gm/Sodium Chloride 50 ml @ 100 mls/hr Q6HRS IV Last administered on 08/18/19at 06:04; Start 08/18/19 at 00:00; Stop 08/18/19 at 07:32; Status DC Lorazepam (Ativan) 1 mg PRN Q6HRS PRN PO ANXIETY / AGITATION; Start 08/17/19 at 22:00 Ondansetron HCl (Zofran) 4 mg PRN Q6HRS PRN IV NAUSEA/VOMITING 1ST CHOICE Last administered on 08/19/19at 17:40; Start 08/17/19 at 22:00 Prochlorperazine Edisylate (Compazine) 5 mg PRN Q6HRS PRN IV NAUSEA/VOMITING 2ND CHOICE; Start 08/17/19 at 22:00 Famotidine (Pepcid Vial) 20 mg BID IVP Last administered on 08/19/19at 21:27; Start 08/18/19 at 09:00 Info (Icu Electrolyte Protocol) 1 ea DAILY MC Last administered on 08/18/19at 08:51; Start 08/18/19 at 09:00; Stop 08/18/19 at 11:57; Status DC Heparin Sodium (Porcine) (Heparin Sodium) 5,000 unit Q8HRS SQ Last administered on 08/20/19at 06:20; Start 08/17/19 at 22:00 Sodium Chloride (Normal Saline Flush) 3 ml QSHIFT PRN IV AFTER MEDS AND BLOOD DRAWS; Start 08/17/19 at 22:00; Stop 08/18/19 at 11:56; Status DC Bisacodyl (Dulcolax Supp) 10 mg PRN DAILY PRN [place] CONSTIPATION; Start 08/17/19 at 22:00 Acetaminophen (Tylenol) 650 mg PRN Q6HRS PRN PEG MILD PAIN / TEMP Last administered on 08/19/19at 08:00; Start 08/18/19 at 04:30 Ceftriaxone Sodium (Rocephin) 2 gm Q24H IVP Last administered on 08/19/19at 08:02; Start 08/18/19 at 09:00 Azithromycin 500 mg/Sodium Chloride 250 ml @ 250 mls/hr Q24H IV Last administered on 08/20/19at 07:46; Start 08/18/19 at 08:00 Oseltamivir Phosphate (Tamiflu) 75 mg BID PO Last administered on 08/19/19at 08:00; Start 08/18/19 at 09:00; Stop 08/23/19 at 08:59 Magnesium Sulfate 50 ml @ 25 mls/hr 1X ONCE IV Last administered on 08/18/19at 10:16; Start 08/18/19 at 10:15; Stop 08/18/19 at 12:14; Status DC Ondansetron HCl (Zofran) 4 mg PRN Q6HRS PRN IV NAUSEA/VOMITING; Start 08/18/19 at 11:30; Stop 08/18/19 at 11:55; Status DC Famotidine (Pepcid Vial) 20 mg BID IVP ; Start 08/18/19 at 12:00; Stop 08/18/19 at 11:55; Status DC Info (Icu Electrolyte Protocol) 1 ea DAILY MC Last administered on 08/19/19at 09:00; Start 08/19/19 at 09:00 Heparin Sodium (Porcine) (Heparin Sodium) 5,000 unit Q12HR SQ ; Start 08/18/19 at 12:00; Stop 08/18/19 at 11:55; Status DC Sodium Chloride (Normal Saline Flush) 3 ml QSHIFT PRN IV AFTER MEDS AND BLOOD DRAWS; Start 08/18/19 at 11:30 Sodium Chloride 1,000 ml @ 100 mls/hr Q10H IV Last administered on 08/19/19at 22:22; Start 08/18/19 at 11:17 Bisacodyl (Dulcolax Supp) 10 mg PRN DAILY PRN [place] CONSTIPATION; Start 08/18/19 at 11:30; Stop 08/18/19 at 11:55; Status DC Sodium Chloride 1,000 ml @ 1,560 mls/hr Q39M IV ; Start 08/18/19 at 12:11; Stop 08/18/19 at 13:01; Status DC Sodium Chloride 500 ml @ 1,000 mls/hr PRN Q30MIN PRN IV SEE COMMENTS; Start 08/18/19 at 12:15 Norepinephrine Bitartrate 8 mg/ Dextrose 258 ml @ 0 mls/hr CONT PRN IV SEE I/O RECORD; Start 08/18/19 at 12:15 Dobutamine HCl/ Dextrose 250 ml @ 0 mls/hr CONT PRN IV SEE I/O RECORD; Start 08/18/19 at 12:15 Iohexol (Omnipaque 350 Mg/ml) 90 ml 1X ONCE IV Last administered on 08/18/19at 15:54; Start 08/18/19 at 15:30; Stop 08/18/19 at 15:34; Status DC Info (CONTRAST GIVEN -- Rx MONITORING) 1 each PRN DAILY PRN MC SEE COMMENTS; Start 08/18/19 at 15:45; Stop 08/20/19 at 15:44 Insulin Human Lispro (HumaLOG) 0-5 UNITS TIDWMEALS SQ ; Start 08/19/19 at 08:00; Stop 08/19/19 at 08:15; Status DC Dextrose (Dextrose 50%-Water Syringe) 12.5 gm PRN Q15MIN PRN IV SEE COMMENTS; Start 08/18/19 at 19:00 Dextrose (Iv Dextrose 5%) 250 ml PRN Q15MIN PRN IV SEE COMMENTS; Start 08/18/19 at 19:00 Insulin Human Lispro (HumaLOG) 0-5 UNITS Q6HRS SQ ; Start 08/19/19 at 12:00; Stop 08/19/19 at 12:34; Status DC Albuterol/ Ipratropium (Duoneb) 3 ml RTQID NEB Last administered on 08/20/19at 07:26; Start 08/19/19 at 09:00 Lorazepam (Ativan Inj) 0.5 mg 1X PRN IVP ANXIETY / AGITATION Last administered on 08/19/19at 17:17; Start 08/19/19 at 17:15 Albuterol Sulfate (Ventolin Neb Soln) 2.5 mg PRN Q4HRS PRN NEB SHORTNESS OF BREATH; Start 08/19/19 at 18:30 Active Scripts Active Reported Wixela 250-50 Inhub (Fluticasone Propion/Salmeterol) 1 Each Blst.w.dev 1 Each IH BID Metronidazole 70 Gm Gel.w.appl 1 Appful VG QHS Phentermine Hcl 37.5 Mg Capsule 1 Cap PO DAILYWBKFT Ortho Tri-Cyclen (Norgestimate-Ethinyl Estradiol) 1 Each Tablet 1 Each PO DAILY Vitals/I & O Vital Sign - Last 24 Hours 08/19/19 08/19/19 08/19/19 08/19/19 09:23 09:37 10:00 10:15 Pulse 102 Resp 18 18 18 B/P (MAP) 102/51 (68) Pulse Ox 100 100 100 100 O2 Delivery Ventilator Ventilator Ventilator Ventilator 08/19/19 08/19/19 08/19/19 08/19/19 11:00 11:40 12:00 12:00 Temp 99.4 99.4 Pulse 107 120 Resp 18 20 B/P (MAP) 108/56 (73) 102/61 (75) Pulse Ox 100 100 98 O2 Delivery Ventilator Nasal Cannula Nasal Cannula O2 Flow Rate 5.0 5.0 08/19/19 08/19/19 08/19/19 08/19/19 13:00 14:00 15:00 15:06 Pulse 118 121 110 Resp 22 24 28 B/P (MAP) 148/95 (112) 140/85 (103) 160/96 (117) Pulse Ox 96 96 97 94 O2 Delivery Nasal Cannula Nasal Cannula Nasal Cannula Nasal Cannula O2 Flow Rate 5.0 5.0 5.0 5.0 08/19/19 08/19/19 08/19/19 08/19/19 15:44 16:00 17:00 18:00 Temp 98.9 98.9 Pulse 119 120 116 Resp 30 30 32 B/P (MAP) 155/88 (110) 144/91 (108) 136/80 (98) Pulse Ox 97 94 91 O2 Delivery Nasal Cannula Nasal Cannula Nasal Cannula Nasal Cannula O2 Flow Rate 5.0 5.0 5.0 5.0 08/19/19 08/19/19 08/19/19 08/19/19 19:00 20:00 20:00 20:03 Temp 100.0 100.0 Pulse 115 121 Resp 35 36 B/P (MAP) 138/77 (97) 134/77 (96) Pulse Ox 95 97 92 O2 Delivery Nasal Cannula BiPAP/CPAP Bi-pap Nasal Cannula O2 Flow Rate 5.0 8.0 08/19/19 08/19/19 08/19/19 08/19/19 20:49 21:00 22:00 23:00 Temp 99.9 99.9 Pulse 104 101 99 Resp 38 40 36 B/P (MAP) 152/90 (110) 158/88 (111) 140/81 (100) Pulse Ox 97 96 97 98 O2 Delivery BiPAP/CPAP BiPAP/CPAP BiPAP/CPAP BiPAP/CPAP 08/19/19 08/19/19 08/20/19 08/20/19 23:27 23:59 00:01 01:00 Temp 100.9 100.9 Pulse 86 94 Resp 40 38 B/P (MAP) 154/88 (110) 117/74 (88) Pulse Ox 98 98 99 O2 Delivery BiPAP/CPAP Bi-pap BiPAP/CPAP BiPAP/CPAP 08/20/19 08/20/19 08/20/19 08/20/19 01:50 02:00 03:00 03:17 Pulse 92 82 Resp 34 33 B/P (MAP) 124/80 (95) 151/91 (111) Pulse Ox 98 99 99 99 O2 Delivery BiPAP/CPAP BiPAP/CPAP BiPAP/CPAP BiPAP/CPAP 08/20/19 08/20/19 08/20/19 08/20/19 04:00 04:00 05:00 05:55 Temp 98.2 98.2 Pulse 84 84 Resp 34 36 B/P (MAP) 153/87 (109) 151/94 (113) Pulse Ox 99 99 99 O2 Delivery Bi-pap BiPAP/CPAP BiPAP/CPAP BiPAP/CPAP 08/20/19 08/20/19 08/20/19 08/20/19 06:00 07:00 07:26 08:00 Pulse 83 78 Resp 33 15 B/P (MAP) 145/90 (108) 126/71 (89) Pulse Ox 99 100 99 O2 Delivery BiPAP/CPAP BiPAP/CPAP BiPAP/CPAP Bi-pap 08/20/19 08/20/19 08:00 09:09 Temp 99.2 99.2 Pulse 84 Resp 34 B/P (MAP) 144/75 (98) Pulse Ox 99 99 O2 Delivery BiPAP/CPAP BiPAP/CPAP Intake and Output 08/19/19 08/19/19 08/20/19 15:00 23:00 07:00 Intake Total 421.68 ml 1360 ml 1092.34 ml Output Total 415 ml 380 ml 320 ml Balance 6.68 ml 980 ml 772.34 ml GENA ARTHUR MD Aug 20, 2019 09:16
[2019-08-20 09:32] LABS: HEMATOCRIT 27.8 % (36.0-47.0); HEMOGLOBIN 9.2 g/dL (12.0-15.5); RED BLOOD COUNT 3.28 x10^6/uL (3.50-5.40); RED CELL DISTRIBUTION WIDTH 13.8 % (11.5-14.5); WHITE BLOOD COUNT 11.1 x10^3/uL (4.0-11.0)
[2019-08-20 09:44] LABS: CALCIUM 8.4 mg/dL (8.5-10.1); CREATININE 0.8 mg/dL (0.6-1.0); GFR 88.9; MAGNESIUM 1.6 mg/dL (1.8-2.4); POTASSIUM 3.7 mmol/L (3.5-5.1)
[2019-08-20 09:48] LABS: FIO2 ABG 50
--- NOTE | 2019-08-20 09:57 | PDOC ---
PROGRESS NOTES Assessment Altered mental status, may have taken an overdose, family strongly disagrees, urine drug screen negative. She could've had a seizure. There may be intracranial abnormality as she has not had any imaging of the brain during this more than [address] of the head and EEG are normal. She is bright and alert now. Possible pneumonia or lung injury due to drug ingestion Plan Okay for extubation from neurological point of view No further neurologic studies possible or required Hold off on starting empiric anticonvulsants. Subjective Denies pain Objective Vital Signs Date Time Temp Pulse Resp B/P (MAP) Pulse Ox O2 Delivery O2 Flow Rate FiO2 08/20/19 09:09 99 BiPAP/CPAP 08/20/19 09:00 98 36 148/92 (110) 08/20/19 08:00 99.2 99.2 08/19/19 20:03 8.0 Intake and Output 08/20/19 07:00 Intake Total 2874.02 ml Output Total 1115 ml Balance 1759.02 ml Intake IV Total 2484.02 ml Tube Feeding 240 ml Other 150 ml Output Urine Total 1115 ml PHYSICAL EXAM Alert. On BiPAP, follows commands, Knows location PERRL. EOMI. CN: no focal findings. Muscle tone: normal. Muscle strength: 4/5 DTR: 2+ Plantar reflex: flexor Gait: not examined in bed. Sensory exam: no abnormal findings. No cerebellar signs elicited. Review of Relevant I have reviewed the following items jimmy (where applicable) has been applied. Labs Laboratory Tests Test 08/18/19 11:45 08/18/19 12:00 08/18/19 12:06 08/18/19 13:35 Urine Opiates Screen Neg (NEG) Urine Methadone Screen Neg (NEG) Urine Barbiturates Neg (NEG) Urine Phencyclidine Screen Neg (NEG) Urine Amphetamine/Methamphetamine Neg (NEG) Urine Benzodiazepines Screen Pos (NEG) Urine Cocaine Screen Neg (NEG) Urine Cannabinoids Screen Neg (NEG) Urine Ethyl Alcohol Neg (NEG) Sodium Level 147 mmol/L (136-145) Potassium Level 3.6 mmol/L (3.5-5.1) Chloride Level 109 mmol/L (98-107) Carbon Dioxide Level 30 mmol/L (21-32) Anion Gap 8 (6-14) Blood Urea Nitrogen 17 mg/dL (7-20) Creatinine 1.3 mg/dL (0.6-1.0) Estimated GFR (Cockcroft-Gault) 50.8 BUN/Creatinine Ratio 13 (6-20) Glucose Level 110 mg/dL (70-99) Lactic Acid Level 1.5 mmol/L (0.4-2.0) Calcium Level 7.3 mg/dL (8.5-10.1) Total Bilirubin 0.7 mg/dL (0.2-1.0) Aspartate Amino Transf (AST/SGOT) 71 U/L (15-37) Alanine Aminotransferase (ALT/SGPT) 72 U/L (14-59) Alkaline Phosphatase 67 U/L (46-116) Total Protein 5.6 g/dL (6.4-8.2) Albumin 2.7 g/dL (3.4-5.0) Albumin/Globulin Ratio 0.9 (1.0-1.7) Procalcitonin 74.69 ng/mL (0.00-0.10) Glucose (Fingerstick) 90 mg/dL (70-99) Fibrinogen 514 mg/dL (200-440) D-Dimer (Dayana) 7.95 ug/mlFEU (0.00-0.50) Test 08/19/19 01:12 08/19/19 04:30 08/19/19 07:30 08/19/19 09:00 Glucose (Fingerstick) 77 mg/dL (70-99) White Blood Count 12.0 x10^3/uL (4.0-11.0) Red Blood Count 3.88 x10^6/uL (3.50-5.40) Hemoglobin 10.8 g/dL (12.0-15.5) Hematocrit 33.0 % (36.0-47.0) Mean Corpuscular Volume 85 fL (79-100) Mean Corpuscular Hemoglobin 28 pg (25-35) Mean Corpuscular Hemoglobin Concent 33 g/dL (31-37) Red Cell Distribution Width 13.9 % (11.5-14.5) Platelet Count 239 x10^3/uL (140-400) Neutrophils (%) (Auto) 70 % (31-73) Lymphocytes (%) (Auto) 23 % (24-48) Monocytes (%) (Auto) 6 % (0-9) Eosinophils (%) (Auto) 1 % (0-3) Basophils (%) (Auto) 0 % (0-3) Neutrophils # (Auto) 8.4 x10^3/uL (1.8-7.7) Lymphocytes # (Auto) 2.8 x10^3/uL (1.0-4.8) Monocytes # (Auto) 0.7 x10^3/uL (0.0-1.1) Eosinophils # (Auto) 0.1 x10^3/uL (0.0-0.7) Basophils # (Auto) 0.0 x10^3/uL (0.0-0.2) Sodium Level 147 mmol/L (136-145) Potassium Level 3.6 mmol/L (3.5-5.1) Chloride Level 110 mmol/L (98-107) Carbon Dioxide Level 28 mmol/L (21-32) Anion Gap 9 (6-14) Blood Urea Nitrogen 13 mg/dL (7-20) Creatinine 1.1 mg/dL (0.6-1.0) Estimated GFR (Cockcroft-Gault) 61.6 BUN/Creatinine Ratio 12 (6-20) Glucose Level 87 mg/dL (70-99) Calcium Level 8.6 mg/dL (8.5-10.1) Magnesium Level 1.9 mg/dL (1.8-2.4) Total Bilirubin 0.5 mg/dL (0.2-1.0) Aspartate Amino Transf (AST/SGOT) 50 U/L (15-37) Alanine Aminotransferase (ALT/SGPT) 56 U/L (14-59) Alkaline Phosphatase 77 U/L (46-116) Total Protein 6.5 g/dL (6.4-8.2) Albumin 2.8 g/dL (3.4-5.0) Albumin/Globulin Ratio 0.8 (1.0-1.7) O2 Saturation 96 % (92-99) 96 % (92-99) Arterial Blood pH 7.39 (7.35-7.45) 7.39 (7.35-7.45) Arterial Blood pCO2 at Patient Temp 44 mmHg (35-46) 44 mmHg (35-46) Arterial Blood pO2 at Patient Temp 86 mmHg (85-108) 88 mmHg (85-108) Arterial Blood HCO3 26 mmol/L (21-28) 26 mmol/L (21-28) Arterial Blood Base Excess 0 mmol/L (-3-3) 1 mmol/L (-3-3) FiO2 40% 40 Test 08/19/19 11:10 08/19/19 18:47 08/19/19 21:42 08/20/19 07:35 O2 Saturation 97 % (92-99) 97 % (92-99) Arterial Blood pH 7.40 (7.35-7.45) 7.36 (7.35-7.45) Arterial Blood pCO2 at Patient Temp 43 mmHg (35-46) 42 mmHg (35-46) Arterial Blood pO2 at Patient Temp 103 mmHg (85-108) 100 mmHg (85-108) Arterial Blood HCO3 26 mmol/L (21-28) 23 mmol/L (21-28) Arterial Blood Base Excess 1 mmol/L (-3-3) -2 mmol/L (-3-3) FiO2 40% 50 Glucose (Fingerstick) 86 mg/dL (70-99) 84 mg/dL (70-99) Test 08/20/19 07:41 08/20/19 09:05 Glucose (Fingerstick) 74 mg/dL (70-99) White Blood Count 11.1 x10^3/uL (4.0-11.0) Red Blood Count 3.28 x10^6/uL (3.50-5.40) Hemoglobin 9.2 g/dL (12.0-15.5) Hematocrit 27.8 % (36.0-47.0) Mean Corpuscular Volume 85 fL (79-100) Mean Corpuscular Hemoglobin 28 pg (25-35) Mean Corpuscular Hemoglobin Concent 33 g/dL (31-37) Red Cell Distribution Width 13.8 % (11.5-14.5) Platelet Count 244 x10^3/uL (140-400) Sodium Level 146 mmol/L (136-145) Potassium Level 3.7 mmol/L (3.5-5.1) Chloride Level 111 mmol/L (98-107) Carbon Dioxide Level 25 mmol/L (21-32) Anion Gap 10 (6-14) Blood Urea Nitrogen 13 mg/dL (7-20) Creatinine 0.8 mg/dL (0.6-1.0) Estimated GFR (Cockcroft-Gault) 88.9 Glucose Level 82 mg/dL (70-99) Calcium Level 8.4 mg/dL (8.5-10.1) Magnesium Level 1.6 mg/dL (1.8-2.4) Laboratory Tests Test 08/19/19 11:10 08/19/19 18:47 08/19/19 21:42 08/20/19 07:35 O2 Saturation 97 % (92-99) 97 % (92-99) Arterial Blood pH 7.40 (7.35-7.45) 7.36 (7.35-7.45) Arterial Blood pCO2 at Patient Temp 43 mmHg (35-46) 42 mmHg (35-46) Arterial Blood pO2 at Patient Temp 103 mmHg (85-108) 100 mmHg (85-108) Arterial Blood HCO3 26 mmol/L (21-28) 23 mmol/L (21-28) Arterial Blood Base Excess 1 mmol/L (-3-3) -2 mmol/L (-3-3) FiO2 40% 50 Glucose (Fingerstick) 86 mg/dL (70-99) 84 mg/dL (70-99) Test 08/20/19 07:41 08/20/19 09:05 Glucose (Fingerstick) 74 mg/dL (70-99) White Blood Count 11.1 x10^3/uL (4.0-11.0) Red Blood Count 3.28 x10^6/uL (3.50-5.40) Hemoglobin 9.2 g/dL (12.0-15.5) Hematocrit 27.8 % (36.0-47.0) Mean Corpuscular Volume 85 fL (79-100) Mean Corpuscular Hemoglobin 28 pg (25-35) Mean Corpuscular Hemoglobin Concent 33 g/dL (31-37) Red Cell Distribution Width 13.8 % (11.5-14.5) Platelet Count 244 x10^3/uL (140-400) Sodium Level 146 mmol/L (136-145) Potassium Level 3.7 mmol/L (3.5-5.1) Chloride Level 111 mmol/L (98-107) Carbon Dioxide Level 25 mmol/L (21-32) Anion Gap 10 (6-14) Blood Urea Nitrogen 13 mg/dL (7-20) Creatinine 0.8 mg/dL (0.6-1.0) Estimated GFR (Cockcroft-Gault) 88.9 Glucose Level 82 mg/dL (70-99) Calcium Level 8.4 mg/dL (8.5-10.1) Magnesium Level 1.6 mg/dL (1.8-2.4) Microbiology 08/18/19 - Final, Resulted 08/18/19 - Final, Resulted 08/18/19 - Final, Resulted 08/18/19 - Preliminary, Resulted 08/18/19 - Preliminary, Resulted 08/18/19 - Preliminary, Resulted 08/18/19 Gram Stain Evaluation - Final, Resulted 08/18/19 Sputum Culture, Resulted Pending 08/18/19 Urine Culture - Final, Complete 08/18/19 Urine Culture Result 1 (BERENICE) - Final, Complete 08/17/19 Blood Culture - Preliminary, Resulted NO GROWTH AFTER 2 DAYS Medications Current Medications Fentanyl Citrate 30 ml @ 0 mls/hr CONT PRN IV SEE PROTOCOL Last administered on 08/19/19at 09:37; Start 08/17/19 at 21:45; Stop 08/19/19 at 12:34; Status DC Propofol 100 ml @ 0 mls/hr CONT PRN IV SEE PROTOCOL; Start 08/17/19 at 21:45; Stop 08/19/19 at 12:34; Status DC Fentanyl Citrate (Fentanyl 2ml Vial) 25 mcg PRN Q1HR PRN IV SEE COMMENTS; Start 08/17/19 at 21:45 Fentanyl Citrate (Fentanyl 2ml Vial) 50 mcg PRN Q1HR PRN IV SEE COMMENTS; Start 08/17/19 at 21:45 Midazolam HCl 50 mg/Sodium Chloride 50 ml @ 0 mls/hr CONT PRN IV SEE PROTOCOL Last administered on 08/19/19at 01:14; Start 08/17/19 at 21:45; Stop 08/19/19 at 12:34; Status DC Sodium Chloride 1,000 ml @ 150 mls/hr Q6H40M IV Last administered on 08/18/19at 01:13; Start 08/17/19 at 22:00; Stop 08/18/19 at 10:32; Status DC Piperacillin Sod/ Tazobactam Sod 3.375 gm/Sodium Chloride 50 ml @ 100 mls/hr Q6HRS IV Last administered on 08/18/19at 06:04; Start 08/18/19 at 00:00; Stop 08/18/19 at 07:32; Status DC Lorazepam (Ativan) 1 mg PRN Q6HRS PRN PO ANXIETY / AGITATION; Start 08/17/19 at 22:00 Ondansetron HCl (Zofran) 4 mg PRN Q6HRS PRN IV NAUSEA/VOMITING 1ST CHOICE Last administered on 08/19/19at 17:40; Start 08/17/19 at 22:00 Prochlorperazine Edisylate (Compazine) 5 mg PRN Q6HRS PRN IV NAUSEA/VOMITING 2ND CHOICE; Start 08/17/19 at 22:00 Famotidine (Pepcid Vial) 20 mg BID IVP Last administered on 08/19/19at 21:27; Start 08/18/19 at 09:00 Info (Icu Electrolyte Protocol) 1 ea DAILY MC Last administered on 08/18/19at 08: 51; Start 08/18/19 at 09:00; Stop 08/18/19 at 11:57; Status DC Heparin Sodium (Porcine) (Heparin Sodium) 5,000 unit Q8HRS SQ Last administered on 08/20/19at 06:20; Start 08/17/19 at 22:00 Sodium Chloride (Normal Saline Flush) 3 ml QSHIFT PRN IV AFTER MEDS AND BLOOD DRAWS; Start 08/17/19 at 22:00; Stop 08/18/19 at 11:56; Status DC Bisacodyl (Dulcolax Supp) 10 mg PRN DAILY PRN [place] CONSTIPATION; Start 08/17/19 at 22:00 Acetaminophen (Tylenol) 650 mg PRN Q6HRS PRN PEG MILD PAIN / TEMP Last administered on 08/19/19at 08:00; Start 08/18/19 at 04:30 Ceftriaxone Sodium (Rocephin) 2 gm Q24H IVP Last administered on 08/19/19at 08:02; Start 08/18/19 at 09:00 Azithromycin 500 mg/Sodium Chloride 250 ml @ 250 mls/hr Q24H IV Last administered on 08/20/19at 07:46; Start 08/18/19 at 08:00 Oseltamivir Phosphate (Tamiflu) 75 mg BID PO Last administered on 08/19/19at 08:00; Start 08/18/19 at 09:00; Stop 08/23/19 at 08:59 Magnesium Sulfate 50 ml @ 25 mls/hr 1X ONCE IV Last administered on 08/18/19at 10:16; Start 08/18/19 at 10:15; Stop 08/18/19 at 12:14; Status DC Ondansetron HCl (Zofran) 4 mg PRN Q6HRS PRN IV NAUSEA/VOMITING; Start 08/18/19 at 11:30; Stop 08/18/19 at 11:55; Status DC Famotidine (Pepcid Vial) 20 mg BID IVP ; Start 08/18/19 at 12:00; Stop 08/18/19 at 11:55; Status DC Info (Icu Electrolyte Protocol) 1 ea DAILY MC Last administered on 08/19/19at 09:00; Start 08/19/19 at 09:00 Heparin Sodium (Porcine) (Heparin Sodium) 5,000 unit Q12HR SQ ; Start 08/18/19 at 12:00; Stop 08/18/19 at 11:55; Status DC Sodium Chloride (Normal Saline Flush) 3 ml QSHIFT PRN IV AFTER MEDS AND BLOOD DRAWS; Start 08/18/19 at 11:30 Sodium Chloride 1,000 ml @ 100 mls/hr Q10H IV Last administered on 08/19/19at 22:22; Start 08/18/19 at 11:17 Bisacodyl (Dulcolax Supp) 10 mg PRN DAILY PRN [place] CONSTIPATION; Start 08/18/19 at 11:30; Stop 08/18/19 at 11:55; Status DC Sodium Chloride 1,000 ml @ 1,560 mls/hr Q39M IV ; Start 08/18/19 at 12:11; Stop 08/18/19 at 13:01; Status DC Sodium Chloride 500 ml @ 1,000 mls/hr PRN Q30MIN PRN IV SEE COMMENTS; Start 08/18/19 at 12:15 Norepinephrine Bitartrate 8 mg/ Dextrose 258 ml @ 0 mls/hr CONT PRN IV SEE I/O RECORD; Start 08/18/19 at 12:15 Dobutamine HCl/ Dextrose 250 ml @ 0 mls/hr CONT PRN IV SEE I/O RECORD; Start 08/18/19 at 12:15 Iohexol (Omnipaque 350 Mg/ml) 90 ml 1X ONCE IV Last administered on 08/18/19at 15:54; Start 08/18/19 at 15:30; Stop 08/18/19 at 15:34; Status DC Info (CONTRAST GIVEN -- Rx MONITORING) 1 each PRN DAILY PRN MC SEE COMMENTS; Start 08/18/19 at 15:45; Stop 08/20/19 at 15:44 Insulin Human Lispro (HumaLOG) 0-5 UNITS TIDWMEALS SQ ; Start 08/19/19 at 08:00; Stop 08/19/19 at 08:15; Status DC Dextrose (Dextrose 50%-Water Syringe) 12.5 gm PRN Q15MIN PRN IV SEE COMMENTS; Start 08/18/19 at 19:00 Dextrose (Iv Dextrose 5%) 250 ml PRN Q15MIN PRN IV SEE COMMENTS; Start 08/18/19 at 19:00 Insulin Human Lispro (HumaLOG) 0-5 UNITS Q6HRS SQ ; Start 08/19/19 at 12:00; Stop 08/19/19 at 12:34; Status DC Albuterol/ Ipratropium (Duoneb) 3 ml RTQID NEB Last administered on 08/20/19at 07:26; Start 08/19/19 at 09:00 Lorazepam (Ativan Inj) 0.5 mg 1X PRN IVP ANXIETY / AGITATION Last administered on 08/19/19at 17:17; Start 08/19/19 at 17:15 Albuterol Sulfate (Ventolin Neb Soln) 2.5 mg PRN Q4HRS PRN NEB SHORTNESS OF BREATH; Start 08/19/19 at 18:30 Active Scripts Active Reported Wixela 250-50 Inhub (Fluticasone Propion/Salmeterol) 1 Each Blst.w.dev 1 Each IH BID Metronidazole 70 Gm Gel.w.appl 1 Appful VG QHS Phentermine Hcl 37.5 Mg Capsule 1 Cap PO [id number] Ortho Tri-Cyclen (Norgestimate-Ethinyl Estradiol) 1 Each Tablet 1 Each PO DAILY Vitals/I & O Vital Sign - Last 24 Hours 08/19/19 08/19/19 08/19/19 08/19/19 10:00 10:15 11:00 11:40 Pulse 102 107 Resp 18 18 18 B/P (MAP) 102/51 (68) 108/56 (73) Pulse Ox 100 100 100 100 O2 Delivery Ventilator Ventilator Ventilator 08/19/19 08/19/19 08/19/19 08/19/19 12:00 12:00 13:00 14:00 Temp 99.4 99.4 Pulse 120 118 121 Resp 20 22 24 B/P (MAP) 102/61 (75) 148/95 (112) 140/85 (103) Pulse Ox 98 96 96 O2 Delivery Nasal Cannula Nasal Cannula Nasal Cannula Nasal Cannula O2 Flow Rate 5.0 5.0 5.0 5.0 08/19/19 08/19/19 08/19/19 08/19/19 15:00 15:06 15:44 16:00 Temp 98.9 98.9 Pulse 110 119 Resp 28 30 B/P (MAP) 160/96 (117) 155/88 (110) Pulse Ox 97 94 97 O2 Delivery Nasal Cannula Nasal Cannula Nasal Cannula Nasal Cannula O2 Flow Rate 5.0 5.0 5.0 5.0 08/19/19 08/19/19 08/19/19 08/19/19 17:00 18:00 19:00 20:00 Temp 100.0 100.0 Pulse 120 116 115 121 Resp 30 32 35 36 B/P (MAP) 144/91 (108) 136/80 (98) 138/77 (97) 134/77 (96) Pulse Ox 94 91 95 97 O2 Delivery Nasal Cannula Nasal Cannula Nasal Cannula BiPAP/CPAP O2 Flow Rate 5.0 5.0 5.0 08/19/19 08/19/19 08/19/19 08/19/19 20:00 20:03 20:49 21:00 Pulse 104 Resp 38 B/P (MAP) 152/90 (110) Pulse Ox 92 97 96 O2 Delivery Bi-pap Nasal Cannula BiPAP/CPAP BiPAP/CPAP O2 Flow Rate 8.0 08/19/19 08/19/19 08/19/19 08/19/19 22:00 23:00 23:27 23:59 Temp 99.9 99.9 Pulse 101 99 Resp 40 36 B/P (MAP) 158/88 (111) 140/81 (100) Pulse Ox 97 98 98 O2 Delivery BiPAP/CPAP BiPAP/CPAP BiPAP/CPAP Bi-pap 08/20/19 08/20/19 08/20/19 08/20/19 00:01 01:00 01:50 02:00 Temp 100.9 100.9 Pulse 86 94 92 Resp 40 38 34 B/P (MAP) 154/88 (110) 117/74 (88) 124/80 (95) Pulse Ox 98 99 98 99 O2 Delivery BiPAP/CPAP BiPAP/CPAP BiPAP/CPAP BiPAP/CPAP 08/20/19 08/20/19 08/20/19 08/20/19 03:00 03:17 04:00 04:00 Temp 98.2 98.2 Pulse 82 84 Resp 33 34 B/P (MAP) 151/91 (111) 153/87 (109) Pulse Ox 99 99 99 O2 Delivery BiPAP/CPAP BiPAP/CPAP Bi-pap BiPAP/CPAP 08/20/19 08/20/19 08/20/19 08/20/19 05:00 05:55 06:00 07:00 Pulse 84 83 78 Resp 36 33 15 B/P (MAP) 151/94 (113) 145/90 (108) 126/71 (89) Pulse Ox 99 99 99 100 O2 Delivery BiPAP/CPAP BiPAP/CPAP BiPAP/CPAP BiPAP/CPAP 08/20/19 08/20/19 08/20/19 08/20/19 07:26 08:00 08:00 09:00 Temp 99.2 99.2 Pulse 84 98 Resp 34 36 B/P (MAP) 144/75 (98) 148/92 (110) Pulse Ox 99 99 98 O2 Delivery BiPAP/CPAP Bi-pap BiPAP/CPAP BiPAP/CPAP 08/20/19 09:09 Pulse Ox 99 O2 Delivery BiPAP/CPAP Intake and Output 08/19/19 08/19/19 08/20/19 15:00 23:00 07:00 Intake Total 421.68 ml 1360 ml 1092.34 ml Output Total 415 ml 380 ml 320 ml Balance 6.68 ml 980 ml 772.34 ml CHANTELL WAGNER MD Aug 20, 2019 09:57
--- NOTE | 2019-08-20 09:59 | NUR ---
SS following up with discharge planning. Pt having confusion and is currently requiring oxygen support. SS will consult PAT team when medically stable. SS will continue to follow for discharge planning.
[2019-08-20] MEDS ORDERED: MAGNESIUM SULFATE 2GM 50 ML IV ONE (10:15)
[2019-08-20] MEDS: cefTRIAXone IV Push 2 GM VIAL. IVP SCH (10:17)
[2019-08-20] MEDS: FAMOTIDINE 20 MG/2 ML VIAL IVP SCH ×2 (10:17→21:24)
[2019-08-20] MEDS ORDERED: FUROSEMIDE 20 MG/2 ML VIAL. IVP ONE (10:45)
[2019-08-20] MEDS ORDERED: HALOPERIDOL LACTATE 5 MG/ML VIAL. IVP PRN (10:45)
--- NOTE | 2019-08-20 10:47 | PDOC ---
PULMONARY PROGRESS NOTES Subjective extubated 08/19 required BIPAP last night for increase R/R Vitals Vital Signs Date Time Temp Pulse Resp B/P (MAP) Pulse Ox O2 Delivery O2 Flow Rate FiO2 08/20/19 10:00 71 37 147/89 (108) 98 BiPAP/CPAP 08/20/19 08:00 99.2 99.2 08/19/19 20:03 8.0 General: Alert, No acute distress Lungs: Other (RHONCHI) Cardiovascular: S1 Abdomen: Soft Neuro Exam: Alert Extremities: No Edema Skin: Warm Labs Laboratory Tests Test 08/18/19 11:45 08/18/19 12:00 08/18/19 12:06 08/18/19 13:35 Urine Opiates Screen Neg (NEG) Urine Methadone Screen Neg (NEG) Urine Barbiturates Neg (NEG) Urine Phencyclidine Screen Neg (NEG) Urine Amphetamine/Methamphetamine Neg (NEG) Urine Benzodiazepines Screen Pos (NEG) Urine Cocaine Screen Neg (NEG) Urine Cannabinoids Screen Neg (NEG) Urine Ethyl Alcohol Neg (NEG) Sodium Level 147 mmol/L (136-145) Potassium Level 3.6 mmol/L (3.5-5.1) Chloride Level 109 mmol/L (98-107) Carbon Dioxide Level 30 mmol/L (21-32) Anion Gap 8 (6-14) Blood Urea Nitrogen 17 mg/dL (7-20) Creatinine 1.3 mg/dL (0.6-1.0) Estimated GFR (Cockcroft-Gault) 50.8 BUN/Creatinine Ratio 13 (6-20) Glucose Level 110 mg/dL (70-99) Lactic Acid Level 1.5 mmol/L (0.4-2.0) Calcium Level 7.3 mg/dL (8.5-10.1) Total Bilirubin 0.7 mg/dL (0.2-1.0) Aspartate Amino Transf (AST/SGOT) 71 U/L (15-37) Alanine Aminotransferase (ALT/SGPT) 72 U/L (14-59) Alkaline Phosphatase 67 U/L (46-116) Total Protein 5.6 g/dL (6.4-8.2) Albumin 2.7 g/dL (3.4-5.0) Albumin/Globulin Ratio 0.9 (1.0-1.7) Procalcitonin 74.69 ng/mL (0.00-0.10) Glucose (Fingerstick) 90 mg/dL (70-99) Fibrinogen 514 mg/dL (200-440) D-Dimer (Dayana) 7.95 ug/mlFEU (0.00-0.50) Test 08/19/19 01:12 08/19/19 04:30 08/19/19 07:30 08/19/19 09:00 Glucose (Fingerstick) 77 mg/dL (70-99) White Blood Count 12.0 x10^3/uL (4.0-11.0) Red Blood Count 3.88 x10^6/uL (3.50-5.40) Hemoglobin 10.8 g/dL (12.0-15.5) Hematocrit 33.0 % (36.0-47.0) Mean Corpuscular Volume 85 fL (79-100) Mean Corpuscular Hemoglobin 28 pg (25-35) Mean Corpuscular Hemoglobin Concent 33 g/dL (31-37) Red Cell Distribution Width 13.9 % (11.5-14.5) Platelet Count 239 x10^3/uL (140-400) Neutrophils (%) (Auto) 70 % (31-73) Lymphocytes (%) (Auto) 23 % (24-48) Monocytes (%) (Auto) 6 % (0-9) Eosinophils (%) (Auto) 1 % (0-3) Basophils (%) (Auto) 0 % (0-3) Neutrophils # (Auto) 8.4 x10^3/uL (1.8-7.7) Lymphocytes # (Auto) 2.8 x10^3/uL (1.0-4.8) Monocytes # (Auto) 0.7 x10^3/uL (0.0-1.1) Eosinophils # (Auto) 0.1 x10^3/uL (0.0-0.7) Basophils # (Auto) 0.0 x10^3/uL (0.0-0.2) Sodium Level 147 mmol/L (136-145) Potassium Level 3.6 mmol/L (3.5-5.1) Chloride Level 110 mmol/L (98-107) Carbon Dioxide Level 28 mmol/L (21-32) Anion Gap 9 (6-14) Blood Urea Nitrogen 13 mg/dL (7-20) Creatinine 1.1 mg/dL (0.6-1.0) Estimated GFR (Cockcroft-Gault) 61.6 BUN/Creatinine Ratio 12 (6-20) Glucose Level 87 mg/dL (70-99) Calcium Level 8.6 mg/dL (8.5-10.1) Magnesium Level 1.9 mg/dL (1.8-2.4) Total Bilirubin 0.5 mg/dL (0.2-1.0) Aspartate Amino Transf (AST/SGOT) 50 U/L (15-37) Alanine Aminotransferase (ALT/SGPT) 56 U/L (14-59) Alkaline Phosphatase 77 U/L (46-116) Total Protein 6.5 g/dL (6.4-8.2) Albumin 2.8 g/dL (3.4-5.0) Albumin/Globulin Ratio 0.8 (1.0-1.7) O2 Saturation 96 % (92-99) 96 % (92-99) Arterial Blood pH 7.39 (7.35-7.45) 7.39 (7.35-7.45) Arterial Blood pCO2 at Patient Temp 44 mmHg (35-46) 44 mmHg (35-46) Arterial Blood pO2 at Patient Temp 86 mmHg (85-108) 88 mmHg (85-108) Arterial Blood HCO3 26 mmol/L (21-28) 26 mmol/L (21-28) Arterial Blood Base Excess 0 mmol/L (-3-3) 1 mmol/L (-3-3) FiO2 40% 40 Test 08/19/19 11:10 08/19/19 18:47 08/19/19 21:42 08/20/19 07:35 O2 Saturation 97 % (92-99) 97 % (92-99) Arterial Blood pH 7.40 (7.35-7.45) 7.36 (7.35-7.45) Arterial Blood pCO2 at Patient Temp 43 mmHg (35-46) 42 mmHg (35-46) Arterial Blood pO2 at Patient Temp 103 mmHg (85-108) 100 mmHg (85-108) Arterial Blood HCO3 26 mmol/L (21-28) 23 mmol/L (21-28) Arterial Blood Base Excess 1 mmol/L (-3-3) -2 mmol/L (-3-3) FiO2 40% 50 Glucose (Fingerstick) 86 mg/dL (70-99) 84 mg/dL (70-99) Test 08/20/19 07:41 08/20/19 09:05 Glucose (Fingerstick) 74 mg/dL (70-99) White Blood Count 11.1 x10^3/uL (4.0-11.0) Red Blood Count 3.28 x10^6/uL (3.50-5.40) Hemoglobin 9.2 g/dL (12.0-15.5) Hematocrit 27.8 % (36.0-47.0) Mean Corpuscular Volume 85 fL (79-100) Mean Corpuscular Hemoglobin 28 pg (25-35) Mean Corpuscular Hemoglobin Concent 33 g/dL (31-37) Red Cell Distribution Width 13.8 % (11.5-14.5) Platelet Count 244 x10^3/uL (140-400) Sodium Level 146 mmol/L (136-145) Potassium Level 3.7 mmol/L (3.5-5.1) Chloride Level 111 mmol/L (98-107) Carbon Dioxide Level 25 mmol/L (21-32) Anion Gap 10 (6-14) Blood Urea Nitrogen 13 mg/dL (7-20) Creatinine 0.8 mg/dL (0.6-1.0) Estimated GFR (Cockcroft-Gault) 88.9 Glucose Level 82 mg/dL (70-99) Calcium Level 8.4 mg/dL (8.5-10.1) Magnesium Level 1.6 mg/dL (1.8-2.4) Laboratory Tests Test 08/19/19 11:10 08/19/19 18:47 08/19/19 21:42 08/20/19 07:35 O2 Saturation 97 % (92-99) 97 % (92-99) Arterial Blood pH 7.40 (7.35-7.45) 7.36 (7.35-7.45) Arterial Blood pCO2 at Patient Temp 43 mmHg (35-46) 42 mmHg (35-46) Arterial Blood pO2 at Patient Temp 103 mmHg (85-108) 100 mmHg (85-108) Arterial Blood HCO3 26 mmol/L (21-28) 23 mmol/L (21-28) Arterial Blood Base Excess 1 mmol/L (-3-3) -2 mmol/L (-3-3) FiO2 40% 50 Glucose (Fingerstick) 86 mg/dL (70-99) 84 mg/dL (70-99) Test 08/20/19 07:41 08/20/19 09:05 Glucose (Fingerstick) 74 mg/dL (70-99) White Blood Count 11.1 x10^3/uL (4.0-11.0) Red Blood Count 3.28 x10^6/uL (3.50-5.40) Hemoglobin 9.2 g/dL (12.0-15.5) Hematocrit 27.8 % (36.0-47.0) Mean Corpuscular Volume 85 fL (79-100) Mean Corpuscular Hemoglobin 28 pg (25-35) Mean Corpuscular Hemoglobin Concent 33 g/dL (31-37) Red Cell Distribution Width 13.8 % (11.5-14.5) Platelet Count 244 x10^3/uL (140-400) Sodium Level 146 mmol/L (136-145) Potassium Level 3.7 mmol/L (3.5-5.1) Chloride Level 111 mmol/L (98-107) Carbon Dioxide Level 25 mmol/L (21-32) Anion Gap 10 (6-14) Blood Urea Nitrogen 13 mg/dL (7-20) Creatinine 0.8 mg/dL (0.6-1.0) Estimated GFR (Cockcroft-Gault) 88.9 Glucose Level 82 mg/dL (70-99) Calcium Level 8.4 mg/dL (8.5-10.1) Magnesium Level 1.6 mg/dL (1.8-2.4) Medications Active Scripts Medications Dose Route/Sig Max Daily Dose Days Date Category Wixela 250-50 Inhub (Fluticasone Propion/Salmeterol) 1 Each Blst.w.dev 1 Each IH BID 08/18/19 Reported Metronidazole 70 Gm Gel.w.appl 1 Appful VG QHS 08/18/19 Reported Phentermine Hcl 37.5 Mg Capsule 1 Cap PO [id number] 08/18/19 Reported Ortho Tri-Cyclen (Norgestimate-Ethinyl Estradiol) 1 Each Tablet 1 Each PO DAILY 07/14/19 Reported Comments cxr 08/20 INCREASE INFILTRATES Impression . 1. Acute hypoxic respiratory failure secondary to multifactorial etiologies and likely secondary to combination of metabolic and toxic encephalopathy from unknown drug overdose and also suspected acute lung injury with diffuse ground glass infiltrates. 2. Abnormal chest x-ray with diffuse ground glass infiltrates without any pleural effusion. The findings highly favoring acute lung injury. She has history of vaping and that could be one etiology. She also recently crushed Percocet tablet and then snorted it and that could be another source of her acute lung injury. 3. Underlying tobacco use. 4. Fever, present on admission. Influenza screen negative. Procalcitonin markedly elevated. She is currently being covered for pneumonia as well. 5. Underlying obesity. 6. Toxicology screen negative. Plan . 1. extubated 08/19. requiring BIPAP since last night. some anxiety but increase infiltrates. will try lasix, on Abx 2. Follow chest x-ray. 3. Broad-spectrum antibiotic per ID. 4. echocardiogram reviewed. 5. DVT prophylaxis. 6. oral nutrition 7. Bronchodilators. 8. Tamiflu 9. Discussed with family and discussed with RN and RT. SARAH KEANE MD Aug 20, 2019 10:47
[2019-08-20] MEDS: AMINO AC 3%/ELECTROLYTE/GLYCER 1,000 ML IV SCH (14:02)
--- NOTE | 2019-08-20 17:16 | NUR ---
Patient off Bipap at 1000. Placed on 4lnc. Throughout the day titrated O2 up to 7lnc O2 sat 88%. Placed back on Bipap at 1700.
[2019-08-21] VITALS (15 sets, daily range): BP systolic 130–155; BP diastolic 54–99
[2019-08-21] MEDS: AMINO AC 3%/ELECTROLYTE/GLYCER 1,000 ML IV SCH ×2 (01:09→14:08)
[2019-08-21] MEDS: HEPARIN for SUB-Q USE 5,000 UNIT/ML VIAL. SQ SCH ×3 (05:50→21:28)
[2019-08-21 07:11] LABS: BASO # 0.1 x10^3/uL (0.0-0.2); BASO % 1 % (0-3); EOS # 0.1 x10^3/uL (0.0-0.7); EOS % 1 % (0-3); HEMATOCRIT 27.5 % (36.0-47.0); HEMOGLOBIN 9.6 g/dL (12.0-15.5); LYMPH # 2.6 x10^3/uL (1.0-4.8); LYMPH % 27 % (24-48); MEAN CORPUSCULAR HEMOGLOBIN 29 pg (25-35); MEAN CORPUSCULAR HGB CONC 35 g/dL (31-37); MEAN CORPUSCULAR VOLUME 83 fL (79-100); MONO # 0.7 x10^3/uL (0.0-1.1); MONO % 7 % (0-9); NEUT # 6.3 x10^3/uL (1.8-7.7); NEUT % 65 % (31-73); PLATELET COUNT 276 x10^3/uL (140-400); RED BLOOD COUNT 3.31 x10^6/uL (3.50-5.40); RED CELL DISTRIBUTION WIDTH 13.6 % (11.5-14.5); WHITE BLOOD COUNT 9.8 x10^3/uL (4.0-11.0)
[2019-08-21 07:24] LABS: ALBUMIN 2.5 g/dL (3.4-5.0); ALBUMIN/GLOBULIN RATIO 0.6 (1.0-1.7); CALCIUM 8.5 mg/dL (8.5-10.1); CREATININE 0.7 mg/dL (0.6-1.0); GFR 103.7; POTASSIUM 3.6 mmol/L (3.5-5.1); TOTAL BILIRUBIN 0.3 mg/dL (0.2-1.0); TOTAL PROTEIN 6.4 g/dL (6.4-8.2)
--- NOTE | 2019-08-21 07:41 | RAD ---
Exam performed: One view chest HISTORY: Shortness of breath. DATE OF SERVICE: 08/21/2019. COMPARISON: 08/20/2019. Single AP upright portable view chest findings: Allowing for difference in technique and positioning. 2 studies, there does not appear to be a significant interval change in diffuse consolidating infiltrates in both lungs. There is no pleural effusion or pneumothorax. IMPRESSION: No interval change. Electronically signed by: eJnna Pro MD (08/21/2019 7:38 AM) [facility]
[2019-08-21] MEDS: IPRATRPIUM/ALBUTEROL 0.5/2.5MG 3 ML NEBU. NEB SCH ×4 (08:00→19:55)
[2019-08-21] MEDS: ELECTROLYTE (ICU) PROTOCOL. MC SCH (09:00)
[2019-08-21] MEDS: AZITHROMYCIN 500 MG in IV NORMAL SALINE 250ML 250 ML IV SCH (09:20)
[2019-08-21] MEDS: OSELTAMIVIR 75 MG CAPSULE PO SCH ×2 (09:21→21:06)
[2019-08-21] MEDS: FAMOTIDINE 20 MG/2 ML VIAL IVP SCH ×2 (09:21→21:06)
[2019-08-21] MEDS: cefTRIAXone IV Push 2 GM VIAL. IVP SCH (09:21)
--- NOTE | 2019-08-21 09:31 | PDOC ---
Infectious Disease Note Subjective Subjective Feeling some better c/o CP with deep breaths 4L O2 No fevers last 24 hours PPN Denies N/V/D Vital Sign Vital Signs Vital Signs Date Time Temp Pulse Resp B/P (MAP) Pulse Ox O2 Delivery O2 Flow Rate FiO2 08/21/19 08:55 98 Nasal Cannula 4.0 08/21/19 06:00 52 25 140/88 (105) 08/21/19 04:00 98.2 98.2 Physical Exam PHYSICAL EXAM GENERAL: Arousable female, on bipap, VITAL SIGNS: stable HEENT: Both pupils are round and reacting. No conjunctival lesion, no lesion in the mouth. NECK: Supple, no JVP, no lymphadenopathy. LUNGS: Clear bilaterally. HEART: S1, S2 regular. No gallop or murmur. ABDOMEN: Soft, nontender, no organomegaly. EXTREMITIES: No edema, cyanosis. SKIN: Unremarkable. NEUROLOGIC: The patient is awake, moves all ext Labs Lab Laboratory Tests Test 08/20/19 12:55 08/21/19 07:00 Glucose (Fingerstick) 93 mg/dL (70-99) White Blood Count 9.8 x10^3/uL (4.0-11.0) Red Blood Count 3.31 x10^6/uL (3.50-5.40) Hemoglobin 9.6 g/dL (12.0-15.5) Hematocrit 27.5 % (36.0-47.0) Mean Corpuscular Volume 83 fL (79-100) Mean Corpuscular Hemoglobin 29 pg (25-35) Mean Corpuscular Hemoglobin Concent 35 g/dL (31-37) Red Cell Distribution Width 13.6 % (11.5-14.5) Platelet Count 276 x10^3/uL (140-400) Neutrophils (%) (Auto) 65 % (31-73) Lymphocytes (%) (Auto) 27 % (24-48) Monocytes (%) (Auto) 7 % (0-9) Eosinophils (%) (Auto) 1 % (0-3) Basophils (%) (Auto) 1 % (0-3) Neutrophils # (Auto) 6.3 x10^3/uL (1.8-7.7) Lymphocytes # (Auto) 2.6 x10^3/uL (1.0-4.8) Monocytes # (Auto) 0.7 x10^3/uL (0.0-1.1) Eosinophils # (Auto) 0.1 x10^3/uL (0.0-0.7) Basophils # (Auto) 0.1 x10^3/uL (0.0-0.2) Sodium Level 141 mmol/L (136-145) Potassium Level 3.6 mmol/L (3.5-5.1) Chloride Level 106 mmol/L (98-107) Carbon Dioxide Level 28 mmol/L (21-32) Anion Gap 7 (6-14) Blood Urea Nitrogen 16 mg/dL (7-20) Creatinine 0.7 mg/dL (0.6-1.0) Estimated GFR (Cockcroft-Gault) 103.7 BUN/Creatinine Ratio 23 (6-20) Glucose Level 112 mg/dL (70-99) Calcium Level 8.5 mg/dL (8.5-10.1) Total Bilirubin 0.3 mg/dL (0.2-1.0) Aspartate Amino Transf (AST/SGOT) 22 U/L (15-37) Alanine Aminotransferase (ALT/SGPT) 32 U/L (14-59) Alkaline Phosphatase 67 U/L (46-116) Total Protein 6.4 g/dL (6.4-8.2) Albumin 2.5 g/dL (3.4-5.0) Albumin/Globulin Ratio 0.6 (1.0-1.7) CXR, 08/21 Single AP upright portable view chest findings: Allowing for difference in technique and positioning. 2 studies, there does not appear to be a significant interval change in diffuse consolidating infiltrates in both lungs. There is no pleural effusion or pneumothorax. IMPRESSION: No interval change. Micro 08/17. BLOOD CULTURE Preliminary NO GROWTH AFTER 3 DAYS 08/18. SPUTUM CULT RES 1 Final No growth in 36 - 48 hours. Objective Assessment Bilateral pulmonary infiltrate, primary influenza pneumonia is a possibility. Aspiration pneumonia also is a possibility. Pt also apparently doing vaping. Sputum cx neg Suspected drug overdose. Respiratory failure. Lactic acidosis. Leukocytosis - improved Fever - better Plan Plan of Care Rocephin, azithromycin Continue Tamiflu, the influenza screen is unreliable test Cooper-cultures neg to date Supportive care D/w nursing Attending Co-Sign The patient was seen and interviewed as well as examined at the bedside. The chart was reviewed. The case was discussed. Agree with the plan of care. CHRISTINA PERES APRN Aug 21, 2019 09:31 MICHAELA CHENG MD Aug 21, 2019 10:15
[2019-08-21] MEDS: ONDANSETRON PF 4 MG/2 ML VIAL. IV PRN ×2 (10:00→23:17)
--- NOTE | 2019-08-21 10:34 | PDOC ---
PULMONARY PROGRESS NOTES Subjective extubated 08/19 feels better Vitals Vital Signs Date Time Temp Pulse Resp B/P (MAP) Pulse Ox O2 Delivery O2 Flow Rate FiO2 08/21/19 08:55 98 Nasal Cannula 4.0 08/21/19 06:00 52 25 140/88 (105) 08/21/19 04:00 98.2 98.2 General: Alert, No acute distress Lungs: Other (rhonchi) Cardiovascular: S1 Abdomen: Soft Neuro Exam: Alert Extremities: No Edema Skin: Warm Labs Laboratory Tests Test 08/19/19 11:10 08/19/19 18:47 08/19/19 21:42 08/20/19 07:35 O2 Saturation 97 % (92-99) 97 % (92-99) Arterial Blood pH 7.40 (7.35-7.45) 7.36 (7.35-7.45) Arterial Blood pCO2 at Patient Temp 43 mmHg (35-46) 42 mmHg (35-46) Arterial Blood pO2 at Patient Temp 103 mmHg (85-108) 100 mmHg (85-108) Arterial Blood HCO3 26 mmol/L (21-28) 23 mmol/L (21-28) Arterial Blood Base Excess 1 mmol/L (-3-3) -2 mmol/L (-3-3) FiO2 40% 50 Glucose (Fingerstick) 86 mg/dL (70-99) 84 mg/dL (70-99) Test 08/20/19 07:41 08/20/19 09:05 08/20/19 12:55 08/21/19 07:00 Glucose (Fingerstick) 74 mg/dL (70-99) 93 mg/dL (70-99) White Blood Count 11.1 x10^3/uL (4.0-11.0) 9.8 x10^3/uL (4.0-11.0) Red Blood Count 3.28 x10^6/uL (3.50-5.40) 3.31 x10^6/uL (3.50-5.40) Hemoglobin 9.2 g/dL (12.0-15.5) 9.6 g/dL (12.0-15.5) Hematocrit 27.8 % (36.0-47.0) 27.5 % (36.0-47.0) Mean Corpuscular Volume 85 fL (79-100) 83 fL (79-100) Mean Corpuscular Hemoglobin 28 pg (25-35) 29 pg (25-35) Mean Corpuscular Hemoglobin Concent 33 g/dL (31-37) 35 g/dL (31-37) Red Cell Distribution Width 13.8 % (11.5-14.5) 13.6 % (11.5-14.5) Platelet Count 244 x10^3/uL (140-400) 276 x10^3/uL (140-400) Sodium Level 146 mmol/L (136-145) 141 mmol/L (136-145) Potassium Level 3.7 mmol/L (3.5-5.1) 3.6 mmol/L (3.5-5.1) Chloride Level 111 mmol/L (98-107) 106 mmol/L (98-107) Carbon Dioxide Level 25 mmol/L (21-32) 28 mmol/L (21-32) Anion Gap 10 (6-14) 7 (6-14) Blood Urea Nitrogen 13 mg/dL (7-20) 16 mg/dL (7-20) Creatinine 0.8 mg/dL (0.6-1.0) 0.7 mg/dL (0.6-1.0) Estimated GFR (Cockcroft-Gault) 88.9 103.7 Glucose Level 82 mg/dL (70-99) 112 mg/dL (70-99) Calcium Level 8.4 mg/dL (8.5-10.1) 8.5 mg/dL (8.5-10.1) Magnesium Level 1.6 mg/dL (1.8-2.4) Neutrophils (%) (Auto) 65 % (31-73) Lymphocytes (%) (Auto) 27 % (24-48) Monocytes (%) (Auto) 7 % (0-9) Eosinophils (%) (Auto) 1 % (0-3) Basophils (%) (Auto) 1 % (0-3) Neutrophils # (Auto) 6.3 x10^3/uL (1.8-7.7) Lymphocytes # (Auto) 2.6 x10^3/uL (1.0-4.8) Monocytes # (Auto) 0.7 x10^3/uL (0.0-1.1) Eosinophils # (Auto) 0.1 x10^3/uL (0.0-0.7) Basophils # (Auto) 0.1 x10^3/uL (0.0-0.2) BUN/Creatinine Ratio 23 (6-20) Total Bilirubin 0.3 mg/dL (0.2-1.0) Aspartate Amino Transf (AST/SGOT) 22 U/L (15-37) Alanine Aminotransferase (ALT/SGPT) 32 U/L (14-59) Alkaline Phosphatase 67 U/L (46-116) Total Protein 6.4 g/dL (6.4-8.2) Albumin 2.5 g/dL (3.4-5.0) Albumin/Globulin Ratio 0.6 (1.0-1.7) Laboratory Tests Test 08/20/19 12:55 08/21/19 07:00 Glucose (Fingerstick) 93 mg/dL (70-99) White Blood Count 9.8 x10^3/uL (4.0-11.0) Red Blood Count 3.31 x10^6/uL (3.50-5.40) Hemoglobin 9.6 g/dL (12.0-15.5) Hematocrit 27.5 % (36.0-47.0) Mean Corpuscular Volume 83 fL (79-100) Mean Corpuscular Hemoglobin 29 pg (25-35) Mean Corpuscular Hemoglobin Concent 35 g/dL (31-37) Red Cell Distribution Width 13.6 % (11.5-14.5) Platelet Count 276 x10^3/uL (140-400) Neutrophils (%) (Auto) 65 % (31-73) Lymphocytes (%) (Auto) 27 % (24-48) Monocytes (%) (Auto) 7 % (0-9) Eosinophils (%) (Auto) 1 % (0-3) Basophils (%) (Auto) 1 % (0-3) Neutrophils # (Auto) 6.3 x10^3/uL (1.8-7.7) Lymphocytes # (Auto) 2.6 x10^3/uL (1.0-4.8) Monocytes # (Auto) 0.7 x10^3/uL (0.0-1.1) Eosinophils # (Auto) 0.1 x10^3/uL (0.0-0.7) Basophils # (Auto) 0.1 x10^3/uL (0.0-0.2) Sodium Level 141 mmol/L (136-145) Potassium Level 3.6 mmol/L (3.5-5.1) Chloride Level 106 mmol/L (98-107) Carbon Dioxide Level 28 mmol/L (21-32) Anion Gap 7 (6-14) Blood Urea Nitrogen 16 mg/dL (7-20) Creatinine 0.7 mg/dL (0.6-1.0) Estimated GFR (Cockcroft-Gault) 103.7 BUN/Creatinine Ratio 23 (6-20) Glucose Level 112 mg/dL (70-99) Calcium Level 8.5 mg/dL (8.5-10.1) Total Bilirubin 0.3 mg/dL (0.2-1.0) Aspartate Amino Transf (AST/SGOT) 22 U/L (15-37) Alanine Aminotransferase (ALT/SGPT) 32 U/L (14-59) Alkaline Phosphatase 67 U/L (46-116) Total Protein 6.4 g/dL (6.4-8.2) Albumin 2.5 g/dL (3.4-5.0) Albumin/Globulin Ratio 0.6 (1.0-1.7) Medications Active Scripts Medications Dose Route/Sig Max Daily Dose Days Date Category Wixela 250-50 Inhub (Fluticasone Propion/Salmeterol) 1 Each Blst.w.dev 1 Each IH BID 08/18/19 Reported Metronidazole 70 Gm Gel.w.appl 1 Appful VG QHS 08/18/19 Reported Phentermine Hcl 37.5 Mg Capsule 1 Cap PO [id number] 08/18/19 Reported Ortho Tri-Cyclen (Norgestimate-Ethinyl Estradiol) 1 Each Tablet 1 Each PO DAILY 07/14/19 Reported Comments cxr 08/21 INCREASE INFILTRATES since 08/19 Impression . 1. Acute hypoxic respiratory failure secondary to multifactorial etiologies and likely secondary to combination of metabolic and toxic encephalopathy from unknown drug overdose and also suspected acute lung injury with diffuse ground glass infiltrates. 2. Abnormal chest x-ray with diffuse ground glass infiltrates without any pleural effusion. The findings highly favoring acute lung injury. She has history of vaping and that could be one etiology. She also recently crushed Percocet tablet and then snorted it and that could be another source of her acute lung injury. 3. Underlying tobacco use. 4. Fever, present on admission. Influenza screen negative. Procalcitonin markedly elevated. She is currently being covered for pneumonia as well. 5. Underlying obesity. 6. Toxicology screen negative. Plan . 1. extubated 08/19. prn BIPAP 2. Follow chest x-ray as needed 3. Broad-spectrum antibiotic per ID. 4. echocardiogram reviewed. 5. DVT prophylaxis. 6. oral nutrition 7. Bronchodilators. 8. Tamiflu 9. Discussed with family and discussed with SARAH HART MD Aug 21, 2019 10:34
--- NOTE | 2019-08-21 10:35 | PDOC ---
PROGRESS NOTES History of Present Illness History of Present Illness VTE Prophylaxis Ordered VTE Prophylaxis Devices: Yes VTE Pharmacological Prophylaxi: Yes Assessment/Plan Assessment/Plan impression 1, OVERDOSE suspected ? Accidental? vs intentional, no prev hx OD known 2. hx major depression, hx bipolar disorder since a teen 3. hx substance abuse, has "obtained street drugs in the past "according to sister in room 4, ASPIRATION PNEUMONIA GRAM STAIN RESULT 1 Final Comment Few gram positive cocci 5. FEVER 6. SEPSIS 7. Morbid obesity 8. CECILIA 9. altered mental status 10. Tachycardia likely sec to sepsis, fever ECHO OK 11. hx vaping 12. hypoxic resp failure 13. HYPOMAGNESEMIA 14. severe protein-caloric malnutrition plan CONT icu bed CONSULT ID consult pulmonary dvt prophylaxis UDS REPEAT ASA LEVEL ACETAMINOPHEN LEVEL VENT SUPPORT GI PROPHYLAXIS PAT CONSULT neurology consult sepsis protocol procalcitonin troponin i REPLETE MG IV d/w RN in room 31 min cc time Vitals Vitals Vital Signs Date Time Temp Pulse Resp B/P (MAP) Pulse Ox O2 Delivery O2 Flow Rate FiO2 08/21/19 08:55 98 Nasal Cannula 4.0 08/21/19 06:00 52 25 140/88 (105) 08/21/19 04:00 98.2 98.2 Physical Exam Physical Exam GENERAL: Arousable female, on bipap, VITAL SIGNS: stable HEENT: Both pupils are round and reacting. No conjunctival lesion, no lesion in the mouth. NECK: Supple, no JVP, no lymphadenopathy. LUNGS: Clear bilaterally. HEART: S1, S2 regular. No gallop or murmur. ABDOMEN: Soft, nontender, no organomegaly. EXTREMITIES: No edema, cyanosis. SKIN: Unremarkable. NEUROLOGIC: The patient is awake, moves all ext General: No acute distress Heart: Regular rate, Other (tachy) Lungs: Other (rhonchi) Abdomen: Soft, No tenderness Extremities: No clubbing, No cyanosis Skin: No rashes, No breakdown Labs LABS Laboratory Tests Test 08/20/19 12:55 08/21/19 07:00 Glucose (Fingerstick) 93 mg/dL (70-99) White Blood Count 9.8 x10^3/uL (4.0-11.0) Red Blood Count 3.31 x10^6/uL (3.50-5.40) Hemoglobin 9.6 g/dL (12.0-15.5) Hematocrit 27.5 % (36.0-47.0) Mean Corpuscular Volume 83 fL (79-100) Mean Corpuscular Hemoglobin 29 pg (25-35) Mean Corpuscular Hemoglobin Concent 35 g/dL (31-37) Red Cell Distribution Width 13.6 % (11.5-14.5) Platelet Count 276 x10^3/uL (140-400) Neutrophils (%) (Auto) 65 % (31-73) Lymphocytes (%) (Auto) 27 % (24-48) Monocytes (%) (Auto) 7 % (0-9) Eosinophils (%) (Auto) 1 % (0-3) Basophils (%) (Auto) 1 % (0-3) Neutrophils # (Auto) 6.3 x10^3/uL (1.8-7.7) Lymphocytes # (Auto) 2.6 x10^3/uL (1.0-4.8) Monocytes # (Auto) 0.7 x10^3/uL (0.0-1.1) Eosinophils # (Auto) 0.1 x10^3/uL (0.0-0.7) Basophils # (Auto) 0.1 x10^3/uL (0.0-0.2) Sodium Level 141 mmol/L (136-145) Potassium Level 3.6 mmol/L (3.5-5.1) Chloride Level 106 mmol/L (98-107) Carbon Dioxide Level 28 mmol/L (21-32) Anion Gap 7 (6-14) Blood Urea Nitrogen 16 mg/dL (7-20) Creatinine 0.7 mg/dL (0.6-1.0) Estimated GFR (Cockcroft-Gault) 103.7 BUN/Creatinine Ratio 23 (6-20) Glucose Level 112 mg/dL (70-99) Calcium Level 8.5 mg/dL (8.5-10.1) Total Bilirubin 0.3 mg/dL (0.2-1.0) Aspartate Amino Transf (AST/SGOT) 22 U/L (15-37) Alanine Aminotransferase (ALT/SGPT) 32 U/L (14-59) Alkaline Phosphatase 67 U/L (46-116) Total Protein 6.4 g/dL (6.4-8.2) Albumin 2.5 g/dL (3.4-5.0) Albumin/Globulin Ratio 0.6 (1.0-1.7) Comment Review of Relevant I have reviewed the following items jimmy (where applicable) has been applied. Labs Laboratory Tests Test 08/19/19 11:10 08/19/19 18:47 08/19/19 21:42 08/20/19 07:35 O2 Saturation 97 % (92-99) 97 % (92-99) Arterial Blood pH 7.40 (7.35-7.45) 7.36 (7.35-7.45) Arterial Blood pCO2 at Patient Temp 43 mmHg (35-46) 42 mmHg (35-46) Arterial Blood pO2 at Patient Temp 103 mmHg (85-108) 100 mmHg (85-108) Arterial Blood HCO3 26 mmol/L (21-28) 23 mmol/L (21-28) Arterial Blood Base Excess 1 mmol/L (-3-3) -2 mmol/L (-3-3) FiO2 40% 50 Glucose (Fingerstick) 86 mg/dL (70-99) 84 mg/dL (70-99) Test 08/20/19 07:41 08/20/19 09:05 08/20/19 12:55 08/21/19 07:00 Glucose (Fingerstick) 74 mg/dL (70-99) 93 mg/dL (70-99) White Blood Count 11.1 x10^3/uL (4.0-11.0) 9.8 x10^3/uL (4.0-11.0) Red Blood Count 3.28 x10^6/uL (3.50-5.40) 3.31 x10^6/uL (3.50-5.40) Hemoglobin 9.2 g/dL (12.0-15.5) 9.6 g/dL (12.0-15.5) Hematocrit 27.8 % (36.0-47.0) 27.5 % (36.0-47.0) Mean Corpuscular Volume 85 fL (79-100) 83 fL (79-100) Mean Corpuscular Hemoglobin 28 pg (25-35) 29 pg (25-35) Mean Corpuscular Hemoglobin Concent 33 g/dL (31-37) 35 g/dL (31-37) Red Cell Distribution Width 13.8 % (11.5-14.5) 13.6 % (11.5-14.5) Platelet Count 244 x10^3/uL (140-400) 276 x10^3/uL (140-400) Sodium Level 146 mmol/L (136-145) 141 mmol/L (136-145) Potassium Level 3.7 mmol/L (3.5-5.1) 3.6 mmol/L (3.5-5.1) Chloride Level 111 mmol/L (98-107) 106 mmol/L (98-107) Carbon Dioxide Level 25 mmol/L (21-32) 28 mmol/L (21-32) Anion Gap 10 (6-14) 7 (6-14) Blood Urea Nitrogen 13 mg/dL (7-20) 16 mg/dL (7-20) Creatinine 0.8 mg/dL (0.6-1.0) 0.7 mg/dL (0.6-1.0) Estimated GFR (Cockcroft-Gault) 88.9 103.7 Glucose Level 82 mg/dL (70-99) 112 mg/dL (70-99) Calcium Level 8.4 mg/dL (8.5-10.1) 8.5 mg/dL (8.5-10.1) Magnesium Level 1.6 mg/dL (1.8-2.4) Neutrophils (%) (Auto) 65 % (31-73) Lymphocytes (%) (Auto) 27 % (24-48) Monocytes (%) (Auto) 7 % (0-9) Eosinophils (%) (Auto) 1 % (0-3) Basophils (%) (Auto) 1 % (0-3) Neutrophils # (Auto) 6.3 x10^3/uL (1.8-7.7) Lymphocytes # (Auto) 2.6 x10^3/uL (1.0-4.8) Monocytes # (Auto) 0.7 x10^3/uL (0.0-1.1) Eosinophils # (Auto) 0.1 x10^3/uL (0.0-0.7) Basophils # (Auto) 0.1 x10^3/uL (0.0-0.2) BUN/Creatinine Ratio 23 (6-20) Total Bilirubin 0.3 mg/dL (0.2-1.0) Aspartate Amino Transf (AST/SGOT) 22 U/L (15-37) Alanine Aminotransferase (ALT/SGPT) 32 U/L (14-59) Alkaline Phosphatase 67 U/L (46-116) Total Protein 6.4 g/dL (6.4-8.2) Albumin 2.5 g/dL (3.4-5.0) Albumin/Globulin Ratio 0.6 (1.0-1.7) Laboratory Tests Test 08/20/19 12:55 08/21/19 07:00 Glucose (Fingerstick) 93 mg/dL (70-99) White Blood Count 9.8 x10^3/uL (4.0-11.0) Red Blood Count 3.31 x10^6/uL (3.50-5.40) Hemoglobin 9.6 g/dL (12.0-15.5) Hematocrit 27.5 % (36.0-47.0) Mean Corpuscular Volume 83 fL (79-100) Mean Corpuscular Hemoglobin 29 pg (25-35) Mean Corpuscular Hemoglobin Concent 35 g/dL (31-37) Red Cell Distribution Width 13.6 % (11.5-14.5) Platelet Count 276 x10^3/uL (140-400) Neutrophils (%) (Auto) 65 % (31-73) Lymphocytes (%) (Auto) 27 % (24-48) Monocytes (%) (Auto) 7 % (0-9) Eosinophils (%) (Auto) 1 % (0-3) Basophils (%) (Auto) 1 % (0-3) Neutrophils # (Auto) 6.3 x10^3/uL (1.8-7.7) Lymphocytes # (Auto) 2.6 x10^3/uL (1.0-4.8) Monocytes # (Auto) 0.7 x10^3/uL (0.0-1.1) Eosinophils # (Auto) 0.1 x10^3/uL (0.0-0.7) Basophils # (Auto) 0.1 x10^3/uL (0.0-0.2) Sodium Level 141 mmol/L (136-145) Potassium Level 3.6 mmol/L (3.5-5.1) Chloride Level 106 mmol/L (98-107) Carbon Dioxide Level 28 mmol/L (21-32) Anion Gap 7 (6-14) Blood Urea Nitrogen 16 mg/dL (7-20) Creatinine 0.7 mg/dL (0.6-1.0) Estimated GFR (Cockcroft-Gault) 103.7 BUN/Creatinine Ratio 23 (6-20) Glucose Level 112 mg/dL (70-99) Calcium Level 8.5 mg/dL (8.5-10.1) Total Bilirubin 0.3 mg/dL (0.2-1.0) Aspartate Amino Transf (AST/SGOT) 22 U/L (15-37) Alanine Aminotransferase (ALT/SGPT) 32 U/L (14-59) Alkaline Phosphatase 67 U/L (46-116) Total Protein 6.4 g/dL (6.4-8.2) Albumin 2.5 g/dL (3.4-5.0) Albumin/Globulin Ratio 0.6 (1.0-1.7) Microbiology 08/18/19 - Final, Resulted 08/18/19 - Final, Resulted 08/18/19 - Final, Resulted 08/18/19 - Preliminary, Resulted 08/18/19 - Preliminary, Resulted 08/18/19 - Preliminary, Resulted 08/18/19 Gram Stain Evaluation - Final, Resulted 08/18/19 Sputum Culture - Preliminary, Resulted 08/18/19 Sputum Result 1 - Final, Resulted 08/18/19 Urine Culture - Final, Complete 08/18/19 Urine Culture Result 1 (BERENICE) - Final, Complete 08/17/19 Blood Culture - Preliminary, Resulted NO GROWTH AFTER 3 DAYS Medications Current Medications Fentanyl Citrate 30 ml @ 0 mls/hr CONT PRN IV SEE PROTOCOL Last administered on 08/19/19at 09:37; Start 08/17/19 at 21:45; Stop 08/19/19 at 12:34; Status DC Propofol 100 ml @ 0 mls/hr CONT PRN IV SEE PROTOCOL; Start 08/17/19 at 21:45; Stop 08/19/19 at 12:34; Status DC Fentanyl Citrate (Fentanyl 2ml Vial) 25 mcg PRN Q1HR PRN IV SEE COMMENTS; Start 08/17/19 at 21:45; Stop 08/21/19 at 09:02; Status DC Fentanyl Citrate (Fentanyl 2ml Vial) 50 mcg PRN Q1HR PRN IV SEE COMMENTS; Start 08/17/19 at 21:45; Stop 08/21/19 at 09:03; Status DC Midazolam HCl 50 mg/Sodium Chloride 50 ml @ 0 mls/hr CONT PRN IV SEE PROTOCOL Last administered on 08/19/19at 01:14; Start 08/17/19 at 21:45; Stop 08/19/19 at 12 :34; Status DC Sodium Chloride 1,000 ml @ 150 mls/hr Q6H40M IV Last administered on 08/18/19at 01:13; Start 08/17/19 at 22:00; Stop 08/18/19 at 10:32; Status DC Piperacillin Sod/ Tazobactam Sod 3.375 gm/Sodium Chloride 50 ml @ 100 mls/hr Q6HRS IV Last administered on 08/18/19at 06:04; Start 08/18/19 at 00:00; Stop 08/18/19 at 07:32; Status DC Lorazepam (Ativan) 1 mg PRN Q6HRS PRN PO ANXIETY / AGITATION; Start 08/17/19 at 22:00 Ondansetron HCl (Zofran) 4 mg PRN Q6HRS PRN IV NAUSEA/VOMITING 1ST CHOICE Last administered on 08/21/19at 10:00; Start 08/17/19 at 22:00 Prochlorperazine Edisylate (Compazine) 5 mg PRN Q6HRS PRN IV NAUSEA/VOMITING 2ND CHOICE; Start 08/17/19 at 22:00 Famotidine (Pepcid Vial) 20 mg BID IVP Last administered on 08/21/19at 09:21; Start 08/18/19 at 09:00 Info (Icu Electrolyte Protocol) 1 ea DAILY MC Last administered on 08/18/19at 08:51; Start 08/18/19 at 09:00; Stop 08/18/19 at 11:57; Status DC Heparin Sodium (Porcine) (Heparin Sodium) 5,000 unit Q8HRS SQ Last administered on 08/21/19at 05:50; Start 08/17/19 at 22:00 Sodium Chloride (Normal Saline Flush) 3 ml QSHIFT PRN IV AFTER MEDS AND BLOOD DRAWS; Start 08/17/19 at 22:00; Stop 08/18/19 at 11:56; Status DC Bisacodyl (Dulcolax Supp) 10 mg PRN DAILY PRN MD CONSTIPATION; Start 08/17/19 at 22:00 Acetaminophen (Tylenol) 650 mg PRN Q6HRS PRN PEG MILD PAIN / TEMP Last administered on 08/19/19at 08:00; Start 08/18/19 at 04:30 Ceftriaxone Sodium (Rocephin) 2 gm Q24H IVP Last administered on 08/21/19at 09:21; Start 08/18/19 at 09:00 Azithromycin 500 mg/Sodium Chloride 250 ml @ 250 mls/hr Q24H IV Last administered on 08/21/19at 09:20; Start 08/18/19 at 08:00 Oseltamivir Phosphate (Tamiflu) 75 mg BID PO Last administered on 08/21/19at 09:21; Start 08/18/19 at 09:00; Stop 08/23/19 at 08:59 Magnesium Sulfate 50 ml @ 25 mls/hr 1X ONCE IV Last administered on 08/18/19at 10:16; Start 08/18/19 at 10:15; Stop 08/18/19 at 12:14; Status DC Ondansetron HCl (Zofran) 4 mg PRN Q6HRS PRN IV NAUSEA/VOMITING; Start 08/18/19 at 11:30; Stop 08/18/19 at 11:55; Status DC Famotidine (Pepcid Vial) 20 mg BID IVP ; Start 08/18/19 at 12:00; Stop 08/18/19 at 11:55; Status DC Info (Icu Electrolyte Protocol) 1 ea DAILY MC Last administered on 08/20/19at 09:00; Start 08/19/19 at 09:00 Heparin Sodium (Porcine) (Heparin Sodium) 5,000 unit Q12HR SQ ; Start 08/18/19 at 12:00; Stop 08/18/19 at 11:55; Status DC Sodium Chloride (Normal Saline Flush) 3 ml QSHIFT PRN IV AFTER MEDS AND BLOOD DRAWS; Start 08/18/19 at 11:30 Sodium Chloride 1,000 ml @ 100 mls/hr Q10H IV Last administered on 08/19/19at 22:22; Start 08/18/19 at 11:17; Stop 08/20/19 at 10:48; Status DC Bisacodyl (Dulcolax Supp) 10 mg PRN DAILY PRN MD CONSTIPATION; Start 08/18/19 at 11:30; Stop 08/18/19 at 11:55; Status DC Sodium Chloride 1,000 ml @ 1,560 mls/hr Q39M IV ; Start 08/18/19 at 12:11; Stop 08/18/19 at 13:01; Status DC Sodium Chloride 500 ml @ 1,000 mls/hr PRN Q30MIN PRN IV SEE COMMENTS; Start 08/18/19 at 12:15 Norepinephrine Bitartrate 8 mg/ Dextrose 258 ml @ 0 mls/hr CONT PRN IV SEE I/O RECORD; Start 08/18/19 at 12:15 Dobutamine HCl/ Dextrose 250 ml @ 0 mls/hr CONT PRN IV SEE I/O RECORD; Start 08/18/19 at 12:15 Iohexol (Omnipaque 350 Mg/ml) 90 ml 1X ONCE IV Last administered on 08/18/19at 15:54; Start 08/18/19 at 15:30; Stop 08/18/19 at 15:34; Status DC Info (CONTRAST GIVEN -- Rx MONITORING) 1 each PRN DAILY PRN MC SEE COMMENTS; Start 08/18/19 at 15:45; Stop 08/20/19 at 15:44; Status DC Insulin Human Lispro (HumaLOG) 0-5 UNITS TIDWMEALS SQ ; Start 08/19/19 at 08:00; Stop 08/19/19 at 08:15; Status DC Dextrose (Dextrose 50%-Water Syringe) 12.5 gm PRN Q15MIN PRN IV SEE COMMENTS; Start 08/18/19 at 19:00 Dextrose (Iv Dextrose 5%) 250 ml PRN Q15MIN PRN IV SEE COMMENTS; Start 08/18/19 at 19:00 Insulin Human Lispro (HumaLOG) 0-5 UNITS Q6HRS SQ ; Start 08/19/19 at 12:00; Stop 08/19/19 at 12:34; Status DC Albuterol/ Ipratropium (Duoneb) 3 ml RTQID NEB Last administered on 08/20/19at 19:54; Start 08/19/19 at 09:00 Lorazepam (Ativan Inj) 0.5 mg 1X PRN IVP ANXIETY / AGITATION Last administered on 08/19/19at 17:17; Start 08/19/19 at 17:15; Stop 08/20/19 at 13:13; Status DC Albuterol Sulfate (Ventolin Neb Soln) 2.5 mg PRN Q4HRS PRN NEB SHORTNESS OF BREATH; Start 08/19/19 at 18:30 Magnesium Sulfate 50 ml @ 25 mls/hr 1X ONCE IV Last administered on 08/20/19at 10:18; Start 08/20/19 at 10:15; Stop 08/20/19 at 12:14; Status DC Furosemide (Lasix) 20 mg 1X ONCE IVP Last administered on 08/20/19at 10:58; Start 08/20/19 at 10:45; Stop 08/20/19 at 10:51; Status DC Lorazepam (Ativan Inj) 0.5 mg PRN Q4HRS PRN IVP ANXIETY / AGITATION,2nd choice; Start 08/20/19 at 10:45 Haloperidol Lactate (Haldol Inj) 3 mg PRN Q2HR PRN IVP AGITATION, 1st choice Last administered on 08/20/19at 10:58; Start 08/20/19 at 10:45 Amino Acids/ Glycerin/ Electrolytes 1,000 ml @ 80 mls/hr [id number] IV Last administered on 08/21/19at 01:09; Start 08/20/19 at 10:45 Active Scripts Active Reported Wixela 250-50 Inhub (Fluticasone Propion/Salmeterol) 1 Each Blst.w.dev 1 Each IH BID Metronidazole 70 Gm Gel.w.appl 1 Appful VG QHS Phentermine Hcl 37.5 Mg Capsule 1 Cap PO [id number] Ortho Tri-Cyclen (Norgestimate-Ethinyl Estradiol) 1 Each Tablet 1 Each PO DAILY Vitals/I & O Vital Sign - Last 24 Hours 08/20/19 08/20/19 08/20/19 08/20/19 11:00 11:27 11:51 12:00 Temp 99.0 99.0 Pulse 70 73 Resp 29 36 B/P (MAP) 163/97 (119) 148/85 (106) Pulse Ox 92 95 96 O2 Delivery Nasal Cannula Nasal Cannula Nasal Cannula Nasal Cannula O2 Flow Rate 4.0 4.0 4.0 4.0 08/20/19 08/20/19 08/20/19 08/20/19 13:00 14:00 15:00 15:39 Pulse 77 65 66 Resp 36 36 36 B/P (MAP) 140/73 (95) 149/93 (111) 146/87 (106) Pulse Ox 91 93 95 O2 Delivery Nasal Cannula Nasal Cannula Nasal Cannula Nasal Cannula O2 Flow Rate 4.0 3.0 4.0 4.0 08/20/19 08/20/19 08/20/19 08/20/19 15:42 16:00 17:00 17:27 Temp 99.6 99.6 Pulse 80 80 Resp 38 38 B/P (MAP) 155/84 (107) 156/80 (105) Pulse Ox 95 89 90 95 O2 Delivery Nasal Cannula Nasal Cannula Nasal Cannula BiPAP/CPAP O2 Flow Rate 4.0 4.0 7.0 08/20/19 08/20/19 08/20/19 08/20/19 18:00 19:00 19:54 20:00 Pulse 65 66 Resp 35 32 B/P (MAP) 144/85 (104) 135/79 (97) Pulse Ox 97 99 98 O2 Delivery BiPAP/CPAP BiPAP/CPAP BiPAP/CPAP Nasal Cannula O2 Flow Rate 4.0 08/20/19 08/20/19 08/20/19 08/20/19 20:00 21:00 22:00 23:00 Temp 98.4 98.4 Pulse 65 70 69 64 Resp 32 28 22 32 B/P (MAP) 141/79 (99) 131/69 (89) 147/83 (104) 145/80 (101) Pulse Ox 99 95 94 94 O2 Delivery Nasal Cannula Nasal Cannula Nasal Cannula BiPAP/CPAP O2 Flow Rate 4.0 4.0 4.0 08/20/19 08/20/19 08/20/19 08/21/19 23:34 23:59 23:59 01:00 Temp 98.6 98.6 Pulse 56 65 Resp 33 28 B/P (MAP) 148/89 (108) 137/74 (95) Pulse Ox 97 98 98 O2 Delivery BiPAP/CPAP Nasal Cannula BiPAP/CPAP BiPAP/CPAP O2 Flow Rate 4.0 08/21/19 08/21/19 08/21/19 08/21/19 02:00 02:35 03:00 04:00 Pulse 60 61 Resp 30 30 B/P (MAP) 139/77 (97) 142/90 (107) Pulse Ox 99 99 99 O2 Delivery BiPAP/CPAP BiPAP/CPAP BiPAP/CPAP Nasal Cannula O2 Flow Rate 4.0 08/21/19 08/21/19 08/21/19 08/21/19 04:00 05:00 05:17 06:00 Temp 98.2 98.2 Pulse 62 62 52 Resp 28 28 25 B/P (MAP) 130/86 (101) 147/54 (85) 140/88 (105) Pulse Ox 97 97 97 98 O2 Delivery BiPAP/CPAP BiPAP/CPAP BiPAP/CPAP BiPAP/CPAP 08/21/19 08:55 Pulse Ox 98 O2 Delivery Nasal Cannula O2 Flow Rate 4.0 Intake and Output 08/20/19 08/20/19 08/21/19 15:00 23:00 07:00 Intake Total 300 ml 683.19 ml 2908 ml Output Total 1770 ml 490 ml 400 ml Balance -1470 ml 193.19 ml 2508 ml GENA ARTHUR MD Aug 21, 2019 10:35
[2019-08-21] MEDS: PROCHLORPERAZINE 10 MG/2 ML VIAL. IV PRN (10:50)
--- NOTE | 2019-08-21 19:58 | PDOC ---
PROGRESS NOTES Assessment Altered mental status, may have taken an overdose, family strongly disagrees, urine drug screen negative. She could've had a seizure, but CT of the head and EEG are normal. She is bright and alert now. Possible pneumonia or lung injury due to drug ingestion She denies suicidality Plan No further neurologic studies possible or required Hold off on starting empiric anticonvulsants. Okay for discharge Subjective No complaints Objective Vital Signs Date Time Temp Pulse Resp B/P (MAP) Pulse Ox O2 Delivery O2 Flow Rate FiO2 08/21/19 17:00 98.4 50 32 138/67 (90) 98 Nasal Cannula 4.0 98.4 Intake and Output 08/21/19 07:00 Intake Total 3891.19 ml Output Total 2660 ml Balance 1231.19 ml IV Total 3891.19 ml Output Urine Total 2660 ml # Bowel Movements 2 PHYSICAL EXAM Alert. Oriented to time, place and person. PERRL. EOMI. CN: no focal findings. Muscle tone: normal. Muscle strength: 4/5 DTR: 2+ Plantar reflex: flexor Gait: normal. Sensory exam: no abnormal findings. No cerebellar signs elicited. Review of Relevant I have reviewed the following items jimmy (where applicable) has been applied. Labs Laboratory Tests Test 08/19/19 21:42 08/20/19 07:35 08/20/19 07:41 08/20/19 09:05 Glucose (Fingerstick) 84 mg/dL (70-99) 74 mg/dL (70-99) O2 Saturation 97 % (92-99) Arterial Blood pH 7.36 (7.35-7.45) Arterial Blood pCO2 at Patient Temp 42 mmHg (35-46) Arterial Blood pO2 at Patient Temp 100 mmHg (85-108) Arterial Blood HCO3 23 mmol/L (21-28) Arterial Blood Base Excess -2 mmol/L (-3-3) FiO2 50 White Blood Count 11.1 x10^3/uL (4.0-11.0) Red Blood Count 3.28 x10^6/uL (3.50-5.40) Hemoglobin 9.2 g/dL (12.0-15.5) Hematocrit 27.8 % (36.0-47.0) Mean Corpuscular Volume 85 fL (79-100) Mean Corpuscular Hemoglobin 28 pg (25-35) Mean Corpuscular Hemoglobin Concent 33 g/dL (31-37) Red Cell Distribution Width 13.8 % (11.5-14.5) Platelet Count 244 x10^3/uL (140-400) Sodium Level 146 mmol/L (136-145) Potassium Level 3.7 mmol/L (3.5-5.1) Chloride Level 111 mmol/L (98-107) Carbon Dioxide Level 25 mmol/L (21-32) Anion Gap 10 (6-14) Blood Urea Nitrogen 13 mg/dL (7-20) Creatinine 0.8 mg/dL (0.6-1.0) Estimated GFR (Cockcroft-Gault) 88.9 Glucose Level 82 mg/dL (70-99) Calcium Level 8.4 mg/dL (8.5-10.1) Magnesium Level 1.6 mg/dL (1.8-2.4) Test 08/20/19 12:55 08/21/19 07:00 Glucose (Fingerstick) 93 mg/dL (70-99) White Blood Count 9.8 x10^3/uL (4.0-11.0) Red Blood Count 3.31 x10^6/uL (3.50-5.40) Hemoglobin 9.6 g/dL (12.0-15.5) Hematocrit 27.5 % (36.0-47.0) Mean Corpuscular Volume 83 fL (79-100) Mean Corpuscular Hemoglobin 29 pg (25-35) Mean Corpuscular Hemoglobin Concent 35 g/dL (31-37) Red Cell Distribution Width 13.6 % (11.5-14.5) Platelet Count 276 x10^3/uL (140-400) Neutrophils (%) (Auto) 65 % (31-73) Lymphocytes (%) (Auto) 27 % (24-48) Monocytes (%) (Auto) 7 % (0-9) Eosinophils (%) (Auto) 1 % (0-3) Basophils (%) (Auto) 1 % (0-3) Neutrophils # (Auto) 6.3 x10^3/uL (1.8-7.7) Lymphocytes # (Auto) 2.6 x10^3/uL (1.0-4.8) Monocytes # (Auto) 0.7 x10^3/uL (0.0-1.1) Eosinophils # (Auto) 0.1 x10^3/uL (0.0-0.7) Basophils # (Auto) 0.1 x10^3/uL (0.0-0.2) Sodium Level 141 mmol/L (136-145) Potassium Level 3.6 mmol/L (3.5-5.1) Chloride Level 106 mmol/L (98-107) Carbon Dioxide Level 28 mmol/L (21-32) Anion Gap 7 (6-14) Blood Urea Nitrogen 16 mg/dL (7-20) Creatinine 0.7 mg/dL (0.6-1.0) Estimated GFR (Cockcroft-Gault) 103.7 BUN/Creatinine Ratio 23 (6-20) Glucose Level 112 mg/dL (70-99) Calcium Level 8.5 mg/dL (8.5-10.1) Magnesium Level 1.8 mg/dL (1.8-2.4) Total Bilirubin 0.3 mg/dL (0.2-1.0) Aspartate Amino Transf (AST/SGOT) 22 U/L (15-37) Alanine Aminotransferase (ALT/SGPT) 32 U/L (14-59) Alkaline Phosphatase 67 U/L (46-116) Total Protein 6.4 g/dL (6.4-8.2) Albumin 2.5 g/dL (3.4-5.0) Albumin/Globulin Ratio 0.6 (1.0-1.7) Laboratory Tests Test 08/21/19 07:00 White Blood Count 9.8 x10^3/uL (4.0-11.0) Red Blood Count 3.31 x10^6/uL (3.50-5.40) Hemoglobin 9.6 g/dL (12.0-15.5) Hematocrit 27.5 % (36.0-47.0) Mean Corpuscular Volume 83 fL (79-100) Mean Corpuscular Hemoglobin 29 pg (25-35) Mean Corpuscular Hemoglobin Concent 35 g/dL (31-37) Red Cell Distribution Width 13.6 % (11.5-14.5) Platelet Count 276 x10^3/uL (140-400) Neutrophils (%) (Auto) 65 % (31-73) Lymphocytes (%) (Auto) 27 % (24-48) Monocytes (%) (Auto) 7 % (0-9) Eosinophils (%) (Auto) 1 % (0-3) Basophils (%) (Auto) 1 % (0-3) Neutrophils # (Auto) 6.3 x10^3/uL (1.8-7.7) Lymphocytes # (Auto) 2.6 x10^3/uL (1.0-4.8) Monocytes # (Auto) 0.7 x10^3/uL (0.0-1.1) Eosinophils # (Auto) 0.1 x10^3/uL (0.0-0.7) Basophils # (Auto) 0.1 x10^3/uL (0.0-0.2) Sodium Level 141 mmol/L (136-145) Potassium Level 3.6 mmol/L (3.5-5.1) Chloride Level 106 mmol/L (98-107) Carbon Dioxide Level 28 mmol/L (21-32) Anion Gap 7 (6-14) Blood Urea Nitrogen 16 mg/dL (7-20) Creatinine 0.7 mg/dL (0.6-1.0) Estimated GFR (Cockcroft-Gault) 103.7 BUN/Creatinine Ratio 23 (6-20) Glucose Level 112 mg/dL (70-99) Calcium Level 8.5 mg/dL (8.5-10.1) Magnesium Level 1.8 mg/dL (1.8-2.4) Total Bilirubin 0.3 mg/dL (0.2-1.0) Aspartate Amino Transf (AST/SGOT) 22 U/L (15-37) Alanine Aminotransferase (ALT/SGPT) 32 U/L (14-59) Alkaline Phosphatase 67 U/L (46-116) Total Protein 6.4 g/dL (6.4-8.2) Albumin 2.5 g/dL (3.4-5.0) Albumin/Globulin Ratio 0.6 (1.0-1.7) Microbiology 08/18/19 - Final, Resulted 08/18/19 - Final, Resulted 08/18/19 - Final, Resulted 08/18/19 - Preliminary, Resulted 08/18/19 - Preliminary, Resulted 08/18/19 - Preliminary, Resulted 08/18/19 Gram Stain Evaluation - Final, Resulted 08/18/19 Sputum Culture - Final, Resulted 08/18/19 Sputum Result 1 - Final, Resulted 08/18/19 Urine Culture - Final, Complete 08/18/19 Urine Culture Result 1 (BERENICE) - Final, Complete 08/17/19 Blood Culture - Preliminary, Resulted NO GROWTH AFTER 3 DAYS Medications Current Medications Fentanyl Citrate 30 ml @ 0 mls/hr CONT PRN IV SEE PROTOCOL Last administered on 08/19/19at 09:37; Start 08/17/19 at 21:45; Stop 08/19/19 at 12:34; Status DC Propofol 100 ml @ 0 mls/hr CONT PRN IV SEE PROTOCOL; Start 08/17/19 at 21:45; Stop 08/19/19 at 12:34; Status DC Fentanyl Citrate (Fentanyl 2ml Vial) 25 mcg PRN Q1HR PRN IV SEE COMMENTS; Start 08/17/19 at 21:45; Stop 08/21/19 at 09:02; Status DC Fentanyl Citrate (Fentanyl 2ml Vial) 50 mcg PRN Q1HR PRN IV SEE COMMENTS; Start 08/17/19 at 21:45; Stop 08/21/19 at 09:03; Status DC Midazolam HCl 50 mg/Sodium Chloride 50 ml @ 0 mls/hr CONT PRN IV SEE PROTOCOL Last administered on 08/19/19at 01:14; Start 08/17/19 at 21:45; Stop 08/19/19 at 12:34; Status DC Sodium Chloride 1,000 ml @ 150 mls/hr Q6H40M IV Last administered on 08/18/19at 01:13; Start 08/17/19 at 22:00; Stop 08/18/19 at 10:32; Status DC Piperacillin Sod/ Tazobactam Sod 3.375 gm/Sodium Chloride 50 ml @ 100 mls/hr Q6HRS IV Last administered on 08/18/19at 06:04; Start 08/18/19 at 00:00; Stop 08/18/19 at 07:32; Status DC Lorazepam (Ativan) 1 mg PRN Q6HRS PRN PO ANXIETY / AGITATION; Start 08/17/19 at 22:00 Ondansetron HCl (Zofran) 4 mg PRN Q6HRS PRN IV NAUSEA/VOMITING 1ST CHOICE Last administered on 08/21/19at 10:00; Start 08/17/19 at 22:00 Prochlorperazine Edisylate (Compazine) 5 mg PRN Q6HRS PRN IV NAUSEA/VOMITING 2ND CHOICE Last administered on 08/21/19at 10:50; Start 08/17/19 at 22:00 Famotidine (Pepcid Vial) 20 mg BID IVP Last administered on 08/21/19at 09:21; Start 08/18/19 at 09:00 Info (Icu Electrolyte Protocol) 1 ea DAILY MC Last administered on 08/18/19at 08:51; Start 08/18/19 at 09:00; Stop 08/18/19 at 11:57; Status DC Heparin Sodium (Porcine) (Heparin Sodium) 5,000 unit Q8HRS SQ Last administered on 08/21/19at 14:10; Start 08/17/19 at 22:00 Sodium Chloride (Normal Saline Flush) 3 ml QSHIFT PRN IV AFTER MEDS AND BLOOD DRAWS; Start 08/17/19 at 22:00; Stop 08/18/19 at 11:56; Status DC Bisacodyl (Dulcolax Supp) 10 mg PRN DAILY PRN [place] CONSTIPATION; Start 08/17/19 at 22:00 Acetaminophen (Tylenol) 650 mg PRN Q6HRS PRN PEG MILD PAIN / TEMP Last administered on 08/19/19at 08:00; Start 08/18/19 at 04:30 Ceftriaxone Sodium (Rocephin) 2 gm Q24H IVP Last administered on 08/21/19at 09:21; Start 08/18/19 at 09:00 Azithromycin 500 mg/Sodium Chloride 250 ml @ 250 mls/hr Q24H IV Last administered on 08/21/19at 09:20; Start 08/18/19 at 08:00 Oseltamivir Phosphate (Tamiflu) 75 mg BID PO Last administered on 08/21/19 09:21; Start 08/18/19 at 09:00; Stop 08/23/19 at 08:59 Magnesium Sulfate 50 ml @ 25 mls/hr 1X ONCE IV Last administered on 08/18/19at 10:16; Start 08/18/19 at 10:15; Stop 08/18/19 at 12:14; Status DC Ondansetron HCl (Zofran) 4 mg PRN Q6HRS PRN IV NAUSEA/VOMITING; Start 08/18/19 at 11:30; Stop 08/18/19 at 11:55; Status DC Famotidine (Pepcid Vial) 20 mg BID IVP ; Start 08/18/19 at 12:00; Stop 08/18/19 at 11:55; Status DC Info (Icu Electrolyte Protocol) 1 ea DAILY MC Last administered on 08/20/19at 09:00; Start 08/19/19 at 09:00 Heparin Sodium (Porcine) (Heparin Sodium) 5,000 unit Q12HR SQ ; Start 08/18/19 at 12:00; Stop 08/18/19 at 11:55; Status DC Sodium Chloride (Normal Saline Flush) 3 ml QSHIFT PRN IV AFTER MEDS AND BLOOD DRAWS; Start 08/18/19 at 11:30 Sodium Chloride 1,000 ml @ 100 mls/hr Q10H IV Last administered on 08/19/19at 22:22; Start 08/18/19 at 11:17; Stop 08/20/19 at 10:48; Status DC Bisacodyl (Dulcolax Supp) 10 mg PRN DAILY PRN [place] CONSTIPATION; Start 08/18/19 at 11:30; Stop 08/18/19 at 11:55; Status DC Sodium Chloride 1,000 ml @ 1,560 mls/hr Q39M IV ; Start 08/18/19 at 12:11; Stop 08/18/19 at 13:01; Status DC Sodium Chloride 500 ml @ 1,000 mls/hr PRN Q30MIN PRN IV SEE COMMENTS; Start 08/18/19 at 12:15 Norepinephrine Bitartrate 8 mg/ Dextrose 258 ml @ 0 mls/hr CONT PRN IV SEE I/O RECORD; Start 08/18/19 at 12:15 Dobutamine HCl/ Dextrose 250 ml @ 0 mls/hr CONT PRN IV SEE I/O RECORD; Start 08/18/19 at 12:15 Iohexol (Omnipaque 350 Mg/ml) 90 ml 1X ONCE IV Last administered on 08/18/19at 15:54; Start 08/18/19 at 15:30; Stop 08/18/19 at 15:34; Status DC Info (CONTRAST GIVEN -- Rx MONITORING) 1 each PRN DAILY PRN MC SEE COMMENTS; Start 08/18/19 at 15:45; Stop 08/20/19 at 15:44; Status DC Insulin Human Lispro (HumaLOG) 0-5 UNITS TIDWMEALS SQ ; Start 08/19/19 at 08:00; Stop 08/19/19 at 08:15; Status DC Dextrose (Dextrose 50%-Water Syringe) 12.5 gm PRN Q15MIN PRN IV SEE COMMENTS; Start 08/18/19 at 19:00 Dextrose (Iv Dextrose 5%) 250 ml PRN Q15MIN PRN IV SEE COMMENTS; Start 08/18/19 at 19:00 Insulin Human Lispro (HumaLOG) 0-5 UNITS Q6HRS SQ ; Start 08/19/19 at 12:00; Stop 08/19/19 at 12:34; Status DC Albuterol/ Ipratropium (Duoneb) 3 ml RTQID NEB Last administered on 08/21/19at 16:19; Start 08/19/19 at 09:00 Lorazepam (Ativan Inj) 0.5 mg 1X PRN IVP ANXIETY / AGITATION Last administered on 08/19/19at 17:17; Start 08/19/19 at 17:15; Stop 08/20/19 at 13:13; Status DC Albuterol Sulfate (Ventolin Neb Soln) 2.5 mg PRN Q4HRS PRN NEB SHORTNESS OF BREATH; Start 08/19/19 at 18:30 Magnesium Sulfate 50 ml @ 25 mls/hr 1X ONCE IV Last administered on 08/20/19at 10:18; Start 08/20/19 at 10:15; Stop 08/20/19 at 12:14; Status DC Furosemide (Lasix) 20 mg 1X ONCE IVP Last administered on 08/20/19at 10:58; Start 08/20/19 at 10:45; Stop 08/20/19 at 10:51; Status DC Lorazepam (Ativan Inj) 0.5 mg PRN Q4HRS PRN IVP ANXIETY / AGITATION,2nd choice; Start 08/20/19 at 10:45 Haloperidol Lactate (Haldol Inj) 3 mg PRN Q2HR PRN IVP AGITATION, 1st choice Last administered on 08/20/19at 10:58; Start 08/20/19 at 10:45 Amino Acids/ Glycerin/ Electrolytes 1,000 ml @ 80 mls/hr [id number] IV Last administered on 08/21/19at 14:08; Start 08/20/19 at 10:45 Active Scripts Active Reported Wixela 250-50 Inhub (Fluticasone Propion/Salmeterol) 1 Each Blst.w.dev 1 Each IH BID Metronidazole 70 Gm Gel.w.appl 1 Appful VG QHS Phentermine Hcl 37.5 Mg Capsule 1 Cap PO [id number] Ortho Tri-Cyclen (Norgestimate-Ethinyl Estradiol) 1 Each Tablet 1 Each PO DAILY Vitals/I & O Vital Sign - Last 24 Hours 08/20/19 08/20/19 08/20/19 08/20/19 20:00 20:00 21:00 22:00 Temp 98.4 98.4 Pulse 65 70 69 Resp 32 28 22 B/P (MAP) 141/79 (99) 131/69 (89) 147/83 (104) Pulse Ox 99 95 94 O2 Delivery Nasal Cannula Nasal Cannula Nasal Cannula Nasal Cannula O2 Flow Rate 4.0 4.0 4.0 4.0 08/20/19 08/20/19 08/20/19 08/20/19 23:00 23:34 23:59 23:59 Temp 98.6 98.6 Pulse 64 56 Resp 32 33 B/P (MAP) 145/80 (101) 148/89 (108) Pulse Ox 94 97 98 O2 Delivery BiPAP/CPAP BiPAP/CPAP Nasal Cannula BiPAP/CPAP O2 Flow Rate 4.0 08/21/19 08/21/19 08/21/19 08/21/19 01:00 02:00 02:35 03:00 Pulse 65 60 61 Resp 28 30 30 B/P (MAP) 137/74 (95) 139/77 (97) 142/90 (107) Pulse Ox 98 99 99 99 O2 Delivery BiPAP/CPAP BiPAP/CPAP BiPAP/CPAP BiPAP/CPAP 08/21/19 08/21/19 08/21/19 08/21/19 04:00 04:00 05:00 05:17 Temp 98.2 98.2 Pulse 62 62 Resp 28 28 B/P (MAP) 130/86 (101) 147/54 (85) Pulse Ox 97 97 97 O2 Delivery Nasal Cannula BiPAP/CPAP BiPAP/CPAP BiPAP/CPAP O2 Flow Rate 4.0 08/21/19 08/21/19 08/21/19 08/21/19 06:00 07:00 08:00 08:00 Temp 98.9 98.9 Pulse 52 68 54 Resp 25 36 34 B/P (MAP) 140/88 (105) 143/91 (108) 142/88 (106) Pulse Ox 98 99 97 O2 Delivery BiPAP/CPAP BiPAP/CPAP Bi-pap BiPAP/CPAP 08/21/19 08/21/19 08/21/19 08/21/19 08:55 10:00 11:58 12:00 Temp 99.2 99.2 Pulse 82 54 Resp 32 30 B/P (MAP) 150/99 (116) 152/89 (110) Pulse Ox 98 96 95 100 O2 Delivery Nasal Cannula Nasal Cannula Nasal Cannula Nasal Cannula O2 Flow Rate 4.0 4.0 4.0 4.0 08/21/19 08/21/19 08/21/19 08/21/19 12:00 14:00 15:00 16:21 Temp 98.5 98.5 Pulse 64 76 Resp 28 32 B/P (MAP) 155/91 (112) 136/69 (91) Pulse Ox 95 94 95 O2 Delivery Nasal Cannula Nasal Cannula Nasal Cannula Nasal Cannula O2 Flow Rate 4.0 4.0 4.0 4.0 08/21/19 17:00 Temp 98.4 98.4 Pulse 50 Resp 32 B/P (MAP) 138/67 (90) Pulse Ox 98 O2 Delivery Nasal Cannula O2 Flow Rate 4.0 Intake and Output 08/20/19 08/20/19 08/21/19 15:00 23:00 07:00 Intake Total 300 ml 683.19 ml 2908 ml Output Total 1770 ml 490 ml 400 ml Balance -1470 ml 193.19 ml 2508 ml CHANTELL WAGNER MD Aug 21, 2019 19:58
[2019-08-21] MEDS: ACETAMINOPHEN 650 MG/20.3 ML SOLUTION. PEG PRN (21:05)
[2019-08-22] MEDS: AMINO AC 3%/ELECTROLYTE/GLYCER 1,000 ML IV SCH (03:30)
[2019-08-22 04:05] VITALS: BP 133/67
[2019-08-22] MEDS: PROCHLORPERAZINE 10 MG/2 ML VIAL. IV PRN (04:25)
[2019-08-22] MEDS: HEPARIN for SUB-Q USE 5,000 UNIT/ML VIAL. SQ SCH ×3 (05:54→22:36)
[2019-08-22 08:00] VITALS: BP 147/78
[2019-08-22] MEDS: IPRATRPIUM/ALBUTEROL 0.5/2.5MG 3 ML NEBU. NEB SCH ×4 (08:14→20:38)
[2019-08-22] MEDS: ONDANSETRON PF 4 MG/2 ML VIAL. IV PRN ×2 (08:41→23:22)
--- NOTE | 2019-08-22 08:55 | PDOC ---
PROGRESS NOTES History of Present Illness History of Present Illness VTE Prophylaxis Ordered VTE Prophylaxis Devices: Yes VTE Pharmacological Prophylaxi: Yes Assessment/Plan Assessment/Plan impression 1, OVERDOSE suspected ? Accidental? vs intentional, no prev hx OD known 2. hx major depression, hx bipolar disorder since a teen 3. hx substance abuse, has "obtained street drugs in the past "according to sister in room 4, ASPIRATION PNEUMONIA, acute lung injury, vaping GRAM STAIN RESULT 1 Final Comment Few gram positive cocci 5. FEVER 6. SEPSIS 7. Morbid obesity 8. CECILIA 9. altered mental status 10. Tachycardia likely sec to sepsis, fever ECHO OK 11. hx vaping 12. hypoxic resp failure 13. HYPOMAGNESEMIA 14. severe protein-caloric malnutrition plan CONT icu bed CONSULT ID consult pulmonary dvt prophylaxis UDS REPEAT ASA LEVEL ACETAMINOPHEN LEVEL VENT SUPPORT d/c 08-21 GI PROPHYLAXIS PAT CONSULT neurology consult sepsis protocol procalcitonin troponin i REPLETE MG IV d/w RN in room 32 min cc time Vitals Vitals Vital Signs Date Time Temp Pulse Resp B/P (MAP) Pulse Ox O2 Delivery O2 Flow Rate FiO2 08/22/19 08:15 95 Nasal Cannula 4.0 08/22/19 08:00 98.5 68 26 147/78 (101) 98.5 Physical Exam Physical Exam GENERAL: Arousable female, on bipap, VITAL SIGNS: stable HEENT: Both pupils are round and reacting. No conjunctival lesion, no lesion in the mouth. NECK: Supple, no JVP, no lymphadenopathy. LUNGS: Clear bilaterally. HEART: S1, S2 regular. No gallop or murmur. ABDOMEN: Soft, nontender, no organomegaly. EXTREMITIES: No edema, cyanosis. SKIN: Unremarkable. NEUROLOGIC: The patient is awake, moves all ext General: No acute distress Heart: Regular rate, Other (tachy) Lungs: Other (rhonchi) Abdomen: Soft, No tenderness Extremities: No clubbing, No cyanosis Skin: No rashes, No breakdown Comment Review of Relevant I have reviewed the following items jimmy (where applicable) has been applied. Labs Laboratory Tests Test 08/20/19 09:05 08/20/19 12:55 08/21/19 07:00 White Blood Count 11.1 x10^3/uL (4.0-11.0) 9.8 x10^3/uL (4.0-11.0) Red Blood Count 3.28 x10^6/uL (3.50-5.40) 3.31 x10^6/uL (3.50-5.40) Hemoglobin 9.2 g/dL (12.0-15.5) 9.6 g/dL (12.0-15.5) Hematocrit 27.8 % (36.0-47.0) 27.5 % (36.0-47.0) Mean Corpuscular Volume 85 fL (79-100) 83 fL (79-100) Mean Corpuscular Hemoglobin 28 pg (25-35) 29 pg (25-35) Mean Corpuscular Hemoglobin Concent 33 g/dL (31-37) 35 g/dL (31-37) Red Cell Distribution Width 13.8 % (11.5-14.5) 13.6 % (11.5-14.5) Platelet Count 244 x10^3/uL (140-400) 276 x10^3/uL (140-400) Sodium Level 146 mmol/L (136-145) 141 mmol/L (136-145) Potassium Level 3.7 mmol/L (3.5-5.1) 3.6 mmol/L (3.5-5.1) Chloride Level 111 mmol/L (98-107) 106 mmol/L (98-107) Carbon Dioxide Level 25 mmol/L (21-32) 28 mmol/L (21-32) Anion Gap 10 (6-14) 7 (6-14) Blood Urea Nitrogen 13 mg/dL (7-20) 16 mg/dL (7-20) Creatinine 0.8 mg/dL (0.6-1.0) 0.7 mg/dL (0.6-1.0) Estimated GFR (Cockcroft-Gault) 88.9 103.7 Glucose Level 82 mg/dL (70-99) 112 mg/dL (70-99) Calcium Level 8.4 mg/dL (8.5-10.1) 8.5 mg/dL (8.5-10.1) Magnesium Level 1.6 mg/dL (1.8-2.4) 1.8 mg/dL (1.8-2.4) Glucose (Fingerstick) 93 mg/dL (70-99) Neutrophils (%) (Auto) 65 % (31-73) Lymphocytes (%) (Auto) 27 % (24-48) Monocytes (%) (Auto) 7 % (0-9) Eosinophils (%) (Auto) 1 % (0-3) Basophils (%) (Auto) 1 % (0-3) Neutrophils # (Auto) 6.3 x10^3/uL (1.8-7.7) Lymphocytes # (Auto) 2.6 x10^3/uL (1.0-4.8) Monocytes # (Auto) 0.7 x10^3/uL (0.0-1.1) Eosinophils # (Auto) 0.1 x10^3/uL (0.0-0.7) Basophils # (Auto) 0.1 x10^3/uL (0.0-0.2) BUN/Creatinine Ratio 23 (6-20) Total Bilirubin 0.3 mg/dL (0.2-1.0) Aspartate Amino Transf (AST/SGOT) 22 U/L (15-37) Alanine Aminotransferase (ALT/SGPT) 32 U/L (14-59) Alkaline Phosphatase 67 U/L (46-116) Total Protein 6.4 g/dL (6.4-8.2) Albumin 2.5 g/dL (3.4-5.0) Albumin/Globulin Ratio 0.6 (1.0-1.7) Microbiology 08/18/19 - Final, Resulted 08/18/19 - Final, Resulted 08/18/19 - Final, Resulted 08/18/19 - Preliminary, Resulted 08/18/19 - Preliminary, Resulted 08/18/19 - Preliminary, Resulted 08/18/19 Gram Stain Evaluation - Final, Resulted 08/18/19 Sputum Culture - Final, Resulted 08/18/19 Sputum Result 1 - Final, Resulted 08/18/19 Urine Culture - Final, Complete 08/18/19 Urine Culture Result 1 (BERENICE) - Final, Complete 08/17/19 Blood Culture - Preliminary, Resulted NO GROWTH AFTER 4 DAYS Medications Current Medications Fentanyl Citrate 30 ml @ 0 mls/hr CONT PRN IV SEE PROTOCOL Last administered on 08/19/19at 09:37; Start 08/17/19 at 21:45; Stop 08/19/19 at 12:34; Status DC Propofol 100 ml @ 0 mls/hr CONT PRN IV SEE PROTOCOL; Start 08/17/19 at 21:45; Stop 08/19/19 at 12:34; Status DC Fentanyl Citrate (Fentanyl 2ml Vial) 25 mcg PRN Q1HR PRN IV SEE COMMENTS; Start 08/17/19 at 21:45; Stop 08/21/19 at 09:02; Status DC Fentanyl Citrate (Fentanyl 2ml Vial) 50 mcg PRN Q1HR PRN IV SEE COMMENTS; Start 08/17/19 at 21:45; Stop 08/21/19 at 09:03; Status DC Midazolam HCl 50 mg/Sodium Chloride 50 ml @ 0 mls/hr CONT PRN IV SEE PROTOCOL Last administered on 08/19/19at 01:14; Start 08/17/19 at 21:45; Stop 08/19/19 at 12:34; Status DC Sodium Chloride 1,000 ml @ 150 mls/hr Q6H40M IV Last administered on 08/18/19at 01:13; Start 08/17/19 at 22:00; Stop 08/18/19 at 10:32; Status DC Piperacillin Sod/ Tazobactam Sod 3.375 gm/Sodium Chloride 50 ml @ 100 mls/hr Q6HRS IV Last administered on 08/18/19at 06:04; Start 08/18/19 at 00:00; Stop 08/18/19 at 07:32; Status DC Lorazepam (Ativan) 1 mg PRN Q6HRS PRN PO ANXIETY / AGITATION; Start 08/17/19 at 22:00 Ondansetron HCl (Zofran) 4 mg PRN Q6HRS PRN IV NAUSEA/VOMITING 1ST CHOICE Last administered on 08/22/19at 08:41; Start 08/17/19 at 22:00 Prochlorperazine Edisylate (Compazine) 5 mg PRN Q6HRS PRN IV NAUSEA/VOMITING 2ND CHOICE Last administered on 08/22/19at 04:25; Start 08/17/19 at 22:00 Famotidine (Pepcid Vial) 20 mg BID IVP Last administered on 08/21/19at 21:06; Start 08/18/19 at 09:00; Stop 08/22/19 at 08:34; Status DC Info (Icu Electrolyte Protocol) 1 ea DAILY MC Last administered on 08/18/19at 08:51; Start 08/18/19 at 09:00; Stop 08/18/19 at 11:57; Status DC Heparin Sodium (Porcine) (Heparin Sodium) 5,000 unit Q8HRS SQ Last administered on 08/22/19at 05:54; Start 08/17/19 at 22:00 Sodium Chloride (Normal Saline Flush) 3 ml QSHIFT PRN IV AFTER MEDS AND BLOOD DRAWS; Start 08/17/19 at 22:00; Stop 08/18/19 at 11:56; Status DC Bisacodyl (Dulcolax Supp) 10 mg PRN DAILY PRN CO CONSTIPATION; Start 08/17/19 at 22:00 Acetaminophen (Tylenol) 650 mg PRN Q6HRS PRN PEG MILD PAIN / TEMP Last administered on 08/21/19at 21:05; Start 08/18/19 at 04:30 Ceftriaxone Sodium (Rocephin) 2 gm Q24H IVP Last administered on 08/21/19at 09:21; Start 08/18/19 at 09:00 Azithromycin 500 mg/Sodium Chloride 250 ml @ 250 mls/hr Q24H IV Last admi nistered on 08/21/19at 09:20; Start 08/18/19 at 08:00 Oseltamivir Phosphate (Tamiflu) 75 mg BID PO Last administered on 08/21/19at 21:06; Start 08/18/19 at 09:00; Stop 08/23/19 at 08:59 Magnesium Sulfate 50 ml @ 25 mls/hr 1X ONCE IV Last administered on 08/18/19at 10:16; Start 08/18/19 at 10:15; Stop 08/18/19 at 12:14; Status DC Ondansetron HCl (Zofran) 4 mg PRN Q6HRS PRN IV NAUSEA/VOMITING; Start 08/18/19 at 11:30; Stop 08/18/19 at 11:55; Status DC Famotidine (Pepcid Vial) 20 mg BID IVP ; Start 08/18/19 at 12:00; Stop 08/18/19 at 11:55; Status DC Info (Icu Electrolyte Protocol) 1 ea DAILY MC Last administered on 08/20/19at 09:00; Start 08/19/19 at 09:00 Heparin Sodium (Porcine) (Heparin Sodium) 5,000 unit Q12HR SQ ; Start 08/18/19 at 12:00; Stop 08/18/19 at 11:55; Status DC Sodium Chloride (Normal Saline Flush) 3 ml QSHIFT PRN IV AFTER MEDS AND BLOOD DRAWS; Start 08/18/19 at 11:30 Sodium Chloride 1,000 ml @ 100 mls/hr Q10H IV Last administered on 08/19/19at 22:22; Start 08/18/19 at 11:17; Stop 08/20/19 at 10:48; Status DC Bisacodyl (Dulcolax Supp) 10 mg PRN DAILY PRN CO CONSTIPATION; Start 08/18/19 at 11:30; Stop 08/18/19 at 11:55; Status DC Sodium Chloride 1,000 ml @ 1,560 mls/hr Q39M IV ; Start 08/18/19 at 12:11; Stop 08/18/19 at 13:01; Status DC Sodium Chloride 500 ml @ 1,000 mls/hr PRN Q30MIN PRN IV SEE COMMENTS; Start 08/18/19 at 12:15 Norepinephrine Bitartrate 8 mg/ Dextrose 258 ml @ 0 mls/hr CONT PRN IV SEE I/O RECORD; Start 08/18/19 at 12:15 Dobutamine HCl/ Dextrose 250 ml @ 0 mls/hr CONT PRN IV SEE I/O RECORD; Start 08/18/19 at 12:15 Iohexol (Omnipaque 350 Mg/ml) 90 ml 1X ONCE IV Last administered on 08/18/19at 15:54; Start 08/18/19 at 15:30; Stop 08/18/19 at 15:34; Status DC Info (CONTRAST GIVEN -- Rx MONITORING) 1 each PRN DAILY PRN MC SEE COMMENTS; Start 08/18/19 at 15:45; Stop 08/20/19 at 15:44; Status DC Insulin Human Lispro (HumaLOG) 0-5 UNITS TIDWMEALS SQ ; Start 08/19/19 at 08:00; Stop 08/19/19 at 08:15; Status DC Dextrose (Dextrose 50%-Water Syringe) 12.5 gm PRN Q15MIN PRN IV SEE COMMENTS; Start 08/18/19 at 19:00 Dextrose (Iv Dextrose 5%) 250 ml PRN Q15MIN PRN IV SEE COMMENTS; Start 08/18/19 at 19:00 Insulin Human Lispro (HumaLOG) 0-5 UNITS Q6HRS SQ ; Start 08/19/19 at 12:00; Stop 08/19/19 at 12:34; Status DC Albuterol/ Ipratropium (Duoneb) 3 ml RTQID NEB Last administered on 08/22/19at 08:14; Start 08/19/19 at 09:00 Lorazepam (Ativan Inj) 0.5 mg 1X PRN IVP ANXIETY / AGITATION Last administered on 08/19/19at 17:17; Start 08/19/19 at 17:15; Stop 08/20/19 at 13:13; Status DC Albuterol Sulfate (Ventolin Neb Soln) 2.5 mg PRN Q4HRS PRN NEB SHORTNESS OF BREATH Last administered on 08/22/19at 04:15; Start 08/19/19 at 18:30 Magnesium Sulfate 50 ml @ 25 mls/hr 1X ONCE IV Last administered on 08/20/19at 10:18; Start 08/20/19 at 10:15; Stop 08/20/19 at 12:14; Status DC Furosemide (Lasix) 20 mg 1X ONCE IVP Last administered on 08/20/19at 10:58; Start 08/20/19 at 10:45; Stop 08/20/19 at 10:51; Status DC Lorazepam (Ativan Inj) 0.5 mg PRN Q4HRS PRN IVP ANXIETY / AGITATION,2nd choice; Start 08/20/19 at 10:45 Haloperidol Lactate (Haldol Inj) 3 mg PRN Q2HR PRN IVP AGITATION, 1st choice Last administered on 08/20/19at 10:58; Start 08/20/19 at 10:45 Amino Acids/ Glycerin/ Electrolytes 1,000 ml @ 80 mls/hr [id number] IV Last administered on 08/22/19at 03:30; Start 08/20/19 at 10:45 Famotidine (Pepcid) 20 mg BID PO ; Start 08/22/19 at 09:00 Active Scripts Active Reported Wixela 250-50 Inhub (Fluticasone Propion/Salmeterol) 1 Each Blst.w.dev 1 Each IH BID Metronidazole 70 Gm Gel.w.appl 1 Appful VG QHS Phentermine Hcl 37.5 Mg Capsule 1 Cap PO DAILYWBKFT Ortho Tri-Cyclen (Norgestimate-Ethinyl Estradiol) 1 Each Tablet 1 Each PO DAILY Vitals/I & O Vital Sign - Last 24 Hours 08/21/19 08/21/19 08/21/19 08/21/19 08:55 10:00 11:58 12:00 Temp 99.2 99.2 Pulse 82 54 Resp 32 30 B/P (MAP) 150/99 (116) 152/89 (110) Pulse Ox 98 96 95 100 O2 Delivery Nasal Cannula Nasal Cannula Nasal Cannula Nasal Cannula O2 Flow Rate 4.0 4.0 4.0 4.0 08/21/19 08/21/19 08/21/19 08/21/19 12:00 14:00 15:00 16:21 Temp 98.5 98.5 Pulse 64 76 Resp 28 32 B/P (MAP) 155/91 (112) 136/69 (91) Pulse Ox 95 94 95 O2 Delivery Nasal Cannula Nasal Cannula Nasal Cannula Nasal Cannula O2 Flow Rate 4.0 4.0 4.0 4.0 08/21/19 08/21/19 08/21/19 08/21/19 17:00 19:59 20:00 20:05 Temp 98.4 98.8 98.4 98.8 Pulse 50 52 Resp 32 30 B/P (MAP) 138/67 (90) 152/72 (98) Pulse Ox 98 100 95 O2 Delivery Nasal Cannula Nasal Cannula BiPAP/CPAP O2 Flow Rate 4.0 4.0 4.0 4.0 08/21/19 08/21/19 08/22/19 08/22/19 20:06 23:21 04:05 08:00 Temp 98.6 98.3 98.5 98.6 98.3 98.5 Pulse 58 54 68 Resp 28 26 26 B/P (MAP) 142/76 (98) 133/67 (89) 147/78 (101) Pulse Ox 97 99 99 96 O2 Delivery BiPAP/CPAP Nasal Cannula Nasal Cannula Nasal Cannula O2 Flow Rate 4.0 4.0 4.0 08/22/19 08:15 Pulse Ox 95 O2 Delivery Nasal Cannula O2 Flow Rate 4.0 Intake and Output 0 08/21/19 08/21/19 08/22/19 15:00 23:00 07:00 Intake Total 400 ml 1218 ml 200 ml Output Total 500 ml 700 ml Balance -100 ml 518 ml 200 ml GENA ARTHUR MD Aug 22, 2019 08:55
[2019-08-22] MEDS: OSELTAMIVIR 75 MG CAPSULE PO SCH ×4 (09:00→20:34)
[2019-08-22] MEDS: ELECTROLYTE (ICU) PROTOCOL. MC SCH (09:00)
[2019-08-22] MEDS: AZITHROMYCIN 500 MG in IV NORMAL SALINE 250ML 250 ML IV SCH (09:27)
[2019-08-22] MEDS: cefTRIAXone IV Push 2 GM VIAL. IVP SCH (09:28)
[2019-08-22] MEDS: FAMOTIDINE 20 MG TABLET. PO SCH ×2 (09:28→20:34)
--- NOTE | 2019-08-22 10:04 | PDOC ---
Infectious Disease Note Subjective Subjective Transferred to CV unit c/o some mild chest discomfort with cough/deep breaths Off supplemental O2 No fevers last 48 hours + diarrhea Denies N/V ROS ROS per HPI Vital Sign Vital Signs Vital Signs Date Time Temp Pulse Resp B/P (MAP) Pulse Ox O2 Delivery O2 Flow Rate FiO2 08/22/19 08:15 95 Nasal Cannula 4.0 08/22/19 08:00 98.5 68 26 147/78 (101) 98.5 Physical Exam PHYSICAL EXAM GENERAL: Propped up in bed, alert in NAD HEENT: Pupils equal, oral cavity clear NECK: Supple, no JVP, no lymphadenopathy. LUNGS: Diminished aeration and soft wheezes HEART: S1, S2 regular. No gallop or murmur. ABDOMEN: Soft, nontender EXTREMITIES: No edema, cyanosis. SKIN: warm to touch, no rash. Multiple tattoos NEUROLOGIC: Alert, answering questions appropriately Labs Micro 08/17. BLOOD CULTURE Preliminary NO GROWTH AFTER 4 DAYS 08/18. SPUTUM CULT RES 1 Final No growth in 56 - 72 hours. Objective Assessment Bilateral pulmonary infiltrate, primary influenza pneumonia is a possibility. Aspiration pneumonia also is a possibility. Pt also apparently doing vaping. Sputum cx neg Suspected drug overdose. Respiratory failure. Lactic acidosis. Leukocytosis - improved Fever - better Plan Plan of Care Continue Tamiflu, the influenza screen is unreliable test Continue Rocephin d/c azithromycin Cooper-cultures neg to date Supportive care D/w nursing Attending Co-Sign The patient was seen and interviewed as well as examined at the bedside. The chart was reviewed. The case was discussed. Agree with the plan of care. CHRISTINA PERES APRN Aug 22, 2019 10:04 MICHAELA CHENG MD Aug 22, 2019 11:01
--- NOTE | 2019-08-22 10:48 | PDOC ---
PULMONARY PROGRESS NOTES Subjective extubated 08/19 feels better Vitals Vital Signs Date Time Temp Pulse Resp B/P (MAP) Pulse Ox O2 Delivery O2 Flow Rate FiO2 08/22/19 08:15 95 Nasal Cannula 4.0 08/22/19 08:00 98.5 68 26 147/78 (101) 98.5 General: Alert, No acute distress Lungs: Other (rhonchi) Cardiovascular: S1 Abdomen: Soft Neuro Exam: Alert Extremities: No Edema Skin: Warm Labs Laboratory Tests Test 08/20/19 12:55 08/21/19 07:00 Glucose (Fingerstick) 93 mg/dL (70-99) White Blood Count 9.8 x10^3/uL (4.0-11.0) Red Blood Count 3.31 x10^6/uL (3.50-5.40) Hemoglobin 9.6 g/dL (12.0-15.5) Hematocrit 27.5 % (36.0-47.0) Mean Corpuscular Volume 83 fL (79-100) Mean Corpuscular Hemoglobin 29 pg (25-35) Mean Corpuscular Hemoglobin Concent 35 g/dL (31-37) Red Cell Distribution Width 13.6 % (11.5-14.5) Platelet Count 276 x10^3/uL (140-400) Neutrophils (%) (Auto) 65 % (31-73) Lymphocytes (%) (Auto) 27 % (24-48) Monocytes (%) (Auto) 7 % (0-9) Eosinophils (%) (Auto) 1 % (0-3) Basophils (%) (Auto) 1 % (0-3) Neutrophils # (Auto) 6.3 x10^3/uL (1.8-7.7) Lymphocytes # (Auto) 2.6 x10^3/uL (1.0-4.8) Monocytes # (Auto) 0.7 x10^3/uL (0.0-1.1) Eosinophils # (Auto) 0.1 x10^3/uL (0.0-0.7) Basophils # (Auto) 0.1 x10^3/uL (0.0-0.2) Sodium Level 141 mmol/L (136-145) Potassium Level 3.6 mmol/L (3.5-5.1) Chloride Level 106 mmol/L (98-107) Carbon Dioxide Level 28 mmol/L (21-32) Anion Gap 7 (6-14) Blood Urea Nitrogen 16 mg/dL (7-20) Creatinine 0.7 mg/dL (0.6-1.0) Estimated GFR (Cockcroft-Gault) 103.7 BUN/Creatinine Ratio 23 (6-20) Glucose Level 112 mg/dL (70-99) Calcium Level 8.5 mg/dL (8.5-10.1) Magnesium Level 1.8 mg/dL (1.8-2.4) Total Bilirubin 0.3 mg/dL (0.2-1.0) Aspartate Amino Transf (AST/SGOT) 22 U/L (15-37) Alanine Aminotransferase (ALT/SGPT) 32 U/L (14-59) Alkaline Phosphatase 67 U/L (46-116) Total Protein 6.4 g/dL (6.4-8.2) Albumin 2.5 g/dL (3.4-5.0) Albumin/Globulin Ratio 0.6 (1.0-1.7) Medications Active Scripts Medications Dose Route/Sig Max Daily Dose Days Date Category Wixela 250-50 Inhub (Fluticasone Propion/Salmeterol) 1 Each Blst.w.dev 1 Each IH BID 08/18/19 Reported Metronidazole 70 Gm Gel.w.appl 1 Appful VG QHS 08/18/19 Reported Phentermine Hcl 37.5 Mg Capsule 1 Cap PO DAILYWBKFT 08/18/19 Reported Ortho Tri-Cyclen (Norgestimate-Ethinyl Estradiol) 1 Each Tablet 1 Each PO DAILY 07/14/19 Reported Comments cxr 08/21 INCREASE INFILTRATES since 08/19 Impression . 1. Acute hypoxic respiratory failure secondary to multifactorial etiologies and likely secondary to combination of metabolic and toxic encephalopathy from unknown drug overdose and also suspected acute lung injury with diffuse ground glass infiltrates. 2. Abnormal chest x-ray with diffuse ground glass infiltrates without any pleural effusion. The findings highly favoring acute lung injury. She has history of vaping and that could be one etiology. She also recently crushed Percocet tablet and then snorted it and that could be another source of her acute lung injury. 3. Underlying tobacco use. 4. Fever, present on admission. Influenza screen negative. Procalcitonin markedly elevated. She is currently being covered for pneumonia as well. 5. Underlying obesity. 6. Toxicology screen negative. Plan . 1. extubated 08/19. prn BIPAP 2. Follow chest x-ray as needed 3. Broad-spectrum antibiotic per ID. 4. echocardiogram reviewed. 5. DVT prophylaxis. 6. oral nutrition 7. Bronchodilators. 8. Tamiflu 9. Discussed with family and discussed with SARAH HART MD Aug 22, 2019 10:47
[2019-08-22 11:00] VITALS: BP 149/83
[2019-08-22 13:42] LABS: BASO # 0.1 x10^3/uL (0.0-0.2); BASO % 1 % (0-3); EOS # 0.1 x10^3/uL (0.0-0.7); EOS % 1 % (0-3); HEMATOCRIT 32.9 % (36.0-47.0); HEMOGLOBIN 11.2 g/dL (12.0-15.5); LYMPH # 2.3 x10^3/uL (1.0-4.8); LYMPH % 24 % (24-48); MEAN CORPUSCULAR HEMOGLOBIN 28 pg (25-35); MEAN CORPUSCULAR HGB CONC 34 g/dL (31-37); MEAN CORPUSCULAR VOLUME 83 fL (79-100); MONO # 0.7 x10^3/uL (0.0-1.1); MONO % 7 % (0-9); NEUT # 6.4 x10^3/uL (1.8-7.7); NEUT % 67 % (31-73); PLATELET COUNT 404 x10^3/uL (140-400); RED BLOOD COUNT 3.95 x10^6/uL (3.50-5.40); RED CELL DISTRIBUTION WIDTH 13.3 % (11.5-14.5); WHITE BLOOD COUNT 9.6 x10^3/uL (4.0-11.0)
[2019-08-22 14:49] LABS: % BANDS 3 % (0-9); % BASOS 2 % (0-3); % EOS 2 % (0-5); % LYMPHS 29 % (24-48); % MONOS 3 % (0-10); % SEGS 61 % (35-66)
[2019-08-22 14:50] LABS: PLT ESTIMATE ADEQUATE (ADEQUATE)
[2019-08-22 16:00] VITALS: BP 123/71
[2019-08-22 19:50] VITALS: BP 128/72
--- NOTE | 2019-08-22 22:54 | NUR ---
Pt transferred to room 649 at this time via wheelchair. Pt transferred with belongings, room checked after she vacated the room, no more belongings found. Pt notified family of her transfer to new room.
[2019-08-22 23:00] VITALS: BP 138/77
[2019-08-23 03:00] VITALS: BP 117/66
[2019-08-23] MEDS: HEPARIN for SUB-Q USE 5,000 UNIT/ML VIAL. SQ SCH (06:10)
[2019-08-23] MEDS: IPRATRPIUM/ALBUTEROL 0.5/2.5MG 3 ML NEBU. NEB SCH ×3 (06:56→15:05)
[2019-08-23 08:00] VITALS: BP 139/86
[2019-08-23] MEDS ORDERED: ALBU2.5V8 NEB (08:42)
[2019-08-23] MEDS: ELECTROLYTE (ICU) PROTOCOL. MC SCH (09:00)
[2019-08-23] MEDS: cefTRIAXone IV Push 2 GM VIAL. IVP SCH (09:20)
[2019-08-23] MEDS: FAMOTIDINE 20 MG TABLET. PO SCH (09:20)
--- NOTE | 2019-08-23 10:37 | PDOC ---
PULMONARY PROGRESS NOTES Subjective extubated 08/19 feels better, remains on room air, denies SOA or increased cough. Vitals Vital Signs Date Time Temp Pulse Resp B/P (MAP) Pulse Ox O2 Delivery O2 Flow Rate FiO2 08/23/19 08:00 98.3 66 16 139/86 (103) 93 Room Air 98.3 08/22/19 20:00 4.0 ROS: No Nausea, No Chest Pain, No Abdominal Pain, No Increase Cough General: Alert, No acute distress Lungs: Clear Cardiovascular: S1 Abdomen: Soft Neuro Exam: Alert Extremities: No Edema Skin: Warm, Dry Labs Laboratory Tests Test 08/22/19 13:15 White Blood Count 9.6 x10^3/uL (4.0-11.0) Red Blood Count 3.95 x10^6/uL (3.50-5.40) Hemoglobin 11.2 g/dL (12.0-15.5) Hematocrit 32.9 % (36.0-47.0) Mean Corpuscular Volume 83 fL (79-100) Mean Corpuscular Hemoglobin 28 pg (25-35) Mean Corpuscular Hemoglobin Concent 34 g/dL (31-37) Red Cell Distribution Width 13.3 % (11.5-14.5) Platelet Count 404 x10^3/uL (140-400) Neutrophils (%) (Auto) 67 % (31-73) Lymphocytes (%) (Auto) 24 % (24-48) Monocytes (%) (Auto) 7 % (0-9) Eosinophils (%) (Auto) 1 % (0-3) Basophils (%) (Auto) 1 % (0-3) Neutrophils # (Auto) 6.4 x10^3/uL (1.8-7.7) Lymphocytes # (Auto) 2.3 x10^3/uL (1.0-4.8) Monocytes # (Auto) 0.7 x10^3/uL (0.0-1.1) Eosinophils # (Auto) 0.1 x10^3/uL (0.0-0.7) Basophils # (Auto) 0.1 x10^3/uL (0.0-0.2) Segmented Neutrophils % 61 % (35-66) Band Neutrophils % 3 % (0-9) Lymphocytes % 29 % (24-48) Monocytes % 3 % (0-10) Eosinophils % 2 % (0-5) Basophils % 2 % (0-3) Platelet Estimate Adequate (ADEQUATE) Laboratory Tests Test 08/22/19 13:15 White Blood Count 9.6 x10^3/uL (4.0-11.0) Red Blood Count 3.95 x10^6/uL (3.50-5.40) Hemoglobin 11.2 g/dL (12.0-15.5) Hematocrit 32.9 % (36.0-47.0) Mean Corpuscular Volume 83 fL (79-100) Mean Corpuscular Hemoglobin 28 pg (25-35) Mean Corpuscular Hemoglobin Concent 34 g/dL (31-37) Red Cell Distribution Width 13.3 % (11.5-14.5) Platelet Count 404 x10^3/uL (140-400) Neutrophils (%) (Auto) 67 % (31-73) Lymphocytes (%) (Auto) 24 % (24-48) Monocytes (%) (Auto) 7 % (0-9) Eosinophils (%) (Auto) 1 % (0-3) Basophils (%) (Auto) 1 % (0-3) Neutrophils # (Auto) 6.4 x10^3/uL (1.8-7.7) Lymphocytes # (Auto) 2.3 x10^3/uL (1.0-4.8) Monocytes # (Auto) 0.7 x10^3/uL (0.0-1.1) Eosinophils # (Auto) 0.1 x10^3/uL (0.0-0.7) Basophils # (Auto) 0.1 x10^3/uL (0.0-0.2) Segmented Neutrophils % 61 % (35-66) Band Neutrophils % 3 % (0-9) Lymphocytes % 29 % (24-48) Monocytes % 3 % (0-10) Eosinophils % 2 % (0-5) Basophils % 2 % (0-3) Platelet Estimate Adequate (ADEQUATE) Medications Active Scripts Medications Dose Route/Sig Max Daily Dose Days Date Category Wixela 250-50 Inhub (Fluticasone Propion/Salmeterol) 1 Each Blst.w.dev 1 Each IH BID 08/18/19 Reported Metronidazole 70 Gm Gel.w.appl 1 Appful VG QHS 08/18/19 Reported Phentermine Hcl 37.5 Mg Capsule 1 Cap PO DAILYWBKFT 08/18/19 Reported Ortho Tri-Cyclen (Norgestimate-Ethinyl Estradiol) 1 Each Tablet 1 Each PO DAILY 07/14/19 Reported Impression . 1. Acute hypoxic respiratory failure secondary to multifactorial etiologies and likely secondary to combination of metabolic and toxic encephalopathy from unknown drug overdose and also suspected acute lung injury with diffuse ground glass infiltrates. 2. Abnormal chest x-ray with diffuse ground glass infiltrates without any pleural effusion. The findings highly favoring acute lung injury. She has history of vaping and that could be one etiology. She also recently crushed Percocet tablet and then snorted it and that could be another source of her acute lung injury. 3. Underlying tobacco use. 4. Fever, present on admission. Influenza screen negative. Procalcitonin markedly elevated. She is currently being covered for pneumonia as well. 5. Underlying obesity. 6. Toxicology screen negative. Plan . 1. extubated 08/19. Supplemental oxygen PRN 2. Follow chest x-ray as needed 3. Broad-spectrum antibiotic per ID currently on Rocephin 4. echocardiogram reviewed The Ejection Fraction is 55-60%. 5. Discussed with family and discussed with RN 6. IS at bedside 7. stable for dc home pulmonary grace D/W SARAH HART MD Aug 23, 2019 10:37
[2019-08-23 11:00] VITALS: BP 132/77
--- NOTE | 2019-08-23 11:04 | PDOC ---
Infectious Disease Note Subjective: Subjective Pt c/o some mild chest discomfort with cough/deep breaths Off supplemental O2 No fevers Denies N/V/D Vital Signs: Vital Signs Vital Signs Date Time Temp Pulse Resp B/P (MAP) Pulse Ox O2 Delivery O2 Flow Rate FiO2 08/23/19 11:02 Room Air 08/23/19 08:00 98.3 66 16 139/86 (103) 93 98.3 08/22/19 20:00 4.0 Physical Exam: PHYSICAL EXAM GENERAL: Propped up in bed, alert in NAD HEENT: Pupils equal, oral cavity clear NECK: Supple, no JVP, no lymphadenopathy. LUNGS: Diminished aeration and soft wheezes HEART: S1, S2 regular. No gallop or murmur. ABDOMEN: Soft, nontender EXTREMITIES: No edema, cyanosis. SKIN: warm to touch, no rash. Multiple tattoos NEUROLOGIC: Alert, answering questions appropriately Medications: Inpatient Meds: Current Medications Medications (Trade) Dose Ordered Sig/Minerva Start Time Stop Time Status Last Admin Dose Admin Acetaminophen (Tylenol) 650 mg PRN Q6HRS PRN 08/18/19 04:30 08/23/19 08:42 DC 08/21/19 21:05 650 MG Albuterol Sulfate (Ventolin Neb Soln) 2.5 mg PRN Q4HRS PRN 08/19/19 18:30 08/22/19 04:15 2.5 MG Albuterol/ Ipratropium (Duoneb) 3 ml RTQID 08/19/19 09:00 08/23/19 11:02 3 ML Amino Acids/ Glycerin/ Electrolytes 1,000 ml @ 80 mls/hr [id number] 08/20/19 10:45 08/22/19 13:34 DC 08/22/19 03:30 80 MLS/HR Azithromycin 500 mg/Sodium Chloride 250 ml @ 250 mls/hr Q24H 08/18/19 08:00 08/22/19 10:02 DC 08/22/19 09:27 250 MLS/HR Bisacodyl (Dulcolax Supp) 10 mg PRN DAILY PRN 08/18/19 11:30 08/18/19 11:55 DC Ceftriaxone Sodium (Rocephin) 2 gm Q24H 08/18/19 09:00 08/23/19 09:20 2 GM Dextrose (Dextrose 50%-Water Syringe) 12.5 gm PRN Q15MIN PRN 08/18/19 19:00 Dextrose (Iv Dextrose 5%) 250 ml PRN Q15MIN PRN 08/18/19 19:00 Dobutamine HCl/ Dextrose 250 ml @ 0 mls/hr CONT PRN 08/18/19 12:15 08/23/19 09:27 DC Famotidine (Pepcid Vial) 20 mg BID 08/18/19 12:00 08/18/19 11:55 DC Famotidine (Pepcid) 20 mg BID 08/22/19 09:00 08/23/19 09:20 20 MG Fentanyl Citrate (Fentanyl 2ml Vial) 50 mcg PRN Q1HR PRN 08/17/19 21:45 08/21/19 09:03 DC Furosemide (Lasix) 20 mg 1X ONCE 08/20/19 10:45 08/20/19 10:51 DC 08/20/19 10:58 20 MG Haloperidol Lactate (Haldol Inj) 3 mg PRN Q2HR PRN 08/20/19 10:45 08/20/19 10:58 3 MG Heparin Sodium (Porcine) (Heparin Sodium) 5,000 unit Q12HR 08/18/19 12:00 08/18/19 11:55 DC Info (CONTRAST GIVEN -- Rx MONITORING) 1 each PRN DAILY PRN 08/18/19 15:45 08/20/19 15:44 DC Info (Icu Electrolyte Protocol) 1 ea DAILY 08/19/19 09:00 08/23/19 09:28 DC 08/20/19 09:00 1 EA Insulin Human Lispro (HumaLOG) 0-5 UNITS Q6HRS 08/19/19 12:00 08/19/19 12:34 DC Iohexol (Omnipaque 350 Mg/ml) 90 ml 1X ONCE 08/18/19 15:30 08/18/19 15:34 DC 08/18/19 15:54 90 ML Lactobacillus Rhamnosus (Culturelle) 1 cap BID 08/23/19 21:00 Lorazepam (Ativan Inj) 0.5 mg PRN Q4HRS PRN 08/20/19 10:45 Lorazepam (Ativan) 1 mg PRN Q6HRS PRN 08/17/19 22:00 Magnesium Sulfate 50 ml @ 25 mls/hr 1X ONCE 08/20/19 10:15 08/20/19 12:14 DC 08/20/19 10:18 25 MLS/HR Midazolam HCl 50 mg/Sodium Chloride 50 ml @ 0 mls/hr CONT PRN 08/17/19 21:45 08/19/19 12:34 DC 08/19/19 01:14 5 MLS/HR Norepinephrine Bitartrate 8 mg/ Dextrose 258 ml @ 0 mls/hr CONT PRN 08/18/19 12:15 08/23/19 08:42 DC Ondansetron HCl (Zofran) 4 mg PRN Q6HRS PRN 08/18/19 11:30 08/18/19 11:55 DC Oseltamivir Phosphate (Tamiflu) 75 mg BID 08/18/19 09:00 08/23/19 08:59 DC 08/22/19 20:34 75 MG Piperacillin Sod/ Tazobactam Sod 3.375 gm/Sodium Chloride 50 ml @ 100 mls/hr Q6HRS 08/18/19 00:00 08/18/19 07:32 DC 08/18/19 06:04 100 MLS/HR Prochlorperazine Edisylate (Compazine) 5 mg PRN Q6HRS PRN 08/17/19 22:00 08/22/19 04:25 5 MG Propofol 100 ml @ 0 mls/hr CONT PRN 08/17/19 21:45 08/19/19 12:34 DC Sodium Chloride 500 ml @ 1,000 mls/hr PRN Q30MIN PRN 08/18/19 12:15 08/23/19 08:42 DC Sodium Chloride (Normal Saline Flush) 3 ml QSHIFT PRN 08/18/19 11:30 Labs: Lab Laboratory Tests Test 08/22/19 13:15 White Blood Count 9.6 x10^3/uL (4.0-11.0) Red Blood Count 3.95 x10^6/uL (3.50-5.40) Hemoglobin 11.2 g/dL (12.0-15.5) Hematocrit 32.9 % (36.0-47.0) Mean Corpuscular Volume 83 fL (79-100) Mean Corpuscular Hemoglobin 28 pg (25-35) Mean Corpuscular Hemoglobin Concent 34 g/dL (31-37) Red Cell Distribution Width 13.3 % (11.5-14.5) Platelet Count 404 x10^3/uL (140-400) Neutrophils (%) (Auto) 67 % (31-73) Lymphocytes (%) (Auto) 24 % (24-48) Monocytes (%) (Auto) 7 % (0-9) Eosinophils (%) (Auto) 1 % (0-3) Basophils (%) (Auto) 1 % (0-3) Neutrophils # (Auto) 6.4 x10^3/uL (1.8-7.7) Lymphocytes # (Auto) 2.3 x10^3/uL (1.0-4.8) Monocytes # (Auto) 0.7 x10^3/uL (0.0-1.1) Eosinophils # (Auto) 0.1 x10^3/uL (0.0-0.7) Basophils # (Auto) 0.1 x10^3/uL (0.0-0.2) Segmented Neutrophils % 61 % (35-66) Band Neutrophils % 3 % (0-9) Lymphocytes % 29 % (24-48) Monocytes % 3 % (0-10) Eosinophils % 2 % (0-5) Basophils % 2 % (0-3) Platelet Estimate Adequate (ADEQUATE) Objective: Assessment: Bilateral pulmonary infiltrate, primary influenza pneumonia is a possibility. Aspiration pneumonia also is a possibility. Pt also apparently doing vaping. Sputum cx neg Suspected drug overdose. Respiratory failure. Lactic acidosis. Leukocytosis - improved Fever - better Plan: Plan of Care Pt completed tamiflu keflex for 2 days D/w nursing EDDIE CHENG MD Aug 23, 2019 11:04
[2019-08-23] MEDS ORDERED: FLUC100T7 PO (13:26)
[2019-08-23] MEDS ORDERED: CELE100C PO (13:27)
--- NOTE | 2019-08-23 13:30 | PDOC3 ---
Discharge Summary Visit Information Date of Admission: Aug 17, 2019 Date of Discharge: Aug 23, 2019 Admitting Diagnosis Comment: 1. Acute hypoxic respiratory failure secondary to multifactorial etiologies and likely secondary to combination of metabolic and toxic encephalopathy from unknown drug overdose and also suspected acute lung injury with diffuse ground glass infiltrates. 2. Abnormal chest x-ray with diffuse ground glass infiltrates without any pleural effusion. The findings highly favoring acute lung injury. She has history of vaping and that could be one etiology. She also recently crushed Percocet tablet and then snorted it and that could be another source of her acute lung injury. 3. Underlying tobacco use. 4. Fever, present on admission. Influenza screen negative. Procalcitonin markedly elevated. She is currently being covered for pneumonia as well. 5. Underlying obesity. 6. Toxicology screen negative. Brief Hospital Course Allergies Allergies Coded Allergies Type Severity Reaction Last Updated Verified No Known Drug Allergies 07/15/19 No Vital Signs Vital Signs Date Time Temp Pulse Resp B/P (MAP) Pulse Ox O2 Delivery O2 Flow Rate FiO2 08/23/19 11:02 Room Air 08/23/19 11:00 98.3 71 14 132/77 (95) 95 98.3 08/22/19 20:00 4.0 Lab Results Laboratory Tests Test 08/22/19 13:15 White Blood Count 9.6 x10^3/uL (4.0-11.0) Red Blood Count 3.95 x10^6/uL (3.50-5.40) Hemoglobin 11.2 g/dL (12.0-15.5) Hematocrit 32.9 % (36.0-47.0) Mean Corpuscular Volume 83 fL (79-100) Mean Corpuscular Hemoglobin 28 pg (25-35) Mean Corpuscular Hemoglobin Concent 34 g/dL (31-37) Red Cell Distribution Width 13.3 % (11.5-14.5) Platelet Count 404 x10^3/uL (140-400) Neutrophils (%) (Auto) 67 % (31-73) Lymphocytes (%) (Auto) 24 % (24-48) Monocytes (%) (Auto) 7 % (0-9) Eosinophils (%) (Auto) 1 % (0-3) Basophils (%) (Auto) 1 % (0-3) Neutrophils # (Auto) 6.4 x10^3/uL (1.8-7.7) Lymphocytes # (Auto) 2.3 x10^3/uL (1.0-4.8) Monocytes # (Auto) 0.7 x10^3/uL (0.0-1.1) Eosinophils # (Auto) 0.1 x10^3/uL (0.0-0.7) Basophils # (Auto) 0.1 x10^3/uL (0.0-0.2) Segmented Neutrophils % 61 % (35-66) Band Neutrophils % 3 % (0-9) Lymphocytes % 29 % (24-48) Monocytes % 3 % (0-10) Eosinophils % 2 % (0-5) Basophils % 2 % (0-3) Platelet Estimate Adequate (ADEQUATE) Brief Hospital Course Ms. Smith is a 24 old admitted confused and in respi failure, needing intubation x 2 days, co managed with ID - some ground glass opacities on chest imaging, KEflex x 2 more dyas per ID, Pt does smoke, Advised,. HOme to day with mom, po kefflex x 2 days, requested diflucan as gets yeasty vag when on po abx - i wrote rx, Advised on narcs, complained of MSK chest pain, celebrex 100 BID prn on dc Pt seen and examined COnsults: ID, pulmo Proc; VENt x 2 days, no swallow issues Discharge Information Condition at Discharge: Improved, Stable Disposition/Orders: D/C to Home Scheduled Celecoxib (Celebrex) 100 Mg Capsule, 1 CAP PO BID for MSK pain, #15 Ref 3 Prescribed by: RAHAT DENSON on 08/23/19 1327 Fluconazole (Diflucan) 100 Mg Tablet, 1 TAB PO DAILY for vag yeast for 7 Days, #7 Ref 0 Prescribed by: RAHAT DENSON on 08/23/19 1326 Fluticasone Propion/Salmeterol (Wixela 250-50 Inhub) 1 Each Blst.w.dev, 1 EACH IH BID for asthma, (Reported) Entered as Reported by: BALDO TANNER on 08/18/191846 Last Taken: UNKNOWN on Unknown Date & Time Last Action: New Order on 08/18/191846 by BALDO TANNER Metronidazole (Metronidazole) 70 Gm Gel.w.appl, 1 APPFUL VG QHS for vaginitis, #70 (Reported) Entered as Reported by: BALDO TANNER on 08/18/191836 Last Taken: UNKNOWN on Unknown Date & Time Last Action: New Order on 08/18/191836 by BALDO TANNER Norgestimate-Ethinyl Estradiol (Ortho Tri-Cyclen) 1 Each Tablet, 1 EACH PO DAILY for CONTROL , (Reported) Entered as Reported by: YENI MEJIA on 07/14/191349 Phentermine Hcl (Phentermine Hcl) 37.5 Mg Capsule, 1 CAP PO DAILYWBKFT for wgt loss, #30 Ref 2 (Reported) Entered as Reported by: BALDO TANNER on 08/18/191836 Last Taken: UNKNOWN on Unknown Date & Time Last Action: New Order on 08/18/191836 by BALDO TANNER Scheduled PRN Albuterol Sulfate (Proair Hfa) 8.5 Gm Hfa.aer.ad, 2.5 MG NEB PRN Q4HRS PRN for SHORTNESS OF BREATH for 30 Days Prescribed by: RAHAT DENSON on 08/23/19 0842 Discontinued Medications Albuterol Sulfate (Proair Hfa Inhaler) 8.5 Gm Hfa.aer.ad, 1 PUFF INH PRN Q6HRS PRN for SHORTNESS OF BREATH, Ref 0 (Reported) Entered as Reported by: YENI MEJIA on 07/14/191349 Last Action: Discontinued on 08/18/191836 by BALDO TANNER Cetirizine Hcl (Cetirizine Hcl) 10 Mg Tablet, 10 MG PO DAILY for ALLERGIES , (Reported) Entered as Reported by: YENI MEJIA on 07/14/191349 Last Action: Discontinued on 08/18/191836 by BALDO TANNER Oxycodone/Apap 5-325 (Percocet 5-325 Mg Tablet ) 1 Each Tablet, 1-2 TAB PO PRN Q4HRS PRN for PAIN, #30 Ref 0 (Reported) Entered as Reported by: TARA GAMA, RN on 07/15/191319 Last Action: Discontinued on 08/18/191836 by RAHAT DUBON MD Aug 23, 2019 13:29
[2019-08-23] MEDS ORDERED: CEPH-264 PO (13:31)
[2019-08-23 15:00] VITALS: BP 128/86
--- NOTE | 2019-08-23 15:34 | NUR ---
Discharge Note: COOPER HARRISON [address] Discharge instructions and discharge home medications reviewed with Patient and a copy given. All questions have been answered and understanding verbalized. The following instructions and handouts were given: follow up instructions. Discontinued lines and drains: 20 Guage catheter tip intact. The patient tolerated well. Patient discharged to home via personal vehicle with self care.
--- NOTE | 2019-08-23 15:56 | PDOC ---
PROGRESS NOTES Assessment Assessment IMPRESSION: Altered mental status. Metabolic encephalopathy. Respiratory distress/failure. Pulmonary infiltrate. Obesity. RECOMMENDATIONS/PLAN: HCT and EEG are WNL. Treat medical diseases per medical team. FU with PCP. SUBJECTIVE: Awake. OBJECTIVE: No sensory or motor deficits. Past Medical History Pulmonary: Asthma, Pneumonia GI: GERD Hepatobiliary: Other (fatty liver) Infectious disease: Other (trichomonas) Renal/: UTI Past Surgical History Cholecystectomy, , Tonsillectomy, Other (wisdom teeth) Family History No pertinent hx Social History Single, no alcohol, tobacco, street drugs Allergies No Known Drug Allergies (Unverified , 07/15/19) ROS Negative for fever, chills, weight loss, shortness of breath, chest pain, indigestion, hematochezia, melena, and dysuria. Full 14-point review of systems is negative. MEDICATIONS: Refer to MAR PHYSICAL EXAMINATION: General appearance in no acute distress. HEENT: Normocephalic and nontraumatic. Eyes, nose, ears, and throat are unremarkable. Neck is supple. No lymphadenopathy. No Crepitus. Cardiovascular: S1, S2, regular rate and rhythm. Pulmonary: Clear to auscultation bilaterally. Abdomen: Bowel sounds are positive. Abdomen is soft, nontender, and nondistended. Extremities: No rash, lesions, or edema. No restriction of range of motion NEUROLOGICAL EXAMINATION: Alert. Oriented to time, place and person. PERRL. EOMI. CN: no focal findings. Muscle tone: within normal. Muscle strength: 5 DTR: 2 Plantar reflex: Flexor response bilaterally Gait: not examined in bed. Sensory exam: no abnormal findings. No cerebellar signs elicited. F-T-N test accurate. Objective Objective Vital Signs Date Time Temp Pulse Resp B/P (MAP) Pulse Ox O2 Delivery O2 Flow Rate FiO2 08/23/19 15:05 Room Air 08/23/19 15:00 98.6 83 16 128/86 (100) 95 98.6 08/22/19 20:00 4.0 Intake and Output 08/23/19 07:00 Intake Total 200 ml Output Total 0 ml Balance 200 ml Intake Oral 200 ml Output Urine Total 0 ml # Voids 2 Vitals Signs Vitals VS - Last 72 Hours, by Label Date Time Temp Pulse Resp B/P (MAP) Pulse Ox O2 Delivery O2 Flow Rate FiO2 08/23/19 15:05 Room Air 08/23/19 15:00 98.6 83 16 128/86 (100) 95 Room Air 98.6 08/23/19 11:02 Room Air 08/23/19 11:00 98.3 71 14 132/77 (95) 95 Room Air 98.3 08/23/19 08:00 98.3 66 16 139/86 (103) 93 Room Air 98.3 08/23/19 08:00 Room Air 08/23/19 06:57 96 Room Air 08/23/19 03:00 98.5 64 17 117/66 (83) 93 Room Air 98.5 08/22/19 23:00 99.5 62 17 138/77 (97) 93 Room Air 99.5 08/22/19 22:55 Room Air 08/22/19 20:40 97 Room Air 08/22/19 20:00 4.0 08/22/19 20:00 Non-Rebreather 08/22/19 19:50 98.2 59 18 128/72 (90) 96 Room Air 98.2 08/22/19 16:00 98.5 74 20 123/71 (88) Room Air 98.5 08/22/19 15:59 97 Room Air 08/22/19 13:27 94 Room Air 08/22/19 11:00 98.6 65 26 149/83 (105) 94 Nasal Cannula 4.0 98.6 08/22/19 08:15 95 Nasal Cannula 4.0 08/22/19 08:03 4.0 08/22/19 08:00 98.5 68 26 147/78 (101) 96 Nasal Cannula 4.0 98.5 Laboratory Laboratory Microbiology 08/18/19 - Final, Complete 08/18/19 - Final, Complete 08/18/19 - Final, Complete 08/18/19 Gram Stain Evaluation - Final, Complete 08/18/19 Sputum Culture - Final, Complete 08/18/19 Sputum Result 1 - Final, Complete 08/18/19 Urine Culture - Final, Complete 08/18/19 Urine Culture Result 1 (BERENICE) - Final, Complete 08/17/19 Blood Culture - Final, Complete NO GROWTH AFTER 5 DAYS Medication Medications Current Medications Lactobacillus Rhamnosus (Culturelle) 1 cap BID PO ; Start 08/23/19 at 21:00 Comment Review of Relevant I have reviewed the following items jimmy (where applicable) has been applied. BAKARI HOFFMAN MD Aug 23, 2019 15:56
[2019-08-23] MEDS ORDERED: LACTOBACILLUS RHAMNOSUS GG 1 CAPSULE. PO SCH (21:00)
== END 2019-08-23 16:21 | disposition home or self-care (01) | DRG 917 ==
LOC: 1 WEST ICU 21:23 → 2 SOUTH 08-21 17:32 → 6 SOUTH 08-22 22:53
PROVIDERS: ADMIT Family Medicine; ATTEND Family Medicine
PROC: 5A1945Z Respiratory Ventilation, 24-96 Consecutive Hours (ICD-10-PCS; principal; 2019-08-17)
PROC: 5A09357 Assistance with Respiratory Ventilation, Less than 24 Consecutive Hours, Continuous Positive Airway Pressure (ICD-10-PCS; 2019-08-19)
PROC: 5A09357 Assistance with Respiratory Ventilation, Less than 24 Consecutive Hours, Continuous Positive Airway Pressure (ICD-10-PCS; 2019-08-20)
PROC: 5A09357 Assistance with Respiratory Ventilation, Less than 24 Consecutive Hours, Continuous Positive Airway Pressure (ICD-10-PCS; 2019-08-21)
PROC: 5A09357 Assistance with Respiratory Ventilation, Less than 24 Consecutive Hours, Continuous Positive Airway Pressure (ICD-10-PCS; 2019-08-22)
DX: T50.991A Poisoning by other drugs, medicaments and biological substances, accidental (unintentional), initial encounter (principal); A41.9 Sepsis, unspecified organism; J96.01 Acute respiratory failure with hypoxia; G92 Toxic encephalopathy; J69.0 Pneumonitis due to inhalation of food and vomit; J90 Pleural effusion, not elsewhere classified; N17.9 Acute kidney failure, unspecified; N39.0 Urinary tract infection, site not specified; A59.9 Trichomoniasis, unspecified; E66.01 Morbid (severe) obesity due to excess calories; F17.210 Nicotine dependence, cigarettes, uncomplicated; F17.290 Nicotine dependence, other tobacco product, uncomplicated; F20.9 Schizophrenia, unspecified; F31.9 Bipolar disorder, unspecified; I51.7 Cardiomegaly; J45.909 Unspecified asthma, uncomplicated; Z68.33 Body mass index [BMI] 33.0-33.9, adult; Z81.8 Family history of other mental and behavioral disorders; Z82.49 Family history of ischemic heart disease and other diseases of the circulatory system; Z87.01 Personal history of pneumonia (recurrent); Z90.49 Acquired absence of other specified parts of digestive tract; K21.9 Gastro-esophageal reflux disease without esophagitis; Y92.89 Other specified places as the place of occurrence of the external cause
CPT/HCPCS: 36415; 36600; 70450; 71045; 71275; 74018; 80048; 80053; 80307; 80329; 81001; 82805; 82962; 83605; 83735; 84100; 84145; 84439; 84443; 84484; 85007; 85025; 85027; 85379; 85384; 85610; 85730; 87040; 87070; 87086; 87205; 87804; 93005; 93306; 94003; 94640; 94660; 94760; 95816; J0456; J0696; J0780; J1630; J1644; J1815; J1940; J2060; J2250; J2405; J2543; J3010; J3475; J3490; J7030; J7050; J7613; J7620; Q9967; G0378; G0480

== ENCOUNTER 2020-03-07 16:52 | Emergency (ER) | payer OTHER ==
[~2020-03-07 16:52] MED LIST changes: +ALBU2.5V8 NEB; +CELE100C PO; +CEPH-264 PO; +FLUC100T7 PO; +FLUT1BLS9 IH; +METR70GE2 VG; +PHEN37.53 PO
== END 2020-03-07 20:42 | disposition left against medical advice (07) ==
LOC: ER 16:52
DX: O26.892 Other specified pregnancy related conditions, second trimester (principal); R06.02 Shortness of breath; Z53.21 Procedure and treatment not carried out due to patient leaving prior to being seen by health care provider

== ENCOUNTER 2020-05-21 21:08 | Observation (INO) | payer OTHER ==
[2020-05-21] MEDS ORDERED: IV RINGERS,LACTATED 1000ML 1,000 ML IV SCH (21:09)
[2020-05-21] MEDS ORDERED: ACETAMINOPHEN 500 MG TABLET PO PRN (21:15)
[2020-05-21 21:38] LABS: BILIRUBIN,URINE NEGATIVE (NEG); CLARITY,URINE CLOUDY; COLOR,URINE YELLOW; NITRITE,URINE NEGATIVE (NEG); PROTEIN,URINE 30 mg/dL (NEG-TRACE); UROBILINOGEN,URINE 0.2 mg/dL (0.2 mg/dL)
[2020-05-21 21:44] LABS: BARBITURATES NEG (NEG); BENZODIAZEPINES NEG (NEG); CANNABINOIDS NEG (NEG); COCAINE NEG (NEG); METHADONE NEG (NEG); OPIATES NEG (NEG); PHENCYCLIDINE NEG (NEG)
[2020-05-21 21:45] LABS: AMPHETAMINE/METHAMPHETAMINE NEG (NEG); BACTERIA,URINE MANY /HPF (0-FEW)
[2020-05-21 21:46] LABS: RBC,URINE OCC /HPF (0-2)
[2020-05-21 21:47] LABS: YEAST,URINE PRESENT /HPF
[2020-05-21] MEDS: IV RINGERS,LACTATED 1000ML 1,000 ML IV SCH ×2 (22:21→23:13)
== END 2020-05-22 00:22 | disposition home or self-care (01) ==
LOC: 3 SO LND 21:08
PROVIDERS: ADMIT Obstetrics & Gynecology; ATTEND Obstetrics & Gynecology
DX: O26.893 Other specified pregnancy related conditions, third trimester (principal); R19.7 Diarrhea, unspecified; O62.9 Abnormality of forces of labor, unspecified; Z3A.28 28 weeks gestation of pregnancy; Z79.899 Other long term (current) drug therapy
CPT/HCPCS: 80307; 81001; 87086; 96360; 96361; G0378; G0379; J7120; 87077

== ENCOUNTER 2020-07-14 11:42 | Observation (INO) | payer OTHER ==
[2020-07-14] MEDS ORDERED: IV RINGERS,LACTATED 1000ML 1,000 ML IV SCH (12:15)
[2020-07-14 12:45] LABS: AMNIO PT NEGATIVE
[2020-07-14 12:47] LABS: BILIRUBIN,URINE NEGATIVE (NEG); CLARITY,URINE CLEAR; COLOR,URINE YELLOW; NITRITE,URINE NEGATIVE (NEG); PH,URINE 6.5 (<5.0-8.0); PROTEIN,URINE NEGATIVE (NEG-TRACE); UROBILINOGEN,URINE 0.2 mg/dL (0.2 mg/dL)
[2020-07-14 13:07] LABS: BACTERIA,URINE MODERATE /HPF (0-FEW)
[2020-07-14 13:08] LABS: RBC,URINE OCC /HPF (0-2)
== END 2020-07-14 15:03 | disposition home or self-care (01) ==
LOC: 3 SO LND 11:42
PROVIDERS: ADMIT Obstetrics & Gynecology; ATTEND Obstetrics & Gynecology
DX: O36.8130 Decreased fetal movements, third trimester, not applicable or unspecified (principal); O26.893 Other specified pregnancy related conditions, third trimester; O42.913 Preterm premature rupture of membranes, unspecified as to length of time between rupture and onset of labor, third trimester; Z3A.36 36 weeks gestation of pregnancy
CPT/HCPCS: 36415; 81001; 84112; 87086; G0378; G0379

== ENCOUNTER 2020-07-20 20:45 | Observation (INO) | payer OTHER ==
[2020-07-20] MEDS ORDERED: ACETAMINOPHEN 325 MG TABLET. PO PRN (21:15)
[2020-07-20] MEDS ORDERED: IV RINGERS,LACTATED 1000ML 1,000 ML IV PRN (21:15)
[2020-07-20 21:19] LABS: BILIRUBIN,URINE NEGATIVE (NEG); CLARITY,URINE CLEAR; COLOR,URINE AMBER; NITRITE,URINE NEGATIVE (NEG); PH,URINE 6.5 (<5.0-8.0); PROTEIN,URINE 30 mg/dL (NEG-TRACE)
[2020-07-20 21:26] LABS: BACTERIA,URINE MODERATE /HPF (0-FEW); RBC,URINE 20-40 /HPF (0-2)
[2020-07-20 21:28] LABS: BARBITURATES NEG (NEG); BENZODIAZEPINES NEG (NEG); CANNABINOIDS NEG (NEG); COCAINE NEG (NEG); METHADONE NEG (NEG); OPIATES NEG (NEG); PHENCYCLIDINE NEG (NEG)
[2020-07-20 21:39] LABS: AMPHETAMINE/METHAMPHETAMINE NEG (NEG)
== END 2020-07-20 22:00 | disposition home or self-care (01) ==
LOC: 3 SO LND 20:45
PROVIDERS: ADMIT Obstetrics & Gynecology; ATTEND Obstetrics & Gynecology
DX: O46.93 Antepartum hemorrhage, unspecified, third trimester (principal); O36.8130 Decreased fetal movements, third trimester, not applicable or unspecified; O26.893 Other specified pregnancy related conditions, third trimester; N89.8 Other specified noninflammatory disorders of vagina; Z3A.37 37 weeks gestation of pregnancy; Z79.899 Other long term (current) drug therapy
CPT/HCPCS: 59025; 80307; 81001; 87086; G0378; G0379